=== PATIENT | female | born 1940 | race Caucasian/White ===

== ENCOUNTER 2016-09-27 14:51 | Emergency (ER) | payer MEDICARE, OTHER ==
[2016-09-27] MEDS ORDERED: Aspirin Low Dose CHEW TAB* 81 MG PO ONE (15:46)
[2016-09-27 16:24] LABS: Hematocrit 37 % (35-47); Hemoglobin 11.3 g/dl (12.0-16.0); Mean Corpuscular HGB Conc 31 g/dl (31-36); Mean Corpuscular Hemoglobin 25 pg (27-31); Mean Corpuscular Volume 80 fL (80-97); Mean Platelet Volume 10 um3 (7.4-10.4); Red Blood Count 4.59 10^6/ul (4.0-5.4); Red Cell Distribution Width 16 % (10.5-15); White Blood Count 12.5 10^3/ul (3.5-10.8)
[2016-09-27 16:33] LABS: Troponin I 0.01 ng/mL (<0.04)
[2016-09-27 16:38] LABS: BUN/Creatinine Ratio 23.8 (8-20); Calcium 9.6 mg/dL (8.6-10.3); EGFR African American 68.4 (>60); EGFR Non-African American 53.1 (>60); Globulin 3.2 g/dL (2-4); Potassium 4.8 mmol/L (3.5-5.0); Total Bilirubin 0.5 mg/dL (0.2-1.0); Total Protein 7.2 g/dL (6.4-8.9)
[2016-09-27 17:33] VITALS: BP 183/69
--- NOTE | 2016-09-27 21:32 | ED ---
Toni Archer Aidan, scribed for Robert Wiseman MD on 09/27/16 at 1711 . Complex/Multi-Sys Presentation - HPI Summary HPI Summary: 75 y/o female presents to the ED via recommendation from her PCP for an acute reading of high potassium. While in the ED, her potassium level was normal. There are no other complaints. - History Of Current Complaint Chief Complaint: EDGeneral Time Seen by Provider: 09/27/16 17:06 Hx Obtained From: Patient Onset/Duration: Sudden Onset, Lasting Minutes, Resolved Timing: Intermittent, Lasting:, Minutes Severity Currently: None Severity Initially: Moderate Location: Negative Aggravating Factor(s): unknown Alleviating Factor(s): unknown Associated Signs And Symptoms: Positive: Other - some swelling in the feet - Allergies/Home Medications Allergies/Adverse Reactions: Allergies Allergy/AdvReac Type Severity Reaction Status Date / Time No Known Allergies Allergy Verified 10/26/15 13:51 PMH/Surg Hx/FS Hx/Imm Hx Endocrine/Hematology History: Reports: Hx Diabetes Cardiovascular History: Reports: Hx Hypertension Denies: Hx Pacemaker/ICD History: Denies: Hx Renal Disease Sensory History: Reports: Hx Glaucoma Denies: Hx Hearing Aid Opthamlomology History: Reports: Hx Glaucoma Psychiatric History: Denies: Hx Panic Disorder - Surgical History Surgery Procedure, Year, and Place: bilat breasts removed d/t infections. APPENDECTOMY-TUBAL LIGATION Infectious Disease History: Denies: Traveled Outside the [place] in Last 30 Days - Family History Known Family History: Positive: Hypertension - Social History Occupation: Retired Lives: Alone Alcohol Use: None Hx Substance Use: No Substance Use Type: Reports: None Hx Tobacco Use: No Smoking Status (MU): Never Smoked Tobacco Review of Systems Constitutional: Negative Eyes: Negative ENT: Negative Cardiovascular: Negative Respiratory: Negative Gastrointestinal: Negative Genitourinary: Negative Positive: Edema - in feet bilaterally. Negative: Arthralgia, Myalgia, Decreased ROM Skin: Negative Neurological: Negative Psychological: Normal All Other Systems Reviewed And Are Negative: Yes Physical Exam Triage Information Reviewed: Yes Vital Signs On Initial Exam: Initial Vitals Temp Pulse Resp BP Pulse Ox 98.2 F 78 18 190/80 95 09/27/16 14:53 09/27/16 14:53 09/27/16 14:53 09/27/16 14:53 09/27/16 14:53 Vital Signs Reviewed: Yes Appearance: Positive: Well-Appearing, No Pain Distress Skin: Positive: Warm, Skin Color Reflects Adequate Perfusion, Dry Head/Face: Positive: Normal Head/Face Inspection Eyes: Positive: Normal ENT: Positive: Normal ENT inspection Neck: Positive: Supple, Nontender Respiratory/Lung Sounds: Positive: Clear to Auscultation, Breath Sounds Present Cardiovascular: Positive: RRR Abdomen Description: Positive: Nontender, Soft Bowel Sounds: Positive: Present Musculoskeletal: Positive: Normal Neurological: Positive: Normal Psychiatric: Positive: Affect/Mood Appropriate Diagnostics - Vital Signs Vital Signs Temp Pulse Resp BP Pulse Ox 09/27/16 16:06 97.0 F 69 16 149/90 96 09/27/16 14:53 98.2 F 78 18 190/80 95 - Laboratory Lab Results: Lab Results 09/27/16 09/27/16 09/27/16 Range/Units 16:07 16:07 16:07 WBC 12.5 H (3.5-10.8) 10^3/ul RBC 4.59 (4.0-5.4) 10^6/ul Hgb 11.3 L (12.0-16.0) g/dl Hct 37 (35-47) % MCV 80 (80-97) fL MCH 25 L (27-31) pg MCHC 31 (31-36) g/dl RDW 16 H (10.5-15) % Plt Count 255 (150-450) 10^3/ul MPV 10 (7.4-10.4) um3 Neut % (Auto) 54.5 (38-83) % Lymph % (Auto) 29.9 (25-47) % Mccreary % (Auto) 7.4 (1-9) % Eos % (Auto) 6.7 H (0-6) % Baso % (Auto) 1.5 (0-2) % Absolute Neuts (auto) 6.8 (1.5-7.7) 10^3/ul Absolute Lymphs (auto) 3.7 (1.0-4.8) 10^3/ul Absolute Monos (auto) 0.9 H (0-0.8) 10^3/ul Absolute Eos (auto) 0.8 H (0-0.6) 10^3/ul Absolute Basos (auto) 0.2 (0-0.2) 10^3/ul Absolute Nucleated RBC 0.01 10^3/ul Nucleated RBC % 0.1 Sodium 135 (133-145) mmol/L Potassium 4.8 (3.5-5.0) mmol/L Chloride 101 (101-111) mmol/L Carbon Dioxide 29 (22-32) mmol/L Anion Gap 5 (2-11) mmol/L BUN 24 (6-24) mg/dL Creatinine 1.01 H (0.51-0.95) mg/dL Est GFR ( Amer) 68.4 (>60) Est GFR (Non-Af Amer) 53.1 (>60) BUN/Creatinine Ratio 23.8 H (8-20) Glucose 218 H (70-100) mg/dL Lactic Acid 1.2 (0.5-2.0) mmol/L Calcium 9.6 (8.6-10.3) mg/dL Total Bilirubin 0.50 (0.2-1.0) mg/dL AST 11 L (13-39) U/L ALT 11 (7-52) U/L Alkaline Phosphatase 54 (34-104) U/L Troponin I 0.01 (<0.04) ng/mL Total Protein 7.2 (6.4-8.9) g/dL Albumin 4.0 (3.2-5.2) g/dL Globulin 3.2 (2-4) g/dL Albumin/Globulin Ratio 1.3 (1-3) Result Diagrams: 09/27/16 16:07 09/27/16 16:07 Lab Statement: Any lab studies that have been ordered have been reviewed, and results considered in the medical decision making process. Complex Multi-Symp Course/Dx Course Of Treatment: Dr. Greenwood recorded high potassium and recommended that the patient be seen in the ED. While in the ED, her potassium was normal. - Diagnoses Provider Diagnoses: H/O hyperkalemia Discharge - Discharge Plan Condition: Stable Disposition: HOME Discharge Disposition Comment: Please follow up with Dr. Greenwood within 2 days, Referrals: Vishal Greenwood MD [Primary Care Provider] - The documentation as recorded by the Toni moura Aidan accurately reflects the service I personally performed and the decisions made by , Robert Wiseman MD.
== END 2016-09-27 17:30 | disposition home or self-care (01) ==
LOC: ED 14:51
DX: E87.5 Hyperkalemia (principal); R60.0 Localized edema
CPT/HCPCS: 36415; 80053; 83605; 84484; 85025; 99282

== ENCOUNTER 2016-10-14 10:03 | Inpatient (IN) | payer MEDICARE, OTHER ==
[2016-10-14] MEDS ORDERED: metroNIDAZOLE IV 500 MG/100ML* 500 MG/100 ML BAG IVPB ONE (10:57)
[2016-10-14] MEDS ORDERED: Vancomycin(*) 1,000 MG in NS 0.9% 250 ML* 250 ML IVPB ONE (10:57)
[2016-10-14] MEDS ORDERED: Cefepime(*) 2 GM in NS 0.9% 50 ML* 50 ML IVPB ONE (10:59)
--- NOTE | 2016-10-14 11:29 | RAD ---
INDICATION: Left foot pain, gangrene. TECHNIQUE: 3 views of the left foot were obtained. FINDINGS: There is soft tissue swelling present around the great toe. The bones are normal alignment. No fracture is seen. No erosive changes or periosteal reaction is seen. IMPRESSION: SOFT TISSUE SWELLING, NO RADIOGRAPHIC EVIDENCE FOR OSTEOMYELITIS. CONSIDER MR IMAGING WITHOUT CONTRAST IF THERE IS A HIGH CLINICAL INDEX OF SUSPICION FOR OSTEOMYELITIS.
[2016-10-14] MEDS: NS 0.9% 1000 ML* 3,000 ML IV ONE ×3 (11:30→13:58)
[2016-10-14 11:47] LABS: Hematocrit 34 % (35-47); Hemoglobin 10.9 g/dl (12.0-16.0); Mean Corpuscular HGB Conc 32 g/dl (31-36); Mean Corpuscular Hemoglobin 25 pg (27-31); Mean Corpuscular Volume 79 fL (80-97); Mean Platelet Volume 9 um3 (7.4-10.4); Red Blood Count 4.36 10^6/ul (4.0-5.4); Red Cell Distribution Width 16 % (10.5-15); White Blood Count 16.1 10^3/ul (3.5-10.8)
[2016-10-14 12:49] LABS: Albumin 3.7 g/dL (3.2-5.2); BUN/Creatinine Ratio 16.1 (8-20); C Reactive Protein 89.81 mg/L (< 5.00); Calcium 9.3 mg/dL (8.6-10.3); EGFR African American 81.2 (>60); EGFR Non-African American 63.1 (>60); Globulin 3.3 g/dL (2-4); Potassium 4.4 mmol/L (3.5-5.0); Total Bilirubin 0.5 mg/dL (0.2-1.0)
[2016-10-14 12:51] LABS: Troponin I 0.01 ng/mL (<0.04)
[2016-10-14] MEDS ORDERED: Acetaminophen TAB* 325 MG PO PRN (13:30)
[2016-10-14] MEDS ORDERED: Morphine INJ* 2 MG/ML 1 ML SYRINGE IV PRN (13:30)
[2016-10-14] MEDS ORDERED: Morphine INJ* 2 MG/ML 1 ML SYRINGE IV ONE (13:33)
[2016-10-14] MEDS ORDERED: Dextrose 50% Syringe 50 ML* 25 GM/50 ML SYRINGE IV PUSH PRN (13:45)
[2016-10-14] MEDS ORDERED: metroNIDAZOLE IV 500 MG/100ML* 500 MG/100 ML BAG IVPB SCH (14:00)
[2016-10-14] MEDS ORDERED: Vancomycin(*) 1,000 MG in NS 0.9% 250 ML* 250 ML IVPB SCH ×4 (14:00)
[2016-10-14 14:44] LABS: Erythrocyte Sed Rate 43 mm/Hr (0-40)
[2016-10-14] MEDS: Enoxaparin(*) 40 MG/0.4 ML SYR SUBCUT SCH (15:02)
[2016-10-14] MEDS ORDERED: Vancomycin per Pharmacy* NOTE FOLLOW UP PRN (15:02)
[2016-10-14] MEDS: Gabapentin CAP(*) 100 MG PO SCH ×2 (15:03→22:11)
[2016-10-14] MEDS ORDERED: Gadoteridol* (CONTRAST) 279.3 MG/ML 10 ML IV ONE (16:09)
[2016-10-14] MEDS ORDERED: Morphine INJ* 4 MG/ML 1 ML SYRINGE IV PRN (17:13)
[2016-10-14] MEDS: oxyCODONE/Acetamin 5/325 MG* TAB PO PRN (17:31)
[2016-10-14] MEDS: Insulin LISPRO* 1 UNITS UNIT SUBCUT SCH (18:06)
--- NOTE | 2016-10-14 18:27 | ED ---
Adeel Archer Benjamin, scribed for Joshua Funez MD on 10/14/16 at 1107 . Lower Extremity - HPI Summary HPI Summary: 75yo female c/o numbness, and pain in her left foot for 3 weeks. Pt also reports aggravating pain when bearing weight and swelling in left foot and toes. Pt is type 2 diabetic. Former smoker. No Fever or chills. - History of Current Complaint Chief Complaint: EDExtremityLower Stated Complaint: LT FOOT SWELLING Time Seen by Provider: 10/14/16 10:20 Hx Obtained From: Patient, Family/Toolmaker - sister Onset/Duration: Still Present - 3 weeks Severity Initially: Moderate Severity Currently: Moderate Pain Intensity: 9 Pain Scale Used: 0-10 Numeric Timing: Constant Location: Is Discrete @ - left foot and toes Associated Signs And Symptoms: Positive: Negative Aggravating Factor(s): Weight Bearing Alleviating Factor(s): Elevation - Allergies/Home Medications Allergies/Adverse Reactions: Allergies Allergy/AdvReac Type Severity Reaction Status Date / Time No Known Allergies Allergy Verified 10/26/15 13:51 PMH/Surg Hx/FS Hx/Imm Hx Endocrine/Hematology History: Reports: Hx Diabetes Cardiovascular History: Reports: Hx Hypertension Denies: Hx Pacemaker/ICD History: Denies: Hx Renal Disease Sensory History: Reports: Hx Glaucoma Denies: Hx Hearing Aid Opthamlomology History: Reports: Hx Glaucoma Psychiatric History: Denies: Hx Panic Disorder - Surgical History Surgery Procedure, Year, and Place: bilat breasts removed d/t infections. APPENDECTOMY-TUBAL LIGATION Infectious Disease History: No Infectious Disease History: Denies: Traveled Outside the [place] in Last 30 Days - Family History Known Family History: Positive: None, Hypertension - Social History Occupation: Retired Lives: With Family Alcohol Use: None Hx Substance Use: No Substance Use Type: Reports: None Hx Tobacco Use: No Smoking Status (MU): Former Smoker Review of Systems Constitutional: Negative Eyes: Negative ENT: Negative Cardiovascular: Negative Respiratory: Negative Gastrointestinal: Negative Genitourinary: Negative Positive: Myalgia - left foot , Edema - left foot Positive: Other - ulcerative wounds on left foot Neurological: Negative Psychological: Normal All Other Systems Reviewed And Are Negative: Yes Physical Exam - Summary Physical Exam Summary: The patient is well-nourished in no acute distress and in no acute pain. The skin is warm and dry and skin color reflects adequate perfusion. Black ulcers on left big toe, the heel, and the base of 5th left toe. Discoloration in toes. Foul smelling wound in toes btw 4-5th toe. Redness up to the ankle. HEENT: The head is normocephalic and atraumatic. The pupils are equal and reactive. The conjunctivae are clear and without drainage. Nares are patent and without drainage. Mouth reveals dry mucous membranes and the throat is without erythema and exudate. The external ears are intact. The ear canals are patent and without drainage. The tympanic membranes are intact. Neck is supple with full range of motion and non-tender. There are no carotid bruits. There is no neck vein distension. Respiratory: Chest is non-tender. Lungs are clear to auscultation and breath sounds are symmetrical and equal. Cardiovascular: Hear is regular rate and rhythm. There is no murmur or rub auscultated. There is no peripheral edema and pulses are symmetrical and equal. Abdomen: The abdomen is soft and non-tender. There are normal bowel sounds heard in all four quadrants and there is no organomegaly palpated. Musculoskeletal: There is no back pain noted. Extremities are non-tender with full range of motion. There is good capillary refill. Pulses in knees and feet. Neurological: Patient is alert and oriented to person, place and time. The patient has symmetrical motor strength in all four extremities. Cranial nerves are grossly intact. Deep tendon reflexes are symmetrical and equal in all four extremities. Psychiatric: The patient has an appropriate affect and does not exhibit any anxiety or depression. Triage Information Reviewed: Yes Vital Signs On Initial Exam: Initial Vitals Temp Pulse Resp BP Pulse Ox 97.2 F 75 20 136/112 95 10/14/16 10:05 10/14/16 10:05 10/14/16 10:05 10/14/16 10:05 10/14/16 10:05 Vital Signs Reviewed: Yes Diagnostics - Vital Signs Vital Signs Temp Pulse Resp BP Pulse Ox 10/14/16 10:08 97.6 F 74 20 136/112 97 10/14/16 10:05 97.2 F 75 20 136/112 95 - Laboratory Lab Results: Lab Results 10/14/16 10/14/16 10/14/16 Range/Units 11:30 11:30 11:30 WBC 16.1 H (3.5-10.8) 10^3/ul RBC 4.36 (4.0-5.4) 10^6/ul Hgb 10.9 L (12.0-16.0) g/dl Hct 34 L (35-47) % MCV 79 L (80-97) fL MCH 25 L (27-31) pg MCHC 32 (31-36) g/dl RDW 16 H (10.5-15) % Plt Count 296 (150-450) 10^3/ul MPV 9 (7.4-10.4) um3 Neut % (Auto) 75.2 (38-83) % Lymph % (Auto) 16.7 L (25-47) % Taliaferro % (Auto) 5.7 (1-9) % Eos % (Auto) 1.4 (0-6) % Baso % (Auto) 1.0 (0-2) % Absolute Neuts (auto) 12.1 H (1.5-7.7) 10^3/ul Absolute Lymphs (auto) 2.7 (1.0-4.8) 10^3/ul Absolute Monos (auto) 0.9 H (0-0.8) 10^3/ul Absolute Eos (auto) 0.2 (0-0.6) 10^3/ul Absolute Basos (auto) 0.2 (0-0.2) 10^3/ul Absolute Nucleated RBC 0 10^3/ul Nucleated RBC % 0 ESR 43 H (0-40) mm/Hr INR (Anticoag Therapy) 0.98 (0.89-1.11) APTT 28.9 (26.0-36.3) seconds Sodium 134 (133-145) mmol/L Potassium 4.4 (3.5-5.0) mmol/L Chloride 101 (101-111) mmol/L Carbon Dioxide 24 (22-32) mmol/L Anion Gap 9 (2-11) mmol/L BUN 14 (6-24) mg/dL Creatinine 0.87 (0.51-0.95) mg/dL Est GFR ( Amer) 81.2 (>60) Est GFR (Non-Af Amer) 63.1 (>60) BUN/Creatinine Ratio 16.1 (8-20) Glucose 207 H (70-100) mg/dL Lactic Acid (0.5-2.0) mmol/L Calcium 9.3 (8.6-10.3) mg/dL Total Bilirubin 0.50 (0.2-1.0) mg/dL AST 10 L (13-39) U/L ALT 7 (7-52) U/L Alkaline Phosphatase 53 (34-104) U/L Troponin I 0.01 (<0.04) ng/mL C-Reactive Protein 89.81 H (< 5.00) mg/L Total Protein 7.0 (6.4-8.9) g/dL Albumin 3.7 (3.2-5.2) g/dL Globulin 3.3 (2-4) g/dL Albumin/Globulin Ratio 1.1 (1-3) 05/15/17 Range/Units 11:30 WBC (3.5-10.8) 10^3/ul RBC (4.0-5.4) 10^6/ul Hgb (12.0-16.0) g/dl Hct (35-47) % MCV (80-97) fL MCH (27-31) pg MCHC (31-36) g/dl RDW (10.5-15) % Plt Count (150-450) 10^3/ul MPV (7.4-10.4) um3 Neut % (Auto) (38-83) % Lymph % (Auto) (25-47) % Taliaferro % (Auto) (1-9) % Eos % (Auto) (0-6) % Baso % (Auto) (0-2) % Absolute Neuts (auto) (1.5-7.7) 10^3/ul Absolute Lymphs (auto) (1.0-4.8) 10^3/ul Absolute Monos (auto) (0-0.8) 10^3/ul Absolute Eos (auto) (0-0.6) 10^3/ul Absolute Basos (auto) (0-0.2) 10^3/ul Absolute Nucleated RBC 10^3/ul Nucleated RBC % ESR (0-40) mm/Hr INR (Anticoag Therapy) (0.89-1.11) APTT (26.0-36.3) seconds Sodium (133-145) mmol/L Potassium (3.5-5.0) mmol/L Chloride (101-111) mmol/L Carbon Dioxide (22-32) mmol/L Anion Gap (2-11) mmol/L BUN (6-24) mg/dL Creatinine (0.51-0.95) mg/dL Est GFR ( Amer) (>60) Est GFR (Non-Af Amer) (>60) BUN/Creatinine Ratio (8-20) Glucose (70-100) mg/dL Lactic Acid 1.2 (0.5-2.0) mmol/L Calcium (8.6-10.3) mg/dL Total Bilirubin (0.2-1.0) mg/dL AST (13-39) U/L ALT (7-52) U/L Alkaline Phosphatase (34-104) U/L Troponin I (<0.04) ng/mL C-Reactive Protein (< 5.00) mg/L Total Protein (6.4-8.9) g/dL Albumin (3.2-5.2) g/dL Globulin (2-4) g/dL Albumin/Globulin Ratio (1-3) Result Diagrams: 10/14/16 11:30 10/14/16 11:30 Lab Statement: Any lab studies that have been ordered have been reviewed, and results considered in the medical decision making process. - Radiology foot XR Xray Interpretation: No Acute Changes - IMPRESSION: SOFT TISSUE SWELLING, NO RADIOGRAPHIC EVIDENCE FOR OSTEOMYELITIS. CONSIDER MR IMAGING WITHOUT CONTRAST IF THERE IS A HIGH CLINICAL INDEX OF SUSPICION FOR OSTEOMYELITIS. Radiology Interpretation Completed By: Radiologist Lower Extremity Course/Dx - Diagnoses Differential Diagnosis/HQI/PQRI: Positive: Cellulitis, Infection, Osteomyelitis , Other - gangrene left foot Provider Diagnoses: Infection of left foot, Cellulitis of leg, left - Physician Notifications Discussed Care of Patient With: Dr. Samuels (hospitalist) @2611. - Critical Care Time Critical Care Time: 30-74 min - 30 minutes Discharge - Discharge Plan Condition: Stable Disposition: ADMITTED TO [facility] documentation as recorded by the Adeel moura Benjamin accurately reflects the service I personally performed and the decisions made by , Joshua Funez MD.
--- NOTE | 2016-10-14 18:31 | HP ---
ADMISSION HISTORY AND PHYSICAL: DATE OF ADMISSION: 10/14/16 PRIMARY CARE PROVIDER: Dr. Greenwood. ADMITTING PROVIDER: MACY Lange SUPERVISING PHYSICIAN: Dr. Aniket Cramer * (DICTATED BY MACY LANGE) CHIEF COMPLAINT: Left foot pain. HISTORY OF PRESENT ILLNESS: This is a 75-year-old female with poorly controlled gmc-huuxtxg-ctauocedq diabetes, who presented to the emergency department with complaints of left foot pain. She states that she had sores that developed on her foot starting about 2 weeks ago, the first of which was a crack in her left heel and then she developed sores at the base of her fifth toe as well as the midportion of her first toe. She states that the pain became progressively worse and she noted associated swelling. She states that she was seen by both her primary care provider and scada technician with these complaints, and no intervention was recommended per patient report. She states that she has been afebrile. She denies any chills or night sweats or undue fatigue. She denies any recent illness, specifically denies chest pain, shortness of breath, abdominal pain, nausea and vomiting. She states her glucose control has been fairly poor recently. She believes her last hemoglobin A1c was in the mid 9 range. Her fasting blood glucose tends to average in the mid 200s, and she was recently ordered to start Lantus by her primary care provider, but has not been able to start using it yet as she is still waiting for the pen needles to be ready for her at the pharmacy. The patient denies any prior severe infections in the recent past or any prior sores on her feet that have been problematic. PAST MEDICAL HISTORY: 1. Bsx-xgvuhdk-tfltdsbnl diabetes - poor control. 2. Depression. 3. Peripheral neuropathy. 4. Question mild COPD. PAST SURGICAL HISTORY: 1. 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 2. Appendectomy. 3. Tubal ligation. HOME MEDICATIONS: 1. Aspirin 81 mg daily. 2. Carbamazepine 100 mg p.o. twice daily. 3. Vitamin D3 2000 units p.o. daily. 4. Vitamin B12 1000 mcg p.o. daily. 5. Gabapentin 200 mg p.o. t.i.d. 6. Cozaar 50 mg p.o. daily. 7. Mobic 15 mg p.o. daily. 8. Mariposa-3 fatty acids 1000 mg p.o. daily. 9. Onglyza 5 mg p.o. daily. 10. Wellbutrin sustained release 150 mg p.o. twice daily. 11. Glipizide 10 mg p.o. daily. 12. Metformin 1000 mg p.o. twice daily. 13. Percocet 5/325 one tablet p.o. q.4 hours as needed for pain. SOCIAL HISTORY: The patient lives at home with her sister. She has a 60-pack- year smoking history and denies any regular alcohol consumption. REVIEW OF SYSTEMS: As listed above in HPI. All other systems have been reviewed and otherwise negative. PHYSICAL EXAMINATION GENERAL: This is a well-appearing elderly female accompanied by her sister, in no acute distress, but she does seem slightly uncomfortable with the focus of her pain being her left foot. VITAL SIGNS: Temperature 97.6 degrees Fahrenheit, pulse 74 beats per minute, respirator rate 20 per minute, oxygen saturation 97% on room air, and blood pressure 136/112 mmHg. HEENT: Head is normocephalic, atraumatic. Mucous membranes are pink and moist. RESPIRATORY: Lungs are clear to auscultation without wheezes, crackles, or rhonchi. CARDIOVASCULAR: Heart has a regular rate and rhythm without murmurs, rubs, or gallops. ABDOMEN: Abdomen is soft and nontender to palpation. EXTREMITIES: The patient has some edema in her left foot, which is not present in her right foot. This appears to be rather diffuse. SKIN EXAM: The patient has 4 discrete open areas on her left foot, one being the medial calcaneus that is linear and approximately 1.5 cm in length. No significant depth and some minimal surrounding erythema and edema. The other is the medial aspect of the first digit, maybe 5 to 7 mm in diameter, and again no significant depth with minimal surrounding erythema. The next being distal aspect along the medial nail line of her second toe that is not quite open yet, but looks like in the residual phase of a blister and the next is at the base of her fifth toe and appears that she has crack to the skin on the plantar aspect of her toe around the entire base with some significant discomfort, focal edema, and mild erythema. There is no drainage from any of these sites. LABORATORY EVALUATION: CBC shows a white blood cell count of 16,100, hemoglobin of 10.9 g/dL with a low MCV at 79. INR normal at 0.98. Comprehensive metabolic panel largely unremarkable with a sodium of 134 mmol/L, potassium 4.4 mmol/L, BUN of 14, creatinine 0.87, random glucose of 207 mg/dL. Transaminases and total bilirubin within normal limits. Troponin negative at 0.01. CRP elevated at 89. IMAGING: X-ray of the foot shows soft tissue swelling. No osteomyelitis changes that are obvious. ASSESSMENT AND PLAN: This is a 75-year-old female with poorly controlled diabetes, depression, peripheral neuropathy, who presents with left foot pain and associated sores. She has evidence of associated infection. No obvious destructive changes appreciated on plain x-ray. 1. Suspected osteomyelitis - the patient's presentation is suspicious for an osteomyelitis. No destructive changes appreciated on initial x-ray, but a contrasted MRI study is certainly indicated. The patient has no contraindications to MRI. We will empirically treat for an osteomyelitis and since diabetic infection is generally polymicrobial, we will cover with cefepime , vancomycin, and Flagyl. Depending on the results of MRI, we will involve Orthopedics and/or Infectious Disease. 2. Poorly controlled diabetes - we will plan to check hemoglobin A1c, hold oral hypoglycemic agents at this time, cover with sliding scale insulin at mealtime, and the patient will likely require some dose of Lantus to help with her glucose control as well. 3. Depression - the patient states that the carbamazepine that she is prescribed is not for a seizure diagnosis, but rather for mood. This otherwise appears to be stable and not a significant contributing factor. 4. Diabetic neuropathy - this is fairly mild. The patient has intact sensation in her lower extremity. We will plan to continue gabapentin at this time. 5. Code status - the patient is full code. 6. DVT prophylaxis - We will initiate Lovenox 40 mg subcu daily as the patient is at [id number] risk for a DVT. 7. Healthcare proxy is the patient's sister, Mariaelena, with whom she lives. DISPOSITION: The patient is being admitted to inpatient status with anticipated length of stay to be greater than 2 midnights. MACY LANGE CC: Dr. Greenwood* [id number]/[facility] #: [id number] MARCIA
[2016-10-14] MEDS ORDERED: HYDROmorphone* 1 MG/ML 1 ML SYR IV SLOW PU ONE (19:45)
--- NOTE | 2016-10-14 22:03 | RAD ---
Indication: Left foot pain, osteomyelitis. Image sequences: Coronal T1, STIR, axial T1, STIR, sagittal T1 and STIR images of the foot were obtained. There is no evidence of abnormal signal within the tibia, talus and calcaneus. The tarsal and metatarsal bones demonstrate no evidence of bone marrow replacement. No drainable fluid collections are identified. Mild diffuse subcutaneous edema is noted. IMPRESSION: No evidence of abnormal bone marrow replacement is noted to suggest osteomyelitis.
[2016-10-14] MEDS: metroNIDAZOLE IV 500 MG/100ML* 500 MG/100 ML BAG IVPB SCH (22:09)
[2016-10-14] MEDS: carBAMazepine ER TAB(*) 100 MG PO SCH (22:11)
[2016-10-14] MEDS: buPROPion SR TAB.SR* 150 MG PO SCH (22:18)
[2016-10-15] MEDS: Cefepime(*) 2 GM in NS 0.9% 50 ML* 50 ML IVPB SCH ×2 (02:00→12:46)
[2016-10-15] MEDS: metroNIDAZOLE IV 500 MG/100ML* 500 MG/100 ML BAG IVPB SCH ×5 (02:10→22:39)
[2016-10-15 05:51] LABS: Hematocrit 31 % (35-47); Hemoglobin 9.7 g/dl (12.0-16.0); Mean Corpuscular HGB Conc 31 g/dl (31-36); Mean Corpuscular Hemoglobin 25 pg (27-31); Mean Corpuscular Volume 80 fL (80-97); Mean Platelet Volume 9 um3 (7.4-10.4); Red Blood Count 3.85 10^6/ul (4.0-5.4); Red Cell Distribution Width 16 % (10.5-15); White Blood Count 12.3 10^3/ul (3.5-10.8)
[2016-10-15] MEDS: oxyCODONE/Acetamin 5/325 MG* TAB PO PRN ×2 (05:53→14:43)
[2016-10-15 06:06] LABS: BUN/Creatinine Ratio 11.9 (8-20); Calcium 8.3 mg/dL (8.6-10.3); EGFR African American 84.6 (>60); EGFR Non-African American 65.7 (>60); Potassium 4.2 mmol/L (3.5-5.0)
[2016-10-15] MEDS: Insulin LISPRO* 1 UNITS UNIT SUBCUT SCH ×3 (09:03→17:35)
[2016-10-15] MEDS: buPROPion SR TAB.SR* 150 MG PO SCH ×2 (10:51→21:28)
[2016-10-15] MEDS: Cyanocobalamin TAB* 500 MCG PO SCH (10:52)
[2016-10-15] MEDS: Gabapentin CAP(*) 100 MG PO SCH ×3 (10:52→21:28)
[2016-10-15] MEDS: Losartan TAB* 25 MG PO SCH (10:52)
[2016-10-15] MEDS: Aspirin EC Low Dose* 81 MG TAB.EC PO SCH (10:52)
[2016-10-15] MEDS: carBAMazepine ER TAB(*) 100 MG PO SCH ×2 (10:52→21:28)
--- NOTE | 2016-10-15 11:38 | PN ---
Subjective Date of Service: 10/15/16 Interval History: This is a 75 yo female with poorly controlled DM who presented with L foot pain and erythema with a few open areas. She was admitted for a presumed osteo but MRI does not show bony involvement. Patient is still having a significant amount of pain and can not bear weight. Objective Active Medications: Acetaminophen (Tylenol Tab*) 650 mg PO Q4H PRN PRN Reason: FEVER/PAIN Aspirin (Aspirin Ec Low Dose*) 81 mg PO DAILY [facility] Last Admin: 10/15/16 10:52 Dose: 81 mg Bupropion HCl (Wellbutrin Sr Tab*) 150 mg PO BID [facility] Last Admin: 10/15/16 10:51 Dose: 150 mg Carbamazepine (Tegretol Xr Tab(*)) 100 mg PO BID [facility] Last Admin: 10/15/16 10:52 Dose: 100 mg Cyanocobalamin (Vitamin B12 Tab*) 1,000 mcg PO DAILY [facility] Last Admin: 10/15/16 10:52 Dose: 1,000 mcg Dextrose (D50w Syringe 50 Ml*) 12.5 gm IV PUSH .FOR FS < 60 - SS PRN PRN Reason: FS < 60 Enoxaparin Sodium (Lovenox(*)) 40 mg SUBCUT Q24H [facility] Last Admin: 10/14/16 15:02 Dose: 40 mg Gabapentin (Neurontin Cap(*)) 200 mg PO TID [facility] Last Admin: 10/15/16 10:52 Dose: 200 mg Cefepime HCl 2 gm/ Sodium (Chloride) 50 mls @ 100 mls/hr IVPB Q12H [facility] Last Admin: 10/15/16 02:00 Dose: 100 mls/hr Vancomycin HCl 1,250 mg/ (Sodium Chloride) 250 mls @ 166.667 mls/hr IVPB 1400 [facility] Metronidazole/Sodium Chloride (Flagyl 500 Mg Ivpb*) 500 mg in 100 mls @ 100 mls /hr IVPB Q8H [facility] Last Admin: 10/15/16 05:43 Dose: 100 mls/hr Insulin Human Lispro (Humalog*) 0 units SUBCUT AC [facility] PRN Reason: Protocol Last Admin: 10/15/16 09:03 Dose: Not Given Losartan Potassium (Cozaar Tab*) 50 mg PO DAILY [facility] Last Admin: 10/15/16 10:52 Dose: 50 mg Morphine Sulfate (Morphine Inj (Syringe)*) 4 mg IV Q4H PRN PRN Reason: PAIN Last Admin: 10/15/16 07:31 Dose: 4 mg Oxycodone/Acetaminophen (Percocet 5/325 Tab*) 1 tab PO Q4H PRN PRN Reason: Pain Last Admin: 10/15/16 05:53 Dose: 1 tab Pharmacy Consult (Vancomycin Per Pharmacy*) 1 note FOLLOW UP . PRN PRN Reason: PER PROTOCOL Pharmacy Profile Note (Vancomycin Trough Check) 1 note FOLLOW UP 1330 ONE Stop: 10/17/16 13:31 Vital Signs: Temp Pulse Resp BP Pulse Ox 98.5 F 82 18 146/47 94 10/15/16 03:32 10/15/16 03:32 10/15/16 10:52 10/15/16 03:32 10/15/16 03:32 Appearance: Well appearing, but guarded when examining her foot. Accompanied by her sister Respiratory: Symmetrical Chest Expansion and Respiratory Effort, Clear to Auscultation Cardiovascular: RRR, - - 3-4 murmur Extremities: No Edema, - - edema and erythema over L foot has improved Neurological: Alert and Oriented x 3 Result Diagrams: 10/15/16 05:27 10/15/16 05:27 Additional Lab and Data: . Assess/Plan/Problems-Billing Assessment: This is a 75 yo female with poorly controlled DM, HTN, peripheral neuropathy, depression and mild COPD who presented with c/o L foot pain, swelling and erythema. She was admitted with concern for possible osteomyelitis - Patient Problems (1) Cellulitis Comment: With diabetic foot wounds Open areas over medial calcaneus, 1st, 2nd and 5th toes MRI neg for bony involvement Culture growing proteus, this was superficial and without any draining material so this is unlikely to be the true pathogen Patient reports that she is still having significant pain and is unable to ambulate because of that Will cont multiorganism coverage with IV abx Request PT consult to evaluate strategies that may help to allow her to navigate with a walker or other assistive device at home Wound care consult pending (2) Hypertension Comment: Patient has been quite hypertensive overnight and this am Unsure if this is all pain mediated Will add amlodipine for now, may be able to just increase losartan at home (3) Diabetes Comment: HgbA1c 9.5% Cont SS Humalog coverage Start low dose Lantus (4) Peripheral neuropathy Comment: Cont gabapentin to help with pain management (5) Mild chronic obstructive pulmonary disease Comment: No acute exacerbation (6) Depression Comment: Cont home meds Stable (7) Full code status (8) DVT prophylaxis Comment: SQ Lovenox Status and Disposition: Inpatient. Anticipate dc tomorrow. Pending PT and wound care consults.
[2016-10-15] MEDS: amLODIPine TAB* 5 MG PO SCH (12:46)
[2016-10-15] MEDS ORDERED: Vancomycin(*) 1,250 MG in NS 0.9% 250 ML* 250 ML IVPB SCH ×2 (14:00→15:30)
[2016-10-15] MEDS: Enoxaparin(*) 40 MG/0.4 ML SYR SUBCUT SCH (14:42)
[2016-10-15] MEDS ORDERED: Vancomycin Trough Check NOTE FOLLOW UP ONE (15:00)
[2016-10-15 15:56] LABS: Vancomycin Trough 4.3 mcg/mL
[2016-10-15] MEDS ORDERED: Insulin GLARGINE(*) 1 UNITS UNIT SUBCUT SCH (21:00)
[2016-10-16] MEDS: Cefepime(*) 2 GM in NS 0.9% 50 ML* 50 ML IVPB SCH ×2 (01:55→16:08)
[2016-10-16] MEDS ORDERED: Vancomycin(*) 1,250 MG in NS 0.9% 250 ML* 250 ML IVPB SCH (04:00)
[2016-10-16] MEDS: metroNIDAZOLE IV 500 MG/100ML* 500 MG/100 ML BAG IVPB SCH (07:21)
[2016-10-16] MEDS: oxyCODONE/Acetamin 5/325 MG* TAB PO PRN ×2 (07:21→14:39)
[2016-10-16] MEDS: Insulin LISPRO* 1 UNITS UNIT SUBCUT SCH ×2 (08:35→12:57)
[2016-10-16] MEDS: buPROPion SR TAB.SR* 150 MG PO SCH (09:53)
[2016-10-16] MEDS: Losartan TAB* 25 MG PO SCH (09:53)
[2016-10-16] MEDS: amLODIPine TAB* 5 MG PO SCH (09:53)
[2016-10-16] MEDS: Aspirin EC Low Dose* 81 MG TAB.EC PO SCH (09:53)
[2016-10-16] MEDS: Gabapentin CAP(*) 100 MG PO SCH ×2 (09:54→14:39)
[2016-10-16] MEDS: Cyanocobalamin TAB* 500 MCG PO SCH (09:54)
[2016-10-16] MEDS: carBAMazepine ER TAB(*) 100 MG PO SCH (09:55)
--- NOTE | 2016-10-16 10:45 | PN ---
Subjective Date of Service: 10/16/16 Interval History: Ms. Hughes states that she continues to have some pain to her left foot but it is better this morning. She denies other complaint including chest pain, SOB, nausea, or abdominal pain. She has had one bowel movement since admission but states that she has not been eating much. Objective Active Medications: Acetaminophen (Tylenol Tab*) 650 mg PO Q4H PRN Amlodipine Besylate (Norvasc Tab*) 5 mg PO DAILY [facility] Aspirin (Aspirin Ec Low Dose*) 81 mg PO DAILY [facility] Bupropion HCl (Wellbutrin Sr Tab*) 150 mg PO BID [facility] Carbamazepine (Tegretol Xr Tab(*)) 100 mg PO BID [facility] Cyanocobalamin (Vitamin B12 Tab*) 1,000 mcg PO DAILY [facility] Dextrose (D50w Syringe 50 Ml*) 12.5 gm IV PUSH .FOR FS < 60 - SS PRN Enoxaparin Sodium (Lovenox(*)) 40 mg SUBCUT Q24H [facility] Gabapentin (Neurontin Cap(*)) 200 mg PO TID [facility] Cefepime HCl 2 gm/ Sodium (Chloride) 50 mls @ 100 mls/hr IVPB Q12H [facility] Metronidazole/Sodium Chloride (Flagyl 500 Mg Ivpb*) 500 mg in 100 mls @ 100 mls /hr IVPB Q8H [facility] Vancomycin HCl 1,250 mg/ (Sodium Chloride) 250 mls @ 166.667 mls/hr IVPB 0400, 1600 O[facility]AS Insulin Glargine (Lantus(*)) 10 units SUBCUT Q24H [facility] Insulin Human Lispro (Humalog*) 0 units SUBCUT AC [facility] Losartan Potassium (Cozaar Tab*) 50 mg PO DAILY [facility] Morphine Sulfate (Morphine Inj (Syringe)*) 4 mg IV Q4H PRN Oxycodone/Acetaminophen (Percocet 5/325 Tab*) 2 tab PO Q4H PRN Pharmacy Consult (Vancomycin Per Pharmacy*) 1 note FOLLOW UP . PRN Pharmacy Profile Note (Vancomycin Trough Check) 1 note FOLLOW UP 0400 ONE Vital Signs 10/15/16 10/15/16 10/15/16 10:52 11:39 12:52 Temperature 98.1 F Pulse Rate 91 Respiratory 18 18 16 Rate Blood Pressure 183/59 (mmHg) O2 Sat by Pulse 93 Oximetry 10/15/16 10/15/16 10/15/16 14:42 14:43 15:20 Temperature 98.2 F Pulse Rate 81 Respiratory 18 18 16 Rate Blood Pressure 175/49 (mmHg) O2 Sat by Pulse 95 Oximetry 10/15/16 10/15/16 10/15/16 16:42 21:28 21:30 Temperature Pulse Rate Respiratory 17 20 20 Rate Blood Pressure (mmHg) O2 Sat by Pulse 86 Oximetry 10/15/16 10/15/16 10/15/16 23:25 23:28 23:32 Temperature 99.0 F Pulse Rate 92 Respiratory 16 18 Rate Blood Pressure 164/42 (mmHg) O2 Sat by Pulse 92 86 Oximetry 10/16/16 10/16/16 10/16/16 07:21 08:00 09:54 Temperature 98.5 F Pulse Rate 88 Respiratory 20 20 18 Rate Blood Pressure 171/47 (mmHg) O2 Sat by Pulse 91 Oximetry Oxygen Devices in Use Now: None Appearance: Female lying in bed in NAD Respiratory: Symmetrical Chest Expansion and Respiratory Effort, Clear to Auscultation Cardiovascular: NL Sounds; No Murmurs; No JVD, No Edema Abdominal: NL Sounds; No Tenderness; No Distention Extremities: No Edema Skin: - Neurological: Alert and Oriented x 3, NL Muscle Strength and Tone Nutrition: Taking PO's Result Diagrams: 10/15/16 05:27 10/15/16 05:27 Additional Lab and Data: . Assess/Plan/Problems-Billing Assessment: This is a 75 yo female with poorly controlled DM, HTN, peripheral neuropathy, depression and mild COPD who presented with c/o L foot pain, swelling and erythema. She was admitted with concern for possible osteomyelitis. - Patient Problems (1) Diabetic foot ulcer Comment: With component of suspected peripheral vascular disease. Open areas over medial calcaneus, 1st, 2nd and 5th toes. MRI neg for bony involvement. Culture growing proteus, this was superficial and without any draining material so this is unlikely to be the true pathogen. Appreciate wound care consult, no need for dressing given that wounds are dry with eschar. Recommend follow up outpatient with [facility] or CT to assess vascular flow. Continue hydrocodone and tramadol prn for pain. (2) Diabetes Comment: HgbA1c 9.5%. Resume saxagliptin, glipizide, and metformin for discharge. Follow up closely with Dr. Greenwood regarding improved BG control. Need for better glucose control reinforced with patient. (3) Hypertension Comment: Patient has been hypertensive while inpatient. Could in part be related to pain but plan to discharge on losartan with newly added amlodipine with recommendation for close follow up with PCP. (4) Mild chronic obstructive pulmonary disease Comment: No acute exacerbation (5) Peripheral neuropathy Comment: Cont gabapentin (6) Depression Comment: Cont home meds. Stable. (7) Constipation Comment: Add senna, colace and miralax prn to avoid constipation while she has decreased mobility and is using narcotics for pain control. (8) DVT prophylaxis Comment: SQ Lovenox (9) Full code status Status and Disposition: Inpatient. Discharge to home.
[2016-10-16 13:28] VITALS: BP 169/89
[2016-10-16 14:39] LABS: Iron < 15 ug/dL (50-212); Total Iron Binding Capacity 372 mcg/dL (250-450); Transferrin 266 mg/dL (203-362)
[2016-10-16 14:44] LABS: Ferritin 22.1 ng/mL (11-307)
[2016-10-16 14:48] LABS: Folate 10.26 ng/mL (>3.99)
[2016-10-16 14:49] LABS: Vitamin B12 > 1450 pg/mL (180-914)
[2016-10-16] MEDS: Enoxaparin(*) 40 MG/0.4 ML SYR SUBCUT SCH (16:08)
--- NOTE | 2016-10-16 23:34 | DS ---
[facility] MEDICINE DISCHARGE SUMMARY: DATE OF ADMISSION: 10/14/16 DATE OF DISCHARGE: 10/16/16 PRIMARY CARE PHYSICIAN: Dr. Greenwood. ATTENDING PHYSICIAN: Dr. Garth Olivares *(dictation provided by Madhavi Kelly NP) PRIMARY DIAGNOSES: 1. Left foot diabetic foot ulcers. 2. Suspected peripheral vascular disease. SECONDARY DIAGNOSES: 1. Uncontrolled type 2 diabetes, recently started on Lantus. 2. Depression. 3. Peripheral neuropathy. 4. Question of mild chronic obstructive pulmonary disease. 5. Hypertension. PAST SURGICAL HISTORY: 1. Bilateral mastectomy reportedly for recurrent infection. 2. Appendectomy. 3. Tubal ligation. MEDICATIONS: As outpatient are: 1. Oxycodone/acetaminophen 5/325 one to two tabs p.o. q.4 hours p.r.n. pain. 2. Augmentin 875 mg p.o. b.i.d. x14 days. 3. Amlodipine 5 mg p.o. daily. 4. Cholecalciferol 2000 units p.o. daily. 5. Meloxicam 15 mg p.o. daily. 6. Mize-3 fatty acid 1000 mg p.o. daily. 7. Saxagliptin 5 mg p.o. daily. 8. Glipizide 10 mg p.o. daily. 9. Metformin 1000 mg p.o. b.i.d. 10. Aspirin 81 mg p.o. daily. 11. Carbamazepine 100 mg p.o. b.i.d. 12. Cyanocobalamin 1000 mcg p.o. daily. 13. Gabapentin 200 mg p.o. t.i.d. 14. Losartan 50 mg p.o. daily. 15. Bupropion SR 150 mg p.o. b.i.d. 16. Lantus as prescribed per Dr. Greenwood. HOSPITAL COURSE: Ms. Hughes is a 75-year-old female with a past medical history of diabetes and peripheral neuropathy and hypertension, who presented on with concern for left foot pain. Please see the dictated H and P from MACY Gaffney, for complete details. In brief, the patient has reported about 2 weeks of pain with cracks to the skin on the left heel and then sores on her first and fifth toes. She has had progressive pain. She denies fever or any other complaint. In the emergency room, she is confirmed to have ulcerations to the left foot concerning for possible diabetic foot wound with possible osteomyelitis and she was admitted to the hospital. Ms. Hughes went on for a lower extremity MRI, which is read as follows: No evidence for abnormal bone marrow replacement is noted to suggest osteomyelitis. She had a wound culture to her foot, which showed proteus; however, this was a superficial culture without any drainage evident, so is likely not reflective of a true pathogen. She was placed on broad-spectrum antibiotics and was treated with cefepime, vancomycin, and metronidazole. She had improvement in her initial leukocytosis with a white blood cell count started at 16.1 now down to 12.3. She had an ESR on arrival which was 43 and a CRP which was 89.81; those were not rechecked. However, she has shown overall improvement in other parameters. She has no fever. Her vital signs are stable. Ms. Hughes has been noted to have uncontrolled blood pressure while inpatient. She was on losartan and we have added amlodipine 5 mg p.o. daily. Her blood pressure remains uncontrolled with it running systolically about 160 and I defer further adjustment of her medications to Dr. Greenwood when she follows up with him on 10/21/16. In addition, the patient has an elevated hemoglobin A1c to 9.5. The patient has recently started on Lantus in addition to her other oral medications, but she had not started that at home as she had not gotten in her needles for the Lantus injector. I defer further management of her blood sugar back to Dr. Greenwood as he has been managing that actively. Ms. Hughes is doing well overall. Plans are for her to be discharged to home on Augmentin. She will have oxycodone for pain with a bowel regimen. She will be also going home as noted newly on amlodipine for her high blood pressure and she will be continuing on Lantus, which is initiated per Dr. Greenwood for high blood sugar. Ms. Hughes has been instructed and reminded of the importance of good blood sugar control for healing of these ulcerations and prevention of future infection, as well as other sequelae of uncontrolled diabetes. She states understanding of such and plans to follow up with Dr. Greenwood as noted. The patient is also instructed to return to the emergency room should she have any drainage or erythema or fever and she and her sister state understanding of such. DISPOSITION: Home. DIET: Consistent carbohydrate, low salt. ACTIVITY: The patient will have limited weight bearing on the left lower extremity secondary to pain and to promote healing. FOLLOWUP: With Dr. Greenwood on 10/21/16. TIME SPENT: Approximately 60 minutes was spent in the discharge of this patient , more than half the time spent with her at the bedside reviewing the events leading up to this hospitalization, performing the physical examination, and reviewing the plan of care. MADHAVI KELLY NP CC: Dr. Greenwood* [id number]/[facility] #: [id number] MARCIA
[2016-10-17] MEDS ORDERED: Vancomycin Trough Check NOTE FOLLOW UP ONE (04:00)
== END 2016-10-16 15:00 | disposition home or self-care (01) | DRG 638 ==
LOC: ED 10:03 → MED 12:20
PROVIDERS: ADMIT Internal Medicine; ATTEND Internal Medicine
DX: E11.621 Type 2 diabetes mellitus with foot ulcer (principal); L03.116 Cellulitis of left lower limb; L97.529 Non-pressure chronic ulcer of other part of left foot with unspecified severity; E11.42 Type 2 diabetes mellitus with diabetic polyneuropathy; E11.51 Type 2 diabetes mellitus with diabetic peripheral angiopathy without gangrene; I10 Essential (primary) hypertension; H40.9 Unspecified glaucoma; E11.65 Type 2 diabetes mellitus with hyperglycemia; F32.9 Major depressive disorder, single episode, unspecified; J44.9 Chronic obstructive pulmonary disease, unspecified; K59.00 Constipation, unspecified; Z87.891 Personal history of nicotine dependence; Z90.13 Acquired absence of bilateral breasts and nipples; Z98.51 Tubal ligation status; Z82.49 Family history of ischemic heart disease and other diseases of the circulatory system; Z79.4 Long term (current) use of insulin; Z79.82 Long term (current) use of aspirin
CPT/HCPCS: 36415; 80048; 80053; 80202; 82607; 82728; 82746; 83036; 83540; 83550; 83605; 84484; 85025; 85610; 85652; 85730; 86140; 87040; 87070; 87077; 87184; 87186; 87205; 87640; 87641; A9270-GY; J0692; J1170; J1650; J2270; J3370

== ENCOUNTER 2016-10-23 12:07 | Observation (INO) | payer MEDICARE, OTHER ==
[2016-10-23] MEDS ORDERED: Clopidogrel TAB* 300 MG ONE (13:20)
[2016-10-23] MEDS ORDERED: fentaNYL* 50 MCG/ML 2 ML VIAL (100 MCG VIAL) ONE ×3 (13:39→15:26)
[2016-10-23] MEDS ORDERED: Midazolam* 1 MG/ML 5 ML VIAL (5 MG) ONE ×2 (13:39→14:42)
[2016-10-23] MEDS ORDERED: Losartan TAB* 25 MG PO ONE (14:00)
[2016-10-23] MEDS ORDERED: Heparin 2 UNITS/ML IVPREMIX* 2,000 ML IV ONE (14:29)
[2016-10-23] MEDS ORDERED: Lidocaine 1% INJ* 10 MG/ML 30 ML SDV ONE (14:29)
[2016-10-23] MEDS ORDERED: Iodixanol* (CONTRAST) 320 MG/ML 100 ML SDV ONE (14:29)
[2016-10-23] MEDS ORDERED: VERAPAMIL 2.5 MG/ML 4 ML VIAL ONE (14:43)
[2016-10-23] MEDS ORDERED: Heparin(*) 1000 UNIT/ML 10 ML VIAL CATH LAB IV ONE (14:43)
[2016-10-23] MEDS ORDERED: nitroGLYCERIN DRIP* 0 ML ONE (14:43)
[2016-10-23] MEDS ORDERED: NS 0.9% 1000 ML* 1,000 ML IV SCH ×2 (16:30→18:45)
[2016-10-23] MEDS ORDERED: Acetaminophen TAB* 325 MG PO PRN (16:36)
[2016-10-23] MEDS ORDERED: Dextrose 50% Syringe 50 ML* 25 GM/50 ML SYRINGE IV PUSH PRN (16:51)
[2016-10-23] MEDS: HYDROmorphone* 1 MG/ML 1 ML SYR IV SLOW PU PRN (17:36)
[2016-10-23] MEDS: Atorvastatin* 80 MG TAB PO SCH ×2 (17:38→17:40)
[2016-10-23] MEDS ORDERED: Bimatoprost 0.01% OPHTH (NF) 2.5 ML BTL BOTH EYES SCH (18:00)
[2016-10-23] MEDS: oxyCODONE/Acetamin 5/325 MG* TAB PO PRN (18:38)
[2016-10-23] MEDS: metroNIDAZOLE TAB* 250 MG PO SCH (19:57)
[2016-10-23] MEDS: buPROPion SR TAB.SR* 150 MG PO SCH (19:57)
[2016-10-23] MEDS: Amoxicillin/Clavulanate TAB* 875 MG PO SCH (19:57)
[2016-10-23] MEDS ORDERED: amLODIPine TAB* 5 MG PO ONE (20:00)
[2016-10-23] MEDS: Insulin LISPRO* 1 UNITS UNIT SUBCUT SCH (20:22)
[2016-10-23] MEDS: Dorzolamide/Timolol OPTH (NF) 10 ML BOT BOTH EYES SCH (20:24)
[2016-10-24] MEDS: HYDROmorphone* 1 MG/ML 1 ML SYR IV SLOW PU PRN (03:15)
[2016-10-24] MEDS: oxyCODONE/Acetamin 5/325 MG* TAB PO PRN ×2 (07:33→15:41)
[2016-10-24] MEDS: metroNIDAZOLE TAB* 250 MG PO SCH (07:36)
[2016-10-24] MEDS: Amoxicillin/Clavulanate TAB* 875 MG PO SCH (07:36)
[2016-10-24] MEDS: buPROPion SR TAB.SR* 150 MG PO SCH (07:41)
[2016-10-24] MEDS: Dorzolamide/Timolol OPTH (NF) 10 ML BOT BOTH EYES SCH (07:51)
[2016-10-24] MEDS: Insulin LISPRO* 1 UNITS UNIT SUBCUT SCH (08:46)
[2016-10-24] MEDS ORDERED: Gabapentin CAP(*) 300 MG PO SCH (09:00)
[2016-10-24] MEDS ORDERED: Aspirin EC Low Dose* 81 MG TAB.EC PO SCH (09:00)
[2016-10-24] MEDS ORDERED: glipiZIDE TAB.XL* 5 MG PO SCH (09:00)
[2016-10-24] MEDS ORDERED: amLODIPine TAB* 5 MG PO SCH (09:00)
[2016-10-24] MEDS ORDERED: SAXAGLIPTIN HCL 2.5 MG PO SCH (09:00)
[2016-10-24] MEDS ORDERED: CMCS: Pantoprazole TAB (NF) 40 MG TAB PO SCH (09:00)
[2016-10-24] MEDS ORDERED: Losartan TAB* 25 MG PO SCH (09:00)
[2016-10-24] MEDS ORDERED: Famotidine IV* 10 MG/ML 2 ML (20 mg) IV ONE (09:08)
[2016-10-24] MEDS ORDERED: Metoclopramide IV* 5 MG/ML 2 ML VIAL IV SLOW PU ONE (09:09)
[2016-10-24] MEDS ORDERED: Insulin LISPRO* 1 UNITS UNIT SUBCUT ONE (09:09)
[2016-10-24] MEDS ORDERED: Lidocaine 2% PF * 5 ML VIAL ONE (09:17)
[2016-10-24] MEDS ORDERED: Metoclopramide IV* 5 MG/ML 2 ML VIAL ONE (09:17)
[2016-10-24] MEDS ORDERED: Propofol* 10 MG/ML 20 ML BTL IV PUSH ONE (09:17)
[2016-10-24] MEDS ORDERED: Iodixanol* (CONTRAST) 320 MG/ML 100 ML SDV ONE (09:38)
[2016-10-24] MEDS ORDERED: Lidocaine 1% INJ* 10 MG/ML 30 ML SDV ONE (09:38)
[2016-10-24] MEDS ORDERED: Heparin 2 UNITS/ML IVPREMIX* 2,000 ML IV ONE (09:38)
[2016-10-24] MEDS ORDERED: VERAPAMIL 2.5 MG/ML 4 ML VIAL ONE (10:08)
[2016-10-24] MEDS ORDERED: nitroGLYCERIN DRIP* 250 ML ONE (10:08)
[2016-10-24] MEDS ORDERED: Heparin(*) 1000 UNIT/ML 10 ML VIAL CATH LAB IV ONE (10:10)
[2016-10-24] MEDS ORDERED: Phenylephrine INJ* 10 MG/ML 1 ML VIAL (10 MG) ONE (10:15)
[2016-10-24] MEDS ORDERED: NS 0.9% 1000 ML* 1,000 ML IV SCH (12:45)
[2016-10-24] MEDS ORDERED: Clopidogrel TAB* 75 MG PO SCH (13:00)
[2016-10-24] MEDS ORDERED: Lactobacillus Acidophilu (GG)* 1 CAP CAP PO SCH (13:00)
[2016-10-24] MEDS ORDERED: oxyCODONE/Acetamin 5/325 MG* TAB ONE (15:41)
[2016-10-24 17:14] VITALS: BP 155/53
--- NOTE | 2016-10-24 22:41 | CATH ---
CC: Dr. Greenwood; Deep King MD PERIPHERAL ANGIOGRAPHY INTERVENTION REPORT: DATE OF PROCEDURE: 10/23/16 PRIMARY CARE PHYSICIAN: Dr. Greenwood. PROCEDURES: Left common femoral artery access with ultrasound assistance. HISTORY: A 75-year-old woman with severe rest pain, Maye 3 critical limb ischemia left foot w ith 70 mm left SFA occlusion on CTA, 2-vessel runoff to the ankle with the peroneal providing the di stal anterior tibial circulation. PROCEDURE ACCESS: Left common femoral artery with ultrasound assistance. A 7F 45 braided sheath wa s introduced, was in the left profunda. The J-wire was left in the profunda, the sheath was then sl owly pulled back with a Wholey wire in the sheath with the intent of wiring the SFA. With IV sedati on, the patient became somewhat disinhibited, was not able to lie still, kept flexing her left leg a nd rolling it, the sheath was therefore inadvertently pulled back too far during movement, she devel oped a [id number] hematoma. I was able to re-advance the sheath with the dilator over the J- wire and the profunda back into the profunda, but again on pulling backwards, she was unable to lie still and it was clear it would be impossible to achieve antegrade access and complete the procedure without general anesthesia. The procedure was terminated, rescheduled for the following morning. MEDICATIONS: 1. Subcu lidocaine. 2. IV Versed. 3. IV fentanyl. HEMODYNAMICS: Initial BP 193/76, final BP 163/83. ANGIOGRAPHY: No imaging was saved aside from the ultrasound image. CONCLUSION: Severe rest pain wi th Gem 3 CLI left foot, unsuccessful procedure due to the patient' s inability to cooperate a nd lie still for successful antegrade access. She will be brought back with assistance from anesthe onel. She will have either IV propofol or general anesthesia. [id number]/[facility] #: [id number]
--- NOTE | 2016-10-25 04:03 | DS ---
CC: Vishal Greenwood MD; Deep King MD DISCHARGE SUMMARY: DATE OF ADMISSION: 10/23/16 DATE OF DISCHARGE: 10/24/16 PRIMARY CARE PHYSICIAN: Vishal Greenwood MD DISCHARGE DIAGNOSES: 1. Critical limb ischemia with minor tissue loss, and rest pain. 2. Diabetes, type 2. 3. Hypertension. 4. Obesity. 5. Iron deficiency anemia. 6. Chronic kidney disease, stage 2. CONDITION ON DISCHARGE: Improved. PROCEDURES: 1. Left common femoral angiogram, 10/23/16, procedure was terminated because of the patient's inability to cooperate because of pain in her foot. 2. Left common femoral artery angiogram and orbital atherectomy, DCB left SFA under general anesthesia. DISCHARGE INSTRUCTIONS: Wound care: Shower only for 3 days, do not lift more than 20 pounds for 3 days. DIET: Diabetic, low fat, low cholesterol. DISCHARGE MEDICATIONS: Unchanged: 1. Norvasc 5 mg daily. 2. Augmentin 875 b.i.d. 3. Aspirin 81 mg daily. 4. Lumigan eye drops. 5. Wellbutrin SR 150 mg b.i.d. 6. Timolol eye drops. 7. Neurontin 300 mg daily. 8. Glucotrol XL 10 mg daily. 9. To start her insulin as prescribed once acquired. 10. Lactobacillus as before. 11. Cozaar 50 mg daily. 12. Metronidazole 500 mg b.i.d. 13. Percocet 325 p.r.n. as previously. 14. Protonix 40 mg daily. New medications: 1. Plavix 75 mg daily. 2. Lipitor 80 mg daily. FOLLOWUP: Follow up with Dr. Greenwood as before, Dr. King, MOB 101, 10/30/16 at 1520 hours for wound check, and referal to wound clinic. LABS: Chemistry panel on 10/23/16: Normal sodium, potassium. BUN 24, creatinine 0.93, GFR 58.5. Random blood sugar was 219. Cholesterol 161, triglycerides 102, LDL 93, HDL 47.2 on no statin. White count 18.2,000, hemoglobin 11.5 with hematocrit 37 up from 9.7 and 31 on the 16th. MCV 79. Corrected retic count 1.7. HOSPITAL COURSE: She presented for outpatient angiography for critical limb ischemia with superficial tissue loss and severe left foot rest pain. CTA had demonstrated SFA occlusion. The prior day She was brought to the interventional suite, a sheath was placed antegrade in the left common femoral artery with ultrasound guidance. Because of her rest pain, she required sedation and analgesics resulting in her having difficulty lying still without moving her leg repeatedly. It was impossible to complete the procedure because of movement of her leg. She was, therefore, admitted overnight for severe pain control, and brought back the following day, had general anesthesia and had again antegrade left common femoral access followed by orbital atherectomy of the left SFA occlusion with a 1.5 mm Solid [place] followed by a DCB 5 x 120 and a more proximal 5 x 40. Angiographic result was excellent with non-flow limiting dissection. She has 1- vessel runoff to the foot from the anterior tibial, which is severely diseased. Postprocedure, she had biphasic dorsalis pedis Doppler signal whereas before the procedure, she had none. She also has a peroneal signal, but no posterior tibial signal. The plan is to enroll her in wound clinic, and follow closely. If she fails to heal, she will then be brought back for [id number] intervention as well. Her left femoral puncture was closed with [employer] director of strategic sourcing. High dose Lipitor was added in part for its pleiotropic benefit, she was started on Plavix and should continue it indefinitely as she has CLI. [id number]/[facility] #: [id number] [facility]
== END 2016-10-24 17:15 | disposition home or self-care (01) ==
LOC: CHICATH 12:07 → SSU 17:11
PROVIDERS: ADMIT Internal Medicine Cardiovascular Disease; ATTEND Internal Medicine Cardiovascular Disease
DX: I99.8 Other disorder of circulatory system (principal); I73.9 Peripheral vascular disease, unspecified; I77.89 Other specified disorders of arteries and arterioles; M79.605 Pain in left leg; E11.42 Type 2 diabetes mellitus with diabetic polyneuropathy; E66.9 Obesity, unspecified; D50.9 Iron deficiency anemia, unspecified; I12.9 Hypertensive chronic kidney disease with stage 1 through stage 4 chronic kidney disease, or unspecified chronic kidney disease; N18.2 Chronic kidney disease, stage 2 (mild); Z79.899 Other long term (current) drug therapy; Z79.82 Long term (current) use of aspirin; Z87.891 Personal history of nicotine dependence
CPT/HCPCS: 76937; 96361; 96374; 96375; A9270-GY; C1724; C1725; C1760; C1769; C1887; C1894; C2623; G0278; G0378; J1170; J1644; J2001; J2250; J2704; J3010

== ENCOUNTER 2016-11-22 14:54 | Inpatient (IN) | payer MEDICARE, OTHER ==
[2016-11-22] MEDS ORDERED: oxyCODONE/Acetamin 5/325 MG* TAB PO PRN (16:06)
[2016-11-22] MEDS ORDERED: Zosyn per Pharmacy* NOTE FOLLOW UP SCH (17:00)
[2016-11-22] MEDS: oxyCODONE/Acetamin 5/325 MG* TAB PO PRN ×2 (17:07→22:57)
[2016-11-22] MEDS: Insulin LISPRO* 1 UNITS UNIT SUBCUT SCH ×3 (17:49→23:01)
[2016-11-22] MEDS ORDERED: Bimatoprost 0.01% OPHTH (NF) 2.5 ML BTL BOTH EYES SCH (18:00)
[2016-11-22] MEDS: Atorvastatin* 80 MG TAB PO SCH (18:06)
[2016-11-22 18:45] LABS: Hematocrit 33 % (35-47); Hemoglobin 10.2 g/dl (12.0-16.0); Mean Corpuscular HGB Conc 31 g/dl (31-36); Mean Corpuscular Hemoglobin 24 pg (27-31); Mean Corpuscular Volume 78 fL (80-97); Mean Platelet Volume 9 um3 (7.4-10.4); Red Blood Count 4.23 10^6/ul (4.0-5.4); Red Cell Distribution Width 16 % (10.5-15); White Blood Count 24.7 10^3/ul (3.5-10.8)
[2016-11-22 18:46] LABS: Add Diff/Slide Review? Slide Review Added; Comments Flag Yes
[2016-11-22 19:15] LABS: Albumin 3.2 g/dL (3.2-5.2); Total Bilirubin 0.3 mg/dL (0.2-1.0)
[2016-11-22 19:16] LABS: C Reactive Protein 168.56 mg/L (< 5.00); Calcium 9.4 mg/dL (8.6-10.3); EGFR African American 53.3 (>60); EGFR Non-African American 41.4 (>60); Globulin 3.7 g/dL (2-4); Potassium 4.6 mmol/L (3.5-5.0); Total Protein 6.9 g/dL (6.4-8.9)
[2016-11-22 19:31] LABS: Erythrocyte Sed Rate 86 mm/Hr (0-40)
[2016-11-22] MEDS ORDERED: Insulin GLARGINE(*) 1 UNITS UNIT SUBCUT SCH (21:00)
[2016-11-22] MEDS: ZOSYN 3.375 GM Q8H per EXTENDED INFUSION IVPB SCH ×2 (22:45)
[2016-11-22] MEDS: PTO:Dorzolamide/Timolol OPTH (NF) 10 ML BOT BOTH EYES SCH (22:49)
[2016-11-22] MEDS: buPROPion SR TAB.SR* 150 MG PO SCH (22:49)
[2016-11-22] MEDS: Heparin VIAL(*) 5000 UNITS/ML VIAL (FIVE THOUSAND) SUBCUT SCH (22:50)
[2016-11-22] MEDS: NS 0.9% 1000 ML* 1,000 ML IV SCH (22:57)
[2016-11-22] MEDS ORDERED: Latanoprost 0.005%* 2.5 ml BTL BOTH EYES SCH (23:00)
--- NOTE | 2016-11-23 01:07 | HP ---
CC: Dr. Greenwood; Dr. King HISTORY AND PHYSICAL: DATE OF ADMISSION: 11/22/16 TIME OF EVALUATION: 2:45 p.m. PRIMARY CARE PROVIDER: Dr. Greenwood. SHUTDOWN PLANNER: Dr. King. CHIEF COMPLAINT: "My left foot looks bad." HISTORY OF PRESENT ILLNESS: Ms. Hughes is a 76-year-old lady with past medical history of type 2 diabetes, hypertension, CKD, depression, diabetic neuropathy, hypertension, peripheral vascular disease who presented to the wound clinic for a routine appointment, but was referred for direct admission due to worsening cellulitis. The patient was admitted to [facility] on October 14 with left foot diabetic ulcers and at that time, she was treated with antibiotics. She returned on October 23 to have a left common femoral angiogram with Dr. King. He performed orbital atherectomy of the left SFA with good result and his plan was for her to be followed closely at the wound clinic and if she failed to heal her wounds, his plan was to perform revascularization below the knee. The patient has been on cephalexin for 2 weeks, but as per Ms. Tavo NP, at the wound clinic, the patient's infection seems to be worsening. She had an MRI of her lower extremity performed yesterday and it showed extensive inflammatory change in the subcutaneous tissue plane in muscular compartment increased when compared to the one from October 14 and this finding may reflect cellulitis and myositis. No loculated soft tissue plane abscess collection evident and no evidence for osteomyelitis at this time. The patient denies fever, chills, or other systemic complaints, but she agrees that her left foot feels more swollen and she thinks the redness is also worsening. The patient's diabetes continues to be poor controlled as she has had numbers above 300 at home this past week. She denies chest pain, palpitations, shortness of breath, urinary or bowel complaints. PAST MEDICAL HISTORY: 1. Type 2 diabetes. 2. Diabetic neuropathy. 3. Peripheral vascular disease with critical limb ischemia, status post atherectomy of the left SFA in September 2016. 4. Hypertension. 5. Status post appendectomy. 6. Status post tubal ligation. 7. 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 MEDICATIONS: List was obtained from prior records at the hospital, but we are going to obtain the list from her primary care provider. 1. Amlodipine 5 mg p.o. daily. 2. Aspirin 81 mg p.o. daily. 3. Atorvastatin 80 mg p.o. daily. 4. Lumigan 1 drop to both eyes at bedtime. 5. Bupropion SR 150 mg p.o. b.i.d. 6. Cephalexin 500 mg p.o. t.i.d. 7. Cholecalciferol 2000 units p.o. daily. 8. Clopidogrel 75 mg p.o. daily. 9. Cosopt 1 drop to both eyes b.i.d. 10. Gabapentin 300 mg p.o. daily. 11. Glipizide XL 10 mg p.o. daily. 12. Losartan 50 mg p.o. daily. 13. Oxycodone/acetaminophen 5/325 mg 2 tabs p.o. q.4 hours p.r.n. pain (this was prescribed after her procedure with Dr. King). 14. Probiotic 1 tablet p.o. daily. ALLERGIES: No known drug allergies. FAMILY HISTORY: Sister had a history of migraines. SOCIAL HISTORY: She is a former smoker. Denies alcohol use. Surrogate decision maker is her sister, Mariaelena Cohn. Phone number is [phone]. REVIEW OF SYSTEMS: A 14-point review of systems was performed and all the pertinent negatives and positive findings are in the HPI. PHYSICAL EXAMINATION GENERAL: The patient is an elderly lady, lying in bed, in no acute distress. VITAL SIGNS: Temperature 98.3, heart rate is 71, respiratory rate is 16, oxygen saturation 97% on room air, blood pressure is 143/47. HEENT: Pupils are equal, pinpoint. CHEST: Breath sounds present bilaterally with no added sounds. CVS: Normal S1, S2. Regular rate and rhythm. ABDOMEN: Soft, nontender, nondistended. Bowel sounds present. EXTREMITIES: There is no edema. On the left, the patient has a very faint DP pulse. She has erythema to the forefoot extending to her toes and also on the foot. She has a small wound on the medial aspect of her first MTP. This wound is dry with some dark material in it, but no drainage. She has 2 other wounds on her 4th and 5th toes and those are moist, but she just had her dressing changed at the wound clinic. So, this could actually be medication that was applied. NEUROLOGIC: She is alert, awake, oriented x3. She is able to move all 4 extremities. Sensation is just minimally reduced on her feet. LABORATORY DATA: Laboratory tests are not yet available at this time. MRI of her left foot was described in the HPI. ASSESSMENT AND PLAN: Ms. Hughes is a 76-year-old lady with a past medical history of type 2 diabetes, diabetic neuropathy, depression, hypertension, chronic kidney disease, peripheral vascular disease who presented to the wound clinic for a followup appointment and was referred to direct admission due to worsening of her left foot cellulitis despite outpatient antibiotic treatment. 1. Left foot diabetic infection/ulcer: The patient has been treated with Augmentin and cephalexin as an outpatient. Cultures done on October 14 were negative for MRSA and grew Proteus that was sensitive to piperacillin and tazobactam and also grew Enterococcus that was sensitive to ampicillin. I am going to repeat her cultures and the patient is going to be started on Zosyn empirically for now. I am going to request Infectious Disease evaluation and the patient already had an appointment to see Dr. King on November 25 to discuss the indication for a below the knee procedure and I believe we will probably have to pursue it. 2. Diabetes: It has been chronically uncontrolled. Her hemoglobin A1c on October 14 was 9.5. She was started on Lantus as an outpatient, but does not recall her dose at this time. She is going to be continued on glipizide. I am going to add Lantus 10 units for now. She will have lispro sliding scale coverage and we will obtain records from Dr. Greenwood. So, we can have the accurate medication list. 3. Hypertension: We will continue amlodipine and losartan. 4. Peripheral vascular disease: We will continue aspirin, Plavix, atorvastatin. 5. DVT prophylaxis: The patient had a score of 3 on the DVT Prophylaxis Risk Assessment Guide. She will be started on subcutaneous heparin. 6. Code status is full. TIME SPENT: Approximately 65 minutes were spent with the patient interview, medical records review, physical examination to complete this admission, more than half of this time was spent [id number] with the patient in coordination of care. [id number]/[facility] #: [id number] MARCIA
[2016-11-23] MEDS: oxyCODONE TAB* 5 MG TAB PO PRN ×4 (01:21→23:49)
[2016-11-23] MEDS: Heparin VIAL(*) 5000 UNITS/ML VIAL (FIVE THOUSAND) SUBCUT SCH ×3 (05:55→21:29)
[2016-11-23] MEDS: ZOSYN 3.375 GM Q8H per EXTENDED INFUSION IVPB SCH ×8 (06:22→22:38)
[2016-11-23 07:22] LABS: BUN/Creatinine Ratio 21.6 (8-20); C Reactive Protein 150.38 mg/L (< 5.00); EGFR African American 67.4 (>60); EGFR Non-African American 52.4 (>60); Potassium 4.1 mmol/L (3.5-5.0)
[2016-11-23] MEDS: Insulin LISPRO* 1 UNITS UNIT SUBCUT SCH ×7 (07:39→21:29)
[2016-11-23 07:40] LABS: Hematocrit 32 % (35-47); Hemoglobin 10.1 g/dl (12.0-16.0); Mean Corpuscular HGB Conc 31 g/dl (31-36); Mean Corpuscular Hemoglobin 24 pg (27-31); Mean Corpuscular Volume 78 fL (80-97); Mean Platelet Volume 9 um3 (7.4-10.4); Red Blood Count 4.16 10^6/ul (4.0-5.4); Red Cell Distribution Width 16 % (10.5-15); White Blood Count 19.9 10^3/ul (3.5-10.8)
[2016-11-23] MEDS: buPROPion SR TAB.SR* 150 MG PO SCH ×2 (08:31→21:27)
[2016-11-23] MEDS: glipiZIDE TAB.XL* 5 MG PO SCH (08:31)
[2016-11-23] MEDS: Gabapentin CAP(*) 300 MG PO SCH (08:32)
[2016-11-23] MEDS: Losartan TAB* 25 MG PO SCH (08:32)
[2016-11-23] MEDS: Cholecalciferol TAB* 1000 UNITS PO SCH (08:32)
[2016-11-23] MEDS: Aspirin EC Low Dose* 81 MG TAB.EC PO SCH (08:33)
[2016-11-23] MEDS: Acetaminophen TAB* 325 MG PO PRN (08:33)
[2016-11-23] MEDS: amLODIPine TAB* 5 MG PO SCH (08:33)
[2016-11-23] MEDS: Clopidogrel TAB* 75 MG PO SCH (08:34)
[2016-11-23] MEDS: Lactobacillus Acidophilu (GG)* 1 CAP CAP PO SCH (08:34)
[2016-11-23] MEDS: PTO:Dorzolamide/Timolol OPTH (NF) 10 ML BOT BOTH EYES SCH ×2 (08:35→21:28)
[2016-11-23] MEDS: NS 0.9% 1000 ML* 1,000 ML IV SCH (12:12)
--- NOTE | 2016-11-23 12:49 | PN ---
Subjective Date of Service: 11/23/16 Interval History: HOSPITALIST PROGRESS NOTE Patient seen and examined at bedside. She offers no new complaints today. Left foot is still painful, but responding to oxycodone. Family History: Unchanged from Admission Social History: Unchanged from Admission Past Medical History: Unchanged from Admission Objective Active Medications: Acetaminophen (Tylenol Tab*) 650 mg PO Q6H PRN PRN Reason: pain/fever Last Admin: 11/23/16 08:33 Dose: 650 mg Amlodipine Besylate (Norvasc Tab*) 5 mg PO DAILY [facility] Last Admin: 11/23/16 08:33 Dose: 5 mg Aspirin (Aspirin Ec Low Dose*) 81 mg PO DAILY [facility] Last Admin: 11/23/16 08:33 Dose: 81 mg Atorvastatin Calcium (Lipitor*) 80 mg PO 1700 [facility] Last Admin: 11/22/16 18:06 Dose: 80 mg Bupropion HCl (Wellbutrin Sr Tab*) 150 mg PO BID [facility] Last Admin: 11/23/16 08:31 Dose: 150 mg Cholecalciferol (Vitamin D Tab*) 2,000 units PO DAILY [facility] Last Admin: 11/23/16 08:32 Dose: 2,000 units Clopidogrel Bisulfate (Plavix Tab*) 75 mg PO DAILY [facility] Last Admin: 11/23/16 08:34 Dose: 75 mg Dorzolamide/Timolol (Cosopt (Nf)) 1 drop BOTH EYES BID [facility] PRN Reason: Protocol Last Admin: 11/23/16 08:35 Dose: Not Given Gabapentin (Neurontin Cap(*)) 300 mg PO DAILY [facility] Last Admin: 11/23/16 08:32 Dose: 300 mg Glipizide (Glucotrol Xl*) 10 mg PO DAILY [facility] Last Admin: 11/23/16 08:31 Dose: 10 mg Heparin Sodium (Porcine) (Heparin Vial(*)) 5,000 units SUBCUT Q8HR [facility] Last Admin: 11/23/16 05:55 Dose: 5,000 units Sodium Chloride (Ns 0.9% 1000 Ml*) 1,000 mls @ 125 mls/hr IV PER RATE [facility] Last Admin: 11/23/16 12:12 Dose: 125 mls/hr Piperacillin Sod/Tazobactam (Sod 3.375 gm/ Sodium Chloride) 100 mls @ 25 mls/ hr IVPB 0600,1400,2200 [facility] Last Admin: 11/23/16 06:22 Dose: 25 mls/hr Insulin Human Lispro (Humalog*) 0 units SUBCUT AC [facility] PRN Reason: Protocol Last Admin: 11/23/16 09:22 Dose: 2 unit Insulin Human Lispro (Humalog*) 0 units SUBCUT ACHS [facility] PRN Reason: Protocol Last Admin: 11/23/16 07:39 Dose: Not Given Lactobacillus Rhamnosus (Culturelle*) 1 cap PO DAILY [facility] Last Admin: 11/23/16 08:34 Dose: 1 cap Latanoprost (Xalatan 0.005%*) 1 drop BOTH EYES 1800 [facility] PRN Reason: Protocol Last Admin: 11/23/16 01:23 Dose: Not Given Losartan Potassium (Cozaar Tab*) 50 mg PO DAILY [facility] Last Admin: 11/23/16 08:32 Dose: 50 mg Morphine Sulfate (Morphine Inj (Syringe)*) 2 mg IV Q4H PRN PRN Reason: PAIN Oxycodone HCl (Roxycodone Tab*) 10 mg PO Q4H PRN PRN Reason: PAIN Last Admin: 11/23/16 05:55 Dose: 10 mg Pharmacy Consult (Zosyn Per Pharmacy*) 1 note FOLLOW UP .ZOSYN PER PHARMACY [facility] Vital Signs 11/23/16 11:42 Temperature 98.2 F Pulse Rate 80 Respiratory 17 Rate Blood Pressure 146/48 (mmHg) O2 Sat by Pulse 96 Oximetry Oxygen Devices in Use Now: None Appearance: Elderly lady lying in bed in NAD. Eyes: No Scleral Icterus Ears/Nose/Mouth/Throat: Mucous Membranes Moist Neck: Trachea Midline Respiratory: Symmetrical Chest Expansion and Respiratory Effort, Clear to Auscultation Cardiovascular: RRR - Normal S1 and S2 Abdominal: NL Sounds; No Tenderness; No Distention Extremities: - - Unchanged from yesterday with metatarsal / plantar erythema Neurological: Alert and Oriented x 3, NL Muscle Strength and Tone Lines/Tubes/Other Access: Clean, Dry and Intact Peripheral IV Nutrition: Taking PO's Result Diagrams: 11/23/16 06:40 11/23/16 06:40 Assess/Plan/Problems-Billing Assessment: Mrs. Hughes is a 76yo F with PMH of type 2 DM, DM neuropathy, PVD, HTN, referred from wound clinic with worsening diabetic foot infection despite outpatient therapy. - Patient Problems (1) Diabetic infection of left foot Comment: - Failed outpatient therapy with cephalexin. - Follow up wound cultures. - Continue Zosyn and pain management. (2) Diabetic foot ulcer Comment: - With component of peripheral vascular disease. - MRI negative for osteomyelitis. - Continue dressing changes with Aquacel. (3) Diabetes Comment: - Although patient describes BS> 300 at home, here she's trending towards the lower side. - Will d/c Lantus for now, continue glipizide, Lispro SS, and monitor. - HgbA1c 9.5% in September. - Diabetes consult. (4) PVD (peripheral vascular disease) Comment: - Continue Aspirin, Plavix, and Atorvastatin. - Will consult Dr. King. (5) DVT prophylaxis Comment: - SQ heparin. (6) Full code status Status and Disposition: Inpatient.
[2016-11-23] MEDS: Morphine INJ* 2 MG/ML 1 ML SYRINGE IV PRN (16:45)
[2016-11-23] MEDS: Atorvastatin* 80 MG TAB PO SCH (18:23)
[2016-11-23] MEDS: PTO:Bimatoprost 0.01% OPHTH (NF) 2.5 ML BTL BOTH EYES SCH (18:40)
[2016-11-24] MEDS: ZOSYN 3.375 GM Q8H per EXTENDED INFUSION IVPB SCH ×6 (05:14→21:46)
[2016-11-24] MEDS: NS 0.9% 1000 ML* 1,000 ML IV SCH (05:22)
[2016-11-24] MEDS: Heparin VIAL(*) 5000 UNITS/ML VIAL (FIVE THOUSAND) SUBCUT SCH ×3 (05:27→21:46)
[2016-11-24 06:17] LABS: Hematocrit 31 % (35-47); Hemoglobin 9.6 g/dl (12.0-16.0); Mean Corpuscular HGB Conc 31 g/dl (31-36); Mean Corpuscular Hemoglobin 25 pg (27-31); Mean Corpuscular Volume 80 fL (80-97); Mean Platelet Volume 9 um3 (7.4-10.4); Red Blood Count 3.85 10^6/ul (4.0-5.4); Red Cell Distribution Width 16 % (10.5-15); White Blood Count 16.8 10^3/ul (3.5-10.8)
[2016-11-24 06:27] LABS: C Reactive Protein 154.13 mg/L (< 5.00); Calcium 8.7 mg/dL (8.6-10.3); EGFR Non-African American 58.3 (>60)
[2016-11-24] MEDS: oxyCODONE TAB* 5 MG TAB PO PRN ×3 (07:23→22:33)
[2016-11-24] MEDS: Morphine INJ* 2 MG/ML 1 ML SYRINGE IV PRN ×2 (07:27→14:21)
[2016-11-24] MEDS: Insulin LISPRO* 1 UNITS UNIT SUBCUT SCH ×7 (09:18→21:48)
[2016-11-24] MEDS: buPROPion SR TAB.SR* 150 MG PO SCH ×2 (09:20→21:46)
[2016-11-24] MEDS: Clopidogrel TAB* 75 MG PO SCH (09:20)
[2016-11-24] MEDS: Gabapentin CAP(*) 300 MG PO SCH (09:21)
[2016-11-24] MEDS: amLODIPine TAB* 5 MG PO SCH (09:21)
[2016-11-24] MEDS: Aspirin EC Low Dose* 81 MG TAB.EC PO SCH (09:22)
[2016-11-24] MEDS: Losartan TAB* 25 MG PO SCH (09:22)
[2016-11-24] MEDS: glipiZIDE TAB.XL* 5 MG PO SCH (09:22)
[2016-11-24] MEDS: Cholecalciferol TAB* 1000 UNITS PO SCH (09:23)
[2016-11-24] MEDS: Lactobacillus Acidophilu (GG)* 1 CAP CAP PO SCH (09:34)
[2016-11-24] MEDS: PTO:Dorzolamide/Timolol OPTH (NF) 10 ML BOT BOTH EYES SCH ×2 (09:35→21:46)
[2016-11-24] MEDS: Acetaminophen TAB* 325 MG PO PRN (11:26)
--- NOTE | 2016-11-24 12:17 | PN ---
Subjective Date of Service: 11/24/16 Interval History: HOSPITALIST PROGRESS NOTE Patient seen and examined at bedside. She feels better today, in good spirits. Pain is better controlled. Family History: Unchanged from Admission Social History: Unchanged from Admission Past Medical History: Unchanged from Admission Objective Active Medications: Acetaminophen (Tylenol Tab*) 650 mg PO Q6H PRN PRN Reason: pain/fever Last Admin: 11/24/16 11:26 Dose: 650 mg Amlodipine Besylate (Norvasc Tab*) 5 mg PO DAILY [facility] Last Admin: 11/24/16 09:21 Dose: 5 mg Aspirin (Aspirin Ec Low Dose*) 81 mg PO DAILY [facility] Last Admin: 11/24/16 09:22 Dose: 81 mg Atorvastatin Calcium (Lipitor*) 80 mg PO 1700 [facility] Last Admin: 11/23/16 18:23 Dose: 80 mg Bimatoprost (Lumigan 0.01% Ophth (Nf)) 1 drop BOTH EYES 1800 [facility] PRN Reason: Protocol Last Admin: 11/23/16 18:40 Dose: 1 drop Bupropion HCl (Wellbutrin Sr Tab*) 150 mg PO BID [facility] Last Admin: 11/24/16 09:20 Dose: 150 mg Cholecalciferol (Vitamin D Tab*) 2,000 units PO DAILY [facility] Last Admin: 11/24/16 09:23 Dose: 2,000 units Clopidogrel Bisulfate (Plavix Tab*) 75 mg PO DAILY [facility] Last Admin: 11/24/16 09:20 Dose: 75 mg Dorzolamide/Timolol (Cosopt (Nf)) 1 drop BOTH EYES BID [facility] PRN Reason: Protocol Last Admin: 11/24/16 09:35 Dose: 1 drop Gabapentin (Neurontin Cap(*)) 300 mg PO DAILY [facility] Last Admin: 11/24/16 09:21 Dose: 300 mg Glipizide (Glucotrol Xl*) 10 mg PO DAILY [facility] Last Admin: 11/24/16 09:22 Dose: 10 mg Heparin Sodium (Porcine) (Heparin Vial(*)) 5,000 units SUBCUT Q8HR [facility] Last Admin: 11/24/16 05:27 Dose: 5,000 units Piperacillin Sod/Tazobactam (Sod 3.375 gm/ Sodium Chloride) 100 mls @ 25 mls/ hr IVPB 0600,1400,2200 [facility] Last Admin: 11/24/16 05:14 Dose: 25 mls/hr Insulin Human Lispro (Humalog*) 0 units SUBCUT AC [facility] PRN Reason: Protocol Last Admin: 11/24/16 09:18 Dose: 5 unit Insulin Human Lispro (Humalog*) 0 units SUBCUT ACHS [facility] PRN Reason: Protocol Last Admin: 11/24/16 09:19 Dose: 2 units Lactobacillus Rhamnosus (Culturelle*) 1 cap PO DAILY [facility] Last Admin: 11/24/16 09:34 Dose: 1 cap Losartan Potassium (Cozaar Tab*) 50 mg PO DAILY [facility] Last Admin: 11/24/16 09:22 Dose: 50 mg Morphine Sulfate (Morphine Inj (Syringe)*) 2 mg IV Q4H PRN PRN Reason: PAIN Last Admin: 11/24/16 07:27 Dose: 2 mg Oxycodone HCl (Roxycodone Tab*) 10 mg PO Q4H PRN PRN Reason: PAIN Last Admin: 11/24/16 11:26 Dose: 10 mg Pharmacy Consult (Zosyn Per Pharmacy*) 1 note FOLLOW UP .ZOSYN PER PHARMACY [facility] Vital Signs 11/24/16 11/24/16 11:21 11:26 Temperature 98.4 F Pulse Rate 77 Respiratory 18 16 Rate Blood Pressure 143/54 (mmHg) O2 Sat by Pulse 93 Oximetry Oxygen Devices in Use Now: None Appearance: Elderly lady sitting up in bed in [facility]. Eyes: No Scleral Icterus Ears/Nose/Mouth/Throat: Mucous Membranes Moist Neck: Trachea Midline Respiratory: Symmetrical Chest Expansion and Respiratory Effort, Clear to Auscultation Cardiovascular: RRR - Normal S1 and S2 Abdominal: NL Sounds; No Tenderness; No Distention Extremities: No Edema, - - Left foot: forefoot erythema is much improved, bottom of the foot erythema is still present, but less intense. 1st MTP ulcer is dry with eschar, but ulcer between 4th and 5th toes is still moist and draining. Neurological: Alert and Oriented x 3, NL Muscle Strength and Tone Lines/Tubes/Other Access: Clean, Dry and Intact Peripheral IV Nutrition: Taking PO's Result Diagrams: 11/24/16 05:21 11/24/16 05:21 Assess/Plan/Problems-Billing Assessment: Mrs. Hughes is a 76yo F with PMH of type 2 DM, DM neuropathy, PVD, HTN, referred from wound clinic with worsening diabetic foot infection despite outpatient therapy. - Patient Problems (1) Diabetic infection of left foot Comment: - Failed outpatient therapy with cephalexin. - Follow up wound cultures. - Continue Zosyn and pain management. - Will request ID consult. (2) Diabetic foot ulcer Comment: - With component of peripheral vascular disease. - MRI negative for osteomyelitis. - Continue dressing changes with Aquacel. (3) Diabetes Comment: - Although patient describes BS> 300 at home, here she's trending towards the lower side. - Continue glipizide, Lispro SS, and monitor. - HgbA1c 9.5% in September. - Diabetes consult. (4) PVD (peripheral vascular disease) Comment: - Continue Aspirin, Plavix, and Atorvastatin. - Will consult Dr. King. (5) DVT prophylaxis Comment: - SQ heparin. (6) Full code status Status and Disposition: Inpatient.
[2016-11-24] MEDS: Atorvastatin* 80 MG TAB PO SCH (18:06)
[2016-11-24] MEDS: PTO:Bimatoprost 0.01% OPHTH (NF) 2.5 ML BTL BOTH EYES SCH (18:40)
[2016-11-25] MEDS: oxyCODONE TAB* 5 MG TAB PO PRN ×3 (04:20→19:33)
[2016-11-25] MEDS: Heparin VIAL(*) 5000 UNITS/ML VIAL (FIVE THOUSAND) SUBCUT SCH ×3 (06:05→22:21)
[2016-11-25] MEDS: ZOSYN 3.375 GM Q8H per EXTENDED INFUSION IVPB SCH ×6 (06:05→22:20)
[2016-11-25] MEDS: Morphine INJ* 2 MG/ML 1 ML SYRINGE IV PRN ×3 (06:05→18:35)
[2016-11-25] MEDS: Lactobacillus Acidophilu (GG)* 1 CAP CAP PO SCH (08:12)
[2016-11-25] MEDS: Losartan TAB* 25 MG PO SCH (08:12)
[2016-11-25] MEDS: Cholecalciferol TAB* 1000 UNITS PO SCH (08:12)
[2016-11-25] MEDS: glipiZIDE TAB.XL* 5 MG PO SCH (08:13)
[2016-11-25] MEDS: buPROPion SR TAB.SR* 150 MG PO SCH ×2 (08:13→22:16)
[2016-11-25] MEDS: Clopidogrel TAB* 75 MG PO SCH (08:13)
[2016-11-25] MEDS: Gabapentin CAP(*) 300 MG PO SCH (08:13)
[2016-11-25] MEDS: Aspirin EC Low Dose* 81 MG TAB.EC PO SCH (08:14)
[2016-11-25] MEDS: amLODIPine TAB* 5 MG PO SCH (08:14)
[2016-11-25] MEDS: PTO:Dorzolamide/Timolol OPTH (NF) 10 ML BOT BOTH EYES SCH ×2 (08:19→22:16)
[2016-11-25] MEDS: Insulin LISPRO* 1 UNITS UNIT SUBCUT SCH ×7 (09:09→22:07)
--- NOTE | 2016-11-25 09:36 | PN ---
Subjective Date of Service: 11/25/16 Interval History: HOSPITALIST PROGRESS NOTE Patient seen and examined at bedside. She offers no new complaints today, left foot pain is still present, especially with movement. Asymptomatic during hypoglycemia episode last night. Family History: Unchanged from Admission Social History: Unchanged from Admission Past Medical History: Unchanged from Admission Objective Active Medications: Acetaminophen (Tylenol Tab*) 650 mg PO Q6H PRN PRN Reason: pain/fever Last Admin: 11/24/16 11:26 Dose: 650 mg Amlodipine Besylate (Norvasc Tab*) 5 mg PO DAILY [facility] Last Admin: 11/25/16 08:14 Dose: 5 mg Aspirin (Aspirin Ec Low Dose*) 81 mg PO DAILY [facility] Last Admin: 11/25/16 08:14 Dose: 81 mg Atorvastatin Calcium (Lipitor*) 80 mg PO 1700 [facility] Last Admin: 11/24/16 18:06 Dose: 80 mg Bimatoprost (Lumigan 0.01% Ophth (Nf)) 1 drop BOTH EYES 1800 [facility] PRN Reason: Protocol Last Admin: 11/24/16 18:40 Dose: 1 drop Bupropion HCl (Wellbutrin Sr Tab*) 150 mg PO BID [facility] Last Admin: 11/25/16 08:13 Dose: 150 mg Cholecalciferol (Vitamin D Tab*) 2,000 units PO DAILY [facility] Last Admin: 11/25/16 08:12 Dose: 2,000 units Clopidogrel Bisulfate (Plavix Tab*) 75 mg PO DAILY [facility] Last Admin: 11/25/16 08:13 Dose: 75 mg Dorzolamide/Timolol (Cosopt (Nf)) 1 drop BOTH EYES BID [facility] PRN Reason: Protocol Last Admin: 11/25/16 08:19 Dose: 1 drop Gabapentin (Neurontin Cap(*)) 300 mg PO DAILY [facility] Last Admin: 11/25/16 08:13 Dose: 300 mg Glipizide (Glucotrol Xl*) 5 mg PO DAILY [facility] Last Admin: 11/25/16 08:13 Dose: 5 mg Heparin Sodium (Porcine) (Heparin Vial(*)) 5,000 units SUBCUT Q8HR [facility] Last Admin: 11/25/16 06:05 Dose: 5,000 units Piperacillin Sod/Tazobactam (Sod 3.375 gm/ Sodium Chloride) 100 mls @ 25 mls/ hr IVPB 0600,1400,2200 [facility] Last Admin: 11/25/16 06:05 Dose: 25 mls/hr Insulin Human Lispro (Humalog*) 0 units SUBCUT AC [facility] PRN Reason: Protocol Last Admin: 11/25/16 09:14 Dose: 3 unit Insulin Human Lispro (Humalog*) 0 units SUBCUT ACHS [facility] PRN Reason: Protocol Lactobacillus Rhamnosus (Culturelle*) 1 cap PO DAILY [facility] Last Admin: 11/25/16 08:12 Dose: 1 cap Losartan Potassium (Cozaar Tab*) 50 mg PO DAILY [facility] Last Admin: 11/25/16 08:12 Dose: 50 mg Morphine Sulfate (Morphine Inj (Syringe)*) 2 mg IV Q4H PRN PRN Reason: PAIN Last Admin: 11/25/16 06:05 Dose: 2 mg Oxycodone HCl (Roxycodone Tab*) 10 mg PO Q4H PRN PRN Reason: PAIN Last Admin: 11/25/16 04:20 Dose: 10 mg Pharmacy Consult (Zosyn Per Pharmacy*) 1 note FOLLOW UP .ZOSYN PER PHARMACY [facility] Vital Signs 11/25/16 11/25/16 11/25/16 07:30 08:00 08:13 Temperature 98.0 F Pulse Rate 81 Respiratory 16 16 18 Rate Blood Pressure 159/53 (mmHg) O2 Sat by Pulse 90 Oximetry Oxygen Devices in Use Now: None Appearance: Elderly lady lying in bed in NAD. Eyes: No Scleral Icterus Ears/Nose/Mouth/Throat: Mucous Membranes Moist Neck: Trachea Midline Respiratory: Symmetrical Chest Expansion and Respiratory Effort, Clear to Auscultation Cardiovascular: RRR - Normal S1 and S2 Abdominal: NL Sounds; No Tenderness; No Distention Extremities: No Edema, - - CDI to left foot Neurological: Alert and Oriented x 3, NL Muscle Strength and Tone Lines/Tubes/Other Access: Clean, Dry and Intact Peripheral IV Nutrition: Taking PO's Result Diagrams: 11/24/16 05:21 11/24/16 05:21 Assess/Plan/Problems-Billing Assessment: Mrs. Hughes is a 76yo F with PMH of type 2 DM, DM neuropathy, PVD, HTN, referred from wound clinic with worsening diabetic foot infection despite outpatient therapy. - Patient Problems (1) Diabetic infection of left foot Comment: - Failed outpatient therapy with cephalexin. - Wound culture growing Proteus mirabilis sensitivity pending. - Continue Zosyn and pain management. - ID consult requested. (2) Diabetic foot ulcer Comment: - With component of peripheral vascular disease. - MRI negative for osteomyelitis. - Continue dressing changes with Aquacel. (3) Diabetes Comment: - Although patient describes BS> 300 at home, here she's trending towards the lower side. - Decrease glipizide and Lispro SS dosage, continue to monitor. - HgbA1c 9.5% in September. - Diabetes consult. (4) PVD (peripheral vascular disease) Comment: - Continue Aspirin, Plavix, and Atorvastatin. - Consult requested with Dr. King. (5) DVT prophylaxis Comment: - SQ heparin. (6) Full code status Status and Disposition: Inpatient.
[2016-11-25 09:41] LABS: Hematocrit 30 % (35-47); Hemoglobin 9.4 g/dl (12.0-16.0); Mean Corpuscular HGB Conc 32 g/dl (31-36); Mean Corpuscular Hemoglobin 25 pg (27-31); Mean Corpuscular Volume 80 fL (80-97); Mean Platelet Volume 9 um3 (7.4-10.4); Red Blood Count 3.74 10^6/ul (4.0-5.4); Red Cell Distribution Width 16 % (10.5-15)
[2016-11-25 09:52] LABS: BUN/Creatinine Ratio 14.4 (8-20); C Reactive Protein 140.17 mg/L (< 5.00); Calcium 8.6 mg/dL (8.6-10.3); EGFR African American 77.9 (>60); EGFR Non-African American 60.6 (>60); Potassium 4.2 mmol/L (3.5-5.0)
--- NOTE | 2016-11-25 16:56 | CONS ---
CONSULTATION REPORT: DATE OF CONSULT: 11/25/16 REQUESTING PHYSICIAN: Dr. Navarro CONSULTING SERVICE: Infectious Disease. REASON FOR CONSULT: Left foot infection. IMPRESSION: 1. Left foot myositis and cellulitis and chronic non-pressure related ulcer of the left first, second, and fourth toes, predominantly arterial ulcers. The usual organisms for myositis include staph, strep, gram negatives, there is a proteus growing from a wound culture from the 4th toe which was present in September as well. 2. Peripheral vascular disease including treatment with orbital atherectomy of the left superficial femoral artery. 3. Diabetes with neuropathy. RECOMMENDATIONS: Agree with Zosyn. I discussed with the patient and her sister that I do not think this is curable with antibiotics and that this is a limb threatening infection and that the lack of blood flow to that foot does make antibiotic treatment difficult. I recommended further evaluation with Dr. King to see if there is any other lower extremity intervention. However, I explained to them I felt that this was likely going to end up a surgical issue where blood flow could not improved as it will be nearly impossible to cure this infection as it has been attempted for the last 6 weeks. They are in agreement with further evaluation with Dr. King and Dr. Diaz. HISTORY OF PRESENT ILLNESS: This is a 76-year-old woman with vascular disease admitted with left foot infection and pain. She had been here in September for a left foot infection and pain, had IV antibiotics, discharged on Augmentin. She is noticed to have ulceration of the first, second, and fourth toes, and she had a calcaneal ulceration. She was followed because of her vascular disease by Dr. King who had initial intervention as noted above. They have not noticed improved healing and then had had continued pain in the left forefoot with persistence of ulceration and worsening redness of the plantar forefoot, so she was [facility]. She has been on Zosyn here. Wound culture was taken, and Gram stain showed gram-negative bacilli, gram-positive cocci in chains, gram-positive coccobacilli, and the culture growing proteus. She was on Keflex at the time the culture was taken. Her white blood cell count was 24,000 on admission, 19,000 today. The C- reactive protein was 170 to 140 today. She has had no fevers, chills, or sweats. Her appetite is good. She has ongoing left forefoot pain. PAST MEDICAL HISTORY: 1. History of peripheral vascular disease, status post atherectomy of the left SFA. 2. Diabetes with peripheral neuropathy. 3. Hypertension. 4. Status post appendectomy. 5. Status post tubal ligation. 6. Status post bilateral mastectomy for a recurrent infection. MEDICATIONS: 1. Tylenol. 2. Aspirin. 3. Lipitor. 4. Cholecalciferol. 5. Plavix. 6. Gabapentin. 7. Heparin subcutaneous injection. 8. Lactobacillus. 9. Morphine. 10. Zosyn 3.375 g every 8 hours by extended infusion. 11. Amlodipine. 12. Bupropion. 13. Glipizide. 14. Oxycodone. ALLERGIES: No known drug allergies. FAMILY HISTORY: No recurrent infections. SOCIAL HISTORY: She lives in [place] with her sister, pet cat at home. No travel. REVIEW OF SYSTEMS: All negative except as noted above in full review of systems. PHYSICAL EXAM: Vital Signs: Temperature 37, heart rate 80, respiratory rate 16 , blood pressure 116/53, O2 sat 90% on room air. General: She is awake, not in distress. Neurologic: She is oriented x3, follows all commands, answers all questions. There was some help form her sister. HEENT: There is no conjunctival hemorrhage. Oropharynx without lesions. Neck: Supple without nuchal rigidity. Lymph nodes: There is no cervical or inguinal lymphadenopathy. Heart: Regular rate and rhythm without murmurs, rubs, or gallops. Lungs: Clear to auscultation bilaterally. Abdomen: Soft, nontender , nondistended without hepatosplenomegaly. Skin: There is no rash or splinter hemorrhages. Musculoskeletal: There is no spinous tenderness to palpation. On the left plantar forefoot, there is nonblanching erythema with a mildly purplish hue. There is a calcaneal 2 cm pressure ulcer without surrounding erythema. There is an eschar. On the left first and second toes, there are lateral ulcers about 5 cm in size without surrounding erythema and then the fourth toe has a lateral ulcer about 5 mm as well. There is no crepitus or fluctuance. There is tenderness to palpation of that forefoot. DIAGNOSTIC STUDIES/LAB DATA: Creatinine 0.9, CRP 140, white blood cell count 19 , hemoglobin 9, platelets 308. Please see impressions and recommendations outlined above. Thanks for asking me to see Ms. Hughes in consultation. [id number]/[facility] #: [id number] MTD[place]ula
[2016-11-25] MEDS: Atorvastatin* 80 MG TAB PO SCH (17:57)
[2016-11-25] MEDS: PTO:Bimatoprost 0.01% OPHTH (NF) 2.5 ML BTL BOTH EYES SCH (17:57)
[2016-11-25] MEDS: Acetaminophen TAB* 325 MG PO PRN (18:34)
--- NOTE | 2016-11-26 03:20 | CONS ---
CC: Dr. Greenwood; Dr. Manzanares; Wound Clinic * INTERVENTIONAL CARDIOLOGY CONSULT NOTE: DATE OF CONSULT: 11/25/16 PRIMARY CARE PHYSICIAN: Dr. Greenwood. HISTORY OF PRESENT ILLNESS: A 76-year-old woman known to me with critical limb ischemia. In September, she had revascularization of the left SFA, at that time had below-knee disease with well developed collaterals. Her rest pain subsequently resolved, the foot looked much better. However, she has continued to have pain with walking especially in the area of the fourth and fifth metatarsals, and even more recently has developed erythema on the plantar surface, in spite of prolonged antibiotic therapy. She now has myositis in that foot, her foot is threatened, we have been following closely with the expectation for the possible need of further below-knee revascularization. PAST MEDICAL HISTORY: Diabetes with peripheral neuropathy; hypertension; PAD, status post orbital atherectomy and drug-coated balloon dilatation left SFA; and CKD stage 2. FAMILY HISTORY: See the record, detailed extensively. SOCIAL HISTORY: See the record, detailed extensively. REVIEW OF SYSTEMS: See the record, detailed extensively. CURRENT MEDICATIONS: 1. Norvasc 5 mg daily. 2. Aspirin 81 daily. 3. Lipitor 80 daily. 4. Plavix 75 daily. 5. Neurontin. 6. Glucotrol. 7. Subcu heparin. 8. Insulin. 9. Cozaar 50 mg daily. 10. IV antibiotics. PHYSICAL EXAMINATION: She is currently pain free in her foot, but it is painful to stand on. Her BP today 142/52, she is afebrile, pulse in the 70s. Her lungs are clear. Cardiac exam is unremarkable. Her left femoral pulse is unremarkable without a bruit. She has no palpable left pedal pulse. I unwrapped the dressing, the wound between her fourth and fifth digits is exquisitely tender and draining. The lateral plantar surface of her foot is deeply erythematous and cyanotic, more than previously. The remainder of the sole is scaling and peeling. She has small dry based ischemic ulcers on 2 of the toes. DIAGNOSTIC STUDIES/LAB DATA: White count is 19,000, hemoglobin 9.4. Her creatinine is 0.9 with a GFR of 60.6. Normal electrolytes. Blood cultures dissemination today negative. IMPRESSION: Left foot critical limb ischemia with myositis. Even though rest pain resolved with superficial femoral arterial revascularization, she has failed to heal, she needs further revascularization. PLAN: The plan is to establish straight line flow to the fourth and fifth metatarsal region, which ideally would require revascularization of the anterior tibial and posterior tibial including plantars. We discussed the possible need for pedal access. She is aware the procedure and risks, understands the high potential for limb loss without revascularization. [id number]/[facility] #: [id number] MARCIA
[2016-11-26] MEDS: ZOSYN 3.375 GM Q8H per EXTENDED INFUSION IVPB SCH ×6 (05:52→21:24)
[2016-11-26] MEDS: Morphine INJ* 2 MG/ML 1 ML SYRINGE IV PRN (05:54)
[2016-11-26] MEDS ORDERED: NS 0.9% 1000 ML* 1,000 ML IV SCH ×2 (06:00→18:15)
--- NOTE | 2016-11-26 07:30 | PN ---
Subjective Date of Service: 11/26/16 Interval History: Patient seen this morning. Pain present but controlled with medications. Understands plans for procedure today. Also explained that there's a chance she may need surgery. Family History: Unchanged from Admission Social History: Unchanged from Admission Past Medical History: Unchanged from Admission Objective Active Medications: Acetaminophen (Tylenol Tab*) 650 mg PO Q6H PRN Amlodipine Besylate (Norvasc Tab*) 5 mg PO DAILY [facility] Aspirin (Aspirin Ec Low Dose*) 81 mg PO DAILY [facility] Atorvastatin Calcium (Lipitor*) 80 mg PO 1700 [facility] Bimatoprost (Lumigan 0.01% Ophth (Nf)) 1 drop BOTH EYES 1800 [facility] Bupropion HCl (Wellbutrin Sr Tab*) 150 mg PO BID [facility] Cholecalciferol (Vitamin D Tab*) 2,000 units PO DAILY [facility] Clopidogrel Bisulfate (Plavix Tab*) 75 mg PO DAILY [facility] Diphenhydramine HCl (Benadryl Po*) 25 mg PO ONCE ON Dorzolamide/Timolol (Cosopt (Nf)) 1 drop BOTH EYES BID [facility] Gabapentin (Neurontin Cap(*)) 300 mg PO DAILY [facility] Glipizide (Glucotrol Xl*) 5 mg PO DAILY [facility] Piperacillin Sod/Tazobactam (Sod 3.375 gm/ Sodium Chloride) 100 mls @ 25 mls/ hr IVPB 0600,1400,2200 [facility] Sodium Chloride (Ns 0.9% 1000 Ml*) 1,000 mls @ 100 mls/hr IV .per rate [facility] Insulin Human Lispro (Humalog*) 0 units SUBCUT AC [facility] Insulin Human Lispro (Humalog*) 0 units SUBCUT ACHS [facility] Lactobacillus Rhamnosus (Culturelle*) 1 cap PO DAILY [facility] Losartan Potassium (Cozaar Tab*) 50 mg PO DAILY [facility] Morphine Sulfate (Morphine Inj (Syringe)*) 2 mg IV Q4H PRN Oxycodone HCl (Roxycodone Tab*) 10 mg PO Q4H PRN Pharmacy Consult (Zosyn Per Pharmacy*) 1 note FOLLOW UP .ZOSYN PER PHARMACY [facility] Vital Signs 11/25/16 11/25/16 11/25/16 07:30 08:00 08:13 Temperature 98.0 F Pulse Rate 81 Respiratory 16 16 18 Rate Blood Pressure 159/53 (mmHg) O2 Sat by Pulse 90 Oximetry 11/25/16 11/25/16 11/26/16 21:33 23:40 03:39 Temperature 98.4 F 98.4 F Pulse Rate 81 78 Respiratory 16 16 Rate Blood Pressure 144/44 150/87 (mmHg) O2 Sat by Pulse 93 93 Oximetry Oxygen Devices in Use Now: None Appearance: Elderly, F, laying in bed in NAD Eyes: No Scleral Icterus Ears/Nose/Mouth/Throat: Mucous Membranes Moist Neck: NL Appearance and Movements; NL JVP Respiratory: Symmetrical Chest Expansion and Respiratory Effort, Clear to Auscultation Cardiovascular: NL Sounds; No Murmurs; No JVD, RRR Abdominal: NL Sounds; No Tenderness; No Distention Lymphatic: No Cervical Adenopathy Extremities: No Edema Skin: - - Did not take down L foot dressing, L heel necrotic ulcer noted Neurological: Alert and Oriented x 3 Result Diagrams: 11/25/16 09:14 11/25/16 09:14 Microbiology and Other Data: Microbiology 11/22/16 17:15 Gram Stain - Final Toe - Left Little Assess/Plan/Problems-Billing Assessment: Mrs. Hughes is a 76yo F with PMH of type 2 DM, DM neuropathy, PVD, HTN, referred from wound clinic with worsening diabetic foot infection despite outpatient therapy. - Patient Problems (1) Diabetic infection of left foot Current Visit: Yes SNOMED Code(s): 32962117 Comment: - Failed outpatient therapy with cephalexin. - Wound culture growing Proteus mirabilis - Continue Zosyn and pain management. - Appreciate ID assistance (2) Diabetic foot ulcer Current Visit: Yes Comment: - With component of peripheral vascular disease. - MRI negative for osteomyelitis. - Appreciate Cardiology consult, vascular intervention planned - Continue dressing changes with Aquacel. (3) Diabetes Current Visit: Yes Comment: - Although patient describes BS> 300 at home, here she's trending towards the lower side. - Continue decreased glipizide and Lispro SS dosage, continue to monitor. - HgbA1c 9.5% in September. - Diabetes consult. (4) PVD (peripheral vascular disease) Current Visit: Yes Comment: - Continue Aspirin, Plavix, and Atorvastatin. - Dr. King following (5) DVT prophylaxis Current Visit: Yes Comment: - SQ heparin, held for procedure (6) Full code status Current Visit: Yes Status and Disposition: Inpatient.
[2016-11-26] MEDS: Insulin LISPRO* 1 UNITS UNIT SUBCUT SCH ×7 (07:57→21:23)
[2016-11-26] MEDS: Clopidogrel TAB* 75 MG PO SCH (08:01)
[2016-11-26] MEDS: Losartan TAB* 25 MG PO SCH (08:01)
[2016-11-26] MEDS: Gabapentin CAP(*) 300 MG PO SCH (08:02)
[2016-11-26] MEDS: amLODIPine TAB* 5 MG PO SCH (08:02)
[2016-11-26] MEDS: Aspirin EC Low Dose* 81 MG TAB.EC PO SCH (08:02)
[2016-11-26] MEDS: Cholecalciferol TAB* 1000 UNITS PO SCH (08:02)
[2016-11-26] MEDS: buPROPion SR TAB.SR* 150 MG PO SCH ×2 (08:02→21:22)
[2016-11-26] MEDS: Lactobacillus Acidophilu (GG)* 1 CAP CAP PO SCH (08:02)
[2016-11-26] MEDS: glipiZIDE TAB.XL* 5 MG PO SCH (08:04)
[2016-11-26] MEDS: PTO:Dorzolamide/Timolol OPTH (NF) 10 ML BOT BOTH EYES SCH ×2 (08:04→21:27)
[2016-11-26] MEDS ORDERED: diPHENhydraMINE PO* 25 MG PO ONE (11:00)
[2016-11-26] MEDS ORDERED: Heparin 2 UNITS/ML IVPREMIX* 2,000 ML IV ONE (12:25)
[2016-11-26] MEDS ORDERED: Lidocaine 1% INJ* 10 MG/ML 30 ML SDV ONE (12:25)
[2016-11-26] MEDS ORDERED: Iodixanol* (CONTRAST) 320 MG/ML 100 ML SDV ONE (12:25)
[2016-11-26] MEDS ORDERED: fentaNYL* 50 MCG/ML 5 ML VIAL (250 MCG VIAL) ONE (13:21)
[2016-11-26] MEDS ORDERED: nitroGLYCERIN DRIP* 250 ML ONE ×2 (13:21→15:22)
[2016-11-26] MEDS ORDERED: Heparin(*) 1000 UNIT/ML 10 ML VIAL CATH LAB IV ONE ×2 (13:21→16:50)
[2016-11-26] MEDS ORDERED: Midazolam* 1 MG/ML 5 ML VIAL (5 MG) ONE (14:09)
[2016-11-26] MEDS ORDERED: VERAPAMIL 2.5 MG/ML 4 ML VIAL ONE (15:22)
[2016-11-26] MEDS ORDERED: Heparin VIAL(*) 5000 UNITS/ML VIAL (FIVE THOUSAND) ONE (16:49)
[2016-11-26] MEDS ORDERED: Heparin 2 UNITS/ML IVPREMIX* 1,000 ML IV ONE (17:01)
[2016-11-26] MEDS: PTO:Bimatoprost 0.01% OPHTH (NF) 2.5 ML BTL BOTH EYES SCH (21:21)
[2016-11-26] MEDS: Atorvastatin* 80 MG TAB PO SCH (21:22)
[2016-11-27 05:46] LABS: BUN/Creatinine Ratio 14.6 (8-20); Calcium 8.7 mg/dL (8.6-10.3); EGFR African American 78.9 (>60); EGFR Non-African American 61.3 (>60); Potassium 4.1 mmol/L (3.5-5.0)
[2016-11-27] MEDS: ZOSYN 3.375 GM Q8H per EXTENDED INFUSION IVPB SCH ×6 (05:55→20:42)
[2016-11-27 06:40] LABS: Hematocrit 31 % (35-47); Hemoglobin 9.9 g/dl (12.0-16.0); Mean Corpuscular HGB Conc 32 g/dl (31-36); Mean Corpuscular Hemoglobin 25 pg (27-31); Mean Corpuscular Volume 80 fL (80-97); Mean Platelet Volume 9 um3 (7.4-10.4); Red Blood Count 3.88 10^6/ul (4.0-5.4); Red Cell Distribution Width 17 % (10.5-15); White Blood Count 17.2 10^3/ul (3.5-10.8)
--- NOTE | 2016-11-27 07:52 | PN ---
Subjective Date of Service: 11/27/16 Interval History: Patient seen this morning. Says she feels well. Thinks pain in the foot may be better. No groin pain. Hopeful to avoid surgery if possible. Family History: Unchanged from Admission Social History: Unchanged from Admission Past Medical History: Unchanged from Admission Objective Active Medications: Acetaminophen (Tylenol Tab*) 650 mg PO Q6H PRN Amlodipine Besylate (Norvasc Tab*) 5 mg PO DAILY [facility] Aspirin (Aspirin Ec Low Dose*) 81 mg PO DAILY [facility] Atorvastatin Calcium (Lipitor*) 80 mg PO 1700 [facility] Bimatoprost (Lumigan 0.01% Ophth (Nf)) 1 drop BOTH EYES 1800 [facility] Bupropion HCl (Wellbutrin Sr Tab*) 150 mg PO BID [facility] Cholecalciferol (Vitamin D Tab*) 2,000 units PO DAILY [facility] Clopidogrel Bisulfate (Plavix Tab*) 75 mg PO DAILY [facility] Dorzolamide/Timolol (Cosopt (Nf)) 1 drop BOTH EYES BID [facility] Gabapentin (Neurontin Cap(*)) 300 mg PO DAILY [facility] Glipizide (Glucotrol Xl*) 5 mg PO DAILY [facility] Piperacillin Sod/Tazobactam (Sod 3.375 gm/ Sodium Chloride) 100 mls @ 25 mls/ hr IVPB 0600,1400,2200 [facility] Insulin Human Lispro (Humalog*) 0 units SUBCUT AC [facility] Insulin Human Lispro (Humalog*) 0 units SUBCUT ACHS [facility] Lactobacillus Rhamnosus (Culturelle*) 1 cap PO DAILY [facility] Losartan Potassium (Cozaar Tab*) 50 mg PO DAILY [facility] Morphine Sulfate (Morphine Inj (Syringe)*) 2 mg IV Q4H PRN Oxycodone HCl (Roxycodone Tab*) 10 mg PO Q4H PRN Pharmacy Consult (Zosyn Per Pharmacy*) 1 note FOLLOW UP .ZOSYN PER PHARMACY [facility] Vital Signs 11/26/16 11/26/16 11/26/16 08:00 08:02 10:02 Temperature Pulse Rate Respiratory 16 16 16 Rate Blood Pressure (mmHg) O2 Sat by Pulse Oximetry 11/26/16 11/26/16 11/26/16 13:10 20:07 21:16 Temperature 98.8 F 97.8 F Pulse Rate 82 82 Respiratory 18 18 16 Rate Blood Pressure 136/46 139/42 (mmHg) O2 Sat by Pulse 97 95 Oximetry 11/26/16 11/26/16 11/27/16 22:11 23:30 01:04 Temperature 98.1 F 99.1 F Pulse Rate 79 74 Respiratory 20 16 16 Rate Blood Pressure 153/52 124/55 (mmHg) O2 Sat by Pulse 90 94 Oximetry 11/27/16 04:42 Temperature 98.6 F Pulse Rate 76 Respiratory 16 Rate Blood Pressure 144/57 (mmHg) O2 Sat by Pulse 92 Oximetry Oxygen Devices in Use Now: None Appearance: Elderly, F, laying in bed in NAD Eyes: No Scleral Icterus Ears/Nose/Mouth/Throat: - - Dry MM Neck: NL Appearance and Movements; NL JVP Respiratory: Symmetrical Chest Expansion and Respiratory Effort, Clear to Auscultation Cardiovascular: NL Sounds; No Murmurs; No JVD, RRR Abdominal: NL Sounds; No Tenderness; No Distention Lymphatic: No Cervical Adenopathy Extremities: No Edema, - - Able to appreciate L DP pulse Skin: - - Purplish erythem over dorsal and plantar aspects of L foot, ulcers of 1st and 2nd toes over medial aspect with eschar, also similar appearing ulcer between 4th and 5th toes Neurological: Alert and Oriented x 3 Result Diagrams: 11/27/16 05:52 11/27/16 05:00 Assess/Plan/Problems-Billing Assessment: Mrs. Hughes is a 76yo F with PMH of type 2 DM, DM neuropathy, PVD, HTN, referred from wound clinic with worsening diabetic foot infection despite outpatient therapy. - Patient Problems (1) Diabetic infection of left foot Current Visit: Yes SNOMED Code(s): 64150287 Comment: - Failed outpatient therapy with cephalexin. - Wound culture growing Proteus mirabilis - Continue Zosyn and pain management. - Appreciate ID assistance, will inquire as to duration of IV ABx and ?switch to PO (2) Diabetic foot ulcer Current Visit: Yes Comment: - With component of peripheral vascular disease. - MRI negative for osteomyelitis. - Appreciate Cardiology consult, Dr. King performed LE revascularization on (will need to specify details, seems that only area that was incomplete was part of the pedal loop) - Continue dressing changes with Aquacel. (3) Diabetes Current Visit: Yes Comment: - Continue glipizide, will increase to 7.5 mg daily and cotninue Lispro SS dosage, continue to monitor. - HgbA1c 9.5% in September. - Diabetes consult. (4) PVD (peripheral vascular disease) Current Visit: Yes Comment: - Continue Aspirin, Plavix, and Atorvastatin. - Dr. King following (5) DVT prophylaxis Current Visit: Yes Comment: - SQ heparin (6) Full code status Current Visit: Yes Status and Disposition: Inpatient.
[2016-11-27] MEDS: Insulin LISPRO* 1 UNITS UNIT SUBCUT SCH ×7 (09:55→21:46)
[2016-11-27] MEDS: Heparin VIAL(*) 5000 UNITS/ML VIAL (FIVE THOUSAND) SUBCUT SCH ×3 (09:56→21:47)
[2016-11-27] MEDS: Lactobacillus Acidophilu (GG)* 1 CAP CAP PO SCH (09:58)
[2016-11-27] MEDS: amLODIPine TAB* 5 MG PO SCH (09:58)
[2016-11-27] MEDS: Clopidogrel TAB* 75 MG PO SCH (09:58)
[2016-11-27] MEDS: buPROPion SR TAB.SR* 150 MG PO SCH ×2 (09:58→21:45)
[2016-11-27] MEDS: Aspirin EC Low Dose* 81 MG TAB.EC PO SCH (09:58)
[2016-11-27] MEDS: glipiZIDE TAB.XL* 5 MG PO SCH (09:59)
[2016-11-27] MEDS: Gabapentin CAP(*) 300 MG PO SCH (09:59)
[2016-11-27] MEDS: Losartan TAB* 25 MG PO SCH (09:59)
[2016-11-27] MEDS: glipiZIDE TAB.XL* 2.5 MG PO SCH (09:59)
[2016-11-27] MEDS: Cholecalciferol TAB* 1000 UNITS PO SCH (09:59)
[2016-11-27] MEDS: PTO:Dorzolamide/Timolol OPTH (NF) 10 ML BOT BOTH EYES SCH ×2 (10:02→21:46)
[2016-11-27] MEDS: Atorvastatin* 80 MG TAB PO SCH (16:23)
[2016-11-27] MEDS: Cilostazol TAB* 100 MG PO SCH ×2 (16:23→21:44)
--- NOTE | 2016-11-27 16:35 | CONSULT ---
Subjective Reason for Visit: Left foot diabetic ulcer/infection Admission Date: 11/22/16 Glucose Level On Admission: 82 History Of Present Illness: Ms. Hughes is a 76 year old female with poorly controlled type II diabetes. She was admitted on 11/22/16 for a left foot diabetic ulcer/infection which failed outpatient treatment. She was diagnosed with type II diabetes 4 years ago and up until recently was managed on oral antidiabetic agents. Several weeks ago, she was started on Lantus in addition to Glipizide. She does not recall exactly when she was started on Lantus. Her most recent Hgb A1C was 9.5%. She has never had any diabetes education. She lives with her sister, who is also a type II diabetic. She does monitor her BG at home, checks a fasting BG daily, and this runs anywhere from 119-300 but is usually high. She states that has never had any episodes of hypoglycemia, although she has been hypoglycemic periodically since being admitted. Patient History Surgical History: Yes Surgery Procedure, Year, and Place: bilat breasts removed d/t infections. APPENDECTOMY-TUBAL LIGATION Lives With: Family Preferred/Primary Language: Ethiopian Hx Tobacco Use: No Review Of Systems - Review of Systems Constant: No Weight Loss, - - reports decreased appetite Eyes: - - reports cataracts Cardiovascular: No Chest Pain Respiratory: No Shortness Of Breath Abdominal: No Nausea, No Diarrhea, No Vomitting Skin: - - diabetic ulcer left foot Endocrine: No Polyuria, No Polyphagia, No Polydipsia Objective Allergies Allergy/AdvReac Type Severity Reaction Status Date / Time No Known Allergies Allergy Verified 11/19/16 10:57 Home Medications Medication Instructions Recorded Confirmed Type Gabapentin CAP(*) [Neurontin 100 300 mg PO DAILY 10/19/15 11/22/16 History mg CAP(*)] Losartan TAB* [Cozaar TAB*] 50 mg PO DAILY 10/19/15 11/22/16 History buPROPion SR TAB* [Wellbutrin SR 150 mg PO BID 10/19/15 11/22/16 History TAB*] glipiZIDE TAB.XL* [Glucotrol Xl*] 10 mg PO DAILY 10/19/15 11/22/16 History Aspirin EC Low Dose* [Ecotrin EC 81 mg PO DAILY 10/14/16 11/22/16 History Low Dose 81 MG*] Cholecalciferol [Vitamin D3 Super 2,000 unit PO DAILY 10/14/16 11/22/16 History Strength] amLODIPine TAB* [Norvasc 5 mg TAB*] 5 mg PO DAILY #30 tab 10/16/16 11/22/16 Rx oxyCODONE/Acetamin 5/325 MG* 2 tab PO Q4H PRN #0 tab MDD 10 10/16/16 11/22/16 Rx [Percocet 5/325 TAB*] Bimatoprost 0.01% OPHTH (NF) 1 drop BOTH EYES QPM 10/23/16 11/22/16 History [Lumigan 0.01% OPHTH (NF)] Dorzolamide HCl-Timolol Maleat 1 drop BOTH EYES BID 10/23/16 11/22/16 History [Cosopt 22.3-6.8 mg/ml] Probiotic Product [Probiotic] 1 tab PO DAILY 10/23/16 11/22/16 History Atorvastatin* [Lipitor 80 MG*] 80 mg PO 1700 #90 tab 10/24/16 11/22/16 Rx Clopidogrel TAB* [Plavix TAB*] 75 mg PO DAILY #90 tab 10/24/16 11/22/16 Rx Cephalexin CAP* [Keflex CAP*] 500 mg PO TID #30 cap 11/08/16 11/22/16 Rx Hospital Medications: Current Medications Acetaminophen (Tylenol Tab*) 650 mg PO Q6H PRN PRN Reason: pain/fever Last Admin: 11/25/16 18:34 Dose: 650 mg Amlodipine Besylate (Norvasc Tab*) 5 mg PO DAILY [facility] Last Admin: 11/27/16 09:58 Dose: 5 mg Aspirin (Aspirin Ec Low Dose*) 81 mg PO DAILY [facility] Last Admin: 11/27/16 09:58 Dose: 81 mg Atorvastatin Calcium (Lipitor*) 80 mg PO 1700 [facility] Last Admin: 11/27/16 16:23 Dose: 80 mg Bimatoprost (Lumigan 0.01% Ophth (Nf)) 1 drop BOTH EYES 1800 [facility] PRN Reason: Protocol Last Admin: 11/26/16 21:21 Dose: 1 drop Bupropion HCl (Wellbutrin Sr Tab*) 150 mg PO BID [facility] Last Admin: 11/27/16 09:58 Dose: 150 mg Cholecalciferol (Vitamin D Tab*) 2,000 units PO DAILY [facility] Last Admin: 11/27/16 09:59 Dose: 2,000 units Cilostazol (Pletal Tab*) 50 mg PO BID [facility] Last Admin: 11/27/16 16:23 Dose: 50 mg Dorzolamide/Timolol (Cosopt (Nf)) 1 drop BOTH EYES BID [facility] PRN Reason: Protocol Last Admin: 11/27/16 10:02 Dose: 1 drop Gabapentin (Neurontin Cap(*)) 300 mg PO DAILY [facility] Last Admin: 11/27/16 09:59 Dose: 300 mg Glipizide (Glucotrol Xl*) 5 mg PO DAILY [facility] Last Admin: 11/27/16 09:59 Dose: 5 mg Glipizide (Glucotrol Xl*) 2.5 mg PO DAILY [facility] Last Admin: 11/27/16 09:59 Dose: 2.5 mg Heparin Sodium (Porcine) (Heparin Vial(*)) 5,000 units SUBCUT Q8HR [facility] Last Admin: 11/27/16 13:54 Dose: 5,000 units Piperacillin Sod/Tazobactam (Sod 3.375 gm/ Sodium Chloride) 100 mls @ 25 mls/ hr IVPB 0600,1400,2200 [facility] Last Admin: 11/27/16 13:51 Dose: 25 mls/hr Insulin Human Lispro (Humalog*) 0 units SUBCUT AC [facility] PRN Reason: Protocol Last Admin: 11/27/16 13:51 Dose: 5 unit Insulin Human Lispro (Humalog*) 0 units SUBCUT ACHS [facility] PRN Reason: Protocol Last Admin: 11/27/16 13:53 Dose: 3 unit Lactobacillus Rhamnosus (Culturelle*) 1 cap PO DAILY [facility] Last Admin: 11/27/16 09:58 Dose: 1 cap Losartan Potassium (Cozaar Tab*) 50 mg PO DAILY [facility] Last Admin: 11/27/16 09:59 Dose: 50 mg Morphine Sulfate (Morphine Inj (Syringe)*) 2 mg IV Q4H PRN PRN Reason: PAIN Last Admin: 11/26/16 05:54 Dose: 2 mg Oxycodone HCl (Roxycodone Tab*) 10 mg PO Q4H PRN PRN Reason: PAIN Last Admin: 11/25/16 19:33 Dose: 10 mg Pharmacy Consult (Zosyn Per Pharmacy*) 1 note FOLLOW UP .ZOSYN PER PHARMACY [facility] Lab Data: Sodium 135 mmol/L (133-145) 11/27/16 05:00 Potassium 4.1 mmol/L (3.5-5.0) 11/27/16 05:00 BUN 13 mg/dL (6-24) 11/27/16 05:00 Creatinine 0.89 mg/dL (0.51-0.95) 11/27/16 05:00 Calcium 8.7 mg/dL (8.6-10.3) 11/27/16 05:00 AST 15 U/L (13-39) 11/22/16 17:20 ALT 12 U/L (7-52) 11/22/16 17:20 Vital Signs: Vital Signs 11/27/16 11/27/16 11/27/16 09:59 11:59 12:23 Temperature 36.8 C Pulse Rate 65 Respiratory 16 16 16 Rate Blood Pressure 136/47 (mmHg) O2 Sat by Pulse 97 Oximetry 11/27/16 15:56 Temperature 36.6 C Pulse Rate 65 Respiratory 20 Rate Blood Pressure 115/35 (mmHg) O2 Sat by Pulse 94 Oximetry Height: 5 ft Weight: 68.538 kg Body Mass Index (BMI): 29.5 Physical Exam General Appearance: Positive: Alert, Oriented x3, Well Developed, Obese, No Distress, Lying In Bed Cardiovascular: Positive: RRR Plan Of Care Diagnosis: Ms. Hughes is a 76 year old female with poorly controlled type II diabetes. She has had no diabetic education and would benefit from following up at [facility] for more in depth diabetes education, a nutrition consult, and DSME classes. She has poor hypoglycemic awareness, and denies feeling symptomatic when she had the hypoglycemic episodes since she has been admitted. We discussed the signs and symptoms of hypoglycemia today as well as how to treat hypoglycemia. Taking both Glipizide and Lantus with poor hypoglycemic awareness is a safety concern. I would recommend an alternative oral antidiabetic agent (such as Metformin) to reduce her risk of hypoglycemia. Education Education Provided: When To Seek Medical Attention Handouts Provided: Consistent carbohydrate diet, My Plate, Living Well with Diabetes Goals Goals: According to the [employer], the following are your goals for Hemaglobin A1C, Blood Glucose. Hemaglobin A1C * <7.0% for most * <6.5% for "healthy" * <8.0% for "Less Healthy" Blood Glucose * Fasting Blood Glucose: 80-130 mg/dl * 2 Hour Post Prandial Glucose <180 mg/dl
[2016-11-27] MEDS: PTO:Bimatoprost 0.01% OPHTH (NF) 2.5 ML BTL BOTH EYES SCH (17:46)
[2016-11-27] MEDS: oxyCODONE TAB* 5 MG TAB PO PRN (21:45)
[2016-11-28] MEDS: Heparin VIAL(*) 5000 UNITS/ML VIAL (FIVE THOUSAND) SUBCUT SCH ×3 (05:21→22:14)
[2016-11-28] MEDS: ZOSYN 3.375 GM Q8H per EXTENDED INFUSION IVPB SCH ×6 (05:21→22:14)
[2016-11-28] MEDS: oxyCODONE TAB* 5 MG TAB PO PRN (05:23)
[2016-11-28] MEDS: Insulin LISPRO* 1 UNITS UNIT SUBCUT SCH ×7 (08:49→20:22)
[2016-11-28] MEDS: buPROPion SR TAB.SR* 150 MG PO SCH ×2 (08:52→20:23)
[2016-11-28] MEDS: Losartan TAB* 25 MG PO SCH (08:52)
[2016-11-28] MEDS: amLODIPine TAB* 5 MG PO SCH (08:52)
[2016-11-28] MEDS: Lactobacillus Acidophilu (GG)* 1 CAP CAP PO SCH (08:52)
[2016-11-28] MEDS: glipiZIDE TAB.XL* 5 MG PO SCH (08:53)
[2016-11-28] MEDS: Aspirin EC Low Dose* 81 MG TAB.EC PO SCH (08:53)
[2016-11-28] MEDS: glipiZIDE TAB.XL* 2.5 MG PO SCH (08:54)
[2016-11-28] MEDS: Gabapentin CAP(*) 300 MG PO SCH (08:55)
[2016-11-28] MEDS: Cilostazol TAB* 100 MG PO SCH ×2 (08:55→20:23)
[2016-11-28] MEDS: Cholecalciferol TAB* 1000 UNITS PO SCH (08:56)
[2016-11-28] MEDS: PTO:Dorzolamide/Timolol OPTH (NF) 10 ML BOT BOTH EYES SCH ×2 (09:00→20:23)
[2016-11-28] MEDS ORDERED: Polyethylene Glycol 3350* 17 GM PACKET PO PRN (11:24)
[2016-11-28] MEDS: Docusate CAP* 100 MG PO SCH ×2 (13:07→20:23)
[2016-11-28] MEDS: Senna TAB PO SCH (13:07)
--- NOTE | 2016-11-28 13:50 | PN ---
Subjective Date of Service: 11/28/16 Interval History: Patient seen this morning with sister present. Sister and daughter were concerned that patient has been forgetful and maybe slightly confused at times. Patient says she does feel a little drowsy but thinks it is from the medications. Pain is not significant unless she puts weight on the foot. Concerned about going home before the pain is controlled. No fever or chills. No dysuria. No BM since admission. Family History: Unchanged from Admission Social History: Unchanged from Admission Past Medical History: Unchanged from Admission Objective Active Medications: Acetaminophen (Tylenol Tab*) 650 mg PO Q6H PRN Amlodipine Besylate (Norvasc Tab*) 5 mg PO DAILY [facility] Aspirin (Aspirin Ec Low Dose*) 81 mg PO DAILY [facility] Atorvastatin Calcium (Lipitor*) 80 mg PO 1700 [facility] Bimatoprost (Lumigan 0.01% Ophth (Nf)) 1 drop BOTH EYES 1800 [facility] Bupropion HCl (Wellbutrin Sr Tab*) 150 mg PO BID [facility] Cholecalciferol (Vitamin D Tab*) 2,000 units PO DAILY [facility] Cilostazol (Pletal Tab*) 50 mg PO BID [facility] Docusate Sodium (Colace Cap*) 100 mg PO BID [facility] Dorzolamide/Timolol (Cosopt (Nf)) 1 drop BOTH EYES BID [facility] Gabapentin (Neurontin Cap(*)) 300 mg PO DAILY [facility] Glipizide (Glucotrol Xl*) 5 mg PO DAILY [facility] Glipizide (Glucotrol Xl*) 2.5 mg PO DAILY [facility] Heparin Sodium (Porcine) (Heparin Vial(*)) 5,000 units SUBCUT Q8HR [facility] Piperacillin Sod/Tazobactam (Sod 3.375 gm/ Sodium Chloride) 100 mls @ 25 mls/ hr IVPB 0600,1400,2200 [facility] Insulin Human Lispro (Humalog*) 0 units SUBCUT AC [facility] Insulin Human Lispro (Humalog*) 0 units SUBCUT ACHS [facility] Lactobacillus Rhamnosus (Culturelle*) 1 cap PO DAILY [facility] Losartan Potassium (Cozaar Tab*) 50 mg PO DAILY [facility] Oxycodone HCl (Roxycodone Tab*) 10 mg PO Q4H PRN Pharmacy Consult (Zosyn Per Pharmacy*) 1 note FOLLOW UP .ZOSYN PER PHARMACY [facility] Polyethylene Glycol/Electrolytes (Miralax*) 17 gm PO DAILY PRN Senna (Senokot Tab*) 1 tab PO DAILY [facility] Vital Signs 11/27/16 11/27/16 11/27/16 15:56 20:00 21:45 Temperature 97.9 F 97.9 F Pulse Rate 65 73 Respiratory 20 18 18 Rate Blood Pressure 115/35 121/32 (mmHg) O2 Sat by Pulse 94 97 Oximetry 11/27/16 11/27/16 11/28/16 23:20 23:45 03:34 Temperature 98.3 F 98.4 F Pulse Rate 77 77 Respiratory 16 16 16 Rate Blood Pressure 102/80 118/48 (mmHg) O2 Sat by Pulse 92 94 Oximetry 11/28/16 11/28/16 11/28/16 05:23 07:23 07:44 Temperature 98.0 F Pulse Rate 87 Respiratory 16 16 18 Rate Blood Pressure 150/54 (mmHg) O2 Sat by Pulse 100 Oximetry Oxygen Devices in Use Now: None Appearance: Elderly, F, laying in bed in NAD Eyes: No Scleral Icterus Ears/Nose/Mouth/Throat: Mucous Membranes Moist Neck: NL Appearance and Movements; NL JVP Respiratory: Symmetrical Chest Expansion and Respiratory Effort, Clear to Auscultation Cardiovascular: NL Sounds; No Murmurs; No JVD, RRR Abdominal: NL Sounds; No Tenderness; No Distention Lymphatic: No Cervical Adenopathy Extremities: No Edema, - - Did not take down dressing today Neurological: - - Alert, oriented to self, place, year, thought it was Fri ( actually ) and November (11/28) Result Diagrams: 11/27/16 05:52 11/27/16 05:00 Microbiology and Other Data: Microbiology 11/22/16 17:15 Gram Stain - Final Toe - Left Little Assess/Plan/Problems-Billing Assessment: Mrs. Hughes is a 76yo F with PMH of type 2 DM, DM neuropathy, PVD, HTN, referred from wound clinic with worsening diabetic foot infection despite outpatient therapy. - Patient Problems (1) Confusion Current Visit: Yes Comment: Doubt it is from UTI but will check UA. Suspect it may be from narcotics as this is a higher dose than she is used to. Continue to monitor closely. (2) Diabetic infection of left foot Current Visit: Yes SNOMED Code(s): 37606772 Comment: - Failed outpatient therapy with cephalexin. - Wound culture growing Proteus mirabilis - Continue Zosyn and pain management, bowel regimen - Appreciate ID assistance, continue IV ABx for now (3) Diabetic foot ulcer Current Visit: Yes Comment: - With component of peripheral vascular disease. - MRI negative for osteomyelitis. - Appreciate Cardiology consult, Dr. King performed LE revascularization on , seems that only area that was incomplete was part of the pedal loop - Continue dressing changes with Aquacel. (4) Diabetes Current Visit: Yes Comment: - Continue glipizide 7.5 mg daily and increase Lispro SS dosage, continue to monitor. - HgbA1c 9.5% in September. - Appreciate DM consult, clarified medications with patient, she is on Metformin at home. (5) PVD (peripheral vascular disease) Current Visit: Yes Comment: - Continue Aspirin and Atorvastatin. - Dr. King following, changed to Pletal from Plavix (6) DVT prophylaxis Current Visit: Yes Comment: - SQ heparin (7) Full code status Current Visit: Yes Status and Disposition: Inpatient.
[2016-11-28] MEDS: Atorvastatin* 80 MG TAB PO SCH (17:49)
[2016-11-28] MEDS: PTO:Bimatoprost 0.01% OPHTH (NF) 2.5 ML BTL BOTH EYES SCH (17:51)
[2016-11-28] MEDS: CMCS: Melatonin (NF) 3 MG TAB PO SCH (20:23)
[2016-11-29 05:12] LABS: Hematocrit 28 % (35-47); Hemoglobin 8.6 g/dl (12.0-16.0); Mean Corpuscular HGB Conc 31 g/dl (31-36); Mean Corpuscular Hemoglobin 25 pg (27-31); Mean Corpuscular Volume 80 fL (80-97); Mean Platelet Volume 8 um3 (7.4-10.4); Red Blood Count 3.44 10^6/ul (4.0-5.4); Red Cell Distribution Width 17 % (10.5-15); White Blood Count 16.2 10^3/ul (3.5-10.8)
[2016-11-29 05:26] LABS: Urine Bilirubin Negative (Negative); Urine Glucose Negative (Negative); Urine Nitrite Negative (Negative)
[2016-11-29] MEDS: Heparin VIAL(*) 5000 UNITS/ML VIAL (FIVE THOUSAND) SUBCUT SCH ×3 (05:30→21:48)
[2016-11-29] MEDS: ZOSYN 3.375 GM Q8H per EXTENDED INFUSION IVPB SCH ×8 (05:30→22:55)
[2016-11-29] MEDS: oxyCODONE TAB* 5 MG TAB PO PRN (05:31)
[2016-11-29] MEDS: glipiZIDE TAB.XL* 2.5 MG PO SCH (09:33)
[2016-11-29] MEDS: Losartan TAB* 25 MG PO SCH (09:33)
[2016-11-29] MEDS: amLODIPine TAB* 5 MG PO SCH (09:34)
[2016-11-29] MEDS: Docusate CAP* 100 MG PO SCH ×2 (09:34→21:48)
[2016-11-29] MEDS: Senna TAB PO SCH (09:34)
[2016-11-29] MEDS: Gabapentin CAP(*) 300 MG PO SCH (09:34)
[2016-11-29] MEDS: Lactobacillus Acidophilu (GG)* 1 CAP CAP PO SCH (09:34)
[2016-11-29] MEDS: Cholecalciferol TAB* 1000 UNITS PO SCH (09:34)
[2016-11-29] MEDS: Cilostazol TAB* 100 MG PO SCH ×2 (09:34→21:47)
[2016-11-29] MEDS: buPROPion SR TAB.SR* 150 MG PO SCH ×2 (09:34→21:48)
[2016-11-29] MEDS: Insulin LISPRO* 1 UNITS UNIT SUBCUT SCH ×8 (09:35→21:48)
[2016-11-29] MEDS: glipiZIDE TAB.XL* 5 MG PO SCH (09:35)
[2016-11-29] MEDS: Aspirin EC Low Dose* 81 MG TAB.EC PO SCH (09:35)
[2016-11-29] MEDS: PTO:Dorzolamide/Timolol OPTH (NF) 10 ML BOT BOTH EYES SCH ×2 (09:38→21:48)
--- NOTE | 2016-11-29 12:03 | PN ---
Subjective Date of Service: 11/29/16 Interval History: Patient seen this morning. No new complaints. Has been trying to avoid pain meds if able. Plans on getting up and ambulating this afternoon. Denies confusion (although did not feel confused yesterday). Nursing has not noted any confusion today. Family History: Unchanged from Admission Social History: Unchanged from Admission Past Medical History: Unchanged from Admission Objective Active Medications: Acetaminophen (Tylenol Tab*) 650 mg PO Q6H PRN Amlodipine Besylate (Norvasc Tab*) 5 mg PO DAILY [facility] Aspirin (Aspirin Ec Low Dose*) 81 mg PO DAILY [facility] Atorvastatin Calcium (Lipitor*) 80 mg PO 1700 [facility] Bimatoprost (Lumigan 0.01% Ophth (Nf)) 1 drop BOTH EYES 1800 [facility] Bupropion HCl (Wellbutrin Sr Tab*) 150 mg PO BID [facility] Cholecalciferol (Vitamin D Tab*) 2,000 units PO DAILY [facility] Cilostazol (Pletal Tab*) 50 mg PO BID [facility] Docusate Sodium (Colace Cap*) 100 mg PO BID [facility] Dorzolamide/Timolol (Cosopt (Nf)) 1 drop BOTH EYES BID [facility] Gabapentin (Neurontin Cap(*)) 300 mg PO DAILY [facility] Glipizide (Glucotrol Xl*) 5 mg PO DAILY [facility] Glipizide (Glucotrol Xl*) 2.5 mg PO DAILY [facility] Heparin Sodium (Porcine) (Heparin Vial(*)) 5,000 units SUBCUT Q8HR [facility] Piperacillin Sod/Tazobactam (Sod 3.375 gm/ Sodium Chloride) 100 mls @ 25 mls/ hr IVPB 0600,1400,2200 [facility] Insulin Human Lispro (Humalog*) 0 units SUBCUT AC [facility] Insulin Human Lispro (Humalog*) 0 units SUBCUT ACHS [facility] Lactobacillus Rhamnosus (Culturelle*) 1 cap PO DAILY [facility] Losartan Potassium (Cozaar Tab*) 50 mg PO DAILY [facility] Melatonin (Melatonin (Nf)) 3 mg PO BEDTIME [facility] Metformin HCl (Glucophage*) 1,000 mg PO 0800,1700 [facility] Oxycodone HCl (Roxycodone Tab*) 10 mg PO Q4H PRN Pharmacy Consult (Zosyn Per Pharmacy*) 1 note FOLLOW UP .ZOSYN PER PHARMACY [facility] Polyethylene Glycol/Electrolytes (Miralax*) 17 gm PO DAILY PRN Senna (Senokot Tab*) 1 tab PO DAILY [facility] Vital Signs 11/28/16 11/28/16 11/28/16 15:45 19:57 20:00 Temperature 98.3 F 98.6 F Pulse Rate 76 72 Respiratory 16 24 20 Rate Blood Pressure 134/41 127/41 (mmHg) O2 Sat by Pulse 97 96 Oximetry 11/28/16 11/29/16 11/29/16 23:22 03:19 05:31 Temperature 98.1 F 97.7 F Pulse Rate 73 76 Respiratory 16 16 18 Rate Blood Pressure 124/40 124/60 (mmHg) O2 Sat by Pulse 95 94 Oximetry 11/29/16 11/29/16 11/29/16 07:31 07:34 09:34 Temperature 97.5 F Pulse Rate 78 Respiratory 18 16 18 Rate Blood Pressure 144/52 (mmHg) O2 Sat by Pulse 97 Oximetry Oxygen Devices in Use Now: None Appearance: Elderly, F, laying in bed in NAD Eyes: No Scleral Icterus Ears/Nose/Mouth/Throat: Mucous Membranes Moist Neck: NL Appearance and Movements; NL JVP Respiratory: Symmetrical Chest Expansion and Respiratory Effort, Clear to Auscultation Cardiovascular: NL Sounds; No Murmurs; No JVD, RRR Abdominal: NL Sounds; No Tenderness; No Distention Lymphatic: No Cervical Adenopathy Extremities: No Edema Skin: - - LLE with some improvement in color on dorsal aspect, still dusky on planter surface, ulcers with eschars unchaged Neurological: Alert and Oriented x 3 Result Diagrams: 11/29/16 04:57 11/27/16 05:00 Microbiology and Other Data: Microbiology 11/22/16 17:15 Gram Stain - Final Toe - Left Little Assess/Plan/Problems-Billing Assessment: Mrs. Hughes is a 76yo F with PMH of type 2 DM, DM neuropathy, PVD, HTN, referred from wound clinic with worsening diabetic foot infection despite outpatient therapy. - Patient Problems (1) Diabetic infection of left foot Current Visit: Yes SNOMED Code(s): 02691336 Comment: - Failed outpatient therapy with cephalexin. - Wound culture growing Proteus mirabilis - Continue Zosyn and pain management, bowel regimen - Appreciate ID assistance, continue IV ABx for now (2) Confusion Current Visit: Yes Comment: Seems to be OK today. Suspect it may be from narcotics as this is a higher dose than she is used to. Continue to monitor closely. (3) Diabetic foot ulcer Current Visit: Yes Comment: - With component of peripheral vascular disease. - MRI negative for osteomyelitis. - Appreciate Cardiology consult, Dr. King performed LE revascularization on , seems that only area that was incomplete was part of the pedal loop - Continue dressing changes with Aquacel. (4) Diabetes Current Visit: Yes Comment: - Resume home metformin - Continue glipizide 7.5 mg daily and increase Lispro SS dosage, continue to monitor. - HgbA1c 9.5% in September. (5) PVD (peripheral vascular disease) Current Visit: Yes Comment: - Continue Aspirin and Atorvastatin. - Dr. King following, changed to Pletal from Plavix (6) DVT prophylaxis Current Visit: Yes Comment: - SQ heparin (7) Full code status Current Visit: Yes Status and Disposition: Inpatient for IV ABx
[2016-11-29] MEDS: metFORMIN* 500 MG TAB PO SCH (17:42)
[2016-11-29] MEDS: PTO:Bimatoprost 0.01% OPHTH (NF) 2.5 ML BTL BOTH EYES SCH (17:42)
[2016-11-29] MEDS: Atorvastatin* 80 MG TAB PO SCH (17:43)
[2016-11-29] MEDS: CMCS: Melatonin (NF) 3 MG TAB PO SCH (21:47)
--- NOTE | 2016-11-29 21:48 | PN ---
Progress Note - Progress Note Date of Service: 11/29/16 SOAP: Subjective: CC: foot infection HPI: 76 yo diabetic with left foot infection and chronic toe ulcers. Had revascularization procedure here. Foot pain minimal. Not out of bed much. No fever, rash, or diarrhea. Objective: [] Vital Signs Temp 36.7 C 11/29/16 19:30 Pulse 67 11/29/16 19:30 Resp 24 11/29/16 19:30 BP 122/39 11/29/16 19:30 Pulse Ox 99 11/29/16 19:30 Intake & Output 11/29/16 11/29/16 11/30/16 06:59 18:59 06:59 Intake Total 130 940 Balance 130 940 Intake: IV Fluids 130 ABX - PIPERACILLIN 110 NS (0.9%) 20 IVPB 100 ABX - PIPERACILLIN 100 Oral 0 840 Other: Estimated Void Large # Bowel Movements 0 # Voids 1 Gen:Awake, no distress HEENT: PERRL, MMM Neck:Supple Heart:RRR no murmur Lungs:CTA BL ABD:+BS NTND soft Skin: no rash MSK: Left plantar forefoot purple non blanching, 4th toe ulcer, great toe medial ulcer Laboratory Results - last 24 hr 11/29/16 11/29/16 11/29/16 04:50 04:57 07:29 WBC 16.2 H RBC 3.44 L Hgb 8.6 L Hct 28 L MCV 80 MCH 25 L MCHC 31 RDW 17 H Plt Count 307 MPV 8 Neut % (Auto) 76.2 Lymph % (Auto) 14.7 L [place] % (Auto) 7.1 Eos % (Auto) 1.1 Baso % (Auto) 0.9 Absolute Neuts (auto) 12.3 H Absolute Lymphs (auto) 2.4 Absolute Monos (auto) 1.2 H Absolute Eos (auto) 0.2 Absolute Basos (auto) 0.1 Absolute Nucleated RBC 0 Nucleated RBC % 0 POC Glucose (mg/dL) 158 H Urine Color Yellow Urine Appearance Clear Urine pH 5.0 Ur Specific Cardinal 1.016 Urine Protein Negative Urine Ketones Negative Urine Blood Negative Urine Nitrate Negative Urine Bilirubin Negative Urine Urobilinogen Negative Ur Leukocyte Esterase Negative Urine Glucose Negative 11/29/16 11/29/16 11/29/16 11:28 17:08 19:37 WBC RBC Hgb Hct MCV MCH MCHC RDW Plt Count MPV Neut % (Auto) Lymph % (Auto) [place] % (Auto) Eos % (Auto) Baso % (Auto) Absolute Neuts (auto) Absolute Lymphs (auto) Absolute Monos (auto) Absolute Eos (auto) Absolute Basos (auto) Absolute Nucleated RBC Nucleated RBC % POC Glucose (mg/dL) 206 H 134 H 155 H Urine Color Urine Appearance Urine pH Ur Specific Cardinal Urine Protein Urine Ketones Urine Blood Urine Nitrate Urine Bilirubin Urine Urobilinogen Ur Leukocyte Esterase Urine Glucose Assessment: 1. left foot myositis 2. left foot non pressure ulcers 3. diabetes related ulcers 4. PAD s/p revascularization 5. leukocytosis Plan: 1. continue zosyn, if no improvement over the weekend, will had Dr Diaz see her. Discussed with Dr Brown 35 minutes floor time >50% face to face with patient discussing continued antibiotics and surgical options if not improving.
[2016-11-30] MEDS: ZOSYN 3.375 GM Q8H per EXTENDED INFUSION IVPB SCH ×6 (05:45→21:46)
[2016-11-30] MEDS: Heparin VIAL(*) 5000 UNITS/ML VIAL (FIVE THOUSAND) SUBCUT SCH ×3 (05:46→21:46)
[2016-11-30] MEDS: Insulin LISPRO* 1 UNITS UNIT SUBCUT SCH ×7 (07:22→21:26)
[2016-11-30] MEDS: Senna TAB PO SCH (07:23)
[2016-11-30] MEDS: Docusate CAP* 100 MG PO SCH ×2 (07:23→21:43)
[2016-11-30] MEDS: PTO:Dorzolamide/Timolol OPTH (NF) 10 ML BOT BOTH EYES SCH ×2 (07:27→21:45)
[2016-11-30] MEDS: glipiZIDE TAB.XL* 5 MG PO SCH (07:28)
[2016-11-30] MEDS: glipiZIDE TAB.XL* 2.5 MG PO SCH (07:28)
[2016-11-30] MEDS: amLODIPine TAB* 5 MG PO SCH (07:28)
[2016-11-30] MEDS: metFORMIN* 500 MG TAB PO SCH ×2 (07:28→16:39)
[2016-11-30] MEDS: Aspirin EC Low Dose* 81 MG TAB.EC PO SCH (07:29)
[2016-11-30] MEDS: buPROPion SR TAB.SR* 150 MG PO SCH ×2 (07:29→21:46)
[2016-11-30] MEDS: Gabapentin CAP(*) 300 MG PO SCH (07:29)
[2016-11-30] MEDS: oxyCODONE TAB* 5 MG TAB PO PRN (07:29)
[2016-11-30] MEDS: Cholecalciferol TAB* 1000 UNITS PO SCH (07:30)
[2016-11-30] MEDS: Lactobacillus Acidophilu (GG)* 1 CAP CAP PO SCH (07:30)
[2016-11-30] MEDS: Losartan TAB* 25 MG PO SCH (07:30)
[2016-11-30] MEDS: Cilostazol TAB* 100 MG PO SCH ×2 (07:30→21:45)
--- NOTE | 2016-11-30 13:46 | PN ---
Subjective Date of Service: 11/30/16 Interval History: Patient seen this morning. Toe pain controlled with medications. She has been up and ambulating more today. Concerned about possible need for surgery. No other complaints. Family History: Unchanged from Admission Social History: Unchanged from Admission Past Medical History: Unchanged from Admission Objective Active Medications: Acetaminophen (Tylenol Tab*) 650 mg PO Q6H PRN Amlodipine Besylate (Norvasc Tab*) 5 mg PO DAILY [facility] Aspirin (Aspirin Ec Low Dose*) 81 mg PO DAILY [facility] Atorvastatin Calcium (Lipitor*) 80 mg PO 1700 [facility] Bimatoprost (Lumigan 0.01% Ophth (Nf)) 1 drop BOTH EYES 1800 [facility] Bupropion HCl (Wellbutrin Sr Tab*) 150 mg PO BID [facility] Cholecalciferol (Vitamin D Tab*) 2,000 units PO DAILY [facility] Cilostazol (Pletal Tab*) 50 mg PO BID [facility] Docusate Sodium (Colace Cap*) 100 mg PO BID [facility] Dorzolamide/Timolol (Cosopt (Nf)) 1 drop BOTH EYES BID [facility] Gabapentin (Neurontin Cap(*)) 300 mg PO DAILY [facility] Glipizide (Glucotrol Xl*) 5 mg PO DAILY [facility] Glipizide (Glucotrol Xl*) 2.5 mg PO DAILY [facility] Heparin Sodium (Porcine) (Heparin Vial(*)) 5,000 units SUBCUT Q8HR [facility] Piperacillin Sod/Tazobactam (Sod 3.375 gm/ Sodium Chloride) 100 mls @ 25 mls/ hr IVPB 0600,1400,2200 [facility] Insulin Human Lispro (Humalog*) 0 units SUBCUT AC [facility] Insulin Human Lispro (Humalog*) 0 units SUBCUT ACHS [facility] Lactobacillus Rhamnosus (Culturelle*) 1 cap PO DAILY [facility] Losartan Potassium (Cozaar Tab*) 50 mg PO DAILY [facility] Melatonin (Melatonin (Nf)) 3 mg PO BEDTIME [facility] Metformin HCl (Glucophage*) 1,000 mg PO 0800,1700 [facility] Oxycodone HCl (Roxycodone Tab*) 10 mg PO Q4H PRN Pharmacy Consult (Zosyn Per Pharmacy*) 1 note FOLLOW UP .ZOSYN PER PHARMACY [facility] Polyethylene Glycol/Electrolytes (Miralax*) 17 gm PO DAILY PRN Senna (Senokot Tab*) 1 tab PO DAILY [facility] Vital Signs 11/29/16 11/29/16 11/29/16 15:49 19:30 20:00 Temperature 97.8 F 98.0 F Pulse Rate 68 67 Respiratory 24 24 24 Rate Blood Pressure 121/33 122/39 (mmHg) O2 Sat by Pulse 97 99 Oximetry 11/29/16 11/30/16 11/30/16 23:54 03:46 03:48 Temperature 98.1 F 98.5 F Pulse Rate 69 78 Respiratory 16 18 Rate Blood Pressure 138/48 130/29 125/20 (mmHg) O2 Sat by Pulse 88 92 Oximetry 11/30/16 11/30/16 11/30/16 07:21 07:29 07:35 Temperature 97.0 F Pulse Rate 78 Respiratory 20 20 20 Rate Blood Pressure 145/49 (mmHg) O2 Sat by Pulse 100 Oximetry Oxygen Devices in Use Now: None Appearance: Elderly, F, laying in bed in NAD Eyes: No Scleral Icterus Ears/Nose/Mouth/Throat: Mucous Membranes Moist Neck: NL Appearance and Movements; NL JVP Respiratory: Symmetrical Chest Expansion and Respiratory Effort, Clear to Auscultation Cardiovascular: NL Sounds; No Murmurs; No JVD, RRR Abdominal: NL Sounds; No Tenderness; No Distention Lymphatic: No Cervical Adenopathy Extremities: No Edema, - - Did not undress LLE dressing today Neurological: Alert and Oriented x 3 Result Diagrams: 11/29/16 04:57 11/27/16 05:00 Microbiology and Other Data: Microbiology 11/22/16 17:15 Gram Stain - Final Toe - Left Little Assess/Plan/Problems-Billing Assessment: Mrs. Hughes is a 76yo F with PMH of type 2 DM, DM neuropathy, PVD, HTN, referred from wound clinic with worsening diabetic foot infection despite outpatient therapy. - Patient Problems (1) Diabetic infection of left foot Current Visit: Yes SNOMED Code(s): 39709076 Comment: - Failed outpatient therapy with cephalexin. - Wound culture growing Proteus mirabilis - Continue Zosyn and pain management, bowel regimen - Appreciate ID assistance, continue IV ABx, re-assess possible need for surgery on Friday (2) Diabetic foot ulcer Current Visit: Yes Comment: - With component of peripheral vascular disease. - MRI negative for osteomyelitis. - Appreciate Cardiology consult, Dr. King performed LE revascularization on 6/ 27, seems that only area that was incomplete was part of the pedal loop - Continue dressing changes with Aquacel. (3) Diabetes Current Visit: Yes Comment: - Continue home metformin - Continue glipizide 7.5 mg daily and increase Lispro SS dosage, continue to monitor. - HgbA1c 9.5% in September. (4) PVD (peripheral vascular disease) Current Visit: Yes Comment: - Continue Aspirin and Atorvastatin. - Dr. King following, changed to Pletal from Plavix (5) DVT prophylaxis Current Visit: Yes Comment: - SQ heparin (6) Full code status Current Visit: Yes Status and Disposition: Inpatient for IV ABx
[2016-11-30] MEDS: PTO:Bimatoprost 0.01% OPHTH (NF) 2.5 ML BTL BOTH EYES SCH (16:39)
[2016-11-30] MEDS: Atorvastatin* 80 MG TAB PO SCH (16:40)
[2016-11-30] MEDS: Ondansetron INJ* 2 MG/ML VIAL IV PRN (17:41)
[2016-11-30] MEDS: CMCS: Melatonin (NF) 3 MG TAB PO SCH (21:45)
[2016-12-01] MEDS: ZOSYN 3.375 GM Q8H per EXTENDED INFUSION IVPB SCH ×6 (05:50→21:50)
[2016-12-01] MEDS: Heparin VIAL(*) 5000 UNITS/ML VIAL (FIVE THOUSAND) SUBCUT SCH ×3 (05:50→21:54)
[2016-12-01 06:28] LABS: Hematocrit 29 % (35-47); Hemoglobin 8.8 g/dl (12.0-16.0); Mean Corpuscular HGB Conc 31 g/dl (31-36); Mean Corpuscular Hemoglobin 25 pg (27-31); Mean Corpuscular Volume 80 fL (80-97); Mean Platelet Volume 8 um3 (7.4-10.4); Red Blood Count 3.54 10^6/ul (4.0-5.4); Red Cell Distribution Width 17 % (10.5-15); White Blood Count 14.1 10^3/ul (3.5-10.8)
[2016-12-01] MEDS: Lactobacillus Acidophilu (GG)* 1 CAP CAP PO SCH (07:47)
[2016-12-01] MEDS: Losartan TAB* 25 MG PO SCH (07:47)
[2016-12-01] MEDS: PTO:Dorzolamide/Timolol OPTH (NF) 10 ML BOT BOTH EYES SCH ×2 (07:47→21:49)
[2016-12-01] MEDS: Aspirin EC Low Dose* 81 MG TAB.EC PO SCH (07:48)
[2016-12-01] MEDS: Cholecalciferol TAB* 1000 UNITS PO SCH (07:48)
[2016-12-01] MEDS: Gabapentin CAP(*) 300 MG PO SCH (07:48)
[2016-12-01] MEDS: metFORMIN* 500 MG TAB PO SCH ×2 (07:48→18:28)
[2016-12-01] MEDS: glipiZIDE TAB.XL* 5 MG PO SCH (07:48)
[2016-12-01] MEDS: oxyCODONE TAB* 5 MG TAB PO PRN (07:48)
[2016-12-01] MEDS: Cilostazol TAB* 100 MG PO SCH ×2 (07:48→21:48)
[2016-12-01] MEDS: Docusate CAP* 100 MG PO SCH (07:49)
[2016-12-01] MEDS: buPROPion SR TAB.SR* 150 MG PO SCH ×2 (07:49→21:48)
[2016-12-01] MEDS: Senna TAB PO SCH (07:49)
[2016-12-01] MEDS: amLODIPine TAB* 5 MG PO SCH (07:49)
[2016-12-01] MEDS: glipiZIDE TAB.XL* 2.5 MG PO SCH (07:49)
[2016-12-01] MEDS: Insulin LISPRO* 1 UNITS UNIT SUBCUT SCH ×7 (09:31→21:54)
[2016-12-01] MEDS ORDERED: Docusate CAP* 100 MG PO PRN (12:19)
--- NOTE | 2016-12-01 13:52 | PN ---
Subjective Date of Service: 12/01/16 Interval History: Says she has been walking more/farther, pain is manageable. Had a lot of diarrhea yesterday, slowed today. No fever or chills. Family History: Unchanged from Admission Social History: Unchanged from Admission Past Medical History: Unchanged from Admission Objective Active Medications: Acetaminophen (Tylenol Tab*) 650 mg PO Q6H PRN PRN Reason: pain/fever Last Admin: 11/25/16 18:34 Dose: 650 mg Amlodipine Besylate (Norvasc Tab*) 5 mg PO DAILY [facility] Last Admin: 12/01/16 07:49 Dose: 5 mg Aspirin (Aspirin Ec Low Dose*) 81 mg PO DAILY [facility] Last Admin: 12/01/16 07:48 Dose: 81 mg Atorvastatin Calcium (Lipitor*) 80 mg PO 1700 [facility] Last Admin: 11/30/16 16:40 Dose: 80 mg Bimatoprost (Lumigan 0.01% Ophth (Nf)) 1 drop BOTH EYES 1800 [facility] PRN Reason: Protocol Last Admin: 11/30/16 16:39 Dose: 1 drop Bupropion HCl (Wellbutrin Sr Tab*) 150 mg PO BID [facility] Last Admin: 12/01/16 07:49 Dose: 150 mg Cholecalciferol (Vitamin D Tab*) 2,000 units PO DAILY [facility] Last Admin: 12/01/16 07:48 Dose: 2,000 units Cilostazol (Pletal Tab*) 50 mg PO BID [facility] Last Admin: 12/01/16 07:48 Dose: 50 mg Docusate Sodium (Colace Cap*) 100 mg PO DAILY PRN PRN Reason: CONSTIPATION Dorzolamide/Timolol (Cosopt (Nf)) 1 drop BOTH EYES BID [facility] PRN Reason: Protocol Last Admin: 12/01/16 07:47 Dose: 1 drop Gabapentin (Neurontin Cap(*)) 300 mg PO DAILY [facility] Last Admin: 12/01/16 07:48 Dose: 300 mg Glipizide (Glucotrol Xl*) 5 mg PO DAILY [facility] Last Admin: 12/01/16 07:48 Dose: 5 mg Glipizide (Glucotrol Xl*) 2.5 mg PO DAILY [facility] Last Admin: 12/01/16 07:49 Dose: 2.5 mg Heparin Sodium (Porcine) (Heparin Vial(*)) 5,000 units SUBCUT Q8HR [facility] Last Admin: 12/01/16 13:39 Dose: 5,000 units Piperacillin Sod/Tazobactam (Sod 3.375 gm/ Sodium Chloride) 100 mls @ 25 mls/ hr IVPB 0600,1400,2200 [facility] Last Admin: 12/01/16 13:38 Dose: 25 mls/hr Insulin Human Lispro (Humalog*) 0 units SUBCUT AC [facility] PRN Reason: Protocol Last Admin: 12/01/16 13:38 Dose: 2 unit Insulin Human Lispro (Humalog*) 0 units SUBCUT ACHS [facility] PRN Reason: Protocol Last Admin: 12/01/16 13:38 Dose: 4 unit Lactobacillus Rhamnosus (Culturelle*) 1 cap PO DAILY [facility] Last Admin: 12/01/16 07:47 Dose: 1 cap Losartan Potassium (Cozaar Tab*) 50 mg PO DAILY [facility] Last Admin: 12/01/16 07:47 Dose: 50 mg Melatonin (Melatonin (Nf)) 3 mg PO BEDTIME [facility] Last Admin: 11/30/16 21:45 Dose: 3 mg Metformin HCl (Glucophage*) 1,000 mg PO 0800,1700 [facility] Last Admin: 12/01/16 07:48 Dose: 1,000 mg Ondansetron HCl (Zofran Inj*) 4 mg IV Q6H PRN PRN Reason: NAUSEA Last Admin: 11/30/16 17:41 Dose: 4 mg Oxycodone HCl (Roxycodone Tab*) 10 mg PO Q4H PRN PRN Reason: PAIN Last Admin: 12/01/16 07:48 Dose: 10 mg Pharmacy Consult (Zosyn Per Pharmacy*) 1 note FOLLOW UP .ZOSYN PER PHARMACY [facility] Polyethylene Glycol/Electrolytes (Miralax*) 17 gm PO DAILY PRN PRN Reason: CONSTIPATION Vital Signs 11/30/16 11/30/16 11/30/16 15:41 16:00 20:00 Temperature 98.3 F Pulse Rate 69 Respiratory 20 16 Rate Blood Pressure 130/53 (mmHg) O2 Sat by Pulse 97 97 Oximetry 12/01/16 12/01/16 12/01/16 08:00 08:56 09:48 Temperature Pulse Rate Respiratory 18 20 Rate Blood Pressure (mmHg) O2 Sat by Pulse 94 94 Oximetry Oxygen Devices in Use Now: None Appearance: Elderly, F, laying in bed in NAD Eyes: No Scleral Icterus Ears/Nose/Mouth/Throat: Mucous Membranes Moist Neck: NL Appearance and Movements; NL JVP Respiratory: Symmetrical Chest Expansion and Respiratory Effort, Clear to Auscultation Cardiovascular: NL Sounds; No Murmurs; No JVD, RRR Abdominal: NL Sounds; No Tenderness; No Distention Lymphatic: No Cervical Adenopathy Extremities: No Edema Skin: - - Did not undress wound today Neurological: Alert and Oriented x 3 Result Diagrams: 12/01/16 05:58 11/27/16 05:00 Microbiology and Other Data: Assess/Plan/Problems-Billing Assessment: Mrs. Hughes is a 76yo F with PMH of type 2 DM, DM neuropathy, PVD, HTN, referred from wound clinic with worsening diabetic foot infection despite outpatient therapy. - Patient Problems (1) Diabetic infection of left foot Current Visit: Yes SNOMED Code(s): 57005548 Comment: - Failed outpatient therapy with cephalexin. - Wound culture growing Proteus mirabilis - Continue Zosyn and pain management, scale back bowel regimen - Appreciate ID assistance, continue IV ABx, re-assess possible need for surgery on Friday (2) Diabetic foot ulcer Current Visit: Yes Comment: - With component of peripheral vascular disease. - MRI negative for osteomyelitis. - Appreciate Cardiology consult, Dr. King performed LE revascularization on , seems that only area that was incomplete was part of the pedal loop - Continue dressing changes with Aquacel. (3) Diabetes Current Visit: Yes Comment: - Continue home metformin - Continue glipizide 7.5 mg daily and increased Lispro SS dosage, continue to monitor. - HgbA1c 9.5% in September. (4) PVD (peripheral vascular disease) Current Visit: Yes Comment: - Continue Aspirin and Atorvastatin. - Dr. King following, changed to Pletal from Plavix (5) DVT prophylaxis Current Visit: Yes Comment: - SQ heparin (6) Full code status Current Visit: Yes Status and Disposition: Inpatient for IV ABx
[2016-12-01] MEDS: Atorvastatin* 80 MG TAB PO SCH (18:28)
[2016-12-01] MEDS: PTO:Bimatoprost 0.01% OPHTH (NF) 2.5 ML BTL BOTH EYES SCH (18:28)
[2016-12-01] MEDS: CMCS: Melatonin (NF) 3 MG TAB PO SCH (21:47)
[2016-12-02] MEDS: Heparin VIAL(*) 5000 UNITS/ML VIAL (FIVE THOUSAND) SUBCUT SCH ×3 (05:44→22:53)
[2016-12-02] MEDS: ZOSYN 3.375 GM Q8H per EXTENDED INFUSION IVPB SCH ×2 (05:44)
[2016-12-02] MEDS ORDERED: Docusate CAP* 100 MG PO SCH (09:00)
[2016-12-02] MEDS: Cilostazol TAB* 100 MG PO SCH ×2 (11:03→20:22)
[2016-12-02] MEDS: Lactobacillus Acidophilu (GG)* 1 CAP CAP PO SCH (11:04)
[2016-12-02] MEDS: Losartan TAB* 25 MG PO SCH (11:04)
[2016-12-02] MEDS: Cholecalciferol TAB* 1000 UNITS PO SCH (11:05)
[2016-12-02] MEDS: Aspirin EC Low Dose* 81 MG TAB.EC PO SCH (11:06)
[2016-12-02] MEDS: Gabapentin CAP(*) 300 MG PO SCH (11:06)
[2016-12-02] MEDS: buPROPion SR TAB.SR* 150 MG PO SCH ×2 (11:07→20:24)
[2016-12-02] MEDS: Acetaminophen TAB* 325 MG PO PRN (11:07)
[2016-12-02] MEDS: amLODIPine TAB* 5 MG PO SCH (11:08)
[2016-12-02] MEDS: glipiZIDE TAB.XL* 5 MG PO SCH (11:08)
[2016-12-02] MEDS: oxyCODONE TAB* 5 MG TAB PO PRN (11:09)
[2016-12-02] MEDS: PTO:Dorzolamide/Timolol OPTH (NF) 10 ML BOT BOTH EYES SCH ×2 (11:10→20:21)
[2016-12-02] MEDS: metFORMIN* 500 MG TAB PO SCH ×2 (11:11→18:40)
[2016-12-02] MEDS: Insulin LISPRO* 1 UNITS UNIT SUBCUT SCH ×7 (11:13→21:01)
[2016-12-02] MEDS: glipiZIDE TAB.XL* 2.5 MG PO SCH (11:15)
[2016-12-02] MEDS ORDERED: Loperamide CAP* 2 MG PO PRN (11:29)
[2016-12-02] MEDS: metroNIDAZOLE TAB* 250 MG PO SCH ×2 (13:54→20:24)
[2016-12-02] MEDS: cefTRIAXone VIAL(*) 1,000 MG in NS 0.9% 50 ML* 50 ML IVPB SCH (13:58)
--- NOTE | 2016-12-02 14:08 | PN ---
Subjective Date of Service: 12/02/16 Interval History: Patient seen this afternoon. No new complaints, still with diarrhea, although seems to be slowing. Dr. Manzanares in earlier. She states Dr. Diaz was in as well. Family History: Unchanged from Admission Social History: Unchanged from Admission Past Medical History: Unchanged from Admission Objective Active Medications: Acetaminophen (Tylenol Tab*) 650 mg PO Q6H PRN Amlodipine Besylate (Norvasc Tab*) 5 mg PO DAILY [facility] Aspirin (Aspirin Ec Low Dose*) 81 mg PO DAILY [facility] Atorvastatin Calcium (Lipitor*) 80 mg PO 1700 [facility] Bimatoprost (Lumigan 0.01% Ophth (Nf)) 1 drop BOTH EYES 1800 [facility] Bupropion HCl (Wellbutrin Sr Tab*) 150 mg PO BID [facility] Cholecalciferol (Vitamin D Tab*) 2,000 units PO DAILY [facility] Cilostazol (Pletal Tab*) 50 mg PO BID [facility] Docusate Sodium (Colace Cap*) 100 mg PO DAILY PRN Dorzolamide/Timolol (Cosopt (Nf)) 1 drop BOTH EYES BID [facility] Gabapentin (Neurontin Cap(*)) 300 mg PO DAILY [facility] Glipizide (Glucotrol Xl*) 5 mg PO DAILY [facility] Glipizide (Glucotrol Xl*) 2.5 mg PO DAILY [facility] Heparin Sodium (Porcine) (Heparin Vial(*)) 5,000 units SUBCUT Q8HR [facility] Ceftriaxone Sodium 1,000 mg/ (Sodium Chloride) 50 mls @ 200 mls/hr IVPB Q24H [facility] Insulin Human Lispro (Humalog*) 0 units SUBCUT AC [facility] Insulin Human Lispro (Humalog*) 0 units SUBCUT ACHS [facility] Lactobacillus Rhamnosus (Culturelle*) 1 cap PO DAILY [facility] Loperamide HCl (Imodium Cap*) 2 mg PO .SEE DIRECTIONS PRN Losartan Potassium (Cozaar Tab*) 50 mg PO DAILY [facility] Melatonin (Melatonin (Nf)) 3 mg PO BEDTIME [facility] Metformin HCl (Glucophage*) 1,000 mg PO 0800,1700 [facility] Metronidazole (Flagyl Tab*) 500 mg PO TID [facility] Ondansetron HCl (Zofran Inj*) 4 mg IV Q6H PRN Oxycodone HCl (Roxycodone Tab*) 10 mg PO Q4H PRN Polyethylene Glycol/Electrolytes (Miralax*) 17 gm PO DAILY PRN Vital Signs 12/01/16 12/01/16 12/01/16 15:47 19:30 19:56 Temperature 98.1 F 97.6 F Pulse Rate 68 78 Respiratory 17 16 Rate Blood Pressure 124/43 125/53 (mmHg) O2 Sat by Pulse 97 96 96 Oximetry 12/02/16 12/02/16 12/02/16 07:35 11:06 11:09 Temperature 97.5 F Pulse Rate 77 Respiratory 16 18 18 Rate Blood Pressure 152/51 (mmHg) O2 Sat by Pulse 98 Oximetry Oxygen Devices in Use Now: None Appearance: Elderly, F, laying in bed in NAD Eyes: No Scleral Icterus Ears/Nose/Mouth/Throat: Mucous Membranes Moist Neck: NL Appearance and Movements; NL JVP Respiratory: Symmetrical Chest Expansion and Respiratory Effort, Clear to Auscultation Cardiovascular: NL Sounds; No Murmurs; No JVD, RRR Abdominal: NL Sounds; No Tenderness; No Distention Lymphatic: No Cervical Adenopathy Extremities: No Edema Skin: No Rash or Ulcers Neurological: Alert and Oriented x 3 Result Diagrams: 12/01/16 05:58 11/27/16 05:00 Assess/Plan/Problems-Billing Assessment: Mrs. Hughes is a 76yo F with PMH of type 2 DM, DM neuropathy, PVD, HTN, referred from wound clinic with worsening diabetic foot infection despite outpatient therapy. - Patient Problems (1) Diabetic infection of left foot Current Visit: Yes SNOMED Code(s): 10573759 Comment: - Failed outpatient therapy with cephalexin. - Wound culture growing Proteus mirabilis - Appreciate ID assistance, continue IV ABx, changed to CTX/Flagyl as per ID to reduce BMs (2) Diabetic foot ulcer Current Visit: Yes Comment: - With component of peripheral vascular disease. - MRI negative for osteomyelitis. - Appreciate Cardiology consult, Dr. King performed LE revascularization on , seems that only area that was incomplete was part of the pedal loop - Continue dressing changes with Aquacel. - Dr. Diaz consulted, seems like patient may need amputation, ?TMA, will await recs (3) Diabetes Current Visit: Yes Comment: - Continue home metformin - Continue glipizide 7.5 mg daily and increased Lispro SS dosage, continue to monitor. - HgbA1c 9.5% in September. (4) PVD (peripheral vascular disease) Current Visit: Yes Comment: - Continue Aspirin and Atorvastatin. - Dr. King following, changed to Pletal from Plavix (5) DVT prophylaxis Current Visit: Yes Comment: - SQ heparin (6) Full code status Current Visit: Yes Status and Disposition: Inpatient for IV ABx, may need amputation
--- NOTE | 2016-12-02 17:21 | PN ---
Progress Note - Progress Note Date of Service: 12/02/16 SOAP: Subjective: CC: foot infection HPI: 76 yo diabetic with left foot infection and chronic toe ulcers. Had revascularization procedure here. Foot pain comes and goes. No drainage from ulcers. Not out of bed. No fever, or rash. Multiple loose stools today, no fever or abd pain. Had stool regimen over last couple of days. Objective: [] Vital Signs Temp 36.4 C 12/02/16 07:35 Pulse 77 12/02/16 07:35 Resp 16 12/02/16 13:09 BP 152/51 12/02/16 07:35 Pulse Ox 98 12/02/16 07:35 Intake & Output 12/01/16 12/02/16 12/02/16 18:59 06:59 18:59 Intake Total 430 280 375 Output Total 0 Balance 430 280 375 Intake: IV Fluids 60 NS (0.9%) 60 IVPB 110 220 135 ABX - PIPERACILLIN 110 220 110 NS (0.9%) 25 Oral 320 0 240 Output: Urine 0 Other: Estimated Void Medium Medium # Bowel Movements 0 2 Estimated Stool Amount Medium # Voids 2 1 Gen:Awake, no distress HEENT: PERRL, MMM Neck:Supple Heart:RRR no murmur Lungs:CTA BL ABD:+BS NTND soft Skin: no rash MSK: Left plantar forefoot and midfoot purple non blanching, 4th toe ulcer, great toe medial ulcer Assessment: 1. left foot myositis with progression of ischemic changes on exam 2. left foot non pressure ulcers 3. diabetes related ulcers 4. PAD s/p revascularization 5. leukocytosis and increased CRP 6. diarrhea likely zosyn side effect Plan: 1. change zosyn to ceftriaxone/flagyl (ordered). Will ask Dr Diaz to see due to progression of purpleish discoloration of foot and worsening pain on exam. If surgery and no new culture data can use same regimen for discharge. If no surgery planned, can use keflex 500 mg po tid and flagyl 500 mg po tid for 14 days. I am away until 12/09 and can see her then at [facility] or if she leaves before then pls schedule a fu appt with me at discharge. Discussed with Dr Brown
[2016-12-02] MEDS: PTO:Bimatoprost 0.01% OPHTH (NF) 2.5 ML BTL BOTH EYES SCH (18:39)
[2016-12-02] MEDS: Atorvastatin* 80 MG TAB PO SCH (18:40)
[2016-12-02] MEDS: CMCS: Melatonin (NF) 3 MG TAB PO SCH (20:24)
--- NOTE | 2016-12-02 21:19 | CONS ---
CONSULTATION REPORT: DATE OF CONSULT: 12/02/16 HISTORY OF PRESENT ILLNESS: I was asked to see Ms. Hughes by the medical team. She is a very pleasant 76-year-old lady, who has type 2 diabetes. She is here with her sister and is living with her sister. She moved to the area 15 years ago. Ms. Hughes has had multiple ulcerations in her left 1 through 5 toes and has been treated temporarily for gout in the past and now more aggressively for diabetic foot infection. She had an MRI 10 days ago, which showed some myositis , but no definitive signs of osteomyelitis. I agree with that reading except that it is very difficult to know whether she might have osteomyelitis of the toes themselves given some motion artifact of the MRI. I do not see any osteomyelitis of the metatarsals themselves. Ms. Hughes has been on antibiotics. She has been followed by Infectious Disease. PAST MEDICAL HISTORY: In addition to the diabetes, she does have a history of hypertension, peripheral vascular disease. She has been also followed by Dr. King, from Vascular, who recently performed revascularization of the left lower extremity. MEDICATIONS: Her medications in addition to the antibiotics are: 1. Amlodipine. 2. Atorvastatin. 3. Wellbutrin. 4. Clopidogrel. 5. Gabapentin. 6. Glipizide. 7. Losartan. PHYSICAL EXAM: The patient on examination is alert and in no acute distress. She is afebrile, comfortable, complaining only of some slight discomfort in the left leg. She has been followed by the medical team as well as the infectious disease team. Last consultation by Infectious Disease was 5 days ago. She has been maintained on Zosyn. Examination shows Ms. Hughes to have a warm foot. She has decreased sensation from the mid metatarsal area distally. She has a strong dorsal pulse. She has erythema across the metatarsal head in the plantar aspect with some cellulitis or erythema in the subcu stretching 3 to 4 cm proximal. Dorsally, she is nonerythematous down to the toes themselves. She has an ulcer, which is full thickness at the medial IP joint of the great toe, the nail bed of the second toe in between the 4th and 5th toes. PLAN: The patient with unresolving cellulitis and edema of the left foot with some myositis on MRI. She most likely has some degree of osteomyelitis of the toes. She may be a candidate for debridement of the left foot possibly with transmetatarsal amputation. This was discussed with the patient and the sister , and I will discuss further with the medical team. [id number]/[facility] #: [id number] MARCIA
[2016-12-02] MEDS ORDERED: Calcium Carbonate CHEW TAB* 500 MG (TUMS) PO ONE (21:43)
[2016-12-02] MEDS: Pantoprazole IV* 40 MG IV SCH (22:53)
[2016-12-03] MEDS: Heparin VIAL(*) 5000 UNITS/ML VIAL (FIVE THOUSAND) SUBCUT SCH (06:35)
[2016-12-03] MEDS: Insulin LISPRO* 1 UNITS UNIT SUBCUT SCH ×7 (07:28→20:52)
[2016-12-03] MEDS: PTO:Dorzolamide/Timolol OPTH (NF) 10 ML BOT BOTH EYES SCH ×2 (07:32→20:48)
[2016-12-03] MEDS: Pantoprazole IV* 40 MG IV SCH (07:32)
[2016-12-03] MEDS: Gabapentin CAP(*) 300 MG PO SCH (07:33)
[2016-12-03] MEDS: Cholecalciferol TAB* 1000 UNITS PO SCH (07:33)
[2016-12-03] MEDS: Cilostazol TAB* 100 MG PO SCH ×2 (07:33→20:49)
[2016-12-03] MEDS: metroNIDAZOLE TAB* 250 MG PO SCH ×3 (07:33→20:50)
[2016-12-03] MEDS: buPROPion SR TAB.SR* 150 MG PO SCH ×2 (07:34→20:50)
[2016-12-03] MEDS: Lactobacillus Acidophilu (GG)* 1 CAP CAP PO SCH (07:34)
[2016-12-03] MEDS: metFORMIN* 500 MG TAB PO SCH ×2 (07:34→19:26)
[2016-12-03] MEDS: Losartan TAB* 25 MG PO SCH (07:34)
[2016-12-03] MEDS: glipiZIDE TAB.XL* 5 MG PO SCH (07:35)
[2016-12-03] MEDS: glipiZIDE TAB.XL* 2.5 MG PO SCH (07:35)
[2016-12-03] MEDS: Aspirin EC Low Dose* 81 MG TAB.EC PO SCH (07:35)
[2016-12-03] MEDS: amLODIPine TAB* 5 MG PO SCH (07:35)
[2016-12-03] MEDS ORDERED: Bupivacaine 0.5% SDV PF* 30 ML VIAL ONE (07:50)
[2016-12-03] MEDS ORDERED: Midazolam* 1 MG/ML 2 ML VIAL (2 MG) ONE (07:58)
[2016-12-03] MEDS ORDERED: fentaNYL* 50 MCG/ML 2 ML VIAL (100 MCG VIAL) ONE ×2 (07:58→08:55)
[2016-12-03] MEDS ORDERED: Propofol* 10 MG/ML 20 ML BTL IV PUSH ONE (07:58)
[2016-12-03] MEDS ORDERED: Lidocaine 2% PF * 5 ML VIAL ONE (07:58)
[2016-12-03] MEDS ORDERED: KETAMINE HCL* 50 MG/ML 10 ML VIAL ONE (07:58)
[2016-12-03] MEDS ORDERED: Buffered Lidocaine 0.9% SYRIN* 5 ML/SYR SYRINGE INTRADERM ONE (08:00)
[2016-12-03] MEDS ORDERED: Famotidine IV* 10 MG/ML 2 ML (20 mg) IV ONE (08:00)
[2016-12-03] MEDS ORDERED: Lidocaine 2% PF* 10 ML AMP ONE (08:48)
[2016-12-03] MEDS ORDERED: HYDROcodone/ACETAMIN 5-325 MG* 1 TAB PO PRN (09:44)
[2016-12-03] MEDS ORDERED: fentaNYL* 50 MCG/ML 2 ML VIAL (100 MCG VIAL) IV PRN (09:44)
[2016-12-03] MEDS ORDERED: oxyCODONE/Acetamin 5/325 MG* TAB PO PRN (09:44)
[2016-12-03] MEDS ORDERED: PROCHLORPERAZINE INJ 5 MG/ML 2 ML VIAL IV PRN (09:44)
[2016-12-03] MEDS ORDERED: Ondansetron INJ* 2 MG/ML VIAL IV PRN (09:44)
[2016-12-03] MEDS ORDERED: oxyCODONE/Acetamin 5/325 MG* TAB ONE (10:13)
[2016-12-03] MEDS: oxyCODONE TAB* 5 MG TAB PO PRN ×3 (11:21→20:51)
[2016-12-03] MEDS: Acetaminophen TAB* 325 MG PO PRN (11:21)
[2016-12-03] MEDS: Morphine INJ* 4 MG/ML 1 ML SYRINGE IV PRN (12:13)
--- NOTE | 2016-12-03 13:08 | PN ---
Subjective Date of Service: 12/03/16 Interval History: Patient went to OR this AM for L [facility]. Saw patient on return to the floor. Has some pain in the foot but overall seems to be in good spirits. Diarrhea seems to have resolved. Family History: Unchanged from Admission Social History: Unchanged from Admission Past Medical History: Unchanged from Admission Objective Active Medications: Acetaminophen (Tylenol Tab*) 650 mg PO Q6H PRN Amlodipine Besylate (Norvasc Tab*) 5 mg PO DAILY [facility] Aspirin (Aspirin Ec Low Dose*) 81 mg PO DAILY [facility] Atorvastatin Calcium (Lipitor*) 80 mg PO 1700 [facility] Bimatoprost (Lumigan 0.01% Ophth (Nf)) 1 drop BOTH EYES 1800 [facility] Bupropion HCl (Wellbutrin Sr Tab*) 150 mg PO BID [facility] Cholecalciferol (Vitamin D Tab*) 2,000 units PO DAILY [facility] Cilostazol (Pletal Tab*) 50 mg PO BID [facility] Docusate Sodium (Colace Cap*) 100 mg PO DAILY PRN Dorzolamide/Timolol (Cosopt (Nf)) 1 drop BOTH EYES BID [facility] Gabapentin (Neurontin Cap(*)) 300 mg PO DAILY [facility] Glipizide (Glucotrol Xl*) 5 mg PO DAILY [facility] Glipizide (Glucotrol Xl*) 2.5 mg PO DAILY [facility] Ceftriaxone Sodium 1,000 mg/ (Sodium Chloride) 50 mls @ 200 mls/hr IVPB Q24H [facility] Lactated Ringer's (Lactated Ringers 1000 Ml Bag*) 1,000 mls @ 125 mls/hr IV PER RATE [facility] Insulin Human Lispro (Humalog*) 0 units SUBCUT AC [facility] Insulin Human Lispro (Humalog*) 0 units SUBCUT ACHS [facility] Lactobacillus Rhamnosus (Culturelle*) 1 cap PO DAILY [facility] Loperamide HCl (Imodium Cap*) 2 mg PO .SEE DIRECTIONS PRN Losartan Potassium (Cozaar Tab*) 50 mg PO DAILY [facility] Melatonin (Melatonin (Nf)) 3 mg PO BEDTIME [facility] Metformin HCl (Glucophage*) 1,000 mg PO 0800,1700 [facility] Metronidazole (Flagyl Tab*) 500 mg PO TID [facility] Morphine Sulfate (Morphine Inj (Syringe)*) 4 mg IV Q4H PRN Ondansetron HCl (Zofran Inj*) 4 mg IV Q6H PRN Oxycodone HCl (Roxycodone Tab*) 10 mg PO Q4H PRN Oxycodone/Acetaminophen (Percocet 5/325 Tab*) 1 tab PO ONCE PRN Pantoprazole Sodium (Protonix Iv*) 40 mg IV DAILY [facility] Polyethylene Glycol/Electrolytes (Miralax*) 17 gm PO DAILY PRN Vital Signs 12/02/16 12/02/16 12/02/16 13:09 15:31 16:00 Temperature 98.1 F Pulse Rate 74 Respiratory 16 18 Rate Blood Pressure 122/42 (mmHg) O2 Sat by Pulse 100 98 Oximetry 12/03/16 12/03/16 12/03/16 11:21 11:41 12:13 Temperature 97.3 F Pulse Rate 84 Respiratory 18 16 18 Rate Blood Pressure 161/59 (mmHg) O2 Sat by Pulse 96 Oximetry Oxygen Devices in Use Now: None Appearance: Elderly, F, laying in bed, mildly restless Eyes: No Scleral Icterus Ears/Nose/Mouth/Throat: Mucous Membranes Moist Neck: NL Appearance and Movements; NL JVP Respiratory: Symmetrical Chest Expansion and Respiratory Effort, Clear to Auscultation Cardiovascular: NL Sounds; No Murmurs; No JVD, RRR Abdominal: NL Sounds; No Tenderness; No Distention Lymphatic: No Cervical Adenopathy Extremities: No Edema, - - L foot s/p TMA, dressing in place is c/d/i Neurological: Alert and Oriented x 3 Result Diagrams: 12/01/16 05:58 11/27/16 05:00 Microbiology and Other Data: Assess/Plan/Problems-Billing Assessment: Mrs. Hughes is a 76yo F with PMH of type 2 DM, DM neuropathy, PVD, HTN, referred from wound clinic with worsening diabetic foot infection despite outpatient therapy. - Patient Problems (1) Diabetic infection of left foot Current Visit: Yes SNOMED Code(s): 20183108 Comment: - Failed outpatient therapy with cephalexin. - Wound culture growing Proteus mirabilis - Appreciate ID assistance, continue IV ABx, changed to CTX/Flagyl as per ID to reduce BMs (2) Diabetic foot ulcer Current Visit: Yes Comment: - With component of peripheral vascular disease. - MRI negative for osteomyelitis. - Appreciate Cardiology consult, Dr. King performed LE revascularization on , seems that only area that was incomplete was part of the pedal loop - Due to limited improvement, Dr. Diaz took pt to the OR on 12/03 for L TMA (3) Diabetes Current Visit: Yes Comment: - Continue home metformin - Continue glipizide 7.5 mg daily and increased Lispro SS dosage, continue to monitor. - HgbA1c 9.5% in September. (4) PVD (peripheral vascular disease) Current Visit: Yes Comment: - Continue Aspirin and Atorvastatin. - Dr. King following, changed to Pletal from Plavix (5) DVT prophylaxis Current Visit: Yes Comment: - SQ heparin (6) Full code status Current Visit: Yes Status and Disposition: S/P L TMA on 12/03, may need RAVINDER, PT eval pending
[2016-12-03] MEDS: cefTRIAXone VIAL(*) 1,000 MG in NS 0.9% 50 ML* 50 ML IVPB SCH (15:19)
[2016-12-03] MEDS: Ondansetron INJ* 2 MG/ML VIAL IV PRN (16:16)
--- NOTE | 2016-12-03 16:28 | OP ---
DATE OF OPERATION: 12/02/16 - ROOM #408 DATE OF : 36. SURGEON: Aniket Diaz MD. PRODUCTION LEAD: None. ANESTHESIOLOGIST: Virgil Buckner MD ANESTHESIA: MAC PRE-OP DIAGNOSIS: Left forefoot infection. POST-OP DIAGNOSIS: Left forefoot infection. OPERATIVE PROCEDURE: Left transmetatarsal amputation. DESCRIPTION OF PROCEDURE: The patient was taken to the operating room where MAC anesthesia was provided. I infused 20 cc of 2% lidocaine around the midfoot with the ankle Esmarch raised, I made a transverse fishmouth incision as distal I could just proximal to the toes. The toes were dissected away from the MTP joints and sent to pathology. The soft tissues flaps were not quite adequate cover so transection occurred at the metatarsal neck region with rongeur used to round the undersurface within neck cuts. We then irrigated thoroughly, debrided some of the plantar tissue which appeared to be slightly edematous with myositis and then closure of the dorsal to plantar with 2-0 Vicryl and 2-0 Surgipro was performed. There was good bleeding from all the edges prior to the closure. Plaster splint was applied. [id number]/[facility] #: [id number] MTDD
[2016-12-03] MEDS: Atorvastatin* 80 MG TAB PO SCH (19:26)
[2016-12-03] MEDS: PTO:Bimatoprost 0.01% OPHTH (NF) 2.5 ML BTL BOTH EYES SCH (19:26)
[2016-12-03] MEDS: CMCS: Melatonin (NF) 3 MG TAB PO SCH (20:50)
[2016-12-04] MEDS: oxyCODONE TAB* 5 MG TAB PO PRN ×4 (04:02→23:59)
[2016-12-04] MEDS: Morphine INJ* 4 MG/ML 1 ML SYRINGE IV PRN ×3 (04:32→21:15)
[2016-12-04 05:59] LABS: Hematocrit 29 % (35-47); Hemoglobin 9.3 g/dl (12.0-16.0); Mean Corpuscular HGB Conc 33 g/dl (31-36); Mean Corpuscular Hemoglobin 26 pg (27-31); Mean Corpuscular Volume 79 fL (80-97); Mean Platelet Volume 8 um3 (7.4-10.4); Red Blood Count 3.62 10^6/ul (4.0-5.4); Red Cell Distribution Width 17 % (10.5-15); White Blood Count 17.1 10^3/ul (3.5-10.8)
[2016-12-04 06:08] LABS: BUN/Creatinine Ratio 12.8 (8-20); Calcium 8.8 mg/dL (8.6-10.3); EGFR African American 91.9 (>60); EGFR Non-African American 71.4 (>60); Potassium 3.8 mmol/L (3.5-5.0)
[2016-12-04] MEDS: Insulin LISPRO* 1 UNITS UNIT SUBCUT SCH ×7 (08:50→21:20)
[2016-12-04] MEDS: Pantoprazole IV* 40 MG IV SCH (09:01)
[2016-12-04] MEDS: Ondansetron INJ* 2 MG/ML VIAL IV PRN (09:01)
[2016-12-04] MEDS: metFORMIN* 500 MG TAB PO SCH ×2 (10:02→17:51)
[2016-12-04] MEDS: Cholecalciferol TAB* 1000 UNITS PO SCH (10:03)
[2016-12-04] MEDS: metroNIDAZOLE TAB* 250 MG PO SCH ×3 (10:03→21:19)
[2016-12-04] MEDS: glipiZIDE TAB.XL* 2.5 MG PO SCH (10:03)
[2016-12-04] MEDS: Losartan TAB* 25 MG PO SCH (10:03)
[2016-12-04] MEDS: glipiZIDE TAB.XL* 5 MG PO SCH (10:03)
[2016-12-04] MEDS: amLODIPine TAB* 5 MG PO SCH (10:03)
[2016-12-04] MEDS: Gabapentin CAP(*) 300 MG PO SCH (10:04)
[2016-12-04] MEDS: buPROPion SR TAB.SR* 150 MG PO SCH ×2 (10:04→21:19)
[2016-12-04] MEDS: Lactobacillus Acidophilu (GG)* 1 CAP CAP PO SCH (10:04)
[2016-12-04] MEDS: Cilostazol TAB* 100 MG PO SCH ×2 (10:04→21:18)
[2016-12-04] MEDS: Aspirin EC Low Dose* 81 MG TAB.EC PO SCH (10:04)
[2016-12-04] MEDS: PTO:Dorzolamide/Timolol OPTH (NF) 10 ML BOT BOTH EYES SCH ×2 (10:08→21:18)
--- NOTE | 2016-12-04 10:22 | PN ---
Subjective Date of Service: 12/04/16 Interval History: Seen with sister at bedside Pain in left foot 6/10 but greatly relieved by pain medications. Asking for increased frequency of meds. Diarrhea resolved Nausea this AM relieved with anti emetic Family History: Unchanged from Admission Social History: Unchanged from Admission Past Medical History: Unchanged from Admission Objective Active Medications: Acetaminophen (Tylenol Tab*) 650 mg PO Q6H PRN PRN Reason: pain/fever Last Admin: 12/03/16 11:21 Dose: 650 mg Amlodipine Besylate (Norvasc Tab*) 5 mg PO DAILY [facility] Last Admin: 12/04/16 10:03 Dose: 5 mg Aspirin (Aspirin Ec Low Dose*) 81 mg PO DAILY [facility] Last Admin: 12/04/16 10:04 Dose: 81 mg Atorvastatin Calcium (Lipitor*) 80 mg PO 1700 [facility] Last Admin: 12/03/16 19:26 Dose: 80 mg Bimatoprost (Lumigan 0.01% Ophth (Nf)) 1 drop BOTH EYES 1800 [facility] PRN Reason: Protocol Last Admin: 12/03/16 19:26 Dose: 1 drop Bupropion HCl (Wellbutrin Sr Tab*) 150 mg PO BID [facility] Last Admin: 12/04/16 10:04 Dose: 150 mg Cholecalciferol (Vitamin D Tab*) 2,000 units PO DAILY [facility] Last Admin: 12/04/16 10:03 Dose: 2,000 units Cilostazol (Pletal Tab*) 50 mg PO BID [facility] Last Admin: 12/04/16 10:04 Dose: 50 mg Docusate Sodium (Colace Cap*) 100 mg PO DAILY PRN PRN Reason: CONSTIPATION Dorzolamide/Timolol (Cosopt (Nf)) 1 drop BOTH EYES BID [facility] PRN Reason: Protocol Last Admin: 12/04/16 10:08 Dose: 1 drop Gabapentin (Neurontin Cap(*)) 300 mg PO DAILY [facility] Last Admin: 12/04/16 10:04 Dose: 300 mg Glipizide (Glucotrol Xl*) 5 mg PO DAILY [facility] Last Admin: 12/04/16 10:03 Dose: 5 mg Ceftriaxone Sodium 1,000 mg/ (Sodium Chloride) 50 mls @ 200 mls/hr IVPB Q24H [facility] Last Admin: 12/03/16 15:19 Dose: 200 mls/hr Insulin Human Lispro (Humalog*) 0 units SUBCUT AC [facility] PRN Reason: Protocol Last Admin: 12/04/16 09:17 Dose: Not Given Insulin Human Lispro (Humalog*) 0 units SUBCUT ACHS [facility] PRN Reason: Protocol Last Admin: 12/04/16 08:50 Dose: Not Given Lactobacillus Rhamnosus (Culturelle*) 1 cap PO DAILY [facility] Last Admin: 12/04/16 10:04 Dose: 1 cap Loperamide HCl (Imodium Cap*) 2 mg PO .SEE DIRECTIONS PRN PRN Reason: DIARRHEA Losartan Potassium (Cozaar Tab*) 50 mg PO DAILY [facility] Last Admin: 12/04/16 10:03 Dose: 50 mg Melatonin (Melatonin (Nf)) 3 mg PO BEDTIME [facility] Last Admin: 12/03/16 20:50 Dose: 3 mg Metformin HCl (Glucophage*) 1,000 mg PO 0800,1700 [facility] Last Admin: 12/04/16 10:02 Dose: 1,000 mg Metronidazole (Flagyl Tab*) 500 mg PO TID [facility] Last Admin: 12/04/16 10:03 Dose: 500 mg Morphine Sulfate (Morphine Inj (Syringe)*) 4 mg IV Q4H PRN PRN Reason: SEVERE PAIN Last Admin: 12/04/16 04:32 Dose: 4 mg Ondansetron HCl (Zofran Inj*) 4 mg IV Q6H PRN PRN Reason: NAUSEA Last Admin: 12/04/16 09:01 Dose: 4 mg Oxycodone HCl (Roxycodone Tab*) 10 mg PO Q3H PRN PRN Reason: PAIN Pantoprazole Sodium (Protonix Iv*) 40 mg IV DAILY [facility] Last Admin: 12/04/16 09:01 Dose: 40 mg Polyethylene Glycol/Electrolytes (Miralax*) 17 gm PO DAILY PRN PRN Reason: CONSTIPATION Vital Signs 12/03/16 12/03/16 12/03/16 10:49 11:21 11:41 Temperature 97.5 F 97.3 F Pulse Rate 78 84 Respiratory 18 18 16 Rate Blood Pressure 153/57 161/59 (mmHg) O2 Sat by Pulse 100 96 Oximetry 12/03/16 12/03/16 12/03/16 12:13 12:15 13:13 Temperature Pulse Rate Respiratory 18 18 18 Rate Blood Pressure (mmHg) O2 Sat by Pulse Oximetry 12/03/16 12/03/16 12/03/16 13:21 14:42 15:18 Temperature 97.7 F Pulse Rate 87 Respiratory 20 16 18 Rate Blood Pressure 157/46 (mmHg) O2 Sat by Pulse 98 Oximetry 12/03/16 12/03/16 12/03/16 15:24 19:18 20:00 Temperature 97.9 F Pulse Rate 87 Respiratory 16 18 18 Rate Blood Pressure 175/56 (mmHg) O2 Sat by Pulse 96 Oximetry 12/03/16 12/03/16 12/03/16 20:03 20:50 20:51 Temperature 97.8 F Pulse Rate 85 Respiratory 16 20 Rate Blood Pressure 174/61 (mmHg) O2 Sat by Pulse 94 93 Oximetry 12/03/16 12/03/16 12/04/16 22:51 23:29 04:02 Temperature 98.5 F Pulse Rate 78 Respiratory 18 17 18 Rate Blood Pressure 148/41 (mmHg) O2 Sat by Pulse 92 Oximetry 12/04/16 12/04/16 12/04/16 04:08 04:32 07:28 Temperature 97.6 F 98.7 F Pulse Rate 78 80 Respiratory 16 18 16 Rate Blood Pressure 165/52 149/41 (mmHg) O2 Sat by Pulse 97 94 Oximetry 12/04/16 12/04/16 10:04 10:06 Temperature Pulse Rate Respiratory 18 18 Rate Blood Pressure (mmHg) O2 Sat by Pulse Oximetry Oxygen Devices in Use Now: Nasal Cannula - 1L Appearance: NAD Eyes: No Scleral Icterus Ears/Nose/Mouth/Throat: Clear Oropharnyx, Mucous Membranes Moist Neck: NL Appearance and Movements; NL JVP, Trachea Midline Respiratory: Symmetrical Chest Expansion and Respiratory Effort, - - rales left base Cardiovascular: RRR Abdominal: NL Sounds; No Tenderness; No Distention, No Hepatosplenomegaly Lymphatic: No Cervical Adenopathy Extremities: No Edema, - - left foot wrapped Neurological: Alert and Oriented x 3 Result Diagrams: 12/04/16 05:46 12/04/16 05:46 Microbiology and Other Data: Assess/Plan/Problems-Billing Assessment: Mrs. Hughes is a 76yo F with PMH of DM2, neuropathy, PVD, HTN, referred from wound clinic with worsening diabetic foot infection despite outpatient therapy s /p left TMA 12/03/16 w/Dr. Diaz - Patient Problems (1) Diabetic infection of left foot Comment: s/p TMA 12/03 c/w CTX and flagyl pending cultures from surgery which will determine outpatient abx regimen Needs f/u with ID on d/c Failed outpatient therapy with cephalexin. Wound culture growing Proteus mirabilis (2) Diabetic foot ulcer Comment: component of peripheral vascular disease. MRI negative for osteomyelitis. appreciate Cardiology consult, Dr. King performed LE revascularization on 11/26 , seems that only area that was incomplete was part of the pedal loop Due to limited improvement, Dr. Diaz took pt to the OR on 12/03 for L TMA (3) Diabetes Comment: serum glucose 63. Reduce glipizde from 7.5 to 5mg daily Continue metformin Lispro SS dosage (25-30) and carb counting 1:10 HgbA1c 9.5% in September. (4) PVD (peripheral vascular disease) Comment: Continue Aspirin and Atorvastatin. Dr. King following, changed to Pletal from Plavix (5) DVT prophylaxis Comment: - SQ heparin Status and Disposition: PT eval pending- may need RAVINDER
[2016-12-04] MEDS ORDERED: Losartan TAB* 25 MG PO ONE (10:26)
--- NOTE | 2016-12-04 10:28 | PN ---
Progress Note - Progress Note Date of Service: 12/04/16 Note: Blood pressure remains high. Losartan 50mg today (total dose 100mg) and increase daily dose to 100mg tomorrow. Continue with amlodipine
--- NOTE | 2016-12-04 11:11 | PN ---
Progress Note - Progress Note Date of Service: 12/04/16 SOAP: Subjective: []Patient seen at bedside. Her sister is present. Patient c/o some pain at amputation site but is tolerable with current pain medications. Nausea resolved. She feels she will need rehab prior to returning home. Objective: [] Vital Signs Temp 98.7 F 12/04/16 07:28 Pulse 80 12/04/16 07:28 Resp 18 12/04/16 10:06 BP 149/41 12/04/16 07:28 Pulse Ox 94 12/04/16 07:28 Intake & Output 12/03/16 12/04/16 12/04/16 18:59 06:59 18:59 Intake Total 1070 1450 2121 Balance 1070 1450 2121 Intake: IV Fluids 750 1100 2121 LR 750 NS (0.9%) 1100 2121 Oral 320 350 Other: Estimated Void Medium Medium # Bowel Movements 0 0 # Voids 1 1 Laboratory Results - last 24 hr 12/03/16 12/03/16 12/03/16 06:23 08:14 11:27 WBC RBC Hgb Hct MCV MCH MCHC RDW Plt Count MPV Neut % (Auto) Lymph % (Auto) Ward % (Auto) Eos % (Auto) Baso % (Auto) Absolute Neuts (auto) Absolute Lymphs (auto) Absolute Monos (auto) Absolute Eos (auto) Absolute Basos (auto) Absolute Nucleated RBC Nucleated RBC % Sodium Potassium Chloride Carbon Dioxide Anion Gap BUN Creatinine Est GFR ( Amer) Est GFR (Non-Af Amer) BUN/Creatinine Ratio Glucose POC Glucose (mg/dL) 133 H 157 H 150 H Calcium 12/03/16 12/03/16 12/04/16 16:25 20:40 05:46 WBC 17.1 H RBC 3.62 L Hgb 9.3 L Hct 29 L MCV 79 L MCH 26 L MCHC 33 RDW 17 H Plt Count 322 MPV 8 Neut % (Auto) 81.0 Lymph % (Auto) 9.1 L Ward % (Auto) 9.0 Eos % (Auto) 0.3 Baso % (Auto) 0.6 Absolute Neuts (auto) 13.8 H Absolute Lymphs (auto) 1.6 Absolute Monos (auto) 1.5 H Absolute Eos (auto) 0.1 Absolute Basos (auto) 0.1 Absolute Nucleated RBC 0.01 Nucleated RBC % 0.1 Sodium Potassium Chloride Carbon Dioxide Anion Gap BUN Creatinine Est GFR ( Amer) Est GFR (Non-Af Amer) BUN/Creatinine Ratio Glucose POC Glucose (mg/dL) 98 100 Calcium 12/04/16 12/04/16 05:46 07:24 WBC RBC Hgb Hct MCV MCH MCHC RDW Plt Count MPV Neut % (Auto) Lymph % (Auto) Ward % (Auto) Eos % (Auto) Baso % (Auto) Absolute Neuts (auto) Absolute Lymphs (auto) Absolute Monos (auto) Absolute Eos (auto) Absolute Basos (auto) Absolute Nucleated RBC Nucleated RBC % Sodium 136 Potassium 3.8 Chloride 103 Carbon Dioxide 27 Anion Gap 6 BUN 10 Creatinine 0.78 Est GFR ( Amer) 91.9 Est GFR (Non-Af Amer) 71.4 BUN/Creatinine Ratio 12.8 Glucose 63 L POC Glucose (mg/dL) 87 Calcium 8.8 Microbiology 11/23/16 00:03 Aerobic Blood Culture - Final Blood Venous No Growth Day 5 Anaerobic Blood Culture - Final No Growth Day 5 Blood Culture - Final 11/23/16 00:00 Aerobic Blood Culture - Final Blood Venous No Growth Day 5 Anaerobic Blood Culture - Final No Growth Day 5 Blood Culture - Final 11/22/16 17:15 Gram Stain - Final Toe - Left Little Wound Culture - Final Proteus Mirabilis Normal Shanita LLE splint dry and intact Assessment: []s/p Left transmetatarsal amputation for infection, gram stain + Proteus mirabilis Plan: []Heel wt bearing only, left LE Ceftriaxone and Flagyl Await rehab options follow up 10-[address] Diaz after discharge.
[2016-12-04] MEDS: cefTRIAXone VIAL(*) 1,000 MG in NS 0.9% 50 ML* 50 ML IVPB SCH (15:47)
[2016-12-04] MEDS: Atorvastatin* 80 MG TAB PO SCH (17:51)
[2016-12-04] MEDS: PTO:Bimatoprost 0.01% OPHTH (NF) 2.5 ML BTL BOTH EYES SCH (17:52)
[2016-12-04] MEDS: CMCS: Melatonin (NF) 3 MG TAB PO SCH (21:19)
[2016-12-05] MEDS: PTO:Dorzolamide/Timolol OPTH (NF) 10 ML BOT BOTH EYES SCH (07:56)
[2016-12-05] MEDS: Lactobacillus Acidophilu (GG)* 1 CAP CAP PO SCH (07:57)
[2016-12-05] MEDS: Cilostazol TAB* 100 MG PO SCH (07:57)
[2016-12-05] MEDS: Cholecalciferol TAB* 1000 UNITS PO SCH (07:58)
[2016-12-05] MEDS: metFORMIN* 500 MG TAB PO SCH (07:58)
[2016-12-05] MEDS: oxyCODONE TAB* 5 MG TAB PO PRN ×2 (07:58→12:08)
[2016-12-05] MEDS: Gabapentin CAP(*) 300 MG PO SCH (07:59)
[2016-12-05] MEDS: Aspirin EC Low Dose* 81 MG TAB.EC PO SCH (08:00)
[2016-12-05] MEDS: glipiZIDE TAB.XL* 5 MG PO SCH (08:00)
[2016-12-05] MEDS: metroNIDAZOLE TAB* 250 MG PO SCH (08:00)
[2016-12-05] MEDS: amLODIPine TAB* 5 MG PO SCH (08:01)
[2016-12-05] MEDS: buPROPion SR TAB.SR* 150 MG PO SCH (08:01)
[2016-12-05] MEDS: Insulin LISPRO* 1 UNITS UNIT SUBCUT SCH ×4 (08:06→12:11)
[2016-12-05] MEDS: Pantoprazole IV* 40 MG IV SCH (08:26)
[2016-12-05] MEDS ORDERED: Losartan TAB* 25 MG PO SCH (09:00)
--- NOTE | 2016-12-05 10:12 | PN ---
Progress Note - Progress Note Date of Service: 12/05/16 SOAP: Subjective: []Patient seen OOB in chair. She is having balance issues and states that she almost fell yesterday while trying to get to the bathroom. Her pain is managed overall. Objective: [] Vital Signs Temp 98.2 F 12/05/16 07:24 Pulse 80 12/05/16 07:24 Resp 16 12/05/16 07:59 BP 140/47 12/05/16 07:24 Pulse Ox 93 12/05/16 07:24 Intake & Output 12/04/16 12/05/16 12/05/16 18:59 06:59 18:59 Intake Total 2971 100 Balance 2971 100 Intake: IV Fluids 2121 NS (0.9%) 2121 Oral 850 100 Other: Estimated Void Medium Medium # Bowel Movements 0 # Voids 4 1 Laboratory Results - last 24 hr 12/04/16 12/04/16 12/04/16 12:00 16:01 21:03 POC Glucose (mg/dL) 118 H 102 134 H 12/05/16 08:03 POC Glucose (mg/dL) 78 Left foot dressing/splint remains clean and dry calf proximally is non tender Assessment: []s/p TMA left foot secondary to infection Plan: []Discharge to rehab when medically stable Ceftriaxone/ Flagyl Follow up in 10 -12 days in office with Dr. Diaz
[2016-12-05 13:51] VITALS: BP 149/51
--- NOTE | 2016-12-05 14:35 | DS ---
CC: Dr. Greenwood; Dr. King; Dr. Diaz; Dr. Charles Manzanares * DISCHARGE SUMMARY: DATE OF ADMISSION: 11/22/16 DATE OF DISCHARGE: 12/05/16 PRIMARY CARE PROVIDER: Dr. Greenwood. PRIMARY DIAGNOSIS: Left foot diabetic foot ulcer, status post transmetatarsal amputation. SECONDARY DIAGNOSES: Include: 1. Insulin-dependent type 2 diabetes mellitus. 2. Diabetic neuropathy. 3. Peripheral vascular disease. 4. Hypertension. DISPOSITION AT DISCHARGE: [facility]. MEDICATIONS ON DISCHARGE: 1. Oxycodone/acetaminophen 5/325 one tab every 4 hours as needed for pain. 2. Prevacid 15 mg daily. 3. Mobic 15 mg daily. 4. Trulicity 0.75 mg weekly. 5. Metformin 1000 mg twice daily. 6. Gabapentin 300 mg twice daily. 7. Probiotic 1 tab daily. 8. Cosopt 22.3/6.8 mg/mL 1 drop both eyes twice daily. 9. Cholecalciferol 2000 units daily. 10. Ciprofloxacin 500 mg twice daily for 14 additional days. 11. Atorvastatin 80 mg in the evening. 12. Wellbutrin SR 150 mg twice daily. 13. Lumigan 0.1% ophthalmic drops 1 drop both eyes in the evening. 14. Aspirin 81 mg daily. 15. Amlodipine 5 mg daily. 16. Metronidazole 500 mg 3 times a day. 17. Glipizide XL 5 mg daily. 18. MiraLAX 17 g daily as needed for constipation. 19. Losartan 100 mg daily. 20. Docusate 100 mg daily as needed for constipation. 21. Pletal 50 mg twice daily. Please note multiple changes to medications, including discontinuing of several diabetic medications in the setting of a.m. hypoglycemia with decreased appetite. 1. Increase in losartan from 50 to 100 mg. 2. Decrease in glipizide from 10 to 5 mg. 3. Transition from Plavix to Pletal at Dr. King' discretion. PROCEDURES PERFORMED DURING HOSPITAL STAY: 1. Arteriography, lower extremity, left, performed by Dr. King, 11/19/16. 2. Transmetatarsal amputation on 12/03/[address] Diaz. CONSULTATION DURING HOSPITAL STAY: Dr. King, Dr. Diaz and Dr. Manzanares. PERTINENT MICROBIOLOGY: Left little toe culture positive for Proteus mirabilis , resistant to ampicillin, gentamicin, nitrofurantoin, tetracycline, intermediately sensitive to cefazolin. HISTORY OF PRESENT ILLNESS AND HOSPITAL COURSE: This is a 76-year-old female with past medical history as outlined in the history of present illness on day of admission including uncontrolled type 2 diabetes, diabetic neuropathy, presented to the hospital with lower extremity ulcers, found not to have underlying osteomyelitis. Had undergone peripheral revascularization with Dr. King, however, did not improve foot. She was placed on ceftriaxone during the course of hospital stay and underwent a transmetatarsal amputation. She was continued on ceftriaxone after the procedure; however, transitioned her ciprofloxacin to continue with Flagyl on discharge given intermediate sensitivity to cephalexin found in the microbiology of the culture from her toe. She was seen by Physical Therapy, thought to be a good candidate for continued subacute rehab. Of note, during her hospital stay, her blood pressure was somewhat elevated at 150s, therefore her losartan was doubled from 50 to 100 mg, better control of systolic blood pressures under 140s, lower diastolics 40s to 60s; therefore, no further changes were made. Additionally, on glipizide 5 mg with metformin at 1000 mg twice daily. Her a.m. preprandial serum glucoses were in the 70s to low 100s. Therefore, multiple medication changes were made on discharge to avoid outpatient hypoglycemia until her appetite hopefully improves. The patient is to see Dr. Diaz in 10 to 12 days as indicated by MACY Rod and follow up Dr. Manzanares in 2 weeks. A message was left to Dr. Manzanares's office to contact the patient to schedule an appointment as they were not capable of scheduling appointment at this time. There were no other complications during this patient's hospital stay. At followup, please: 1. Evaluate for continued blood pressure control on increased dose of losartan. 2. Evaluate for continued absence of infection on current regimen of antibiotics. 3. Evaluate for continued blood sugar control on reduced glipizide and discontinuation of Invokana. 4. No other specific labs or vitals that need followup. Reason to return to the hospital included, but not limited to recurrent or worsening symptoms including fever, chills or night sweats, evidence of erythema , redness, tenderness in her lower extremity, chest pain, shortness of breath, nausea or vomiting, light headedness, loss of consciousness, near loss of consciousness, bleeding from any source, inability to obtain or tolerate medications discussed with the patient, she acknowledged understanding. Greater than 1 hour was spent in the discharge of this patient, greater than half was spent [id number] with the patient. [id number]/[facility] #: [id number] MARCIA
== END 2016-12-05 15:25 | DRG 617 ==
LOC: MED 15:23
PROVIDERS: ADMIT Internal Medicine; ATTEND Internal Medicine
PROC: 047U3ZZ Dilation of Left Peroneal Artery, Percutaneous Approach (ICD-10-PCS; 2016-11-26)
PROC: B41G1ZZ Fluoroscopy of Left Lower Extremity Arteries using Low Osmolar Contrast (ICD-10-PCS; 2016-11-26)
PROC: 0Y6N0Z9 Detachment at Left Foot, Partial 1st Ray, Open Approach (ICD-10-PCS; principal; 2016-12-02)
PROC: 0JBR0ZZ Excision of Left Foot Subcutaneous Tissue and Fascia, Open Approach (ICD-10-PCS; 2016-12-02)
PROC: 0Y6N0ZB Detachment at Left Foot, Partial 2nd Ray, Open Approach (ICD-10-PCS; 2016-12-02)
PROC: 0Y6N0ZC Detachment at Left Foot, Partial 3rd Ray, Open Approach (ICD-10-PCS; 2016-12-02)
PROC: 0Y6N0ZD Detachment at Left Foot, Partial 4th Ray, Open Approach (ICD-10-PCS; 2016-12-02)
PROC: 0Y6N0ZF Detachment at Left Foot, Partial 5th Ray, Open Approach (ICD-10-PCS; 2016-12-02)
DX: E11.621 Type 2 diabetes mellitus with foot ulcer (principal); L03.116 Cellulitis of left lower limb; E11.22 Type 2 diabetes mellitus with diabetic chronic kidney disease; E11.51 Type 2 diabetes mellitus with diabetic peripheral angiopathy without gangrene; I12.9 Hypertensive chronic kidney disease with stage 1 through stage 4 chronic kidney disease, or unspecified chronic kidney disease; E11.42 Type 2 diabetes mellitus with diabetic polyneuropathy; N18.2 Chronic kidney disease, stage 2 (mild); Z98.51 Tubal ligation status; F32.9 Major depressive disorder, single episode, unspecified; E11.65 Type 2 diabetes mellitus with hyperglycemia; Z90.13 Acquired absence of bilateral breasts and nipples; Z84.89 Family history of other specified conditions; Z87.891 Personal history of nicotine dependence; R11.0 Nausea; R19.7 Diarrhea, unspecified; B96.4 Proteus (mirabilis) (morganii) as the cause of diseases classified elsewhere; M60.872 Other myositis, left ankle and foot; L97.529 Non-pressure chronic ulcer of other part of left foot with unspecified severity; D72.829 Elevated white blood cell count, unspecified; R41.0 Disorientation, unspecified; M10.9 Gout, unspecified; E66.9 Obesity, unspecified; Z68.29 Body mass index [BMI] 29.0-29.9, adult; Z79.82 Long term (current) use of aspirin; Z79.02 Long term (current) use of antithrombotics/antiplatelets; Z79.84 Long term (current) use of oral hypoglycemic drugs; Z16.11 Resistance to penicillins; Z16.29 Resistance to other single specified antibiotic
CPT/HCPCS: 36415; 76937; 80048; 80053; 81003; 83605; 85025; 85610; 85652; 86140; 87040; 87070; 87077; 87186; 87205; 94760; 99214; 99221; A9270-GY; A9579; C1724; C1725; C1769; C1887; C1894; G0278; G0463; J0696; J1644; J2001; J2250; J2270; J2405; J2543; J2704; J3010

== ENCOUNTER 2017-03-06 11:05 | Day surgery (SDC) | payer MEDICARE, OTHER ==
[~2017-03-06 11:05] MED LIST: Buffered Lidocaine 0.9% SYRIN* 5 ML/SYR SYRINGE INTRADERM ONE
[2017-03-06] MEDS ORDERED: ceFAZolin 2 GM PREMIX (*) 50 ML IVPB ONE (11:35)
[2017-03-06] MEDS ORDERED: Buffered Lidocaine 0.9% SYRIN* 5 ML/SYR SYRINGE ONE (11:36)
[2017-03-06] MEDS ORDERED: Bupivacaine 0.5% SDV PF* 30 ML VIAL ONE (12:15)
[2017-03-06] MEDS ORDERED: Propofol* 10 MG/ML 20 ML BTL IV PUSH ONE (12:30)
[2017-03-06] MEDS ORDERED: Lidocaine 2% PF * 5 ML VIAL ONE (12:30)
[2017-03-06] MEDS ORDERED: fentaNYL* 50 MCG/ML 2 ML VIAL (100 MCG VIAL) ONE (12:30)
[2017-03-06] MEDS ORDERED: Lidocaine 1% INJ* 10 MG/ML 30 ML SDV ONE (12:48)
[2017-03-06] MEDS ORDERED: fentaNYL* 50 MCG/ML 2 ML VIAL (100 MCG VIAL) IV PRN (13:13)
[2017-03-06 14:44] VITALS: BP 156/65
--- NOTE | 2017-03-10 08:32 | OP ---
DATE OF OPERATION: 03/06/17 - [facility] DATE OF : 36 SURGEON: Aniket Diaz MD ANESTHESIOLOGIST: Corey Briggs MD ANESTHESIA: MAC PRE-OP DIAGNOSES: Wound breakdown, left transmetatarsal amputation, and chronic heel ulcer. POST-OP DIAGNOSES: Wound breakdown, left transmetatarsal amputation, and chronic heel ulcer. OPERATIVE PROCEDURE: Revision transmetatarsal amputation and debridement closure left heel wound. DESCRIPTION OF PROCEDURE: The patient was taken to the operating room where we made a transverse incision through the previous TMA incision. We undermined dorsal and plantar to the first and second metatarsals, which were then shaved back with the microsagittal saw. The bone sent to pathology and a local culture sent. We irrigated this thoroughly and closing the freshened flaps with Vicryl and Surgipro sutures. The heel wound, about a centimeter in size, was excised with sharp dissection down through the subcutaneous tissue. We irrigated this thoroughly and closed it with interrupted Surgipro sutures. A plaster dressing was applied. [id number]/[facility] #: [id number] [facility] HOSPITALChula
== END 2017-03-06 14:45 | disposition home or self-care (01) ==
LOC: OR 11:05
PROVIDERS: ATTEND Orthopaedic Surgery
DX: M86.172 Other acute osteomyelitis, left ankle and foot (principal); L97.429 Non-pressure chronic ulcer of left heel and midfoot with unspecified severity; I10 Essential (primary) hypertension; I73.9 Peripheral vascular disease, unspecified; I25.10 Atherosclerotic heart disease of native coronary artery without angina pectoris; E11.9 Type 2 diabetes mellitus without complications; Z79.4 Long term (current) use of insulin; M19.90 Unspecified osteoarthritis, unspecified site
CPT/HCPCS: 87070; 87073; 87077; 87205; 88304; 88311; J0690; J2001; J2704; J3010

== ENCOUNTER 2017-03-29 05:47 | Emergency (ER) | payer MEDICARE, OTHER ==
[2017-03-29] MEDS ORDERED: D5W 500 ML BAG* 500 ML IV SCH (06:00)
[2017-03-29 06:55] LABS: Hematocrit 33 % (35-47); Hemoglobin 10.5 g/dl (12.0-16.0); Mean Corpuscular HGB Conc 32 g/dl (31-36); Mean Corpuscular Hemoglobin 24 pg (27-31); Mean Corpuscular Volume 77 fL (80-97); Mean Platelet Volume 9 um3 (7.4-10.4); Red Blood Count 4.32 10^6/ul (4.0-5.4); Red Cell Distribution Width 19 % (10.5-15); White Blood Count 14.9 10^3/ul (3.5-10.8)
[2017-03-29 07:10] LABS: Albumin 3.7 g/dL (3.2-5.2); Calcium 9.4 mg/dL (8.6-10.3); EGFR Non-African American 53.6 (>60); Globulin 2.8 g/dL (2-4); Potassium 4.4 mmol/L (3.5-5.0); Total Bilirubin 0.3 mg/dL (0.2-1.0); Total Protein 6.5 g/dL (6.4-8.9)
[2017-03-29 07:12] LABS: Troponin I 0.01 ng/mL (<0.04)
[2017-03-29] MEDS ORDERED: Dextrose 50% Syringe 50 ML* 25 GM/50 ML SYRINGE IV PUSH ONE (07:23)
[2017-03-29] MEDS ORDERED: Dextrose 50% Syringe 50 ML* 25 GM/50 ML SYRINGE ONE (07:24)
[2017-03-29 09:21] LABS: Urine Bacteria Absent (Absent); Urine Bilirubin Negative (Negative); Urine Glucose 1+(50 mg/dL) (Negative); Urine Nitrite Negative (Negative)
[2017-03-29 11:06] VITALS: BP 154/43
--- NOTE | 2017-03-29 11:18 | RAD ---
HISTORY: Hypoglycemia COMPARISONS: November 23, 2013 VIEWS: 1: frontal portable view of the chest at 11:05 AM FINDINGS: LINES AND TUBES: None. CARDIOMEDIASTINAL SILHOUETTE: The cardiomediastinal silhouette is normal for portable technique. PLEURA: The costophrenic angles are sharp. No pleural abnormalities are noted. LUNG PARENCHYMA: The lungs are clear. ABDOMEN: The upper abdomen is clear. There is no subphrenic gas. BONES AND SOFT TISSUES: No bone or soft tissue abnormalities are noted. IMPRESSION: NO ACTIVE CARDIOPULMONARY DISEASE.
--- NOTE | 2017-03-29 18:44 | ED ---
Jovita Archer Edward, scribed for Zaire Pardo MD on 03/29/17 at 0725 . HPI Diabetic - HPI Summary HPI Summary: 76 y/o female presents to the ED c/o episodes of low blood sugar for the past 2 days. At 05:00 this morning the pt reported having an episode of low blood sugar. Pt's blood sugar was reported to be 35 at home, then given D10. Pt's blood sugar was 162 at 23:00 last night, per pt's sister. Pt did not take her insulin last night, as recommended by her doctor. Recently the pt switched her medication. Pt has not been eating enough, per the pt's sister. Pt has been c/o of nausea and vomiting when she eats. Denies cough, fever, diarrhea. Pt recently lost 25 lbs. Sx L toe removal 12/03/16. - History Of Current Complaint Chief Complaint: EDGeneral Time Seen by Provider: 03/29/17 07:17 Hx Obtained From: Patient Onset/Duration: Lasting Days - 2 Timing: Intermittent Episode Lasting Aggravating: Diet Change - Eating less Associated Signs & Symptoms: Nausea, Vomiting - Allergies/Home Medications Allergies/Adverse Reactions: Allergies Allergy/AdvReac Type Severity Reaction Status Date / Time No Known Allergies Allergy Verified 03/29/17 05:59 PMH/Surg Hx/FS Hx/Imm Hx Previously Healthy: No Endocrine/Hematology History: Reports: Hx Diabetes - type II, Hx Anemia Cardiovascular History: Reports: Hx Coronary Artery Disease, Hx Hypertension, Hx Peripheral Vascular Disease Denies: Hx Pacemaker/ICD Respiratory History: Reports: Hx Chronic Bronchitis GI History: Reports: Hx Gastroesophageal Reflux Disease, Hx Irritable Bowel - ? , Other GI Disorders - POLYP History: Denies: Hx Renal Disease Musculoskeletal History: Reports: Hx Arthritis - right knee Sensory History: Reports: Hx Contacts or Glasses - glasses, Hx Glaucoma Denies: Hx Hearing Aid Opthamlomology History: Reports: Hx Contacts or Glasses - glasses, Hx Glaucoma Neurological History: Reports: Hx Nerve Disease - DM neuropathyy Psychiatric History: Denies: Hx Panic Disorder - Surgical History Surgery Procedure, Year, and Place: bilat breasts removed d/t infections 20 years ago. APPENDECTOMY-TUBAL LIGATION. 12/03/2016 left foot transmetatarsal amputation Hx Anesthesia Reactions: No Infectious Disease History: No Infectious Disease History: Denies: Traveled Outside the [place] in Last 30 Days - Family History Known Family History: Positive: Hypertension, Diabetes - Sister - Social History Alcohol Use: None Hx Substance Use: No Substance Use Type: Reports: None Hx Tobacco Use: No Smoking Status (MU): Former Smoker Amount Used/How Often: smoked for 50 years - carton a week Review of Systems Constitutional: Negative Eyes: Negative ENT: Negative Cardiovascular: Negative Respiratory: Negative Positive: Vomiting, Nausea, Other - Decreased appetite Genitourinary: Negative Musculoskeletal: Negative Skin: Negative Neurological: Negative Psychological: Normal All Other Systems Reviewed And Are Negative: Yes Physical Exam - Summary Physical Exam Summary: VITAL SIGNS: Reviewed. GENERAL: ~Patient is a well-developed and nourished female who is lying comfortable in the stretcher. ~Patient is not in any acute respiratory distress. HEAD AND FACE: No signs of trauma. ~No ecchymosis, hematomas or skull depressions. No sinus tenderness. EYES: PERRLA, EOMI x 2, No injected conjunctiva, no nystagmus. EARS: Hearing grossly intact. Ear canals and tympanic membranes are within normal limits. MOUTH: Oropharynx within normal limits. NECK: Supple, trachea is midline, no adenopathy, no JVD, no carotid bruit, no c- spine tenderness, neck with full ROM. CHEST: Symmetric, no tenderness at palpation LUNGS: Clear to auscultation bilaterally. No wheezing or crackles. CVS: Regular rate and rhythm, S1 and S2 present, no murmurs or gallops appreciated. ABDOMEN: Soft, non-tender. No signs of distention. No rebound no guarding, and no masses palpated. Bowel sounds are normal. EXTREMITIES: FROM in all major joints, no edema, no cyanosis or clubbing. NEURO: Alert and oriented x 3. No acute neurological deficits. Speech is normal and follows commands. SKIN: Dry and warm Triage Information Reviewed: Yes Vital Signs On Initial Exam: Initial Vitals Temp Pulse Resp BP Pulse Ox 97.1 F 59 16 140/57 95 03/29/17 05:50 03/29/17 05:50 03/29/17 05:50 03/29/17 05:50 03/29/17 05:50 Vital Signs Reviewed: Yes - Spenser Coma Scale Coma Scale Total: 15 Diagnostics - Vital Signs Vital Signs Temp Pulse Resp BP Pulse Ox 03/29/17 05:50 97.1 F 59 16 140/57 95 - Laboratory Lab Results: Lab Results 03/29/17 03/29/17 03/29/17 Range/Units 06:45 06:45 06:45 WBC 14.9 H (3.5-10.8) 10^3/ul RBC 4.32 (4.0-5.4) 10^6/ul Hgb 10.5 L (12.0-16.0) g/dl Hct 33 L (35-47) % MCV 77 L (80-97) fL MCH 24 L (27-31) pg MCHC 32 (31-36) g/dl RDW 19 H (10.5-15) % Plt Count 214 (150-450) 10^3/ul MPV 9 (7.4-10.4) um3 Neut % (Auto) 76.8 (38-83) % Lymph % (Auto) 14.1 L (25-47) % [place] % (Auto) 7.8 (1-9) % Eos % (Auto) 0.7 (0-6) % Baso % (Auto) 0.6 (0-2) % Absolute Neuts (auto) 11.4 H (1.5-7.7) 10^3/ul Absolute Lymphs (auto) 2.1 (1.0-4.8) 10^3/ul Absolute Monos (auto) 1.2 H (0-0.8) 10^3/ul Absolute Eos (auto) 0.1 (0-0.6) 10^3/ul Absolute Basos (auto) 0.1 (0-0.2) 10^3/ul Absolute Nucleated RBC 0 10^3/ul Nucleated RBC % 0 INR (Anticoag Therapy) 1.03 (0.89-1.11) APTT 29.6 (26.0-36.3) seconds Sodium 134 (133-145) mmol/L Potassium 4.4 (3.5-5.0) mmol/L Chloride 102 (101-111) mmol/L Carbon Dioxide 26 (22-32) mmol/L Anion Gap 6 (2-11) mmol/L BUN 21 (6-24) mg/dL Creatinine 1.00 H (0.51-0.95) mg/dL Est GFR ( Amer) 69.0 (>60) Est GFR (Non-Af Amer) 53.6 (>60) BUN/Creatinine Ratio 21.0 H (8-20) Glucose 54 L (70-100) mg/dL Calcium 9.4 (8.6-10.3) mg/dL Total Bilirubin 0.30 (0.2-1.0) mg/dL AST 16 (13-39) U/L ALT 9 (7-52) U/L Alkaline Phosphatase 44 (34-104) U/L Troponin I 0.01 (<0.04) ng/mL Total Protein 6.5 (6.4-8.9) g/dL Albumin 3.7 (3.2-5.2) g/dL Globulin 2.8 (2-4) g/dL Albumin/Globulin Ratio 1.3 (1-3) Result Diagrams: 03/29/17 06:45 03/29/17 06:45 Lab Statement: Any lab studies that have been ordered have been reviewed, and results considered in the medical decision making process. - Radiology CXR Xray Interpretation: No Acute Changes - No active cardiopulmonary disease Radiology Interpretation Completed By: Radiologist - EKG 1 EKG Interpretation: 06:28 - SINUS BRADYCARDIA @ [address] ELEVATIONS Re-Evaluation - Re-Evaluation 1 Re-Evaluation Time: 11:20 Comment: Discuss test results and findings Diabetic Course/Dx - Course Assessment/Plan: 76 y/o female presents to the ED c/o episodes of low blood sugar for the past 2 days. At 05:00 this morning the pt reported having an episode of low blood sugar. Pt's blood sugar was reported to be 35 at home, then given D10. Pt's blood sugar was 162 at 23:00 last night, per pt's sister. Pt did not take her insulin last night, as recommended by her doctor. Recently the pt switched her medication. Pt has not been eating enough, per the pt's sister. Pt has been c/o of nausea and vomiting when she eats. Denies cough, fever, diarrhea. Pt recently lost 25 lbs. Sx L toe removal 12/03/16. CXR Negative. EKG @ 06:28 - SINUS BRADYCARDIA @ [address] ELEVATIONS. Test results show WBC 14.9, chronic slight anemia, glucose 54, UA contaminated. Initially the pt was given D10 and the finger stick was still 110 so she was given D50 and her sugar went up to 222. Pt was eating and drinking and sugar and the pts sugar went up to 285. The CXR does not show infection, UA shows no infection. I believe the pts symptoms are secondary to the pt not taking insulin and not eatin. Pt was observed for 6 hr in the ED and sx did not return. Since the pts sugar is better (285) the pt will be d/c home with f/u with PCP. Pt is hemodynamically stable, A&Ox3. The pt was instructed to eat and drink as needed. Pt understand and agrees. - Diagnoses Differential Dx: Diabetic Ketoacidosis, Hypoglycemia Provider Diagnoses: Hypoglycemia Discharge - Discharge Plan Condition: Stable Disposition: HOME Patient Education Materials: Hypoglycemia in a Person with Diabetes (ED) Referrals: Vishal Greenwood MD [Primary Care Provider] - 4 Days (PLEASE F/U IN 3-5 DAYS) The documentation as recorded by the Jovita moura Edward accurately reflects the service I personally performed and the decisions made by , Zaire Pardo MD.
== END 2017-03-29 11:53 | disposition home or self-care (01) ==
LOC: ED 05:47
DX: E11.649 Type 2 diabetes mellitus with hypoglycemia without coma (principal); R11.2 Nausea with vomiting, unspecified; Z87.891 Personal history of nicotine dependence
CPT/HCPCS: 36415; 71010; 80053; 81003; 81015; 84484; 85025; 85610; 85730; 93005; 99283

== ENCOUNTER 2017-12-02 06:31 | Emergency (ER) | payer MEDICARE, OTHER ==
[2017-12-02] MEDS ORDERED: amLODIPine TAB* 5 MG PO ONE (06:53)
--- NOTE | 2017-12-02 06:55 | ED ---
Lower Extremity - HPI Summary HPI Summary: Patient is a 77-year-old female presents with live in sister to the ED from PCP office with concern for left foot infection. 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 Surgery performed by Dr. Diaz. She states she had been on plavix but discontinued approximately 2 months ago because "I didn't like the side effects." However, she had not disclosed this with her doctor. She states she was sent here by Dr. Greenwood for IV abx for wound infection. She endorses a "freezing cold" foot with moderate to severe pain over the past week. She was seen by Dr. Greenwood 1 week ago and placed on ampicillin. This medication has not improved her symptoms. She states the foot remains cold and red, but not "ice cold" as it was last week. While she reports constant ache to the foot, worse with ambulation, she also endorses worsening pain to the foot over the past week. Current medications include: Citalopram, Norvasc 5mg, Oxycodone, Lantus 5mg, Losartan, Metformin, Gabapentin. VS on arrival: - History of Current Complaint Chief Complaint: EDGeneral Stated Complaint: POSS INFECTION IN LEFT FOOT Time Seen by Provider: 12/02/17 06:35 Hx Obtained From: Patient Onset of Pain: Days - 7 days Onset/Duration: Days Severity Initially: Moderate Severity Currently: Moderate Pain Intensity: 10 Pain Scale Used: 0-10 Numeric Timing: Constant Location: Is Discrete @ - left transmetatarsal amputation Associated Signs And Symptoms: Positive: Redness Aggravating Factor(s): Standing, Ambulation Alleviating Factor(s): Nothing Able to Bear Weight: Yes - Risk Factors Gout Risk Factors: Hypertension, Renal Disease, Hyperlipidemia, Obesity, Peripherial Vascular Disease - Allergies/Home Medications Allergies/Adverse Reactions: Allergies Allergy/AdvReac Type Severity Reaction Status Date / Time No Known Allergies Allergy Verified 03/29/17 05:59 Home Medications: Home Medications Albuterol HFA INHALER* [Ventolin HFA Inhaler*] 2 puff INH Q4H PRN 12/02/17 [ History Confirmed 12/02/17] Amoxicillin/Clavulanate TAB* [Augmentin TAB 500 mg*] 1 tab PO BID WITH MEALS 08/17 [History Confirmed 12/02/17] Aspirin EC TAB* [Ecotrin EC Low Dose 81 MG*] 81 mg PO DAILY 12/02/17 [History Confirmed 12/02/17] Atorvastatin* [Lipitor*] 80 mg PO DAILY 12/02/17 [History Confirmed 12/02/17] Bimatoprost 0.01% OPHTH (NF) [Lumigan 0.01% OPHTH (NF)] 1 drop BOTH EYES QPM 08/17 [History Confirmed 12/02/17] Cholecalciferol TAB* [Vitamin D TAB*] 1,000 unit PO DAILY 12/02/17 [History Confirmed 12/02/17] Citalopram TAB* [CeleXA TAB*] 20 mg PO DAILY 12/02/17 [History Confirmed ] Clopidogrel TAB* [Plavix TAB*] 75 mg PO DAILY 12/02/17 [History Confirmed ] Cyanocobalamin TAB* [Vitamin B12 TAB*] 500 mcg PO DAILY 12/02/17 [History Confirmed 12/02/17] Ferrous Sulfate TAB* 325 mg PO DAILY 12/02/17 [History Confirmed 12/02/17] Gabapentin CAP(*) [Neurontin 300 CAP(*)] 300 mg PO BID 12/02/17 [History Confirmed 12/02/17] Insulin GLARGINE(*) [Lantus(*)] 5 units SUBCUT DAILY 12/02/17 [History Confirmed 12/02/17] L.acidoph,Paracasei, B.lactis [Probiotic] 1 each PO DAILY 12/02/17 [History Confirmed 12/02/17] Losartan TAB* [Cozaar TAB*] 100 mg PO DAILY 12/02/17 [History Confirmed 12/02/17 ] Mirabegron (NF) [Myrbetriq (NF)] 50 mg PO DAILY 12/02/17 [History Confirmed 08/17] amLODIPine TAB* [Norvasc 5 mg TAB*] 5 mg PO DAILY 12/02/17 [History Confirmed ] metFORMIN* [Glucophage 500 MG TAB *] 500 mg PO BID 12/02/17 [History Confirmed 12/02/17] oxyCODONE TAB* [Roxycodone TAB 5 mg*] 5 mg PO Q6H PRN 12/02/17 [History Confirmed 12/02/17] PMH/Surg Hx/FS Hx/Imm Hx Previously Healthy: Yes Endocrine/Hematology History: Reports: Hx Diabetes - type II, Hx Anemia Cardiovascular History: Reports: Hx Coronary Artery Disease, Hx Hypertension, Hx Peripheral Vascular Disease Denies: Hx Pacemaker/ICD Respiratory History: Reports: Hx Chronic Bronchitis GI History: Reports: Hx Gastroesophageal Reflux Disease, Hx Irritable Bowel - ? , Other GI Disorders - POLYP History: Denies: Hx Renal Disease Musculoskeletal History: Reports: Hx Arthritis - right knee Sensory History: Reports: Hx Contacts or Glasses - glasses, Hx Glaucoma Denies: Hx Hearing Aid Opthamlomology History: Reports: Hx Contacts or Glasses - glasses, Hx Glaucoma Neurological History: Reports: Hx Nerve Disease - DM neuropathyy Psychiatric History: Denies: Hx Panic Disorder - Surgical History Surgery Procedure, Year, and Place: bilat breasts removed d/t infections 20 years ago. APPENDECTOMY-TUBAL LIGATION. 12/03/2016 left foot transmetatarsal amputation Hx Anesthesia Reactions: No - Immunization History Hx Pertussis Vaccination: No Immunizations Up to Date: Unable to Obtain/Confirm Infectious Disease History: No Infectious Disease History: Denies: Traveled Outside the [place] in Last 30 Days - Family History Known Family History: Positive: None, Hypertension, Diabetes - Sister - Social History Occupation: Unemployed Lives: With Family Alcohol Use: None Hx Substance Use: No Substance Use Type: Reports: None Hx Tobacco Use: No Smoking Status (MU): Former Smoker Amount Used/How Often: smoked for 50 years - carton a week Review of Systems Negative: Fever, Chills, Fatigue, Skin Diaphoresis Negative: Palpitations, Chest Pain Negative: Shortness Of Breath, Cough Negative: Abdominal Pain, Vomiting, Diarrhea, Nausea Genitourinary: Negative Positive: no symptoms reported, see HPI Negative: Arthralgia, Myalgia Positive: Other - erythematous and cool at transmetatarsal amputation site. Negative: Rash, Bruising Psychological: Normal All Other Systems Reviewed And Are Negative: Yes Physical Exam Triage Information Reviewed: Yes Vital Signs On Initial Exam: Initial Vitals Temp Pulse Resp BP Pulse Ox 97.1 F 55 18 218/74 96 12/02/17 06:37 12/02/17 06:37 12/02/17 06:37 12/02/17 06:37 12/02/17 06:37 Vital Signs Reviewed: Yes Appearance: Positive: Well-Appearing, Well-Nourished Skin: Positive: Dry, Cold, Other - non healing wound ulcer to the heal; small 1cm new ulceration to the medial side of the amputated great toe Head/Face: Positive: Normal Head/Face Inspection Neck: Positive: Supple, No Lymphadenopathy Respiratory/Lung Sounds: Positive: Clear to Auscultation, Breath Sounds Present Cardiovascular: Positive: RRR, Pulses are Symmetrical in both Upper and Lower Extremities Musculoskeletal: Positive: Pain @ - diffuse throughout upon walking (left foot only) Neurological: Positive: Speech Normal Psychiatric: Positive: Normal, Affect/Mood Appropriate AVPU Assessment: Alert Diagnostics - Vital Signs Vital Signs Temp Pulse Resp BP Pulse Ox 12/02/17 06:37 97.1 F 55 18 218/74 96 - Laboratory Result Diagrams: 12/02/17 07:18 12/02/17 07:18 Lab Statement: Any lab studies that have been ordered have been reviewed, and results considered in the medical decision making process. Re-Evaluation - Re-Evaluation First Eval Change: Improved - improves after administration of morning meds Second Eval Change: Improved - BP reduced from 218/74 to Lower Extremity Course/Dx - Course Course Of Treatment: On physical examination the foot appears to be erythematous and cool, although not cold. Labs obtained and patient is noted to be at mod-severe hyperkalemia, likely secondary to her beta nathalia, persistent hyperglycemia or recent abx. EKG obtained which does not show peaked T waves or shortened QRS intervals. She is given a cocktail of calcium chloride 1 g in D5W, dextrose 50% syringe, 25 g, insulin regular 10 units IV, Kayexalate 15 g oral. She is rehydrated with 1L ns. SAUD obtained of lower extremity to assess ischemia/vascular occlusion. Severely abnormal bilateral ankle brachial indices. Discussed case with [facility] as we do not have vascular at [facility]. Dr. Guaman accepts to ED. Dr. Seth also to see patient at this time. - Diagnoses Provider Diagnoses: Arterial occlusion Discharge - Sign-Out/Discharge Documenting (check all that apply): Discharge/Admit/Transfer - Discharge Plan Condition: Fair Disposition: TRANS HIGHER LVL OF CARE FAC Referrals: Vishal Greenwood MD [Primary Care Provider] - - Billing Disposition and Condition Condition: FAIR Disposition: Trans Higher Lvl of Care Fac
[2017-12-02] MEDS ORDERED: Losartan TAB* 25 MG PO SCH (07:00)
--- OUTSIDE RECORDS SUMMARY | 2017-12-02 07:19 | XMS REPORT ---
:1940 External Reference #:[id number] Author Organization [facility] Address [address] [place] [address] Phone [phone] Care Team Providers Name Role Phone Vishal Greenwood M.D. Primary Care Physician Unavailable Payers Type Date Identification Numbers Payment Provider Subscriber Medicare Primary Effective: Policy Number: Medicare - NGS Brittany Hughes 2003 [id number] PayID: [id number] [address] [place] [address] Commercial Policy Number: [id number] [employer] Ppo/Pos/Epo/Nap Brittany Hughes Group Number: [id number] [address] PayID: [id number] [place] [address] Problems Date Description Provider Status Onset: Essential hypertension Active Onset: Anxiety Active Onset: Gastroesophageal reflux disease Active Onset: Disorder of bladder Active Onset: 04/10/2015 Type 2 diabetes w prolif diabetic Vishal Orourke M.D. Active rtnop w/o macular edema Onset: 04/10/2015 Primary open-angle glaucoma, moderate Vishal Orourke M.D. Active stage Onset: 04/10/2015 Presence of intraocular lens Vishal Orourke M.D. Active Onset: 10/16/2015 Primary open-angle glaucoma, mild Vishal Orourke M.D. Active stage Onset: 05/20/2016 Type 2 diab with prolif diab rtnop Vishal Orourke M.D. Active without macular edema, bi Onset: 05/20/2016 Bilateral primary open angle glaucoma Vishal Orourke M.D. Active Onset: Type 2 diabetes mellitus Active Note: 03/2003 Onset: 05/05/2017 Bilateral primary open angle glaucoma Vishal Orourke M.D. 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 eyes every night Cosopt Active Solution 22.3-6.8mg 30unit 1 drop Vishal Kaur 017 /ml s both Arnateo, eyes M.D. twice a day Citalopram Active Tablets 20mg Breiman, Hydrobromide 000 Vishal Irizarry Amlodipine Active Tablets 5mg Unknown Besylate 000 Oxycodone HCL Active Tablets 5mg Unknown 000 Clopidogrel Active Tablets 75mg Unknown Bisulfate 000 Atorvastatin Active Tablets 80mg Unknown Calcium 000 Losartan Active Tablets 100mg Michael, Potassium 000 Romipatel Irizarry Metformin HCL Active Tablets 500mg Breiman, 000 Vishal Irizarry Vitamin B12 Active Tablets ER 1000mcg Unknown 000 Probiotic Active Capsules Unknown 000 Iron Active Tablets 325(65Fe) Unknown 000 mg Lantus Solostar Active Solution 100Unit/ML Breiman, 000 Pen-Inject Vishal Irizarry Aspirin Active Tablets DR 81mg Unknown 000 Flagyl Active Capsules 375mg Unknown 000 Results Description No Information Procedures Date CPT Code Description Status 05/05/2017 87793 Scanning Computerized Ophthalmic Diagnostic Imag Completed Posterior Seg On 05/05/2017 20430 Visual Field Exam Extended Completed 05/05/2017 35454 Est Patient Comprehensive Exam Completed 05/20/2016 84504 Scanning Computerized Opthalmic Diagnostic Posterior Completed Seg Retina 05/20/2016 19815 Est Patient Comprehensive Exam Completed 10/16/2015 67653 Scanning Computerized Ophthalmic Diagnostic Imag Completed Posterior Seg On 10/16/2015 95086 Visual Field Exam Extended Completed 10/16/2015 79184 Est Patient Intermediate Exam Completed 04/10/2015 64417 Scanning Computerized Opthalmic Diagnostic Posterior Completed Seg Retina 04/10/2015 89582 Est Patient Comprehensive Exam Completed 09/15/2014 46027 Fundus Photography With Interpretation And Report Completed 09/15/2014 46373 Visual Field Exam Extended Completed 09/15/2014 40083 Est Patient Comprehensive Exam Completed 03/17/2014 95750 Gonioscopy Completed 03/17/2014 96416 Est Patient Intermediate Exam Completed 09/14/2013 95309 Est Patient Comprehensive Exam Completed 09/14/2013 30720 Visual Field Exam Extended Completed 09/14/2013 71160 Scanning Computerized Opthalmic Diagnostic Posterior Completed Seg Retina 05/03/2013 33046 Excision Lesion Eyelid Completed 03/16/2013 11225 Est Patient Intermediate Exam Completed 09/14/2012 74307 Fundus Photography With Interpretation And Report Completed 09/14/2012 80302 Visual Field Exam Extended Completed 09/14/2012 21630 Est Patient Comprehensive Exam Completed 03/17/2012 90204 Est Patient Intermediate Exam Completed 09/16/2011 94601 Est Patient Intermediate Exam Completed 09/16/2011 27906 Visual Field Exam Extended Completed 03/14/2011 48849 Scanning Computerized Ophthalmic Diagnostic Imag Completed Posterior Seg On 03/14/2011 10685 Est Patient Intermediate Exam Completed 09/11/2010 35592 Fundus Photography With Interpretation And Report Completed 09/11/2010 33472 Visual Field Exam Extended Completed 09/11/2010 14533 Est Patient Intermediate Exam Completed 01/24/2010 25841 Extracapsular Cataract Extraction W/Intraocular Lens Completed 01/15/2010 33157 Ophthalmic Biometry Completed 01/02/2010 57473 Est Patient Intermediate Exam Completed 07/04/2009 31941 Est Patient Intermediate Exam Completed 07/04/2009 74976 Scanning Laser W/Interp And Report Completed 03/15/2009 96128 Extracapsular Cataract Extraction W/Intraocular Lens Completed 02/22/2009 68764 Ophthalmic Biometry Completed 02/22/2009 40093 Computerized Corneal Topography Completed 12/29/2008 64161 Scanning Laser W/Interp And Report Completed 12/29/2008 29324 Est Patient Comprehensive Exam Completed 09/05/2008 96806 Visual Field Exam Extended Completed 07/01/2008 06889 Est Patient Intermediate Exam Completed 12/28/2007 78903 Est Patient Intermediate Exam Completed 09/02/2007 40686 Scanning Laser W/Interp And Report Completed 09/02/2007 30778 Visual Field Exam Extended Completed 09/02/2007 40498 Determination Of Refractive State Completed 09/02/2007 60566 Est Patient Comprehensive Exam Completed 03/03/2007 94751 Fundus Photography With Interpretation And Report Completed 03/03/2007 91944 Est Patient Comprehensive Exam Completed 09/02/2006 02451 Est Patient Intermediate Exam Completed 09/02/2006 12488 Determination Of Refractive State Completed 01/27/2006 53925 Determination Of Refractive State Completed 01/27/2006 57742 Est Patient Comprehensive Exam Completed 09/23/2005 33914 Est Patient Intermediate Exam Completed 04/08/2005 37046 Scanning Laser W/Interp And Report Completed 04/08/2005 17182 Scanning Laser W/Interp And Report Completed 04/08/2005 50226 Visual Field Exam Extended Completed 03/15/2005 18017 Est Patient Comprehensive Exam Completed 03/15/2005 29287 Determination Of Refractive State Completed 03/15/2005 34736 Fundus Photography With Interpretation And Report Completed 09/04/2004 14506 Est Patient Intermediate Exam Completed 04/18/2004 85224 Scanning Laser W/Interp And Report Completed 04/18/2004 20878 Visual Field Exam Extended Completed 02/22/2004 88662 Photography Ocular External Completed 02/22/2004 29929 Determination Of Refractive State Completed 02/22/2004 00255 Est Patient Comprehensive Exam Completed 11/22/2003 83342 Est Patient Intermediate Exam Completed Encounters Type Date Location Provider CPT E/M Dx Office Visit 01/15/2010 9:00a Vishal Orourke MD, Vishal Orourke, 15055 [phone] khanh Irizarry Office Visit 02/22/2009 9:15a Vishal Orourke MD, Vishal Orourke, 10781 [phone] khanh [place] Office Visit 11/27/2007 11:00a Vishal Orourke MD, Vishal Orourke, 57836 [phone] khanh [place]. Plan of Care 11/04/2017 - Vishal Orourke M.D.[id number] Type 2 diab with prolif diab rtnop without macular edema, biComments:Smoking can increase the risk of developing or worsening any eye related disease, as well as affect your overall health. If you are a smoker, we strongly recommend that you quit.If you are not a smoker , we strongly recommend that you do not start. I can detect diabetic changes in your eyes. Proper control of your diabetes is important for the health of your eyes. It is important that you keep all of your follow up appointments. Dr. Orourke has sent a report to your primary care doctor, letting themknow the current status of your retina.H40.1131 Primary open-angle glaucoma, bilateral, mild stageComments:Your glaucoma is stable at this time.Your eye pressure is within an acceptable range, and your testing does not show any further deterioration at this time. Please continue your treatment.Follow up:6 Month Follow Up Visual Field, 30-2 You can expect to have your eyes dilated at your next visit. If Dr. Orourke orders any additional testing, it may require extra time. We recommend that you bring sunglasses, as dilation drops often make you light sensitive until they wear off. We always recommendyou bring someone to drive you home if you are uncomfortable driving with your eyes dilated. If you have any questions before your next visit, feel free to call our office at .Z96.1 Presence of intraocular lensComments:The artificial lens implants in both eyes appear to be stable at this time.
[2017-12-02 07:30] LABS: ABS Basophils 0.1 10^3/ul (0-0.2); ABS Eosinophils 0.6 10^3/ul (0-0.6); ABS Lymphocytes 1.5 10^3/ul (1.0-4.8); ABS Monocytes 0.7 10^3/ul (0-0.8); ABS Neutrophils 7.8 10^3/ul (1.5-7.7); ABS Nucleated RBC 0 10^3/ul; Eosinophil % 5.4 % (0-6); Hematocrit 33 % (35-47); Hemoglobin 10.6 g/dl (12.0-16.0); Lymphocyte % 13.8 % (25-47); Mean Corpuscular HGB Conc 33 g/dl (31-36); Mean Corpuscular Hemoglobin 28 pg (27-31); Mean Corpuscular Volume 87 fL (80-97); Mean Platelet Volume 9.6 um3 (7.4-10.4); Nucleated Red Blood Cells % 0; Platelet Count 200 10^3/ul (150-450); Red Blood Count 3.76 10^6/ul (4.00-5.40); Red Cell Distribution Width 15 % (10.5-15); White Blood Count 10.7 10^3/ul (3.5-10.8)
[2017-12-02] MEDS ORDERED: HYDROcodone/ACETAMIN 5-325 MG* 1 TAB PO ONE (07:48)
[2017-12-02] MEDS ORDERED: Insulin REGULAR(*) 1 UNITS UNIT IV PUSH ONE (08:15)
[2017-12-02] MEDS ORDERED: Dextrose 50% Syringe 50 ML* 25 GM/50 ML SYRINGE IV PUSH ONE (08:20)
[2017-12-02] MEDS ORDERED: Sodium Bicarbonate 8.4% IV* 50 ML VIAL IV ONE (08:22)
[2017-12-02] MEDS ORDERED: Calcium CHLORIDE 10% SYRINGE* 1 GM in D5W 100 ML BAG* 100 ML IV ONE (08:23)
[2017-12-02] MEDS ORDERED: Sodium Polystyrene ORAL.SOL* 15 GM/60 ML BTL PO ONE (08:24)
[2017-12-02] MEDS ORDERED: NS 0.9% 1000 ML* 1,000 ML IV ONE (08:28)
[2017-12-02] MEDS ORDERED: Iodixanol* (CONTRAST) 320 MG/ML 100 ML SDV IV ONE (09:22)
--- NOTE | 2017-12-02 09:29 | RAD ---
Indication: Ulceration/gangrene; LEFT toes amputated. Wound near the base of the LEFT fifth digit. Redness. Diabetic. Comparison: October 21, 2016 CT angiogram Technique: Ankle and brachial blood pressure measurement. Calculated ankle-brachial indices. REPORT: The right ankle brachial index is 0.22 in severe claudication range consistent with multisegment high-grade stenosis or long segment occlusion. Corresponding low amplitude monophasic posterior tibial and dorsalis pedis waveforms and dampened ankle pulse volume recording without reflected waves. The left ankle brachial index is 0.20 in severe claudication range consistent with multisegment high-grade stenosis or long segment occlusion. Corresponding low amplitude monophasic posterior tibial and dorsalis pedis waveforms and markedly abnormal pulse volume recording at the ankle. IMPRESSION: #. Severely abnormal bilateral ankle-brachial indices.
[2017-12-02] MEDS ORDERED: Sodium Bicarbonate 8.4%* 50 ML SYRINGE IV ONE (09:54)
[2017-12-02] MEDS ORDERED: Sodium Polystyrene ORAL.SOL* 15 GM/60 ML BTL ONE (09:55)
--- NOTE | 2017-12-02 10:06 | ED ---
Progress - Progress Note Progress Note: 77 yo F hx DM, hx left metatarsal amputation last year by Dr. Diaz at [facility] presents to [facility] ED today with 1 week hx increasing pain and cold left foot, also open area at base of 5th metatarsal that she has started on antibiotics with no improvement. Pt recently DC'd her plavix due to "bruising". Pt has Dr. Greenwood for her PCP. Pt was seen with the PA, Emily High, who has managed pt's care in the ED. SAUD study in the ED shows decreased arterial flow 0.2 in left lower extremity. Labs show new worsening kidney function 50/1.4, and hyperkalemia (not hemolyzed ) 6.1. In the ED pt is given IV fluids, glucose, insulin, bicarb and kayexalate po for the hyperkalemia. Pt is being transferred for higher level of care, for further vascular evaluation, clot vs arteriosclerosis, also concern for infection osteomyelelitis. PE: Pt alert, in mod distress due to pain, ambulatory, afebrile. HEENT: atraumatic, normal appearance Neck: supple Cor S1 S2 Lungs clear Abd soft, nontender Extrem: left foot s/p MTA, open dry area left 5th MT 3mm, no red streaking; left foot is cold to touch, no palpable pedal pulses, superficial varicosities, full ROM, no calf tenderness, no edema; R foot no discoloration, decreased pulses, nontender Neuro: A O x 3, Moves all extremities well, no focal deficit. Re-Evaluation - Re-Evaluation First Eval Change: Improved - improves after administration of morning meds Second Eval Change: Improved - BP reduced from 218/74 to Course/Dx - Course Course Of Treatment: On physical examination the foot appears to be erythematous and cool, although not cold. Labs obtained and patient is noted to be at mod-severe hyperkalemia, likely secondary to her beta nathalia, persistent hyperglycemia or recent abx. EKG obtained which does not show peaked T waves or shortened QRS intervals. She is given a cocktail of calcium chloride 1 g in D5W, dextrose 50% syringe, 25 g, insulin regular 10 units IV, Kayexalate 15 g oral. She is rehydrated with 1L ns. SAUD obtained of lower extremity to assess ischemia/vascular occlusion. - Diagnoses Provider Diagnoses: Critical ischemia of foot, Acute hyperkalemia, Decreased GFR - Provider Notifications Instructed by Provider To: Transfer - discussed with Dr. Souza, vascular surgeon at [facility], who accepts pt to the ED for further evaluation. Service not available at [facility] is vascular surgery Reason For Transfer: Specialty or service not available at [facility]. - Critical Care Time Critical Care Time: 30-74 min - 30 minutes, management of hyperkalemia, evaluation of cool, pulseless, painful extremity and arranging transfer Discharge - Sign-Out/Discharge Documenting (check all that apply): Discharge/Admit/Transfer - transfer - Discharge Plan Condition: Stable Disposition: TRANS HIGHER LVL OF CARE FAC Referrals: Vishal Greenwood MD [Primary Care Provider] - - Billing Disposition and Condition Condition: STABLE Disposition: Trans Higher Lvl of Care Fac
[2017-12-02 10:29] VITALS: BP 185/95
--- NOTE | 2017-12-02 11:24 | RAD ---
INDICATION: LEFT foot infection. Advanced peripheral vascular disease. COMPARISON: Ankle brachial index of the same date and October 21, 2016 CT angiogram. TECHNIQUE: Multidetector CT images were obtained from infrarenal abdominal aorta to the feet without and with 125 mL Visipaque 320 IV contrast. Full [id number] routine arterial phase and delayed arterial phase of the lower legs. Multiplanar reformation without and with maximum intensity projection. 3-D arterial volume rendering. REPORT: ABDOMINAL AORTA: Negative for aneurysm of the visualized infrarenal abdominal aorta. Mild atherosclerotic plaque without significant aortic stenosis. Normal opacification of the visualized mid to distal segment of the superior mesenteric artery as well as the inferior mesenteric artery. RIGHT ILIAC and LOWER EXTREMITY ARTERIES: RIGHT ILIAC and LOWER EXTREMITY ARTERIES: Approximate 50% short segment stenosis at the proximal RIGHT common iliac artery due to calcific and noncalcific plaque. Marked high-grade approximate 99% stenosis at the distal RIGHT external iliac and common femoral arteries due to predominant calcific plaque without significant change. Up to 70% stenosis at the distal RIGHT superficial femoral artery at the adductor canal with interval worsening. Faint three-vessel runoff to the ankle. LEFT ILIAC and LOWER EXTREMITY ARTERIES: Up to 30% stenosis of the LEFT common femoral artery due to calcific plaque. Proximal occlusion of the LEFT superficial femoral artery due to noncalcified plaque new compared with the prior exam. Distal collateral reconstitution of the superficial femoral artery at the adductor canal. Up to 90% stenosis of the LEFT popliteal artery due to calcific and noncalcific plaque. Faint predominant one-vessel runoff to the LEFT ankle at the posterior tibial artery. NON-VASCULAR FINDINGS: Diverticulosis of the sigmoid colon without findings of diverticulitis. Moderate RIGHT popliteal cyst. Bilateral diffuse lower leg subcutaneous edema. Postsurgical change of amputation of the LEFT foot at level of the metatarsal phalangeal joints. IMPRESSION: #. RIGHT ILIAC and LOWER EXTREMITY ARTERIES: Approximate 50% short segment stenosis at the proximal RIGHT common iliac artery due to calcific and noncalcific plaque. Marked high-grade approximate 99% stenosis at the distal RIGHT external iliac and common femoral arteries due to predominant calcific plaque without significant change. Up to 70% stenosis at the distal RIGHT superficial femoral artery at the adductor canal with interval worsening. Faint three-vessel runoff to the ankle. #. LEFT ILIAC and LOWER EXTREMITY ARTERIES: Up to 30% stenosis of the LEFT common femoral artery due to calcific plaque. Proximal occlusion of the LEFT superficial femoral artery due to noncalcified plaque new compared with the prior exam. Distal collateral reconstitution of the superficial femoral artery at the adductor canal. Up to 90% stenosis of the LEFT popliteal artery due to calcific and noncalcific plaque. Faint predominant one-vessel runoff to the LEFT ankle at the posterior tibial artery.
== END 2017-12-02 10:32 | disposition short-term general hospital (02) ==
LOC: ED 06:31
DX: I77.1 Stricture of artery (principal); I99.8 Other disorder of circulatory system; R94.4 Abnormal results of kidney function studies; E87.5 Hyperkalemia; E11.51 Type 2 diabetes mellitus with diabetic peripheral angiopathy without gangrene; E11.42 Type 2 diabetes mellitus with diabetic polyneuropathy; I10 Essential (primary) hypertension; I25.10 Atherosclerotic heart disease of native coronary artery without angina pectoris; D64.9 Anemia, unspecified; M17.11 Unilateral primary osteoarthritis, right knee; Z87.891 Personal history of nicotine dependence; Z89.422 Acquired absence of other left toe(s); Z79.899 Other long term (current) drug therapy; Z79.4 Long term (current) use of insulin; Z79.84 Long term (current) use of oral hypoglycemic drugs; Z79.82 Long term (current) use of aspirin
CPT/HCPCS: 36415; 73706; 80053; 85025; 85610; 85652; 86140; 93005; 93922; 96374; 96375; 96376; 99285; A9270-GY; Q9967

== ENCOUNTER 2018-11-02 10:54 | Emergency (ER) | payer MEDICARE, OTHER ==
--- NOTE | 2018-11-02 12:47 | ED ---
Head Injury - HPI Summary HPI Summary: This pt is an 78 y/o female presenting to [facility] c/o bump to left forehead s/p fall and head strike 3 weeks ago. Pt reports she fell and bumped the left side of her face and head. She notes she sustained bruising and a bump on her left forehead. Pt notes the swelling to her forehead is not improving since her fall. Additionally c/o intermittent headaches. Denies chest pain, SOB, palpitations, neck pain. Pt did not feel she needed to be seen by a doctor and didn't come sooner, but family insisted her to come to be checked out. Pt is on anticoagulants, Xarelto. - History Of Current Complaint Chief Complaint: EDHeadInjury Stated Complaint: FELL 3 WEEKS AGO/BUMP ON HEAD PER PT Time Seen by Provider: 11/02/18 12:21 Hx Obtained From: Patient Mechanism Of Injury: Direct Blow, Fall From A Standing Position Onset/Duration: Started Weeks Ago - 3 weeks ago, Still Present Onset of Pain: Immediate Severity Currently: None Pain Intensity: 0 Pain Scale Used: 0-10 Numeric Location of Head Injury: Frontal - left side Aggravating Factor(s): Other: - nothing Alleviating Factor(s): Other: - nothing Associated Signs And Symptoms: Bruising, Headache - intermittent, Other: - NEGATIVE: chest pain, SOB, palpitations, neck pain Anticoagulant Therapy: Blood Thinners - Xarelto - Allergies/Home Medications Allergies/Adverse Reactions: Allergies Allergy/AdvReac Type Severity Reaction Status Date / Time No Known Allergies Allergy Verified 11/02/18 11:20 PMH/Surg Hx/FS Hx/Imm Hx Endocrine/Hematology History: Reports: Hx Anticoagulant Therapy, Hx Diabetes - type II, Hx Anemia Cardiovascular History: Reports: Hx Coronary Artery Disease, Hx Hypertension, Hx Peripheral Vascular Disease Denies: Hx Pacemaker/ICD Respiratory History: Reports: Hx Chronic Bronchitis GI History: Reports: Hx Gastroesophageal Reflux Disease, Hx Irritable Bowel - ? , Other GI Disorders - POLYP History: Denies: Hx Renal Disease Musculoskeletal History: Reports: Hx Arthritis - right knee Sensory History: Reports: Hx Contacts or Glasses - glasses, Hx Glaucoma Denies: Hx Hearing Aid Opthamlomology History: Reports: Hx Contacts or Glasses - glasses, Hx Glaucoma Neurological History: Reports: Hx Nerve Disease - DM neuropathyy Psychiatric History: Denies: Hx Panic Disorder - Surgical History Surgery Procedure, Year, and Place: bilat breasts removed d/t infections 20 years ago. APPENDECTOMY-TUBAL LIGATION. 12/03/2016 left foot transmetatarsal amputation Hx Anesthesia Reactions: No Infectious Disease History: No Infectious Disease History: Denies: Traveled Outside the [place] in Last 30 Days - Family History Known Family History: Positive: Hypertension, Diabetes - Sister - Social History Alcohol Use: None Hx Substance Use: No Substance Use Type: Reports: None Hx Tobacco Use: No Smoking Status (MU): Former Smoker Amount Used/How Often: smoked for 50 years - carton a week Review of Systems Negative: Fever Negative: Palpitations, Chest Pain Negative: Shortness Of Breath Negative: Other - NEG: neck pain Skin: Other - POS: bump on left forehead Positive: Bruising Positive: Headache - intermittent All Other Systems Reviewed And Are Negative: Yes Physical Exam - Summary Physical Exam Summary: VITAL SIGNS: Reviewed. GENERAL: Patient is a well-developed and nourished female who is lying comfortable in the stretcher. Patient is not in any acute respiratory distress. HEAD AND FACE: Hematoma on the left forehead. EYES: PERRLA, EOMI x 2, No injected conjunctiva, no nystagmus. EARS: Hearing grossly intact. Ear canals and tympanic membranes are within normal limits. MOUTH: Oropharynx within normal limits. NECK: Supple, trachea is midline, no adenopathy, no JVD, no carotid bruit. No c- spine tenderness, neck with full ROM. CHEST: Symmetric, no tenderness at palpation LUNGS: Clear to auscultation bilaterally. No wheezing or crackles. CVS: Regular rate and rhythm, S1 and S2 present, no murmurs or gallops appreciated. ABDOMEN: Soft, non-tender. No signs of distention. No rebound no guarding, and no masses palpated. Bowel sounds are normal. EXTREMITIES: FROM in all major joints, no edema, no cyanosis or clubbing. NEURO: Alert and oriented x 3. No acute neurological deficits. Speech is normal and follows commands. SKIN: Dry and warm GCS: 15 Triage Information Reviewed: Yes Vital Signs On Initial Exam: Initial Vitals Temp Pulse Resp BP Pulse Ox 98.4 F 70 16 171/94 97 11/02/18 11:16 11/02/18 11:16 11/02/18 11:16 11/02/18 11:16 11/02/18 11:16 Vital Signs Reviewed: Yes Diagnostics - Vital Signs Vital Signs Temp Pulse Resp BP Pulse Ox 11/02/18 11:16 98.4 F 70 16 171/94 97 - Laboratory Lab Statement: Any lab studies that have been ordered have been reviewed, and results considered in the medical decision making process. - CT Brain CT CT Interpretation Completed By: Radiologist Summary of CT Findings: IMPRESSION: #. LEFT frontoparietal scalp hematoma measures up to 4.4 cm AP by 1.1 cm transverse. #. No CT evidence for traumatic brain injury or skull fracture. #. Mild involutional change and stigmata of chronic small vessel ischemic disease. Dr. Pardo has reviewed this report. Re-Evaluation - Re-Evaluation First Eval Re-Evaluation Time: 13:40 Comment: Reviewed the CT results with the pt. She will be discharged home. Head Injury Course/Dx Assessment/Plan: This pt is an 78 y/o female presenting to [facility] c/o bump to left forehead s/p fall and head strike 3 weeks ago. Pt reports she fell and bumped the left side of her face and head. She notes she has bruising on her left side. Past medical history significant for peripheral vascular disease, ischemic foot, cellulitis, diabetes, peripheral neuropathy, hypertension, depression, constipation, COPD, and she is a full code. Head CT impression: # . LEFT frontoparietal scalp hematoma measures up to 4.4 cm AP by 1.1 cm transverse. #. No CT evidence for traumatic brain injury or skull fracture. # . Mild involutional change and stigmata of chronic small vessel ischemic disease. I discussed all the findings and test results with the patient. Patient was instructed to return to the emergency room immediately if any of the symptoms return or worsens. Plan of care was discussed with the patient and understands and agrees. All questions were answered at patient satisfaction. There were no further complaints or concerns. Lung exam before discharge: CTA B/ L. Good air exchange. No wheezing or crackles heard. CVS: S1 and S2 present. No murmurs appreciated. Patient is alert and oriented x 3. Patient is hemodynamically stable. Patient will be discharged home with follow up from her PCP in the next 2-3 days. - Diagnoses Provider Diagnoses: Head contusion, Hematoma Discharge - Sign-Out/Discharge Documenting (check all that apply): Patient Departure - Discharge home Patient Received Moderate/Deep Sedation with Procedure: No - Discharge Plan Condition: Stable Disposition: HOME Patient Education Materials: Contusion in Adults (ED), Hematoma (ED) Referrals: Vishal Greenwood MD [Primary Care Provider] - Additional Instructions: FOLLOW UP WITH YOUR PRIMARY CARE PROVIDER IN 2-3 DAYS. RETURN TO THE EMERGENCY DEPARTMENT FOR ANY WORSENING OR NEW SYMPTOMS. - Attestation Statements Document Initiated by Scribe: Yes Documenting Scribe: Imani Bangura Provider For Whom Scribe is Documenting (Include Credential): Zaire Pardo MD Scribe Attestation: Imani Archer, scribed for Zaire Pardo MD on 11/02/18 at 1350. Status of Scribe Document: Ready
[2018-11-02 14:01] VITALS: BP 141/60
== END 2018-11-02 13:59 | disposition home or self-care (01) ==
LOC: ED 10:54
DX: S00.93XA Contusion of unspecified part of head, initial encounter (principal); R51 Headache; Z87.891 Personal history of nicotine dependence; Z79.01 Long term (current) use of anticoagulants; E11.9 Type 2 diabetes mellitus without complications; I25.10 Atherosclerotic heart disease of native coronary artery without angina pectoris; I10 Essential (primary) hypertension; I73.9 Peripheral vascular disease, unspecified; K21.9 Gastro-esophageal reflux disease without esophagitis; W18.00XA Striking against unspecified object with subsequent fall, initial encounter; Y92.9 Unspecified place or not applicable
CPT/HCPCS: 70450; 99281

== ENCOUNTER 2019-06-18 14:30 | Inpatient (IN) | payer MEDICARE ==
--- NOTE | 2019-06-18 14:48 | ED ---
Lower Extremity - HPI Summary HPI Summary: Patient is an 78 y/o F presenting to the ED via EMS for a chief complaint of left LE swelling and pain. Per EMS, the patient's senior care called EMS for concern of her left LE swelling and pain. On 06/04/19, patient had a left below the knee amputation at [facility]. She required amputation due to infection in the left LE. Patient notes intermittent fever, but denies chills, nausea, or vomiting. PMHx is significant for DM, HTN, and pacemaker placement. Patient takes Xarelto. She is a former smoker, but denies alcohol or drug use. She lives at [facility]. Allergies noted. Medications reviewed. - History of Current Complaint Chief Complaint: EDGeneral Stated Complaint: POSS INF SURGICAL SIGHT PER EMS Time Seen by Provider: 06/18/19 14:35 Hx Obtained From: Patient Mechanism Of Injury: Other - None Onset of Pain: Immediate Severity Initially: Severe Severity Currently: Severe Pain Intensity: 8 Pain Scale Used: 0-10 Numeric Timing: Constant Associated Signs And Symptoms: Positive: Swelling - Left LE, Fever Aggravating Factor(s): Nothing Alleviating Factor(s): Nothing Able to Bear Weight: No - Left BKA - Allergies/Home Medications Allergies/Adverse Reactions: Allergies Allergy/AdvReac Type Severity Reaction Status Date / Time No Known Allergies Allergy Verified 06/18/19 14:41 Home Medications: Home Medications Acetaminophen TAB* [Tylenol TAB*] 650 mg PO Q6H PRN 06/18/19 [History Confirmed 06/18/19] Acetaminophen [Acetaminophen Extra Strength] 500 mg PO TID PRN 06/18/19 [ History Confirmed 06/18/19] Dorzolamide/Timolol OPTH (NF) [Cosopt (NF)] 1 drop BOTH EYES QAM 06/18/19 [ History Confirmed 06/18/19] Nadolol (NF) 10 mg PO DAILY 06/18/19 [History Confirmed 06/18/19] Pantoprazole TAB * [Protonix TAB*] 40 mg PO DAILY 06/18/19 [History Confirmed ] Rivaroxaban TAB(*) [Xarelto 15 mg(*)] 15 mg PO DAILY 06/18/19 [History Confirmed 06/18/19] Triamterene/HCTZ 37.5-25 MG* [Dyazide CAP*] 1 cap PO DAILY 06/18/19 [History Confirmed 06/18/19] PMH/Surg Hx/FS Hx/Imm Hx Previously Healthy: Yes Endocrine/Hematology History: Reports: Hx Anticoagulant Therapy, Hx Diabetes - type II, Hx Anemia Cardiovascular History: Reports: Hx Coronary Artery Disease, Hx Hypertension, Hx Peripheral Vascular Disease Denies: Hx Pacemaker/ICD Respiratory History: Reports: Hx Chronic Bronchitis GI History: Reports: Hx Gastroesophageal Reflux Disease, Hx Irritable Bowel - ? , Other GI Disorders - POLYP History: Denies: Hx Renal Disease Musculoskeletal History: Reports: Hx Arthritis - right knee Sensory History: Reports: Hx Contacts or Glasses - glasses, Hx Glaucoma Denies: Hx Legally Blind, Hx Deafness, Hx Hearing Aid Opthamlomology History: Reports: Hx Contacts or Glasses - glasses, Hx Glaucoma Denies: Hx Legally Blind EENT History: Denies: Hx Deafness Neurological History: Reports: Hx Nerve Disease - DM neuropathyy Psychiatric History: Denies: Hx Panic Disorder - Surgical History Surgical History: Yes Surgery Procedure, Year, and Place: bilat breasts removed d/t infections 20 years ago. APPENDECTOMY-TUBAL LIGATION. 12/03/2016 left foot transmetatarsal amputation Hx Anesthesia Reactions: No Infectious Disease History: No Infectious Disease History: Denies: Traveled Outside the [place] in Last 30 Days - Family History Known Family History: Positive: Hypertension, Diabetes - Sister - Social History Occupation: Retired Lives: At [facility] Alcohol Use: None Hx Substance Use: No Substance Use Type: Reports: None Hx Tobacco Use: No Smoking Status (MU): Former Smoker Amount Used/How Often: smoked for 50 years - carton a week Review of Systems Positive: Fever. Negative: Chills Negative: Vomiting, Nausea Positive: Myalgia - Left LE, Edema - Left LE All Other Systems Reviewed And Are Negative: Yes Physical Exam - Summary Physical Exam Summary: Constitutional: Well-developed, Well-nourished, Alert. (-) Distressed Skin: Warm, Dry HENT: Normocephalic; Atraumatic Eyes: Conjunctiva normal Neck: Musculoskeletal ROM normal neck. (-) JVD, (-) Stridor, (-) Tracheal deviation Cardio: Rhythm regular, rate normal, Heart sounds normal; Intact distal pulses; Radial pulses are 2+ and symmetric. (-) Murmur Pulmonary/Chest wall: Effort normal. (-) Respiratory distress, (-) Wheezes, (-) Rales Abd: Soft, (-) tenderness, (-) Distension, (-) Guarding, (-) Rebound Musculoskeletal: (-) Edema. Left leg with BKA, surgical site intact, no warmth or drainage, minimal tenderness. Lymph: (-) Cervical adenopathy Neuro: Alert, Oriented x3 Psych: Mood and affect Normal Triage Information Reviewed: Yes Vital Signs On Initial Exam: Initial Vitals Temp Pulse Resp BP Pulse Ox 97.6 F 70 16 141/60 94 06/18/19 14:35 06/18/19 14:35 06/18/19 14:35 06/18/19 14:35 06/18/19 14:35 Vital Signs Reviewed: Yes Procedures - Sedation Patient Received Moderate/Deep Sedation with Procedure: No Diagnostics - Vital Signs Vital Signs Temp Pulse Resp BP Pulse Ox 06/18/19 14:35 97.6 F 70 16 141/60 94 - Laboratory Result Diagrams: 06/18/19 14:52 06/18/19 14:52 Lab Statement: Any lab studies that have been ordered have been reviewed, and results considered in the medical decision making process. - Radiology Femur X-ray Radiology Interpretation Completed By: Radiologist Summary of Radiographic Findings: Femur X-ray IMPRESSION: 1. OSTEOARTHRITIS. 2. NO APPRECIABLE EROSION OR PERIOSTEAL REACTION. PLAIN RADIOGRAPH FINDINGS OF OSTEOMYELITIS ARE RELATIVELY LATE FINDINGS. IF THERE IS PERSISTENT CLINICAL CONCERN FOR OSTEOMYELITIS, RECOMMEND CORRELATION WITH FOLLOWUP IMAGING, THREE- PHASE BONE SCANNING, WHITE BLOOD CELL SCAN, AND/OR MRI OF THE AFFECTED REGION. Reviewed by Dr. Ricketts. Lower Extremity Course/Dx - Course Course Of Treatment: Patient is here with possible infection following surgery on 06/03/19. Patient had a BKA performed at [facility]. Patient sent in due to concerning lab work with an elevated white blood cell count and ESR. Patient's stump does not appear infected clinically but given her markers are inflammation , orthopedic surgery was called and they recommended MRI. Patient was admitted to the hospitalist for MRI. Orthopedic surgery did not want any. Antibiotics and the decision was left to the internal medicine team. - Diagnoses Provider Diagnoses: Surgical site infection, Leukocytosis, Post-operative complication - Physician Notifications Discussed Care Of Patient With: Aniket Diaz - At 16:00, Dr. Diaz who recommends MRI, antibiotics, and [place] [facility]. At 16:05, Dr. Elena Gonzalez agrees to admit the patient to [facility] Time Discussed With Above Provider: 16:00 Instructed by Provider To: Admit As Inpatient Discharge ED - Sign-Out/Discharge Documenting (check all that apply): Patient Departure - Admit - Discharge Plan Condition: Stable Disposition: ADMITTED TO [facility] Referrals: Vishal Greenwood MD [Primary Care Provider] - - Billing Disposition and Condition Condition: STABLE Disposition: Admitted to [facility] - Attestation Statements Document Initiated by Terrieibe: Yes Documenting Scribe: Alejandrina Sánchez Provider For Whom Scribe is Documenting (Include Credential): Pratik Ricketts MD Scribe Attestation: Alejandrina Archer, terrieibed for Pratik Ricketts MD on 06/18/19 at 1735. Scribe Documentation Reviewed: Yes Provider Attestation: The documentation as recorded by the Alejandrina moura accurately reflects the service I personally performed and the decisions made by , Pratik Ricketts MD Status of Scribe Document: Viewed
--- OUTSIDE RECORDS SUMMARY | 2019-06-18 14:56 | XMS REPORT | Summary of Care ---
:1940 Author Organization [facility] Address [address] [address] Care Team Providers Name Role Phone Vishal Greenwood MD Primary Care Provider Reason for Referral (Routine) Status Reason Specialty Diagnoses / Procedures Referred By Contact Referred To Contact Demian Schneider DO [address] [id number] Scheduling Instructions Reason for Consult: Patient scheduled for vascular surgical intervention but not with TIA. Please evaluate. Thanks, Patient Background: Brittany Hughes is a 78-y.o. female (Routine) Status Reason Specialty Diagnoses / Procedures Referred By Contact Referred To Contact Demian Schneider DO [address] [address] Scheduling Instructions Reason for Consult: Refer to note Goals of care Patient Background: Brittany Hughes is a 78-y.o. female (Emergency) Status Reason Specialty Diagnoses / Procedures Referred By Contact Referred To Contact Frandy Smith DO [address] [address] Scheduling Instructions Patient Background: Brittany Hughes is a 78-y.o. female Reason for Visit Reason Comments Altered Mental Status Neurologic Problem Auth/Cert Status Reason Specialty Diagnoses / Procedures Referred By Referred To Contact Contact Diagnoses Occlusion of femoropopliteal bypass graft, initial encounter (HCC) PVD (peripheral vascular disease) ([facility]) Procedures CO AMPUTATION LOW LEG THRU TIB/FIB AMPUTATION BELOW KNEE LEFT Encounter Details Date Type Department Care Team Description 06/03/2019 - Hospital Encounter RP [id number], Joshua, DO [address] [id number] [phone] Inpatient 06/10/2019 1 Maximilian Mccarthy Sharon Babcock, DO [address] [address] [phone] [address] [address] Demetrius Luevano MD [address] [address] [phone] Jimmy Cunningham MD [address] [address] Rosalie Felder MD [address] [address] [phone] Allergies No Known Allergiesdocumented as of this encounter (statuses as of 06/11/2019) Medications Medication Sig Dispensed Refills Start Date End Date Status atorvastatin (LIPITOR) Take 80 mg by 0 Active 80 MG Oral Tab mouth DAILY. bimatoprost (LUMIGAN) Place 1 Drop in 0 Active 0.01 % Ophthalmic both eyes EVERY Solution EVENING. Cholecalciferol 1000 Take by mouth. 0 Active units Oral Chew Tab citalopram (CELEXA) 20 Take 20 mg by 0 Active MG Oral Tab mouth DAILY. ferrous sulfate 325 Take 325 mg by 0 Active (65 Fe) MG Oral Tab mouth DAILY. gabapentin (NEURONTIN) Take 300 mg by 0 Active 300 MG Oral Cap mouth TWICE DAILY. GLARGINE insulin, Inject 30 Units 0 Active LONG-Acting, (LANTUS) beneath the skin 100 UNIT/ML EVERY BEDTIME. Subcutaneous Solution 28-20 units nightly Losartan Potassium 100 Take 0.5 Tabs by 0 Active MG Oral Tab mouth DAILY. amLodipine (NORVASC) 5 Take 5 mg by 0 Active MG Oral Tab mouth DAILY. metFORMIN (GLUCOPHAGE) Take 1,000 mg by 0 Active 500 MG Oral Tab mouth TWICE DAILY. Probiotic Product Take 1 Tab by 0 Active (PROBIOTIC PO) mouth DAILY. Dorzolamide Place 1 Drop to 0 Active HCl-Timolol Mal the external eye (COSOPT OP) EVERY MORNING. Mirabegron (MYRBETRIQ Take 1 Tab by 0 Active PO) mouth EVERY BEDTIME. acetaminophen Take 2 Tabs by 0 01/08/2018 Active (TYLENOL) 325 MG Oral mouth EVERY SIX Tab HOURS NEEDED for Pain. tramadol (ULTRAM) 50 Take 50 mg by 0 Active MG Oral Tab mouth EVERY SIX HOURS NEEDED for Pain. nadolol (CORGARD) 20 Take 0.5 Tabs by 45 Tab 3 03/14/2018 Active MG Oral Tab mouth DAILY. rivaroxaban (XARELTO) Take 1 Tab by 30 Tab 3 04/20/2018 Active 15 MG Oral Tab mouth DAILY. clopidogrel (PLAVIX) Take 1 Tab by 30 Tab 3 04/20/2018 Active 75 MG Oral Tab mouth DAILY. Albuterol Sulfate 108 Take by 0 Active (90 Base) MCG/ACT inhalation Inhalation AEROSOL NEEDED. POWDER, BREATH ACTIVATED pantoprazole Take 40 mg by 0 Active (PROTONIX) 40 MG Oral mouth DAILY. Tab EC OXYcodone Take 1 Tab by 42 Tab 0 05/24/2019 Active (OXY-IR,OXY-FAST) 5 MG mouth EVERY FOUR Oral Tab HOURS NEEDED (foot pain). Max Daily Amount: 30 mg. triamterene-hydrochlor Take 1 Tab by 30 Tab 0 06/11/2019 Active othiazide mouth DAILY. (DYAZIDE/MAXZIDE) 37.5-25 MG Oral Tab tramadol (ULTRAM) 50 Take 1 Tab by 15 Tab 0 06/10/2019 Active MG Oral Tab mouth EVERY SIX HOURS NEEDED (Breakthrough pain). Max Daily Amount: 200 mg. ciprofloxacin (CIPRO) Take 1 Tab by 14 Tab 0 06/10/2019 06/17/2019 Active 500 MG Oral Tab mouth TWICE DAILY for 7 days. doxycycline Take 1 Cap by 14 Cap 0 06/10/2019 06/17/2019 Active monohydrate (MONODOX) mouth TWICE DAILY 100 MG Oral Cap for 7 days. documented as of this encounter (statuses as of 06/11/2019) Active Problems Problem Noted Date TIA (transient ischemic attack) 06/04/2019 Overview: Patient with neurologic symptoms concerning for TIA/CVA while AC held for planned surgical intervention on 06/04/2019 in AM Heparin gtt at this time, Hold on further neurology evaluation including but not limited to TTE, US Carotids, MRI at this time Palliative and Vascular surgery to be consulted in AM for discussion with patient. 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/2019 Overview: Added automatically from request for surgery [id number] PVD (peripheral vascular disease) 05/13/2019 Overview: Patient following with Vascular surgery Sinus node dysfunction 01/22/2018 Cardiomyopathy 01/22/2018 Peripheral vascular disease 01/05/2018 Paroxysmal atrial fibrillation 12/02/2017 documented as of this encounter (statuses as of 06/11/2019) Social History Tobacco Use Types Packs/Day Years Used Date Former Smoker Cigarettes 0.25 Quit: 2019 Smokeless Tobacco: Never Used Alcohol Use Drinks/Week oz/Week Comments No Sex Assigned at Date Recorded Not on file Job Start Date Occupation Industry Not on file Not on file Not on file Travel History Travel Start Travel End No recent travel history available. documented as of this encounter Last Filed Vital Signs Vital Sign Reading Time Taken Comments Blood Pressure 140/59 06/10/2019 7:30 AM EST Pulse 69 06/10/2019 7:30 AM EST Temperature 36.8 06/10/2019 7:30 AM EST C (98.3 F) Respiratory Rate 20 06/10/2019 7:30 AM EST Oxygen Saturation 95% 06/10/2019 7:30 AM EST Inhaled Oxygen Concentration - - Weight 66.3 kg (146 lb 4 oz) 06/10/2019 5:15 AM EST Height 147.3 cm (4' 10") 06/04/2019 8:20 AM EST Body Mass Index 30.57 06/04/2019 8:20 AM EST documented in this encounter Discharge Summaries Sunny Rowe MD - 06/10/2019 11:09 AM EST [facility] [address] [id number] Discharge Summary Patient ID: Brittany Hughes [id number] 78-y.o. 1940 Admission date: 06/03/2019 Discharge date: 06/10/19 Admitting Physician: Demetrius Luevano MD Principal Diagnosis: PVD (peripheral vascular disease) (HCC) Other medical problems managed in the hospital: PVD (peripheral vascular disease) (HCC) Discharged Condition: Stable, good Hospital Course: Brittany Hughes is a 78-y.o. female admitted on 06/03/2019 with recent history, physical exam and imaging findings consistent with peripheral vascular disease. She presented to the hospital with confusion and some bilateral leg weakness and had a work up for TIA which was negative. She then underwent AMPUTATION BELOW KNEE LEFT (Left ), which she tolerated really well. She was admitted to the floor for further observation and wound care. While at the hospital she had elevated blood pressure which was controlled by increasing the doses of her medication nadolol and also adding dyazide/maxzide to her regimen. Her blood sugar was also running high which was controlled by adding and increasing mealtime insulin. She had developed a trending down leukocytosis (WBC 20, 17, 14 ) without hemodynamic instabilityor fever. The infection work up including chest xray, urinalysis or wound infection or pressure ulcer were all negative. The patient had admitted to have had a lingering cough before admission. She wastreated originally empirically with zosyn and vancomycin which were changed to ciprofloxacin and doxycycline after speaking with Clinical Pharmacist and also suspecting a respiratory bronchitis vs. interstitial pneumonia. She responded well to the change in antibiotic regimen. she remained afebrile and hemodynamically stable. she was ambulating with help from the nursing staff and PT/OT to the chairand bathroom, voiding without difficulty and tolerating a diabetic diet without nausea or vomiting. Pain was well-controlled on oral analgesics including morphine [employer] originally weaned down to oral tramadol. PT//OT has worked with the patient and they have recommended short term rehab. The patient and the family are in agreement with the arragenements. On the day of discharge, the patient is afebrile and hemodynamically stable. She will have a follow up appointment with Dr. Felder in [facility] on 06/29/2019. Detail instruction regarding her wound care and medication changes are listed in the instructions. Vitals: 06/09/19 2102 06/10/19 0000 06/10/19 0515 06/10/19 0730 BP: 139/58 140/59 Pulse: 70 69 Resp: 20 Temp: 98.5 F (36.9 C) 98.3 F (36.8 C) TempSrc: Oral Oral SpO2: 93% 93% 95% Weight: 146 lb 4 oz (66.3 kg) Height: General: No apparent distress, AAOx3 Cardiovascular: Regular heart rate paced rhythm Chest/Respiratory: No use of accessory muscles of respiration on room air Extremities: Warm/well-perfused, no lesions RLE. LLE as in image below: incision is intact without dehiscence of the wound, there is a small blister at the lateral corner, otherwise no sign of necrosis, non-erythematous, mildly tender at the incision site Back: No signs of pressure ulcer or open wounds WBC/HG/HCT/PLT 14.24/11.0/34.4/268 (06/10 351) Na/K/Cl/HCO3/BUN/Crea 138/4.1/98/--/20/0.9 (06/10 351) Mg/Ca/Phos1.7/9.4/-- (06/10 351) Consults: CONSULT TO NEUROLOGY CONSULT PALLIATIVE CARE CONSULT TO VASCULAR SURGERY CONSULT TO WET ROASTER/CASE MANAGEMENT CONSULT TO WET ROASTER/CASE MANAGEMENT PER PROTOCOL Treatments: Analgesia Antibiotics Anticoagulation Cardiac meds VTE prophylaxis Barkley catheter Removed days before discharge. Pt voiding spontaneously Insulin IV hydration Wound care Procedures: CT HEAD WITHOUT IV CONTRAST VL NECK CAROTID BILATERAL XR CHEST 1 VIEW VL LOWER EXTREMITY DUPLEX VEINS BILATERAL XR CHEST 1 VIEW Operations: 06/04/2019 AMPUTATION BELOW KNEE LEFT (Left ) Complications: None Medications: Current Discharge Medication List START taking these medications ciprofloxacin 500 MG Tabs Commonly known as: CIPRO Dose: 500 mg Quantity: 14 Tab Refills: 0 Take 1 Tab by mouth TWICE DAILY for 7 days. doxycycline monohydrate 100 MG Caps Commonly known as: MONODOX Dose: 100 mg Quantity: 14 Cap Refills: 0 Take 1 Cap by mouth TWICE DAILY for 7 days. triamterene-hydrochlorothiazide 37.5-25 MG Tabs Commonly known as: DYAZIDE/MAXZIDE Dose: 1 Tab Start taking on: June 11, 2019 Quantity: 30 Tab Refills: 0 Take 1 Tab by mouth DAILY. CONTINUE these medications which have changed * tramadol 50 MG Tabs Commonly known as: ULTRAM Dose: 50 mg What changed: Another medication with the same name was added. Make sure you understand how and when to take each. Refills: 0 Take 50 mg by mouth EVERY SIX HOURS NEEDED for Pain. * tramadol 50 MG Tabs Commonly known as: ULTRAM Dose: 50 mg What changed: You were already taking a medication with the same name, and this prescription was added. Make sure you understand how and when to take each. Quantity: 15 Tab Refills: 0 Take 1 Tab by mouth EVERY SIX HOURS NEEDED (Breakthrough pain). Max Daily Amount: 200 mg. * This list has 2 medication(s) that are the same as other medications prescribed for you. Read thedirections carefully, and ask your doctor or other care provider to review them with you. CONTINUE these medications which have NOT CHANGED acetaminophen 325 MG Tabs Commonly known as: TYLENOL Dose: 650 mg Refills: 0 Take 2 Tabs by mouth EVERY SIX HOURS NEEDED for Pain. Albuterol Sulfate 108 (90 Base) MCG/ACT Aepb Refills: 0 Take by inhalation NEEDED. amLodipine 5 MG Tabs Commonly known as: NORVASC Dose: 5 mg Refills: 0 Take 5 mg by mouth DAILY. atorvastatin 80 MG Tabs Commonly known as: LIPITOR Dose: 80 mg Refills: 0 Take 80 mg by mouth DAILY. bimatoprost 0.01 % Soln Commonly known as: LUMIGAN Dose: 1 Drop Refills: 0 Place 1 Drop in both eyes EVERY EVENING. Cholecalciferol 25 MCG (1000 UT) Chew Refills: 0 Take by mouth. citalopram 20 MG Tabs Commonly known as: CeleXA Dose: 20 mg Refills: 0 Take 20 mg by mouth DAILY. clopidogrel 75 MG Tabs Commonly known as: PLAVIX Dose: 75 mg Quantity: 30 Tab Refills: 3 Take 1 Tab by mouth DAILY. COSOPT OP Dose: 1 Drop Refills: 0 Place 1 Drop to the external eye EVERY MORNING. ferrous sulfate 325 (65 Fe) MG Tabs Dose: 325 mg Refills: 0 Take 325 mg by mouth DAILY. GLARGINE insulin (LONG-Acting) 100 UNIT/ML Soln Commonly known as: Lantus Dose: 30 Units Refills: 0 Inject 30 Units beneath the skin EVERY BEDTIME. 28-20 units nightly Losartan Potassium 100 MG Tabs Dose: 0.5 Tab Refills: 0 Take 0.5 Tabs by mouth DAILY. metFORMIN 500 MG Tabs Commonly known as: GLUCOPHAGE Dose: 1,000 mg Refills: 0 Take 1,000 mg by mouth TWICE DAILY. MYRBETRIQ PO Dose: 1 Tab Refills: 0 Take 1 Tab by mouth EVERY BEDTIME. nadolol 20 MG Tabs Commonly known as: CORGARD Dose: 10 mg Quantity: 45 Tab Refills: 3 Take 0.5 Tabs by mouth DAILY. NEURONTIN 300 MG Caps Generic drug: gabapentin Dose: 300 mg Refills: 0 Take 300 mg by mouth TWICE DAILY. OXYcodone 5 MG Tabs Commonly known as: OXY-IR,OXY-FAST Dose: 5 mg Quantity: 42 Tab Refills: 0 Take 1 Tab by mouth EVERY FOUR HOURS NEEDED (foot pain). Max Daily Amount: 30 mg. pantoprazole 40 MG Tbec Commonly known as: PROTONIX Dose: 40 mg Refills: 0 Take 40 mg by mouth DAILY. PROBIOTIC PO Dose: 1 Tab Refills: 0 Take 1 Tab by mouth DAILY. rivaroxaban 15 MG Tabs Commonly known as: XARELTO Dose: 15 mg Quantity: 30 Tab Refills: 3 Take 1 Tab by mouth DAILY. Where to Get Your Medications These medications were sent to [id number] - [place], [place] - [address] [facility] [address] ciprofloxacin 500 MG Tabs doxycycline monohydrate 100 MG Caps tramadol 50 MG Tabs triamterene-hydrochlorothiazide 37.5-25 MG Tabs Oxygen or Positive Pressure Devices: O2 delivery device:: Room Air Patient Instructions: Activity/Restrictions: Activity as tolerated and ambulate in house No heavy lifting (>1 lb or a gallon of milk) No driving while you are taking narcotic pain medications Skin/Wound Care: Can shower after surgery with the ampushield and dressing off of the stump Please let warm soapy water run over the incision. Please do not scrub over or soak the incision in bath/swimming pool Please reapply the dressing after shower Apply xeroform around the incision site. Overtop should be dressed with kerlex around the stump to above the knee, followed by MAU wrap to above the knee Reapply dressing if you notice any oozing from the incision. Keep dressing clean and dry Observe for redness, swelling or drainage and call the clinic immediately Pain Management: You can use ice packs and heat packs as needed for additional pain relief Please take alternating Tylenol 650 mg and Motrin 600 mg every four hours for pain and take Narcotic medication only for breakthrough pain You have been written a prescription for a narcotic pain medication called Tramadol. Do not drive while taking pain meds and do not drive while you are in pain. Narcotics can make you nauseous, so do not take this medication on an empty stomach. Narcotics can also make you constipated, so you may want to take a stool softener like Colace (docusate) while you are taking narcotics to prevent constipation. Stop taking Colace if you develop loose or runny stools. You may also try Miralax if youneed additional help having bowel movements. Discharge Diet: ? Please resume your diabetic diet with limited carbohydrates Medication: Blood pressure Your blood pressure was high while at the hospital and we have added some new medications as listed below. Continue taking this regimen for the next month and please visit your PCP for blood pressure monitoring and medication management Nadolol- Continue taking 20 mg daily Dyazide/maxzide: 37.5/25 mg Daily Continue taking amlodipine 10 mg daily, losartan 50 mg daily. Please arrange an appointment with your primary care provider to revisit your blood pressure medications Blood Sugar: Your blood sugar was high during this hospitalization. You need to make sure to resume your home medication metformin. Please arrange an appointment with your primary care provider to revisit yourblood sugar management. Keeping your blood sugar <180 is extremely important for wound healing Antibiotics: You have been placed on ciprofloxacin and doxycycline while at the hospital. Follow up Instructions: Follow up with Dr. Felder in [facility] on 2019 Follow up with your primary care provider for routine vitals check, insulin management, hypertension management and post-hospital visit Monitor for any fever > 100.5, drainage/ redness/ swelling from your wound, new numbness/ tingling, worsening pain, and call clinic immediately. Please call clinic at [phone] if you have any questions or concerns Future Appointments Date Time Provider Department Center 06/10/2019 4:15 PM [facility] [place] [facility] 06/29/2019 10:00 AM Rosalie Felder MD [facility] 10/14/2019 1:20 PM [facility] [place] [facility] 12/08/2019 11:20 AM Zenaida Meza CRNP [facility] 02/01/2020 11:00 AM Rosalie Felder MD [facility] Discharge Procedure Orders Follow-up Appointment in ___ wks with ___ Order Comments: Please make a follow up appointment with [facility] in 2-3 weeks on Friday No orders of the defined types were placed in this encounter. Provider Signature: Sunny Rowe MD Attending: Rosalie Felder* Date and Time: 06/10/2019 11:09 Associated attestation - Rosalie Felder MD - 06/10/2019 2:05 PM [facility] Supervising MD Documentation Date of Service: [id number] B# [id number] I saw and evaluated the patient. Discussed with resident and agree with the resident's findings andplan as documented in the resident's note. Rosalie Felder MD Supervising Physiciandocumented in this encounter Discharge Instructions Chelsey Monzon RN - 06/07/2019Provider's Instructions Reason for Admission or Diagnosis: PVD (peripheral vascular disease) (HCC) Activity/Restrictions: Activity as tolerated and ambulate in house No heavy lifting (>1 lb or a gallon of milk) No driving while you are taking narcotic pain medications Skin/Wound Care: Can shower after surgery with the ampushield and dressing off of the stump Please let warm soapy water run over the incision. Please do not scrub over or soak the incision in bath/swimming pool Please reapply the dressing after shower Apply xeroform around the incision site. Overtop should be dressed with kerlix around the stump to above the knee, followed by MAU wrap to above the knee Reapply dressing if you notice any oozing from the incision. Keep dressing clean and dry Observe for redness, swelling or drainage and call the clinic immediately Pain Management: You can use ice packs and heat packs as needed for additional pain relief Please take alternating Tylenol 650 mg and Motrin 600 mg every four hours for pain and take Narcotic medication only for breakthrough pain You have been written a prescription for a narcotic pain medication called Tramadol. Do not drive while taking pain meds and do not drive while you are in pain. Narcotics can make you nauseous, so do not take this medication on an empty stomach. Narcotics can also make you constipated, so you may want to take a stool softener like Colace (docusate) while you are taking narcotics to prevent constipation. Stop taking Colace if you develop loose or runny stools. You may also try Miralax if youneed additional help having bowel movements. Discharge Diet: ? Please resume your diabetic diet with limited carbohydrates Medication: Blood pressure Your blood pressure was high while at the hospital and we have added some new medications as listed below. Continue taking this regimen for the next month and please visit your PCP for blood pressure monitoring and medication management Nadolol- Continue taking 20 mg daily Dyazide/maxzide: 37.5/25 mg Daily Continue taking amlodipine 10 mg daily, losartan 50 mg daily. Please arrange an appointment with your primary care provider to revisit your blood pressure medications Blood Sugar: Your blood sugar was high during this hospitalization. You need to make sure to resume your home medication metformin. Please arrange an appointment with your primary care provider to revisit yourblood sugar management. Keeping your blood sugar <180 is extremely important for wound healing Antibiotics: You have been placed on ciprofloxacin and doxycycline while at the hospital. Follow up Instructions: Follow up with Dr. Felder in [facility] on 2019 Follow up with your primary care provider for routine vitals check, insulin management, hypertension management and post-hospital visit Monitor for any fever > 100.5, drainage/ redness/ swelling from your wound, new numbness/ tingling, worsening pain, and call clinic immediately. Please call clinic at [phone] if you have any questions or concerns Discharge Provider: Sunny Rowe MD Attending: Rosalie Felder* Time: 06/07/2019 16:58 {Provider's stop here} Nurse's Instructions Problems to report to your Physician: Excessive pain or discomfort Fever > 100.5 degrees Difficulty breathing Increase or smell in wound drainage Skin/Wound Care: Wound care as ordered by physician. Medical Equipment/Supplies to help you at home: Patient has walker, rolling walker and cane at home. Help arranged for you Home Health/Receiving Agency: [place], [place] Patient Education Peripheral Vascular (Arterial) Disease Discharge Instructions About this topic Peripheral vascular disease is also called PVD. It is where the arteries that carry blood, oxygen, and nutrients to your legs, arms, or pelvis become narrow or blocked. PVD is caused by the buildup of fatty material in your arteries. This fatty material is called plaque. Plaque is a sticky substance found in the blood. The arteries begin to narrow and limit blood flow to your body. PVD can cause numbness and pain in the leg. If not treated, it can make walking painful. PVD may lead to more serious health problems. Treatments may lower your signs and slow how fast the disease progresses. It may also prevent other problems. This illness is treated with drugs and lifestyle changes. Surgery may be needed if you have a more serious case. What care is needed at home? Ask your doctor what you need to do when you go home. Make sure you ask questions if you do notunderstand what the doctor says. This way you will know what you need to do. When lying down or relaxing, raise your legs above the level of your heart. Wear loose fitting pants and other clothes. This will help keep good blood flow to your legs. When sitting, do not cross your legs. If you smoke, ask your doctor how to quit. Quitting is very important in treatment. Work with your doctor to treat other illnesses like high cholesterol or diabetes. What follow-up care is needed? Your doctor may ask you to make visits to the office to check on your progress. Be sure to keepthese visits. There may be other tests needed to check your progress. What drugs may be needed? The doctor may order drugs to: Prevent blood clots Help you stop smoking Lower high blood pressure Lower cholesterol levels Improve sugar control if you have diabetes Will physical activity be limited? Walking is good for this illness. Talk to your doctor about an exercise program for you. You may need to see a physical therapist to find the best exercises for you. What changes to diet are needed? Follow a heart healthy diet. Ask the dietitian for a plan. Eat foods high in fiber like fruits, vegetables, cereals, whole grains, and beans. Do not eat foods high in cholesterol and saturated fats like fried foods, fatty meats, sausages, and canned meats. Limit salty foods. Avoid canned, dried, and processed foods. Do not add salt to your food. Season food with herbs when you cook. Limit caffeine intake. Avoid beer, wine, and mixed drinks (alcohol). Ask for help to stop you from drinking. What problems could happen? Problems with your heart Stroke Less able to get around When do I need to call the doctor? Activate the emergency medical system right away if you have signs of stroke or heart attack. Call 911 in the [place] or [place]. The sooner treatment begins, the better your chances for recovery.Call for emergency help right away if you have: Signs of stroke: ? Sudden numbness or weakness of the face, arm, or leg, especially on one side of the body ? Sudden confusion, trouble speaking or understanding ? Sudden trouble seeing in one or both eyes ? Sudden trouble walking, dizziness, loss of balance or coordination ? Sudden severe headache with no known cause Signs of heart attack: ? Chest pain ? Trouble breathing ? Fast heartbeat ? Feeling dizzy Call your doctor if you have: Very bad pain in the leg or foot Color of foot changes to blue or hardy and becomes cold Feelings of being very tired or weak Teach Back: Helping You Understand The Teach Back Method helps you understand the information we are giving you. The idea is simple. After talking with the staff, tell them in your own words what you were just told. This helps to make sure the staff has covered each thing clearly. It also helps to explain things that may have been a bit confusing. Before going home, make sure you are able to do these: I can tell you about my condition. I can tell you what I can do to help keep good blood flow to my legs. I can tell you what I will do if I have signs of a heart attack or stroke. Where can I learn more? [place] [employer] http://www.heart.org/HEARTORG/Conditions/More/PeripheralArteryDisease/About- Lyulrpinst-Uhddvo-Vexpuct-PAD_UCM_301301_Article.jsp [employer] [employer] http://www.heart.org/HEARTORG/Conditions/More/PeripheralArteryDisease/Prevention -avp-Wqzmsmybe-lq-PAD_UCM_301308_Article.jsp Last Reviewed Date 2018-04-06 Consumer Information Use and Disclaimer This information is not specific medical advice and does not replace information you receive from your health care provider. This is only a brief summary of general information. It does NOT include allinformation about conditions, illnesses, injuries, tests, procedures, treatments, therapies, discharge instructions or life-style choices that may apply to you. You must talk with your health care provider for complete information about your health and treatment options. This information should not beused to decide whether or not to accept your health care providers advice, instructions or recommendations. Only your health care provider has the knowledge and training to provide advice that isright for you. Copyright Copyright 2019 [employer] and its affiliates and/or licensors. All rights reserved. *Please Return Patient Satisfaction Survey* AttachmentsThe following attachments cannot be sent through Care Everywhere.Transient Ischemic Attack Discharge Instructions (Citizen Of [place])documented in this encounter Progress Notes Sunny Rowe MD - 06/09/2019 8:57 AM EST [facility] General Surgery Progress Note Admit Date: 06/03/2019 6:15 PM Current Date: 06/09/2019 Patient: Brittany Hughes, , 1940, Room currently [facility] Subjective: No acute events overnight. Pain/nausea sufficiently controlled currently. Blood pressure was better controlled overnight with medication changes yesterday. The patient denies subjective fever/chills, chest pain/shortness of breath this morning. Continues to be afebrile and hemodynamically stable. Objective: BP 177/89 Pulse 70 Temp 98.7 F (37.1 C) (Oral) Resp 20 Ht 4' 10" ( 1.473 m) Wt 148 lb (67.1 kg) SpO2 92% BMI 30.93 kg/m2 Physical Exam: General: No apparent distress, AAOx3 Cardiovascular: Regular heart rate paced rhythm Chest/Respiratory: No use of accessory muscles of respiration on room air Extremities: Warm/well-perfused, no lesions RLE. LLE as in image below: incision is intact without dehiscence of the wound, there is a small blisterat the lateral corner, otherwise no sign of necrosis, non-erythematous, mildly tender at the incision site Back: No signs of pressure ulcer or open wounds Vitals: 06/09/19 0000 06/09/19 0245 06/09/19 0515 06/09/19 0730 BP: (!) 142/56 (!) 177/89 Pulse: 70 67 70 Resp: 18 20 Temp: 98.7 F (37.1 C) TempSrc: Oral SpO2: 98% 93% 92% Weight: 148 lb (67.1 kg) Height: Date 06/08/19 0700 - 06/09/19 0659 06/09/19 0700 - 06/10/19 0659 Shift 0706-2971 4585-9716 6422-0029 24 Hour Total 4195-9151 4256-1867 0401-4875 24 Hour Total INTAKE P.O. 440 440 240 240 Shift Total(mL/kg) 440(6.55) 440(6.55) 240(3.58) 240(3.58) OUTPUT Shift Total(mL/kg) Weight (kg) 67.18 67.18 67.13 67.13 67.13 67.13 67.13 67.13 I/O last 3 completed shifts: In: 440 [P.O.:440] Out: - Recent Labs 06/07/19 0336 06/08/19 0436 06/09/19 0403 WBC 22.91* 16.87* 17.00* HGB 11.5 11.0* 11.1* HCT 34.3 33.5* 34.0* PLAT 259 196 226 Recent Labs 06/07/19 0336 06/08/19 0436 06/09/19 0403 NA 131* 139 132* K 3.8 3.7 4.2 CL 94* 101 94* CO2 29 32* 33* GLUCOSE 50* 95 163* BUN 15 16 19* CREATININE 0.7 0.8 1.0 CALCIUM 8.7 9.2 8.8 EGFR >60 >60 53 No results for input(s): ASTL, ALKPL, ALTL, BILTL, BILDL, ALBL, TPL, TBILI, ALK , ALT, AST, BILC, ALBUMIN, TP in the last 72 hours. No results for input(s): PH, PCO2, PO2, SAT, BE in the last 72 hours. No results for input(s): TROP in the last 72 hours. Assessment/Plan: Brittany Hughes is a 78-y.o. female admitted on 06/03/2019, now POD4 s/p 06/04/2019 left below knee amputation for critical limb ischemia of left lower extremity with ischemic rest pain - Persistent leukocytosis: the amputation stump is clean and intact, there are no pressure ulcers. Pt however presented with cough prior to hospitalization and considering her COPD, after discussion with Clinical Pharmacist, it was decided to stop vanc/zosyn and continue with Cipro 500 BID and doxy 100 BID for suspected interstitial pneumonia/bronchitis. - We will also f/u with CXR, venous duplex bilateral - Continue to monitor BP - continue current BP meds with prns on board - Appreciate palliative rec for pain management - Continue Diet Type: Other (Specify); Other Restriction(s): Diabetic Consistent Carb. - increased post-meal insulin. Continue to monitor glu - Incentive Spirometry, albuterol PRN - Continue home medications as indicated including insulin, Xarelto, plavix and statin - Disposition: PT/OT recommend short term rehabilitation, SW has contacted potential facility, monitoring wound/patient to continue to work with PT/OT Problems: DVT Prophylaxis: SCD to RLE, patient on Xarelto GI Prophylaxis: Protonix Nutrition: Diet Type: Other (Specify); Other Restriction(s): Diabetic Consistent Carb. Barkley remains in place for the following reason(s): No barkley present Sunny Rowe MD Associated attestation - Rosalie Felder MD - [facility]/2019 5[facility] Supervising MD Documentation Date of Service: [id number] B# [id number] I saw and evaluated the patient. Discussed with resident and agree with the resident's findings andplan as documented in the resident's note. Rosalie Felder MD Supervising Sunny Marie MD - 06/08/2019 9:22 AM EST [facility] General Surgery Progress Note Admit Date: 06/03/2019 6:15 PM Current Date: 06/09/2019 Patient: Brittany Hughes, , 1940, Room currently 83/2 Subjective: No acute events overnight. Pain/nausea sufficiently controlled currently. Denies subjective fever/chills, chest pain/shortness of breath this morning. Continues to be afebrile and hemodynamically stable. Objective: Physical Exam: General: No apparent distress, AAOx3 Cardiovascular: Regular heart rate paced rhythm Chest/Respiratory: No use of accessory muscles of respiration on room air Neuro/Psych: No lateralizing symptoms/tremors this morning Extremities: Warm/well-perfused, no lesions RLE. LLE as in image below, appropriate jennifer-incision line tenderness, no drainage, erythema noted previous day near stump decreased (less tight dressing), BJORN more sanguinous than serous output character as seen Back: No signs of pressure ulcer or open wounds Vitals: 06/08/19 2130 06/09/19 0000 06/09/19 0245 06/09/19 0515 BP: 139/55 (!) 142/56 Pulse: 70 70 67 Resp: 20 18 Temp: 99.3 F (37.4 C) 98.7 F (37.1 C) TempSrc: Oral Oral SpO2: 98% 98% 93% Weight: 148 lb (67.1 kg) Height: Date 06/08/19 0700 - 06/09/19 0659 06/09/19 0700 - 06/10/19 0659 Shift 9649-0222 8099-8492 9073-0711 24 Hour Total 9049-5760 1621-6581 4635-6608 24 Hour Total INTAKE P.O. 440 440 Shift Total(mL/kg) 440(6.55) 440(6.55) OUTPUT Shift Total(mL/kg) Weight (kg) 67.18 67.18 67.13 67.13 67.13 67.13 67.13 67.13 I/O last 3 completed shifts: In: 440 [P.O.:440] Out: - Recent Labs 06/07/19 0336 06/08/19 0436 06/09/19 0403 WBC 22.91* 16.87* 17.00* HGB 11.5 11.0* 11.1* HCT 34.3 33.5* 34.0* PLAT 259 196 226 Recent Labs 06/07/19 0336 06/08/19 0436 06/09/19 0403 NA 131* 139 132* K 3.8 3.7 4.2 CL 94* 101 94* CO2 29 32* 33* GLUCOSE 50* 95 163* BUN 15 16 19* CREATININE 0.7 0.8 1.0 CALCIUM 8.7 9.2 8.8 EGFR >60 >60 53 No results for input(s): ASTL, ALKPL, ALTL, BILTL, BILDL, ALBL, TPL, TBILI, ALK , ALT, AST, BILC, ALBUMIN, TP in the last 72 hours. No results for input(s): PH, PCO2, PO2, SAT, BE in the last 72 hours. No results for input(s): TROP in the last 72 hours. Assessment/Plan: Brittany Hughes is a 78-y.o. female admitted on 06/03/2019, now POD4 s/p 06/04/2019 left below knee amputation for critical limb ischemia of left lower extremity with ischemic rest pain - LLE stump less erythema and again only minimally/appropriately tender without drainage; - Leukocytosis- resolving - Clinically stable, CXR is negative, U/A is negative , will start emperic zosyn and vancomycin. - HTN: increased norvasc to 10 mg, added dyazide/maxzide - continue to monitor - Continue Diet Type: Other (Specify); Other Restriction(s): Diabetic Consistent Carb. - increased post-meal insulin. Continue to monitor glu - Incentive Spirometry, albuterol PRN - Continue home medications as indicated including insulin, Xarelto, plavix and statin - Disposition: PT/OT recommend short term rehabilitation, SW has contacted potential facility, monitoring wound/patient to continue to work with PT/OT - OOB to chair Problems: DVT Prophylaxis: SCD to RLE, patient on Xarelto GI Prophylaxis: Protonix Nutrition: Diet Type: Other (Specify); Other Restriction(s): Diabetic Consistent Carb. Barkley remains in place for the following reason(s): No barkley present Sunny oRwe MD Associated attestation - Rosalie Felder MD - 06/10/2019 5:47 PM [facility] Supervising Documentation Date of Service: 06/09/2019 B# [id number] I saw and evaluated the patient. Discussed with resident and agree with the resident's findings andplan as documented in the resident's note. Rosalie Felder MD Supervising Will Petit MD - 06/07/2019 8:08 AM EST [facility] General Surgery Progress Note Admit Date: 06/03/2019 6:15 PM Current Date: 06/07/2019 Patient: Brittany Hughes, , 1940, Room currently 839/2 Subjective: No acute events overnight. Pain/nausea sufficiently controlled currently. Denies subjective fever/chills, chest pain/shortness of breath this morning Principal Problem: TIA (transient ischemic attack) Active Problems: PVD (peripheral vascular disease) ([facility]) Objective: Physical Exam: General: No apparent distress, AAOx3 Cardiovascular: Regular heart rate paced rhythm Chest/Respiratory: No use of accessory muscles of respiration on room air Neuro/Psych: No lateralizing symptoms/tremors this morning Extremities: Warm/well-perfused, no lesions RLE. LLE as in image below, appropriate jennifer-incision line tenderness, no drainage, erythema noted previous day near stump decreased (less tight dressing), BJORN more sanguinous than serous output character as seen Vitals: 06/06/19 0430 06/06/19 1536 06/06/19 2315 06/07/19 0745 BP: 120/57 136/86 (!) 190/61 Pulse: 69 70 70 Resp: 18 18 Temp: 97.6 F (36.4 C) 98.2 F (36.8 C) 98.8 F (37.1 C) TempSrc: Oral Oral SpO2: 95% 93% 91% Weight: 152 lb 6.4 oz (69.1 kg) Height: Date 06/06/19 07 - 06/07/19 0659 06/07/19 07 - 06/08/19 0659 Shift 2111-1770 6890-3168 6408-8120 24 Hour Total 3837-1143 6215-8962 3767-5011 24 Hour Total INTAKE P.O. 720 720 I.V.(mL/kg/hr) 651.9(1.18) 400.3(0.72) 1052.2(0.63) Shift Total(mL/kg) 720(10.42) 651.9(9.43) 400.3(5.79) 1772.2(25.64) OUTPUT Drains 20 20 40 40 Shift Total(mL/kg) 20(0.29) 20(0.29) 40(0.58) 40(0.58) Weight (kg) 69.13 69.13 69.13 69.13 69.13 69.13 69.13 69.13 I/O last 3 completed shifts: In: 1772.2 [P.O.:720; I.V.:1052.2] Out: 20 [Drains:20] Recent Labs 06/05/19 04206/06/19 0717 06/07/19 0336 WBC 10.42* 18.30* 22.91* HGB 10.7* 12.4 11.5 HCT 33.5* 38.3 34.3 PLAT 211 246 259 Recent Labs 06/05/19 0420 06/06/19 0717 06/07/19 0336 NA 140 131* 131* K 4.6 4.4 3.8 CL 105 96* 94* CO2 30 28 29 GLUCOSE 124* 66* 50* BUN 22* 17 15 CREATININE 0.8 0.8 0.7 CALCIUM 9.1 8.6 8.7 EGFR >60 >60 >60 No results for input(s): ASTL, ALKPL, ALTL, BILTL, BILDL, ALBL, TPL, TBILI, ALK , ALT, AST, BILC, ALBUMIN, TP in the last 72 hours. No results for input(s): PH, PCO2, PO2, SAT, BE in the last 72 hours. No results for input(s): TROP in the last 72 hours. Assessment/Plan: Brittany Hughes is a 78-y.o. female admitted on 06/03/2019, now POD3 s/p 06/04/2019 left below knee amputation for critical limb ischemia of left lower extremity with ischemic rest pain - Continue Diet Type: Other (Specify); Other Restriction(s): Diabetic Consistent Carb. diet currently, insulin regimen as currently ordered/monitor blood glucose levels (will confirm insulin regimen patient was taking at home today) - LLE stump less erythema and again only minimally/appropriately tender without drainage (wrapped less tightly pervious day); however, noted uptrending leukocytosis (22.91 1/6 from 18.3 1/5 from 10.42 1/4 from 9.99 1/3) - afebrile without fever/chills or other clinical signs of infection, obtaining chest Xray and initiating IV Vancomycin/Zosyn - Incentive Spirometry, albuterol PRN - Continue home medications as indicated including insulin, Xarelto, plavix and statin - VS/I&O and analgesics/antiemetics as indicated/ordered including BJORN drain output (please record strict in EMR) - discontinuing [employer]CH[employer]IC today monitor pain tolerance - Replete electrolytes PRN as indicated (today hypokalemia and hypomagnesemia) - Disposition: PT/OT recommend short term rehabilitation, SW has contacted potential facility, monitoring wound/patient to continue to work with PT/OT Problems: DVT Prophylaxis: SCD to RLE, patient on Xarelto GI Prophylaxis: Protonix Nutrition: Diet Type: Other (Specify); Other Restriction(s): Diabetic Consistent Carb. Barkley remains in place for the following reason(s): No barkley present Will Torres MD PGY-1 General Surgery Resident Associated attestation - Rosalie Felder MD - 06/07/2019 2:51 PM [facility] Supervising MD Documentation Date of Service: [id number] B# [id number] I saw and evaluated the patient. Discussed with resident and agree with the resident's findings andplan as documented in the resident's note. Rosalie Felder MD Supervising Carmen Kunz MD - 06/06/2019 3:59 PM EST [facility] [place] [id number] Vascular Surgery Progress Note Date of Service: 06/07/2019 Patient: Brittany Hughes B #: [id number] Attending: ROSALIE FELDER MD ,MD Subjective: Dressing change performed this afternoon on left BKA. Dressing change in the morning showed some erythema on the anterior aspect. Incision was clean, dry, intact with no drainage. Improving erythema of anterior aspect. Wound was re-dressed with Xeroform, gauze, Kerlix wrapped loosely with MAU bandage. Assessment/Plan Brittany Hughes is a 78-y.o. female POD2 s/p left below knee amputation, recovering well. Plan: - Continue analgesia prn - Continue tight glycemic control - Non-weightbearing left lower extremity - Ampu-shield for wound Author: Carmen Galvan MD Sunny Muro MD - 06/06/2019 7:26 AM EST [facility] [place]. [id number] General Surgery Progress Note Date of Service: 06/06/2019 Patient: Brittany Hughes B #: [id number] Attending: ROSALIE FELDER MD ,MD Subjective: Brittany Hughes 78-y.o. female doing well overall today. Her pain has been under control with mPCA. She has tolerated her diet well. Denies chest pain , shortness of breath, nausea Overnight Events: ? None. Patient blood sugar has been maintained at below 180 since after midnight Physical: Objective: Blood pressure 124/80, pulse 69, temperature 97.7 F (36.5 C) , temperature source Oral, resp. rate 20, height 4' 10" (1.473 m), weight 152 lb 6.4 oz (69.1 kg), SpO2 92 %, not currently . I/O: Date 06/05/19699 - 06/06/19 0659 06/06/19 07 - 06/07/19 0659 Shift 1385-8009 6930-4255 4589-6315 24 Hour Total 3168-7721 1469-8506 7993-3007 24 Hour Total INTAKE P.O. 240 240 I.V.(mL/kg/hr) 0.3(0) 7.98(0.01) 10.7(0.02) 18.98(0.01) Shift Total(mL/kg) 240.3(3.46) 7.98(0.11) 10.7(0.15) 258.98(3.75) OUTPUT Drains 25 25 Shift Total(mL/kg) 25(0.36) 25(0.36) Weight (kg) 69.49 69.49 69.13 69.13 69.13 69.13 69.13 69.13 General: Alert and oriented x3 Lungs: unlabored breathing O2 delivery device:: Room Air Heart: RRR Ext: Dressing intact and dry, incision clean without signs of infection, small erythematous patch midline above the incision, drain in place with serosanguinous output (image shown below) Data: Recent Labs 06/04/19 0616 06/05/190 06/06/19 0717 WBC 8.88 10.42* 18.30* HGB 11.5 10.7* 12.4 HCT 37.0 33.5* 38.3 PLAT 199 211 246 Recent Labs 06/03/19 1836 06/04/1916 06/05/1941906/06/19 0717 NA 137 138 140 131* K 4.2 4.1 4.6 4.4 CL 101 105 105 96* CO2 24 24 30 28 GLUCOSE 87 49* 124* 66* BUN 34* 22* 22* 17 CREATININE 1.3* 0.9 0.8 0.8 EGFR 39 60 >60 >60 CALCIUM 9.7 9.5 9.1 8.6 TP 7.4 6.3 -- -- ALBUMIN 4.0 3.4* -- -- ALK 61 50 -- -- AST 26 26 -- -- ALT 27 33 -- -- TBILI 0.6 0.6 -- -- Vl Neck Carotid Bilateral IMPRESSIONS: Indication: TIA symptoms. Duplex imaging of the bilateral carotid arteries indicates 0-49% stenosis with mild plaque seen in the bulb and proximal internal carotid arteries bilaterally. RTICA: 111/18 LT ICA: 96/18 The bilateral vertebral arteries demonstrate antegrade flow. There is no previous exam available for comparison. Vl Body Measure Dolores Multiple IMPRESSIONS: Indication: Peripheral vascular disease with intervention. Cold left calf/foot. PVR's of the right thigh and calf were both normal. The right ankle and, metatarsal were both mild to moderate. The 1st toe digit was mild. PVR's of the left thigh was mild. The calf was moderate. The left ankle and metatarsal were both severe. Left 1st thur 5th digits have been amputated. Dopplers of the right dorsalis pedis was triphasic/biphasic and posterior tibial artery was biphasic. Dopplers of the left dorsalis pedis and posterior tibial arteries were not audible. Dopplers were attempted by two sonographers. Right DOLORES: 0.77 Left DOLORES: Not able to obtain. There is no significant change of the rightlower extremity. The left lower extremity shows significant decrease in PVRs and Dopplers could notbe obtained on today's examination. Previously, the left lower extremity demonstrated biphasic DPA and PR[employer] EYE dopplers and an DOLORES: 0.71. This is in comparison to the previous examination of 2018 ABIVALUE: Over 1.3 (Non-Compressible), .90 - 1.3 (Normal), .89 - .60 (Mild ), .59 - .40 (Moderate), andunder .40 (Severe) Ct Head Without Iv Contrast No CT findings of acute hemorrhage, mass effect or acute transcortical infarct. Signed by Joe Olguin MD on 06/03/2019 9:43 PM Assessment: Brittany Hughes 78-y.o. 2 Days Post-Op s/p AMPUTATION BELOW KNEE LEFT (Left ) tolerating the procedurewell Plan: ? Ensure adequate pain management ? Ensure blood sugar 100-180 ? Will continue to monitor the wound ? Will continue to monitor leukocytosis. Pt remains afebrile ? Continue statin, plavix ? Continue monitoring BJORN drain ? PT OT/social work professor/family preservation caseworker on board ? Repleted hypomagnesemia this morning Problems: DVT Prophylaxis: SCDs to RLE and SQH GI Prophylaxis: Protonix Nutrition: Diet Type: Other (Specify); Other Restriction(s): Diabetic Consistent Carb. with insulin glargine and lispro SSI PRN as ordered Barkley remains in place for the following reason(s): Voids spontaneously Author: Sunny Rowe MD Associated attestation - Dale Cardona MD - 06/06/2019 9:08 AM ESTPatient seen and examined with resident staff. I agree with assessment and plan. Afebrile with leukocytosis. There are no signs of skin necrosis, there is little erythema/induration on the anterior flap that does not seem to emanate from the wound but bears watching-- could be from pressure from the dressing, could be from mobilization from the flap, could be from ischemia, couldbe from infection-- continue to observe. Dale Cardona MD, RVT, FACS Section of Vascular Surgery Will Torres MD - 06/05/2019 3:57 AM EST [facility] [place] [id number] General Surgery Progress Note Date of Service: 06/05/2019 Patient: Brittany Hughes B #: [id number] Attending: ROSALIE FELDER MD ,MD Subjective: Brittany Hughes 78-y.o. female doing well overall today. Her pain has been under control with mPCA. She has tolerated her diet well. Denies chest pain , shortness of breath, nausea Overnight Events: ? None. Patient blood sugar has been maintained at below 180 since after midnight Physical: Objective: Blood pressure (!) 143/53, pulse 73, temperature 97 F (36.1 C ), temperature source Oral, resp. rate 18, height 4' 10" (1.473 m), weight 153 lb 3.2 oz (69.5 kg), SpO2 99 %, not currently . I/O: Date 06/04/19 07 - 06/05/19 0659 06/05/19 07 - 06/06/19 0659 Shift 0772-7598 3869-6637 6543-1336 24 Hour Total 6629-5976 2521-9287 3245-7758 24 Hour Total INTAKE I.V.(mL/kg/hr) 1000(1.8) 0(0) 1000 Shift Total(mL/kg) 1000(14.39) 0(0) 1000(14.39) OUTPUT Urine(mL/kg/hr) 200(0.36) 200 Drains 0 0 Blood 50 50 Shift Total(mL/kg) 250(3.6) 250(3.6) Weight (kg) 69.49 69.49 69.49 69.49 69.49 69.49 69.49 69.49 General: Alert and oriented x3 Lungs: unlabored breathing O2 delivery device:: Nasal cannula O2 (LPM):: 3 LPM Oxygen status:: Continuous Heart: RRR Ext: Dressing intact and dry, incision clean without signs of infection, drain in place with serosanguinous output (image shown below) Data: Recent Labs 06/03/19 1836 06/04/19 0616 WBC 11.58* 8.88 HGB 12.7 11.5 HCT 40.8 37.0 PLAT 231 199 Recent Labs 06/03/19 1836 06/04/19 0616 NA 137 138 K 4.2 4.1 CL 101 105 CO2 24 24 GLUCOSE 87 49* BUN 34* 22* CREATININE 1.3* 0.9 EGFR 39 60 CALCIUM 9.7 9.5 TP 7.4 6.3 ALBUMIN 4.0 3.4* ALK 61 50 AST 26 26 ALT 27 33 TBILI 0.6 0.6 Vl Neck Carotid Bilateral IMPRESSIONS: Indication: TIA symptoms. Duplex imaging of the bilateral carotid arteries indicates 0-49% stenosis with mild plaque seen in the bulb and proximal internal carotid arteries bilaterally. RTICA: 111/18 LT ICA: 96/18 The bilateral vertebral arteries demonstrate antegrade flow. There is no previous exam available for comparison. Vl Body Measure Dolores Multiple IMPRESSIONS: Indication: Peripheral vascular disease with intervention. Cold left calf/foot. PVR's of the right thigh and calf were both normal. The right ankle and, metatarsal were both mild to moderate. The 1st toe digit was mild. PVR's of the left thigh was mild. The calf was moderate. The left ankle and metatarsal were both severe. Left 1st thur 5th digits have been amputated. Dopplers of the right dorsalis pedis was triphasic/biphasic and posterior tibial artery was biphasic. Dopplers of the left dorsalis pedis and posterior tibial arteries were not audible. Dopplers were attempted by two sonographers. Right DOLORES: 0.77 Left DOLORES: Not able to obtain. There is no significant change of the rightlower extremity. The left lower extremity shows significant decrease in PVRs and Dopplers could notbe obtained on today's examination. Previously, the left lower extremity demonstrated biphasic DPA and PRIVATE EYE dopplers and an DOLORES: 0.71. This is in comparison to the previous examination of 2018 ABIVALUE: Over 1.3 (Non-Compressible), .90 - 1.3 (Normal), .89 - .60 (Mild ), .59 - .40 (Moderate), andunder .40 (Severe) Ct Head Without Iv Contrast No CT findings of acute hemorrhage, mass effect or acute transcortical infarct. Signed by Joe Olguin MD on 06/03/2019 9:43 PM Assessment: Brittany Hughes 78-y.o. 1 Day Post-Op s/p AMPUTATION BELOW KNEE LEFT (Left ) tolerating the procedure well Plan: ? Ensure adequate pain management ? Continue statin, plavix ? Wean oxygen as able ? Ensure tight glycemic control below 180 ? Continue monitoring BJORN drain ? Discontinue barkley/void trial today ? PT OT/social work professor/family preservation caseworker on board ? Repleted hypomagnesemia this morning Problems: DVT Prophylaxis: SCDs to RLE and SQH GI Prophylaxis: Protonix Nutrition: Diet Type: Other (Specify); Other Restriction(s): Diabetic Consistent Carb. with insulin glargine and lispro SSI PRN as ordered Barkley remains in place for the following reason(s): Discontinuing today, void trial Author: Sunny Rowe MD Associated attestation - Dale Cardona MD - 06/05/2019 9:41 AM ESTPatient seen and examined with resident staff. I agree with assessment and plan. Dale Cardona MD, RVT, FACS Section of Vascular Surgery Jimmy Cunningham MD - 06/04/2019 1:17 PM ESTPatient admitted under Hospitalist Service overnight. TIA events off AC. Was schedule for BKA today, evaluated by Vascular Surgery and underwent BKA. Patient transferred under care of Vascular Surgery Team. documented in this encounter Plan of Treatment Date Type Specialty Care Team Description 06/29/2019 Office Visit Vascular Surgery Rosalie Felder MD [address] [address] 10/14/2019 Office Visit Arrhythmia Center 12/08/2019 Office Visit Cardiology Zenaida Meza CRNP [address] [address] 02/01/2020 Office Visit Vascular Surgery Rosalie Felder MD [address] [address] [phone] Name Type Priority Associated Diagnoses Date/Time INPT/ED 12 LEAD EKG EKG STAT 06/03/2019 7:29 PM EST VL LOWER EXTREMITY Imaging Routine 06/09/2019 9:57 AM EST DUPLEX VEINS BILATERAL Health Maintenance Due Date Last Done Comments MEDICARE ANNUAL WELLNESS VISIT 1938 DTaP/Tdap/Td Vaccines (1 - Tdap) 1949 DEPRESSION SCREENING 1950 HIV SCREENING 1953 ZOSTER IMMUNIZATION SERIES (1 of 2) 1988 FALL RISK ASSESSMENT 10/31/2003 OSTEOPOROSIS SCREENING 10/31/2003 PNEUMOCOCCAL 65+YRS (1 of 2 - 10/31/2003 PCV13) INFLUENZA VACCINE (#1) 2019 HEPATITIS A IMMUNIZATION SERIES Aged Out No longer eligible based on patient's age to complete this topic HPV IMMUNIZATION SERIES Aged Out No longer eligible based on patient's age to complete this topic MENINGOCOCCAL VACCINE IMM Aged Out No longer eligible based on patient's age to complete this topic documented as of this encounter Implants Implanted Type Area Sterile Process Tech Device Shelf Model / Identifier Expiration Date Serial / Lot Everflex Entrust Stent [id number] - [id number] Left: Leg [employer] 09/09/2020 [id number] / Implanted: Qty: 2 on 12/05/2017 by Rosalie Felder MD at [facility] / [id number] Description:Left SFA/Popliteal Everflex [employer]trust Stent [id number] - [id number] Left: Leg [employer] 03/21/2019 [id number] [id number] / Implanted: Qty: 1 on 12/05/2017 by Rosalie Felder MD at [facility] / [id number] Description:Left leg SFA Biologic Patch 1cm X 14cm - [id number] Right: Artery [employer], 01/27/2023 [id number] / Implanted: Qty: 1 on 01/05/2018 by Rosalie Felder MD at [facility] [employer] (LVI) / [id number] Assurity Mri [id number] Generator - [id number] Left: Chest [facility] [employer], 07/31/2019 [id number] / Implanted: Qty: 1 on 03/12/2018 by Live Nguyen MD at [facility]. [id number] / Lead, Tendril Mri [id number] - [id number] Left: Chest [facility] [employer], 07/08/2019 [id number] / Implanted: Qty: 1 on 03/12/2018 by Live Nguyen MD at [facility]. [id number] / Lead, Tendril Mri [id number] - [id number] Left: Chest [facility] [employer], 06/01/2019 [id number] / Implanted: Qty: 1 on 03/12/2018 by Live Nguyen MD at [facility]. [id number] / documented as of this encounter Procedures Procedure Name Priority Date/Time Associated Diagnosis Comments HC GLUCOSE, BY Routine 06/10/2019 Results for MONITOR 11:49 AM EST this procedure are in the results section. XR CHEST 1 VIEW Routine 06/10/2019 Results for 6:29 AM EST this procedure are in the results section. CBC WITH Routine 06/10/2019 Results for DIFFERENTIAL 3:52 AM EST this procedure are in the results section. MAGNESIUM LEVEL Routine 06/10/2019 Results for 3:52 AM EST this procedure are in the results section. BASIC METABOLIC Routine 06/10/2019 Results for PANEL 3:52 AM EST this procedure are in the results section. HC GLUCOSE, BY Routine 06/09/2019 Results for MONITOR 9:09 PM EST this procedure are in the results section. HC GLUCOSE, BY Routine 06/09/2019 Results for MONITOR 4:35 PM EST this procedure are in the results section. HC GLUCOSE, BY Routine 06/09/2019 Results for MONITOR 11:59 AM EST this procedure are in the results section. MAGNESIUM LEVEL Routine 06/09/2019 Results for 4:03 AM EST this procedure are in the results section. BASIC METABOLIC Routine 06/09/2019 Results for PANEL 4:03 AM EST this procedure are in the results section. CBC NO DIFFERENTIAL Routine 06/09/2019 Results for 4:03 AM EST this procedure are in the results section. HC GLUCOSE, BY Routine 06/08/2019 Results for MONITOR 8:30 PM EST this procedure are in the results section. HC GLUCOSE, BY Routine 06/08/2019 Results for MONITOR 4:55 PM EST this procedure are in the results section. HC GLUCOSE, BY Routine 06/08/2019 Results for MONITOR 12:01 PM EST this procedure are in the results section. VANCOMYCIN LEVEL Routine 06/08/2019 Results for TROUGH 9:14 AM EST this procedure are in the results section. HC GLUCOSE, BY Routine 06/08/2019 Results for MONITOR 7:39 AM EST this procedure are in the results section. CBC WITH Routine 06/08/2019 Results for DIFFERENTIAL 4:36 AM EST this procedure are in the results section. CELLAVISION Routine 06/08/2019 Results for DIFFERENTIAL 4:36 AM EST this procedure are in the results section. MAGNESIUM LEVEL Routine 06/08/2019 Results for 4:36 AM EST this procedure are in the results section. BASIC METABOLIC Routine 06/08/2019 Results for PANEL 4:36 AM EST this procedure are in the results section. HC GLUCOSE, BY Routine 06/07/2019 Results for MONITOR 9:38 PM EST this procedure are in the results section. HC GLUCOSE, BY Routine 06/07/2019 Results for MONITOR 4:51 PM EST this procedure are in the results section. URINE MICROSCOPIC Routine 06/07/2019 Results for WITH REFLEX CULTURE 3:19 PM EST this procedure are in the results section. URINALYSIS (LAB) Routine 06/07/2019 Results for WITH REFLEX CULTURE 3:19 PM EST this procedure are in the results section. HC GLUCOSE, BY Routine 06/07/2019 Results for MONITOR 11:34 AM EST this procedure are in the results section. XR CHEST 1 VIEW STAT 06/07/2019 Results for 9:08 AM EST this procedure are in the results section. HC GLUCOSE, BY Routine 06/07/2019 Results for MONITOR 7:34 AM EST this procedure are in the results section. MAGNESIUM LEVEL Routine 06/07/2019 Results for 3:36 AM EST this procedure are in the results section. BASIC METABOLIC Routine 06/07/2019 Results for PANEL 3:36 AM EST this procedure are in the results section. MANUAL DIFFERENTIAL Routine 06/07/2019 Results for 3:36 AM EST this procedure are in the results section. CBC NO DIFFERENTIAL Routine 06/07/2019 Results for 3:36 AM EST this procedure are in the results section. HC GLUCOSE, BY Routine 06/06/2019 Results for MONITOR 8:15 PM EST this procedure are in the results section. HC GLUCOSE, BY Routine 06/06/2019 Results for MONITOR 4:51 PM EST this procedure are in the results section. HC GLUCOSE, BY Routine 06/06/2019 Results for MONITOR 11:17 AM EST this procedure are in the results section. HC GLUCOSE, BY Routine 06/06/2019 Results for MONITOR 7:44 AM EST this procedure are in the results section. MAGNESIUM LEVEL Routine 06/06/2019 Results for 7:17 AM EST this procedure are in the results section. BASIC METABOLIC Routine 06/06/2019 Results for PANEL 7:17 AM EST this procedure are in the results section. CBC NO DIFFERENTIAL Routine 06/06/2019 Results for 7:17 AM EST this procedure are in the results section. HC GLUCOSE, BY Routine 06/05/2019 Results for MONITOR 9:11 PM EST this procedure are in the results section. HC GLUCOSE, BY Routine 06/05/2019 Results for MONITOR 4:50 PM EST this procedure are in the results section. HC GLUCOSE, BY Routine 06/05/2019 Results for MONITOR 11:36 AM EST this procedure are in the results section. MAGNESIUM LEVEL Routine 06/05/2019 Results for 4:20 AM EST this procedure are in the results section. BASIC METABOLIC Routine 06/05/2019 Results for PANEL 4:20 AM EST this procedure are in the results section. CBC NO DIFFERENTIAL Routine 06/05/2019 Results for 4:20 AM EST this procedure are in the results section. HC GLUCOSE, BY Routine 06/05/2019 Results for MONITOR 12:42 AM EST this procedure are in the results section. HC GLUCOSE, BY Routine 06/04/2019 Results for MONITOR 9:01 PM EST this procedure are in the results section. HC GLUCOSE, BY Routine 06/04/2019 Results for MONITOR 4:42 PM EST this procedure are in the results section. VL NECK CAROTID Routine 06/04/2019 Results for BILATERAL 3:20 PM EST this procedure are in the results section. HC GLUCOSE, BY Routine 06/04/2019 Results for MONITOR 11:47 AM EST this procedure are in the results section. TISSUE EXAM Routine 06/04/2019 Occlusion of Results for 10:46 AM EST femoropopliteal this procedure bypass graft, initial are in the encounter ([facility]) results PVD (peripheral section. vascular disease) ([facility]) TYPE AND SCREEN STAT 06/04/2019 Results for 9:10 AM EST this procedure are in the results section. AMPUTATION BELOW Planned Trip 06/04/2019 Occlusion of KNEE to OR 8:53 AM EST femoropopliteal bypass graft, initial encounter ([facility]) PVD (peripheral vascular disease) ([facility]) HC GLUCOSE, BY Routine 06/04/2019 Results for MONITOR 8:37 AM EST this procedure are in the results section. HC GLUCOSE, BY Routine 06/04/2019 Results for MONITOR 7:04 AM EST this procedure are in the results section. CBC WITH STAT 06/04/2019 Results for DIFFERENTIAL 6:16 AM EST this procedure are in the results section. COMPREHENSIVE STAT 06/04/2019 Results for METABOLIC PANEL 6:16 AM EST this procedure are in the results section. PARTIAL STAT 06/04/2019 Results for THROMBOPLASTIN TIME 6:16 AM EST this procedure are in the results section. CONSULT TO NEUROLOGY STAT 06/04/2019 Altered mental Results for 1:55 AM EST status, unspecified this procedure altered mental status are in the type results section. CT HEAD WITHOUT IV STAT 06/03/2019 Results for CONTRAST 8:56 PM EST this procedure are in the results section. IN PT/ED 12 LEAD EKG STAT 06/03/2019 7:29 PM EST CBC WITH STAT 06/03/2019 Results for DIFFERENTIAL 6:36 PM EST this procedure are in the results section. RAINBOW LAB HOLD STAT 06/03/2019 Results for TUBES 6:36 PM EST this procedure are in the results section. RAINBOW DRAW LIGHT STAT 06/03/2019 BLUE TOP 6:36 PM EST TROPONIN STAT 06/03/2019 Results for 6:36 PM EST this procedure are in the results section. COMPREHENSIVE STAT 06/03/2019 Results for METABOLIC PANEL 6:36 PM EST this procedure are in the results section. PROTHROMBIN TIME STAT 06/03/2019 Results for 6:36 PM EST this procedure are in the results section. PARTIAL STAT 06/03/2019 Results for THROMBOPLASTIN TIME 6:36 PM EST this procedure are in the results section. HC GLUCOSE, BY Routine 06/03/2019 Results for MONITOR 6:25 PM EST this procedure are in the results section. SIGN PERMIT 06/03/2019 12:00 PM EST documented in this encounter Results GLUCOSE (POCT) (06/10/2019 11:49 AM EST) Glucose POCT 126 (H) 70 - 99 mg/dl POINT OF CARE Result Comment: TESTING Performed at: [facility] POCT David Miller MD, Laboratory Supervisor [employer] [address] [facility] [place] [address] Specimen Performing Organization Address [facility] Phone Number POINT OF CARE TESTING XR CHEST 1 VIEW (06/10/2019 6:29 AM EST) Specimen Impressions Performed At No acute cardiopulmonary findings. Signed by Mark Pak on 06/10/2019 7:00 AM Narrative Performed At Procedure(s): XR CHEST 1 VIEW Date of service: 06/10/2019 6:17 AM Provided clinical information: 78 years, Female, "unexplained leukocystosis, respiratory cause" Procedure and materials: Standard protocol. Comparison studies: 06/07/2019 Observations: Left chest wall pacemaker is in place. The lungs are clear. There is no pneumothorax or effusion. The cardiomediastinal silhouette is normal. There is no acute osseous abnormality. Procedure Note Interface, Rad Results - 06/10/2019 7:02 AM EST Procedure(s): XR CHEST 1 VIEW Date of service: 06/10/2019 6:17 AM Provided clinical information: 78 years, Female, "unexplained leukocystosis, respiratory cause" Procedure and materials: Standard protocol. Comparison studies: 06/07/2019 Observations: Left chest wall pacemaker is in place. The lungs are clear. There is no pneumothorax or effusion. The cardiomediastinal silhouette is normal. There is no acute osseous abnormality. IMPRESSION No acute cardiopulmonary findings. Signed by Mark Pak on 06/10/2019 7:00 AM MAGNESIUM LEVEL (06/10/2019 3:52 AM EST) Magnesium 1.7 1.6 - 2.3 MG/DL [facility] Specimen Blood - Blood specimen (specimen) Performing Organization Address [facility] Phone Number [facility] [address] [address] BASIC METABOLIC PANEL (06/10/2019 3:52 AM EST) Glucose 101 (H) 70 - 99 mg/dl [facility] BUN 20 (H) 7 - 17 mg/dl [facility] Creatinine 0.9 0.7 - 1.2 mg/dl [facility] Sodium 138 134 - 145 mmol/L [facility] Potassium 4.1 3.5 - 5.1 mmol/L [facility] Chloride 98 98 - 107 mmol/L [facility] CO2 34 (H) 22 - 30 mmol/L [facility] Calcium 9.4 8.3 - 10.1 mg/dl [facility] eGFR 60 See Interpretation [facility] Comment: Below ml/min/1.73ml GROUP Estimated GFR Interpretation: Sq LABORATORY Above 60ml/min/1.73m2 = Normal Renal Function 30-59 ml/min/1.73m2 = Stage 3 Chronic Kidney Disease 15-29 ml/min/1.73m2 = Stage 4 Chronic Kidney Disease Less than 15 ml/min/1.73m2 = Stage 5 Chronic Kidney Disease The GFR value is calculated using the Modification of Diet in Renal Disease ( MDRD) Study Equation which can be found at: https://www.kidney.org/content/glqn-iveeg-qqdejdkr BUN/Creatinine 22 6 - 22 RATIO [facility] Anion Gap 6 3 - 11 mmol/L [facility] Specimen Blood - Blood specimen (specimen) Performing Organization Address City/State/Zipcode Phone Number [facility] [address] [place] [id number] [phone] CBC WITH DIFFERENTIAL (06/10/2019 3:52 AM EST) WBC Count 14.24 (H) 3.98 - 10.04 [facility] K/uL LABORATORY RBC Count 3.90 (L) 3.93 - 5.22 M/UL [facility] Hemoglobin 11.0 (L) 11.2 - 15.7 g/dL [facility] Hematocrit 34.4 34.1 - 44.9 % [facility] MCV 88.2 79.4 - 94.8 FL [facility] MCH 28.2 25.6 - 32.2 PG [facility] MCHC 32.0 (L) 32.2 - 35.5 g/dL [facility] Platelet Count 268 182 - 369 K/uL [facility] MPV 11.0 9.4 - 12.3 FL [facility] RDW 14.6 (H) 11.7 - 14.4 % [facility] Neutrophil % 70.5 34.0 - 71.1 % [facility] Lymphocyte % 16.9 (L) 19.3 - 51.7 % [facility] Monocyte % 10.3 4.7 - 12.5 % [facility] Eosinophil % 1.5 0.7 - 5.8 % [facility] Basophil % 0.4 0.1 - 1.2 % [facility] nRBC % 0.0 0.0 - 0.2 % [facility] Neutrophil # 10.03 (H) 1.56 - 6.13 K/UL [facility] Lymphocyte # 2.41 1.18 - 3.74 K/UL [facility] Monocyte # 1.47 (H) 0.24 - 0.86 K/UL [facility] Eosinophil # 0.22 0.04 - 0.36 K/UL [facility] Basophil # 0.05 0.01 - 0.08 K/UL [facility] Immature Gran % 0.4 0.0 - 0.4 % [facility] Immature Gran # 0.06 (H) 0.00 - 0.03 K/uL [facility] NRBC # 0.00 0.00 - 0.12 K/uL [facility] Specimen Blood - Blood specimen (specimen) Performing Organization Address [facility] Centercoct Phone Number [facility] [address] [facility] [place] [address] GLUCOSE (POCT) (06/09/2019 9:09 PM EST) Glucose POCT 201 (H) 70 - 99 mg/dl POINT OF CARE Result Comment: TESTING Performed at: [facility] POCT David Miller MD, Laboratory Supervisor [employer] [address] [place] [address] [place] [address] Specimen Performing Organization Address [facility] Phone Number POINT OF CARE TESTING GLUCOSE (POCT) (06/09/2019 4:35 PM EST) Glucose POCT 210 (H) 70 - 99 mg/dl POINT OF CARE Result Comment: TESTING Performed at: [facility] POCT David Miller MD, Laboratory Supervisor [employer] [address] [address] Specimen Performing Organization Address [facility] Phone Number POINT OF CARE TESTING GLUCOSE (POCT) (06/09/2019 11:59 AM EST) Glucose POCT 145 (H) 70 - 99 mg/dl POINT OF CARE Result Comment: TESTING Performed at: [facility] POCT David Miller MD, Laboratory Supervisor [employer] [address] [address] Specimen Performing Organization Address [facility] Phone Number POINT OF CARE TESTING MAGNESIUM LEVEL (06/09/2019 4:03 AM EST) Magnesium 1.8 1.6 - 2.3 MG/DL [facility] Specimen Blood - Blood specimen (specimen) Performing Organization Address [facility] Phone Number [facility] [address] [place] [address] CBC NO DIFFERENTIAL (06/09/2019 4:03 AM EST) WBC Count 17.00 (H)Comment: 3.98 - 10.04 [facility] Methodology was K/uL [facility] LAB[facility]ATORY changed 06/04/2018. Please note updated reference range and units. RBC Count 3.87 (L) 3.93 - 5.22 [employer] M/UL [facility] Hemoglobin 11.1 (L) 11.2 - 15.7 [employer] g/dL [facility] Hematocrit 34.0 (L) 34.1 - 44.9 % [facility] MCV 87.9 79.4 - 94.8 [facility] FL GROUP LABORATORY MCH 28.7 25.6 - 32.2 [facility] PG GROUP LABORATORY MCHC 32.6 32.2 - 35.5 [facility] g/dL [facility] Platelet Count 226 182 - 369 [employer] K/uL [facility] MPV 11.4 9.4 - 12.3 FL [facility] RDW 14.9 (H) 11.7 - 14.4 % [facility] Specimen Blood - Blood specimen (specimen) Performing Organization Address [facility] Phone Number [facility] [address] [place] [address] BASIC METABOLIC PANEL (06/09/2019 4:03 AM EST) Glucose 163 (H) 70 - 99 mg/dl [facility] BUN 19 (H) 7 - 17 mg/dl [facility] Creatinine 1.0 0.7 - 1.2 mg/dl [facility] Sodium 132 (L) 134 - 145 mmol/L [facility] Potassium 4.2 3.5 - 5.1 mmol/L [facility] Chloride 94 (L) 98 - 107 mmol/L [facility] CO2 33 (H) 22 - 30 mmol/L [facility] Calcium 8.8 8.3 - 10.1 mg/dl [facility] eGFR 53 See Interpretation [facility] Comment: Below ml/min/1.73ml [facility] Estimated GFR Interpretation: LABORATORY Above 60ml/min/1.73m2 = Normal Renal Function 30-59 ml/min/1.73m2 = Stage 3 Chronic Kidney Disease 15-29 ml/min/1.73m2 = Stage 4 Chronic Kidney Disease Less than 15 ml/min/1.73m2 = Stage 5 Chronic Kidney Disease The GFR value is calculated using the Modification of Diet in Renal Disease ( MDRD) Study Equation which can be found at: https://www.kidney.org/content/kvmi-xycjf-ksxfzmfx BUN/Creatinine 19 6 - 22 RATIO [facility]ORATORY Anion Gap 5 3 - 11 mmol/L [facility] Specimen Blood - Blood specimen (specimen) Performing Organization Address City/[facility] Cent[facility]ode Phone Number [facility] [address] [place] [address] [phone] GLUCOSE (POCT) (06/08/2019 8:30 PM EST) Glucose POCT 84 70 - 99 mg/dl POINT OF CARE Result Comment: TESTING Performed at: [facility] POCT David Miller MD, Laboratory Supervisor [employer] [address] [place] [address] [place] [address] Specimen Performing Organization Address [facility] Phone Number POINT OF CARE TESTING GLUCOSE (POCT) (06/08/2019 4:55 PM EST) Glucose POCT 93 70 - 99 mg/dl POINT OF CARE Result Comment: TESTING Performed at: [facility] POCT David Miller MD, Laboratory Supervisor [employer] [address] [address] Specimen Performing Organization Address [facility] Phone Number POINT OF CARE TESTING GLUCOSE (POCT) (06/08/2019 12:01 PM EST) Glucose POCT 269 (H) 70 - 99 mg/dl POINT OF CARE Result Comment: TESTING Performed at: [facility] POCT David Miller MD, Laboratory Supervisor [employer] [address] [address] Specimen Performing Organization Address [facility] [facility] Phone Number POINT OF CARE TESTING VANCOMYCIN LEVEL TROUGH (06/08/2019 9:14 AM EST) Vancomycin Trough 6.1 (LL) 10.1 - 19.9 [facility] UG/ML LABORATORY Specimen Blood - Blood specimen (specimen) Performing Organization Address [facility] Phone Number [facility] LABORATORY [address] [address] [phone] GLUCOSE (POCT) (06/08/2019 7:39 AM EST) Glucose POCT 101 (H) 70 - 99 mg/dl POINT OF CARE Result Comment: TESTING Performed at: [facility] POCT David Miller MD, Laboratory Supervisor [employer] [address] [address] Specimen Performing Organization Address [facility] Phone Number POINT OF CARE TESTING CELLAVISION DIFFERENTIAL (06/08/2019 4:36 AM EST) Seg Neutrophils 89.0 (H) 38.0 - 70.0 % [facility] LABORATORY Lymphocytes 5.0 (L) 21.0 - 49.0 % [facility] LABOR[facility]ORY Monocytes 6.0 1.0 - 11.0 % [facility] LABORATORY Neutrophils Absolute 15.01 (H) 1.80 - 7.70 [facility] K/uL GROUP LABORATORY Lymphocytes Absolute 0.84 (L) 1.00 - 5.00 [facility] K/uL GROUP LABORATORY Monocytes Absolute 1.01 (H) 0.00 - 0.80 [facility] K/uL GROUP LABORATORY RBC MORPHOLOGY abnormal (A) Normal [facility] LABORATORY Anisocytosis 1+ [facility] Microcytes 1+ [facility] Hypochromia 1+ [facility] WBC MORPHOLOGY Normal Normal [facility] LAB[facility] PLT MORPHOLOGY Normal Normal [facility] LABOR[facility] Platelet Estimate Increased (A) Normal [facility] LABORATORY Specimen Blood - Blood specimen (specimen) Performing Organization Address City/State/Zipcode Phone Number [facility] LABORATORY [address] [facility] [place] [place] [address] [phone] CBC WITH DIFFERENTIAL (06/08/2019 4:36 AM EST) WBC Count 16.87 (H) 3.98 - 10.04 [facility] K/uL LABORATORY RBC Count 3.84 (L) 3.93 - 5.22 M/UL [facility] LABORATORY Hemoglobin 11.0 (L) 11.2 - 15.7 g/dL [facility] LABORATORY Hematocrit 33.5 (L) 34.1 - 44.9 % [facility] LABORATORY MCV 87.2 79.4 - 94.8 FL [facility] LABORATORY MCH 28.6 25.6 - 32.2 PG [facility] LABOR[facility]ORY MCHC 32.8 32.2 - 35.5 g/dL [facility] LABOR[facility]ORY Platelet Count 196 182 - 369 K/uL [facility] LABORATORY MPV 11.2 9.4 - 12.3 FL [facility] LABORATORY RDW 14.6 (H) 11.7 - 14.4 % [facility] LABOR[facility]ORY Neutrophil % 78.4 (H) 34.0 - 71.1 % [facility] LAB[facility] Lymphocyte % 8.2 (L) 19.3 - 51.7 % [facility] LABOR[facility]ORY Monocyte % 12.3 4.7 - 12.5 % [facility] LABOR[facility]ORY Eosinophil % 0.3 (L) 0.7 - 5.8 % [facility] LABORATORY Basophil % 0.3 0.1 - 1.2 % [facility] LABORATORY nRBC % 0.0 0.0 - 0.2 % [facility] LABORATORY Neutrophil # 13.22 (H) 1.56 - 6.13 K/UL [facility] LABORATORY Lymphocyte # 1.39 1.18 - 3.74 K/UL [facility] LABORATORY Monocyte # 2.07 (H) 0.24 - 0.86 K/UL [facility] LABORATORY Eosinophil # 0.05 0.04 - 0.36 K/UL [facility] LABORATORY Basophil # 0.05 0.01 - 0.08 K/UL [facility] LABORATORY Immature Gran % 0.5 (H) 0.0 - 0.4 % [facility] LABORATORY Immature Gran # 0.09 (H) 0.00 - 0.03 K/uL [facility] LABORATORY NRBC # 0.00 0.00 - 0.12 K/uL [facility] LABORATORY Specimen Blood - Blood specimen (specimen) Performing Organization Address [facility] Phone Number [facility] LABORATORY 1 [place] [address] MAGNESIUM LEVEL (06/08/2019 4:36 AM EST) Magnesium 2.0 1.6 - 2.3 MG/DL [facility] LABORATORY Specimen Blood - Blood specimen (specimen) Performing Organization Address [facility] Phone Number [facility] LABORATORY 1 [place] [address] BASIC METABOLIC PANEL (06/08/2019 4:36 AM EST) Glucose 95 70 - 99 mg/dl [facility] LABOR[facility]ORY BUN 16 7 - 17 mg/dl [facility] Creatinine 0.8 0.7 - 1.2 mg/dl [facility] LAB[facility] Sodium 139 134 - 145 mmol/L [facility] Potassium 3.7 3.5 - 5.1 mmol/L [facility] LAB[facility]ORY Chloride 101 98 - 107 mmol/L [facility] LABOR[facility]ORY CO2 32 (H) 22 - 30 mmol/L [facility] LABORATORY Calcium 9.2 8.3 - 10.1 mg/dl [facility] LABORATORY eGFR >60 See Interpretation [facility] Comment: Below ml/min/1.73ml GROUP Estimated GFR Interpretation: LABORATORY Above 60ml/min/1.73m2 = Normal Renal Function 30-59 ml/min/1.73m2 = Stage 3 Chronic Kidney Disease 15-29 ml/min/1.73m2 = Stage 4 Chronic Kidney Disease Less than 15 ml/min/1.73m2 = Stage 5 Chronic Kidney Disease The GFR value is calculated using the Modification of Diet in Renal Disease ( MDRD) Study Equation which can be found at: https://www.kidney.org/content/hhyl-exsgo-nodbjbsm BUN/Creatinine 20 6 - 22 [facility] LABORATORY Anion Gap 6 3 - 11 mmol/L [facility] LABORATORY Specimen Blood - Blood specimen (specimen) Performing Organization Address [facility] Phone Number [facility] LABORATORY [address] [address] GLUCOSE (POCT) (06/07/2019 9:38 PM EST) Glucose POCT 102 (H) 70 - 99 mg/dl POINT OF CARE Result Comment: TESTING Performed at: [facility] POCT David Miller MD, Laboratory Supervisor [employer] [address] [facility] [place] [address] Specimen Performing Organization Address [facility] Number POINT OF CARE TESTING GLUCOSE (POCT) (06/07/2019 4:51 PM EST) Glucose POCT 240 (H) 70 - 99 mg/dl POINT OF CARE Result Comment: TESTING Performed at: [facility] POCT David Miller MD, Laboratory Supervisor [employer] [address] [place] [address] Specimen Performing Organization Address [facility] Number POINT OF CARE TESTING URINE MICROSCOPIC WITH REFLEX CULTURE (06/07/2019 3:19 PM EST) Urine Wbc 0-2 0 - 5 /HPF [facility] LABORATORY Urine Epithelial Few None Seen /HPF [facility] [employer] [facility] GROUP LABORATORY Amorphous Present None Seen [facility] LABORATORY Urine Mucus Present (A) Negative [facility] LABORATORY Specimen Urine - Urine specimen obtained by clean catch procedure (specimen) Performing Organization Address [facility] Phone Number [facility] LABORATORY [address] [address] [phone] URINALYSIS (LAB) WITH REFLEX CULTURE (06/07/2019 3:19 PM EST) Urine Color Yellow Yellow [facility] LABORATORY Urine Appearance Cloudy (A) Clear [facility] LAB[facility] Urine Glucose 500 (A) Negative mg/dl [facility] LABORATORY Urine Bilirubin Negative Negative [facility] LAB[facility] Urine Ketones Negative Negative [facility] LABORATORY Urine Specific 1.020 1.005 - 1.030 [facility] GROUP LABORATORY Urine Blood Moderate (A) Negative [facility] LABORATORY Urine Ph 5.5 5.0 - 8.0 [facility] LABORATORY Urine Protein 30 (A) Negative mg/dl [facility] LABORATORY Urine Urobilinogen 0.2 0.2 - 1.0 [facility] E.U./DL GROUP LABORATORY Urine Nitrite Negative Negative [facility] LABORATORY Urine Leukocytes Negative Negative [facility] LABORATORY Specimen Urine - Urine specimen obtained by clean catch procedure (specimen) Performing Organization Address City/[facility]/Zipcode Phone Number [facility] LABORATORY [address] [place] [address] [phone] GLUCOSE (POCT) (06/07/2019 11:34 AM EST) Glucose POCT 242 (H) 70 - 99 mg/dl POINT OF CARE Result Comment: TESTING Performed at: [facility] POCT David Miller MD, Laboratory Supervisor [employer] 1 [place] [address] Specimen Performing Organization Address City/[facility] Phone Number POINT OF CARE TESTING XR CHEST 1 VIEW (06/07/2019 9:08 AM EST) Specimen Impressions Performed At No acute findings. Urgency: Routine. This is a routine medical imaging report. Recommendation: No specific imaging recommendation. Signed by Robert Downs MD on 06/07/2019 9:20 AM Narrative Performed At Procedure(s): XR CHEST 1 VIEW Date of service: 06/07/2019 8:36 AM Provided clinical information: 78 years, Female, "Leukocytosis, evaluation for signs of PNA/bronchitis infection" Procedure and materials: Standard protocol. Comparison studies: 05/13/2019. Observations: The lungs are adequately aerated. No pneumothorax is evident. No significant effusion. There is no consolidation. The cardiac silhouette is likely normal given portable technique. No definite vascular congestion or edema. No acute osseous abnormality is evident. Procedure Note Interface, Rad Results - 06/07/2019 9:22 AM EST Procedure(s): XR CHEST 1 VIEW Date of service: 06/07/2019 8:36 AM Provided clinical information: 78 years, Female, "Leukocytosis, evaluation for signs of PNA/bronchitis infection" Procedure and materials: Standard protocol. Comparison studies: 05/13/2019. Observations: The lungs are adequately aerated. No pneumothorax is evident. No significant effusion. There is no consolidation. The cardiac silhouette is likely normal given portable technique. No definite vascular congestion or edema. No acute osseous abnormality is evident. IMPRESSION No acute findings. Urgency: Routine. This is a routine medical imaging report. Recommendation: No specific imaging recommendation. Signed by Robert Downs MD on 06/07/2019 9:20 AM GLUCOSE (POCT) (06/07/2019 7:34 AM EST) Pathologist [facility] Glucose POCT 85 70 - 99 mg/dl POINT OF CARE Result Comment: TESTING Performed at: [facility] POCT David Miller MD, Laboratory Supervisor [employer] [address] [place] [address] Specimen Performing Organization Address [facility] Phone Number POINT OF CARE TESTING MANUAL DIFFERENTIAL (06/07/2019 3:36 AM EST) Seg Neutrophils 75.0 (H) 38.0 - 70.0 % [facility] Band Neutrophils 1.0 0.0 - 8.0 % [facility] Lymphocytes 13.0 (L) 21.0 - 49.0 % [facility] Monocytes 11.0 1.0 - 11.0 % [facility] Neutrophils Absolute 17.18 (H) 1.80 - 7.70 [facility] K/uL GROUP LABORATORY Bands Absolute 0.23 0.00 - 0.90 [facility] K/uL GROUP LABORATORY Lymphocytes Absolute 2.98 1.00 - 5.00 [facility] K/uL [facility] LABOR[facility] Monocytes Absolute 2.52 (H) 0.00 - 0.80 [facility] K/uL [facility] LAB[facility] RBC MORPHOLOGY Normal Normal [facility] WBC MORPHOLOGY Normal Normal [facility] PLT MORPHOLOGY Normal Normal [facility] Platelet Estimate Normal Normal [facility] Specimen Blood - Blood specimen (specimen) Performing Organization Address [facility] Phone Number [facility] LABORATORY [address] [address] MAGNESIUM LEVEL (06/07/2019 3:36 AM EST) Magnesium 1.3 (L) 1.6 - 2.3 MG/DL [facility] LABORATORY Specimen Blood - Blood specimen (specimen) Performing Organization Address [facility] Phone Number [facility] LABORATORY [address] [place] [place] [address] BASIC METABOLIC PANEL (06/07/2019 3:36 AM EST) Glucose 50 (LL) 70 - 99 mg/dl [facility] LABORATORY BUN 15 7 - 17 mg/dl [facility] Creatinine 0.7 0.7 - 1.2 mg/dl [facility] LAB[facility] Sodium 131 (L) 134 - 145 mmol/L [facility] Potassium 3.8 3.5 - 5.1 mmol/L [facility] LAB[facility] Chloride 94 (L) 98 - 107 mmol/L [facility] CO2 29 22 - 30 mmol/L [facility] LAB[facility] Calcium 8.7 8.3 - 10.1 mg/dl [facility] LABORATORY eGFR >60 See Interpretation [facility] Comment: Below ml/min/1.73ml GROUP Estimated GFR Interpretation: Sq LABORATORY Above 60ml/min/1.73m2 = Normal Renal Function 30-59 ml/min/1.73m2 = Stage 3 Chronic Kidney Disease 15-29 ml/min/1.73m2 = Stage 4 Chronic Kidney Disease Less than 15 ml/min/1.73m2 = Stage 5 Chronic Kidney Disease The GFR value is calculated using the Modification of Diet in Renal Disease ( MDRD) Study Equation which can be found at: https://www.kidney.org/content/ksth-rbhwn-nmxtmbwk BUN/Creatinine 21 6 - 22 [facility] LABORATORY Anion Gap 8 3 - 11 mmol/L [facility] LABORATORY Specimen Blood - Blood specimen (specimen) Performing Organization Address [facility] Phone Number [facility] LABORATORY [address] [place] [address] CBC NO DIFFERENTIAL (06/07/2019 3:36 AM EST) WBC Count 22.91 (H)Comment: 3.98 - 10.04 [facility] [employer] Methodology was K/uL GROUP LABORATORY changed 06/04/2018. Please note updated reference range and units. RBC Count 3.98 3.93 - 5.22 [facility] M/UL GROUP LABORATORY Hemoglobin 11.5 11.2 - 15.7 [facility] g/dL GROUP LABORATORY Hematocrit 34.3 34.1 - 44.9 % [facility] LABORATORY MCV 86.2 79.4 - 94.8 [facility] FL GROUP LABORATORY MCH 28.9 25.6 - 32.2 [facility] PG GROUP LABORATORY MCHC 33.5 32.2 - 35.5 [facility] g/dL GROUP LABORATORY Platelet Count 259 182 - 369 [facility] K/uL GROUP LABORATORY MPV 11.0 9.4 - 12.3 FL [facility] LABORATORY RDW 14.2 11.7 - 14.4 % [facility] LABORATORY Specimen Blood - Blood specimen (specimen) Performing Organization Address [facility] Phone Number [facility] LABORATORY [address] [address] GLUCOSE (POCT) (06/06/2019 8:15 PM EST) Glucose POCT 223 (H) 70 - 99 mg/dl POINT OF CARE Result Comment: TESTING Performed at: [facility] POCT David Miller MD, Laboratory Supervisor [employer] [address] [address] Specimen Performing Organization Address [facility] Phone Number POINT OF CARE TESTING GLUCOSE (POCT) (06/06/2019 4:51 PM EST) Glucose POCT 194 (H) 70 - 99 mg/dl POINT OF CARE Result Comment: TESTING Performed at: [facility] POCT David Miller MD, Laboratory Supervisor [employer] [address] [address] Specimen Performing Organization Address [facility] Phone Number POINT OF CARE TESTING GLUCOSE (POCT) (06/06/2019 11:17 AM EST) Glucose POCT 118 (H) 70 - 99 mg/dl POINT OF CARE Result Comment: TESTING Performed at: [facility] POCT David Miller MD, Laboratory Supervisor [employer] [address] [address] Specimen Performing Organization Address [facility] Phone Number POINT OF CARE TESTING GLUCOSE (POCT) (06/06/2019 7:44 AM EST) Glucose POCT 64 (L) 70 - 99 mg/dl POINT OF CARE Result Comment: TESTING Performed at: [facility] POCT David Miller MD, Laboratory Supervisor [employer] [address] [address] Specimen Performing Organization Address [facility] Phone Number POINT OF CARE TESTING MAGNESIUM LEVEL (06/06/2019 7:17 AM EST) Magnesium 1.3 (L) 1.6 - 2.3 MG/DL [facility] LABORATORY Specimen Blood - Blood specimen (specimen) Performing Organization Address [facility] Phone Number [facility] LABORATORY [address] [place] [address] [phone] CBC NO DIFFERENTIAL (06/06/2019 7:17 AM EST) WBC Count 18.30 (H)Comment: 3.98 - 10.04 [facility] Methodology was K/uL GROUP LABORATORY changed 06/04/2018. Please note updated reference range and units. RBC Count 4.31 3.93 - 5.22 [facility] M/UL GROUP LABORATORY Hemoglobin 12.4 11.2 - 15.7 [facility] g/dL GROUP LABORATORY Hematocrit 38.3 34.1 - 44.9 % [facility] LABORATORY MCV 88.9 79.4 - 94.8 [facility] FL GROUP LABORATORY MCH 28.8 25.6 - 32.2 [facility] PG GROUP LABORATORY MCHC 32.4 32.2 - 35.5 [facility] g/dL GROUP LABORATORY Platelet Count 246 182 - 369 [facility] K/uL GROUP LABORATORY MPV 11.0 9.4 - 12.3 FL [facility] LABORATORY RDW 14.5 (H) 11.7 - 14.4 % [facility] LABOR[facility] Specimen Blood - Blood specimen (specimen) Performing Organization Address [facility] Phone Number [facility] LAB[facility] [address] [address] [phone] BASIC METABOLIC PANEL (06/06/2019 7:17 AM EST) Glucose 66 (L) 70 - 99 mg/dl [facility] BUN 17 7 - 17 mg/dl [facility] Creatinine 0.8 0.7 - 1.2 mg/dl [facility] Sodium 131 (L) 134 - 145 mmol/L [facility] Potassium 4.4 3.5 - 5.1 mmol/L [facility] Chloride 96 (L) 98 - 107 mmol/L [facility] CO2 28 22 - 30 mmol/L [facility] Calcium 8.6 8.3 - 10.1 mg/dl [facility] LAB[facility] eGFR >60 See Interpretation [facility] Comment: Below ml/min/1.73ml [facility] Estimated GFR Interpretation: Sq LABORATORY Above 60ml/min/1.73m2 = Normal Renal Function 30-59 ml/min/1.73m2 = Stage 3 Chronic Kidney Disease 15-29 ml/min/1.73m2 = Stage 4 Chronic Kidney Disease Less than 15 ml/min/1.73m2 = Stage 5 Chronic Kidney Disease The GFR value is calculated using the Modification of Diet in Renal Disease ( MDRD) Study Equation which can be found at: https://www.kidney.org/content/ijxx-uqpjn-qknugsix BUN/Creatinine 21 6 - 22 [facility] LABORATORY Anion Gap 7 3 - 11 mmol/L [facility] Specimen Blood - Blood specimen (specimen) Performing Organization Address City/[facility] Phone Number [facility] 1 [facility] [place] [address] GLUCOSE (POCT) (06/05/2019 9:11 PM EST) Glucose POCT 125 (H) 70 - 99 mg/dl POINT OF CARE Result Comment: TESTING Performed at: [facility] POCT David Miller MD, Laboratory Supervisor [employer] [address] [place] [address] [address] Specimen Performing Organization Address [facility] Phone Number POINT OF CARE TESTING GLUCOSE (POCT) (06/05/2019 4:50 PM EST) Glucose POCT 257 (H) 70 - 99 mg/dl POINT OF CARE Result Comment: TESTING Performed at: [facility] POCT David Miller MD, Laboratory Supervisor [employer] [address] [place] [address] [place] [address] Specimen Performing Organization Address [facility] Phone Number POINT OF CARE TESTING GLUCOSE (POCT) (06/05/2019 11:36 AM EST) Glucose POCT 170 (H) 70 - 99 mg/dl POINT OF CARE Result Comment: TESTING Performed at: [facility] POCT David Miller MD, Laboratory Supervisor [employer] [address] [place] [address] [place] [address] Specimen Performing Organization Address [facility] Phone Number POINT OF CARE TESTING MAGNESIUM LEVEL (06/05/2019 4:20 AM EST) Magnesium 1.5 (L) 1.6 - 2.3 MG/DL [facility] LABOR[facility] Specimen Blood - Blood specimen (specimen) Performing Organization Address [facility] Phone [facility] LAB[facility] [address] [place] [address] BASIC METABOLIC PANEL (06/05/2019 4:20 AM EST) Glucose 124 (H) 70 - 99 mg/dl [facility] BUN 22 (H) 7 - 17 mg/dl [facility] Creatinine 0.8 0.7 - 1.2 mg/dl [facility] Sodium 140 134 - 145 mmol/L [facility] Potassium 4.6 3.5 - 5.1 mmol/L [facility] Chloride 105 98 - 107 mmol/L [facility] CO2 30 22 - 30 mmol/L [facility] Calcium 9.1 8.3 - 10.1 mg/dl [facility] LAB[facility] eGFR >60 See Interpretation [facility] Comment: Below ml/min/1.73ml GROUP Estimated GFR Interpretation: Sq LABORATORY Above 60ml/min/1.73m2 = Normal Renal Function 30-59 ml/min/1.73m2 = Stage 3 Chronic Kidney Disease 15-29 ml/min/1.73m2 = Stage 4 Chronic Kidney Disease Less than 15 ml/min/1.73m2 = Stage 5 Chronic Kidney Disease The GFR value is calculated using the Modification of Diet in Renal Disease ( MDRD) Study Equation which can be found at: https://www.kidney.org/content/uxkp-shdfl-qclfscol BUN/Creatinine 28 (H) 6 - 22 RATIO [facility] Ratio [facility] Anion Gap 5 3 - 11 mmol/L [facility] Specimen Blood - Blood specimen (specimen) Performing Organization Address [facility] Phone Number [facility] [address] [place] [place] [address] CBC NO DIFFERENTIAL (06/05/2019 4:20 AM EST) WBC Count 10.42 (H)Comment: 3.98 - 10.04 [facility] Methodology was K/uL [facility] changed 06/04/2018. Please note updated reference range and units. RBC Count 3.73 (L) 3.93 - 5.22 [facility] M/UL [facility] Hemoglobin 10.7 (L) 11.2 - 15.7 [facility] g/dL [facility] Hematocrit 33.5 (L) 34.1 - 44.9 % [facility] MCV 89.8 79.4 - 94.8 [facility] FL [facility] MCH 28.7 25.6 - 32.2 [facility] PG [facility] MCHC 31.9 (L) 32.2 - 35.5 [facility] g/dL [facility] Platelet Count 211 182 - 369 [facility] K/uL [facility] MPV 11.4 9.4 - 12.3 FL [facility] RDW 14.5 (H) 11.7 - 14.4 % [facility] Specimen Blood - Blood specimen (specimen) Performing Organization Address [facility] Phone Number [facility] [address] [place] [place] [address] GLUCOSE (POCT) (06/05/2019 12:42 AM EST) Glucose POCT 168 (H) 70 - 99 mg/dl POINT OF CARE Result Comment: TESTING Performed at: [facility] POCT David Miller MD, Laboratory Supervisor [employer] [address] [address] Specimen Performing Organization Address City/[facility] Phone Number POINT OF CARE TESTING GLUCOSE (POCT) (06/04/2019 9:01 PM EST) Glucose POCT 323 (H) 70 - 99 mg/dl POINT OF CARE Result Comment: TESTING Performed at: [facility] POCT David Miller MD, Laboratory Supervisor [employer] [address] [address] Specimen Performing Organization Address City/[facility] Phone Number POINT OF CARE TESTING GLUCOSE (POCT) (06/04/2019 4:42 PM EST) Glucose POCT 317 (H) 70 - 99 mg/dl POINT OF CARE Result Comment: TESTING Performed at: [facility] POCT David Miller MD, Laboratory Supervisor [employer] [address] [place] [address] Specimen Performing Organization Address [facility] Phone Number POINT OF CARE TESTING VL NECK CAROTID BILATERAL (06/04/2019 3:20 PM EST) Specimen Impressions Performed At IMPRESSIONS: Indication: TIA symptoms. Duplex imaging of the bilateral carotid arteries indicates 0-49% stenosis with mild plaque seen in the bulb and proximal internal carotid arteries bilaterally. RT ICA: 111/18 LT ICA: 96/18 The bilateral vertebral arteries demonstrate antegrade flow. There is no previous exam available for comparison. Narrative Performed At NAME: Saul Soto BN: [id number] VASCULAR LAB [facility] STUDY DATE: 06/04/19 1 [facility] [id number] : 38 AP: Dr Dale Cardona MD, RVT, FACS REFERRING PROVIDER: Guru Funk EXAMINATION: Extracranial INDICATION: Tia -Z86.73 TECHNOLOGIST: Yamileth Chaparro Procedure Note Interface, Rad Results - 06/05/2019 1:33 PM EST NAME: Saul Soto BN: [id number] [facility] STUDY DATE: 06/04/19 1 [facility] [id number] : 38 AP: Dr Dale Cardona MD, RVT, FACS REFERRING PROVIDER: Guru Funk EXAMINATION: Extracranial INDICATION: Tia -Z86.73 TECHNOLOGIST: Yamileth Chaparro IMPRESSION IMPRESSIONS: Indication: TIA symptoms. Duplex imaging of the bilateral carotid arteries indicates 0-49% stenosis with mild plaque seen in the bulb and proximal internal carotid arteries bilaterally. RT ICA: 111/18 LT ICA: 96/18 The bilateral vertebral arteries demonstrate antegrade flow. There is no previous exam available for comparison. GLUCOSE (POCT) (06/04/2019 11:47 AM EST) Glucose POCT 83 70 - 99 mg/dl POINT OF CARE Result Comment: TESTING Performed at: [facility] POCT David Miller MD, Laboratory Supervisor [employer] [address] [place] [address] [place] [address] Specimen Performing Organization Address City/State/Zipcode Phone Number POINT OF CARE TESTING TISSUE EXAM (06/04/2019 10:46 AM EST) Case Report Surgical Pathology Case: [id number] [facility] Authorizing Provider: Rosalie Felder, Collected: 06/04/2019 10:46 AM [facility] MD Ordering Location: [facility] Preprocedure Received: 06/04/2019 11:06 AM Pathologist: Kristofer Cordero MD, PhD Specimen: leg left, amputation, non-traumatic, below the knee Pre-Op Diagnosis 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) [ICD-10-CM] [facility] I73.9 - PVD (peripheral vascular disease) ([facility]) [ICD-10-CM] [facility] Post-Op Diagnosis 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) [ICD-10-CM] [facility] I73.9 - PVD (peripheral vascular disease) ([facility]) [ICD-10-CM] [facility] FINAL DIAGNOSIS Left leg, below-knee amputation: [id number] Electronically -Calcific atherosclerosis, extending to the resection margin. [facility] signed by Gil, -Viable soft tissue and bone resection margins. Kristofer Amaya MD, PhD on 06/07/2019 at 12:02 PM Microscopic Microscopic [facility] Description examination is [facility] performed. Gross Description 1. The specimen is received fresh labeled, with the patient' s name, MRN, and leg left, below the knee. It consists of a left lower extremity that was amputated below the knee that measures 30 cm from t [facility] bony resection margin to the heel of which the bony stump measures 5 cm in length, the leg has a greatest diameter of 8.5 cm at the level of the calf. The foot shows a previous transmetatarsal amput [facility] ation (all five toes are absent) that measures 15 x 9.5 x 5.5 cm. The soft tissue and bony resection margins are smooth and unremarkable. Examination of the overlying skin shows focal erythematous are as with scattered petechial hemorrhages. The previous transmetatarsal amputation scar is well-healed and healthy. All the five toes are absent as described earlier. Examination of the blood vessels rev ealed diffuse intimal calcification causing up to 50 to 70% of luminal obstruction. Lead Software Developer sections are submitted as follows: 1A = soft tissue resection margins 1B = random sections of the skin 1C = sections of the blood vessels following brief decalcification 1D = sections of the bony resection margin (bone marrow) following brief decalcification. MPN Gross description is reviewed before signout by Kristofer Cordero MD, PhD Disclaimer Gross description is performed at the [facility], [address] [place] [id number]. [facility] All technical components are performed at the [facility], [address] [place] [address]. Specimen Tissue - leg left, amputation, non-traumatic Performing Organization Address [facility] Phone Number [facility] [address] [place], [place] [phone] TYPE AND SCREEN (06/04/2019 9:10 AM EST) ABO/RH Type A POS [facility] Antibody Screen Interp NEG [facility] Specimen Blood - Blood specimen (specimen) Performing Organization Address [facility] Phone Number [facility] [place] [address] GLUCOSE (POCT) (06/04/2019 8:37 AM EST) Glucose POCT 110 (H) 70 - 99 mg/dl POINT OF CARE Result Comment: TESTING Performed at: [facility] POCT David Miller MD, Laboratory Supervisor [employer] [address] [place] [address] Specimen Performing Organization Address [facility] Phone Number POINT OF CARE TESTING GLUCOSE (POCT) (06/04/2019 7:04 AM EST) Glucose POCT 71 70 - 99 mg/dl POINT OF CARE Result Comment: TESTING Performed at: [facility] POCT David Miller MD, Laboratory Supervisor [employer] [address] [place] [address] Specimen Performing Organization Address [facility]/Zipcode Phone Number POINT OF CARE TESTING PARTIAL THROMBOPLASTIN TIME (06/04/2019 6:16 AM EST) PTT 99.4 (H)Comment: 21.3 - 35.9 SEC [facility] [employer] Reference range [facility] updated 03/23/2019. Specimen Blood - Blood specimen (specimen) Performing Organization Address City/[facility]/Zipcode Phone Number [employer] [employer] [facility] 1 [facility] [address] CBC WITH DIFFERENTIAL (06/04/2019 6:16 AM EST) WBC Count 8.88 3.98 - 10.04 K/uL [facility] [employer] [facility] RBC Count 4.10 3.93 - 5.22 M/UL [facility] Hemoglobin 11.5 11.2 - 15.7 g/dL [facility] Hematocrit 37.0 34.1 - 44.9 % [facility] MCV 90.2 79.4 - 94.8 FL [facility] MCH 28.0 25.6 - 32.2 PG [facility] MCHC 31.1 (L) 32.2 - 35.5 g/dL [facility] Platelet Count 199 182 - 369 K/uL [facility] MPV 11.6 9.4 - 12.3 FL [facility] RDW 14.0 11.7 - 14.4 % [facility] Neutrophil % 61.5 34.0 - 71.1 % [facility] Lymphocyte % 25.0 19.3 - 51.7 % [facility] Monocyte % 7.5 4.7 - 12.5 % [facility] Eosinophil % 4.7 0.7 - 5.8 % [facility] Basophil % 0.8 0.1 - 1.2 % [facility] nRBC % 0.0 0.0 - 0.2 % [facility] Neutrophil # 5.46 1.56 - 6.13 K/UL [facility] Lymphocyte # 2.22 1.18 - 3.74 K/UL [facility] Monocyte # 0.67 0.24 - 0.86 K/UL [facility] Eosinophil # 0.42 (H) 0.04 - 0.36 K/UL [facility] Basophil # 0.07 0.01 - 0.08 K/UL [facility] Immature Gran % 0.5 (H) 0.0 - 0.4 % [facility] Immature Gran # 0.04 (H) 0.00 - 0.03 K/uL [facility] NRBC # 0.00 0.00 - 0.12 K/uL [facility] Specimen Blood - Blood specimen (specimen) Performing Organization Address City/State/Zipcode Phone Number [facility] 1 [facility] [place] [address] [phone] COMPREHENSIVE METABOLIC PANEL (06/04/2019 6:16 AM EST) Sodium 138 134 - 145 mmol/L [facility] Potassium 4.1 3.5 - 5.1 mmol/L [facility] Chloride 105 98 - 107 mmol/L [facility] CO2 24 22 - 30 mmol/L [facility] Calcium 9.5 8.3 - 10.1 mg/dl [facility] Albumin 3.4 (L) 3.5 - 5.0 g/dl [facility] BUN 22 (H) 7 - 17 mg/dl [facility] Creatinine 0.9 0.7 - 1.2 mg/dl [facility] Glucose 49 (LL) 70 - 99 mg/dl [facility] Total Protein 6.3 6.3 - 8.2 g/dl [facility] Total Bilirubin 0.6 0.0 - 1.1 MG/DL [facility] AST 26 15 - 46 U/L [facility] ALT 33 9 - 52 U/L [facility] Alkaline 50 40 - 150 U/L [facility] Phosphatase [facility] eGFR 60 See Interpretation [facility] Comment: Below ml/min/1.73ml GROUP Estimated GFR Interpretation: Sq LABORATORY Above 60ml/min/1.73m2 = Normal Renal Function 30-59 ml/min/1.73m2 = Stage 3 Chronic Kidney Disease 15-29 ml/min/1.73m2 = Stage 4 Chronic Kidney Disease Less than 15 ml/min/1.73m2 = Stage 5 Chronic Kidney Disease The GFR value is calculated using the Modification of Diet in Renal Disease ( MDRD) Study Equation which can be found at: https://www.kidney.org/content/xrcl-iqndm-qzteacxh BUN/Creatinine 24 (H) 6 - 22 RATIO [facility] Anion Gap 9 3 - 11 mmol/L [facility] A/G Ratio 1.2 0.8 - 2.0 ratio [facility] Specimen Blood - Blood specimen (specimen) Performing Organization Address City/State/Zipcode Phone Number [facility] [address] [place] [address] CONSULT TO NEUROLOGY (06/04/2019 1:55 AM EST) CONSULT SUMMARY ASCII^Consult Information INTERCONNECT PDF TEXT Member Facility: [facility] INTERFACE Facility Visit/ Consult ID: [id number] Facility Time Zone: ET Date and Time of Request: 06-04-2019 01:55 AM Requesting Clinician: DR. BABCOCK Patient Name: BRITTANY HUGHES Date of : 1940 Gender: Female General Chief Complaint: transient garbled speech Patient Location and Admission Status: ED- Patient is not admitted Family Members and Medical Staff Present During Exam: rn History of Present Illness: 78-year-old female with history of atrial fibrillation on Xarelto (last dose Friday), peripheral vascular disease, diabetes, hyperlipidemia, hypertension, pacemaker, presenting to the emergency room with transient speech changes. Patient is pending for left lower extremity amputation. Because of this, Xarelto has been on hold since Friday. Friday morning, patient had 30 seconds of garbled speech, glucose was 118. It resolved. Then at 1730, she had minutes of garbled speech with glucose 57. This also resolved. She never had focal weakness. No facial droop. No gaze deviation. No loss of consciousness. No seizure like activity. No h istory of stroke or TIA. She is currently back to baseline. CT head was negative for acute findings. Patient is adamant that she has to have surgery, and does not want to wait for any testing or further neurological recommendations. Number of Documented HPI Elements: 4+ Medical History Other Medical History: above Other Past Procedures: no surgery last two weeks Pertinent Family History: Non contributory Allergies Allergies: NKDA Medications Anti-Coagulants: Xarelto (Rivaroxaban)?? Anti-Platelets: Plavix (Clopidogrel)?? Other Pertinent Medications: oxycodone, tramadol, tylenol, albuterol, last dose of xarelto mon night (P for L foot surgery), lantus, metformin, lipitor, losartan, nadalol, amlodipine, iron Social History Alcohol Use: None Drug Use: None Tobacco Use: Past Vital Signs Temperature: Afebrile Blood Pressure (mmHg): 172/73 Heart Rate (bpm): 69 Respiration Rate (/min): 15 O2 Sat (%): 93 Oxygen Delivery Method: Room Air EKG Rhythm: A. Fib Vital Signs Comments: gluc 87 Date and Time: 06/04/2019 05:48:30 AM Review Of Systems Neurological: Pertinent Positives/Negatives Neurological comments: hpi NIH Stroke Scale NIH Stroke Scale Score: 0 1. Level of Consciousness: 0 : alert; keenly responsive. 1a. LOC Questions: 0 : Answers both questions correctly. 1b. LOC Commands: 0 : Performs both tasks correctly. 2. Best Gaze: 0 : Normal. 3. Visual: 0 : No visual loss. 4. Facial Palsy: 0 : Normal symmetrical movements. 5a. Motor Left Arm: 0 : No drift; limb holds 90 (or 45) degrees for full 10 seconds. 5b. Motor Right Arm : 0 : No drift; limb holds 90 (or 45) degrees for full 10 seconds. 6a. Motor Left Le : No drift; leg holds 30-degree position for full 5 seconds. 6b. Motor Right Le : No drift; leg holds 30-degree position for full 5 seconds. 7. Limb Ataxia: 0 : Absent. 8. Sensory: 0 : Normal; no sensory loss. 9. Best Language: 0 : No aphasia; normal. 10. Dysarthria: 0 : Normal. 11. Extinction and inattention (formerly Neglect) : 0 : No abnormality. NIHSS Entry Time: 06/04/2019 05:47:38 AM Exam Exam: a+ox3. follows all complex commands. language fxn nl. appropriate and well related. cn 2-12 nl. motor 5/5 throughout. normal tone and bulk throughout. no ataxia of the limbs. sensation grossly nl. gait deferred. no meningismus. visual galindo grossly nl, limited by web conferencing technology. no bulbar dysfxn. attentive, cooperative, good concentration. gaze midline, no neglect. Clinician assisting with exam: rn Labs and Imaging CT Brain Findings: No acute changes MRI Brain Findings: Not Available Assessment and Recommendations Assessment: TIA versus clinically silent stroke versus hypoglycemic events. This patient is not an IV TPA candidate, as symptoms have resolved, NIH stroke scale = 0. Recommendations: I recommend full stroke work up before patient proceed to the operative room, however patient does not appear at the current time to want to comply with this. I advised patient of risk of permanent neurological injury up to and including if she proceeds to surgery without any type of work up. Plan: 1. Telemetry. 2. MRI brain no gado if possible given pacemake. If not possible, then recommend repeat noncontrast CT head 24 hours from the 1st one to look for evolving ischemia 3. Echocardiogram with bubble study. 4. CTA head/neck with contrast. 5. Check hemoglobin A-1 C, lipid panel. 6. Aspirin 81 mg daily. 7. Statin for goal LDL less than 70. 8. Permissive hypertension, do not treat blood pressure less than 220/110 for the first 24 hours. 9. Would continue to hold Xarelto at this time until presence/extent of acute [employer] ischemia is known. If no acute stroke, can presume Xarelto immediately. However, Xarelto is on hold preoperatively regardless. This is a telehealth consultation. The patient was seen and examined via two- way videoconferencing. I discussed the case at length with MD/RN/patient. They understand and agree with this plan. Aniket Singh MD Teleneurologist Disclaimer: The attached recommendations are provided in order to facilitate patient care. The telephysician is not available onsite and any questions, additional orders, imaging/lab results/vitals or changes in patient status should be addressed directly with the attending physician not the tele-neurologist. If new question arise after results become available or new symptoms occurs, please call [facility] for immediate and further guidance. Please excuse any typographical or grammatical errors, as this document was produced using voice dictation software. Disposition: Admit patient to telemetry or stroke unit Diagnosis Impression: Transient Ischemic Attack Case discussed with: rn, daughter Inclusion Criteria Onset of symptoms < 4.5 hours before beginning treatment: No tPA Recommendation tPA recommended?: No Reason tPA not recommended: Outside of window Reason tPA not recommended Comments: nihss zero now ICD-10 Code Primary Diagnosis: TIA (transient ischemic attack) ICD-10 Code (Primary): G45.9 : Transient cerebral ischemic attack, unspecified Attestation Interaction Mode: Video & Phone Time of Phone Call : 06-04-2019 06:00 AM Time of Video Call : 06-04-2019 05:44 AM Interaction Attestation: Clinical telemedicine services delivered using HIPAA -compliant interactive video-audio telecommunications while the patient and the rendering provider were not in the same physi dru location. Written report was provided to the requesting provider. Evaluation Duration (mins): 32 [place] Timer Summary ED Arrival Date and Time: 06-03-2019 06:15 PM Date and Time of Request: 06-04-2019 01:55 AM Physician Signature This document was electronically signed by: Aniket Singh MD 06/04/2019 06:14 AM SERVICE LINE Neuro Emergency INTERCONNECT PDF INTERFACE Specimen Performing Organization Address City/State/Zipcode Phone Number INTERCONNECT PDF INTERFACE CT HEAD WITHOUT IV CONTRAST (06/03/2019 8:56 PM EST) Specimen Impressions Performed At No CT findings of acute hemorrhage, mass effect or acute transcortical infarct. Signed by Joe Olguin MD on 06/03/2019 9:43 PM Narrative Performed At Procedure(s): CT HEAD WITHOUT IV CONTRAST Date of service: 06/03/2019 8:47 PM Provided clinical information: 78 years, Female, "Confusion/delirium, altered LOC, unexplained" Technique: Computed tomography sequences were obtained from the skull base through the vertex. Coronal and sagittal reformations were acquired. Comparison: None. Contrast: None Observations: The ventricles and sulci are symmetrically prominent consistent with age-related volume loss. There are scattered hypodensities within the periventricular and subcortical white matter consistent with chronic small vessel ischemic disease. Small lytic lesions are present within the frontal calvarium without extension into the outer table, favoring arachnoid granulations however a bone scan could be acquired to exclude malignancy. The hardy-white differentiation is well-maintained. There is no shift of midline structures. There are no extra-axial or intra-axial fluid collections. The basal cisterns are patent. The globes and intraorbital contents are within normal limits. There is no retrobulbar inflammation. The paranasal sinuses and mastoid air cells are clear. Procedure Note Interface, Rad Results - 06/03/2019 9:45 PM EST Procedure(s): CT HEAD WITHOUT IV CONTRAST Date of service: 06/03/2019 8:47 PM Provided clinical information: 78 years, Female, "Confusion/delirium, altered LOC, unexplained" Technique: Computed tomography sequences were obtained from the skull base through the vertex. Coronal and sagittal reformations were acquired. Comparison: None. Contrast: None Observations: The ventricles and sulci are symmetrically prominent consistent with age-related volume loss. There are scattered hypodensities within the periventricular and subcortical white matter consistent with chronic small vessel ischemic disease. Small lytic lesions are present within the frontal calvarium without extension into the outer table, favoring arachnoid granulations however a bone scan could be acquired to exclude malignancy. The hardy-white differentiation is well-maintained. There is no shift of midline structures. There are no extra-axial or intra-axial fluid collections. The basal cisterns are patent. The globes and intraorbital contents are within normal limits. There is no retrobulbar inflammation. The paranasal sinuses and mastoid air cells are clear. IMPRESSION No CT findings of acute hemorrhage, mass effect or acute transcortical infarct. Signed by Joe Olguin MD on 06/03/2019 9:43 PM PARTIAL THROMBOPLASTIN TIME (06/03/2019 6:36 PM EST) PTT 27.6Comment: 21.3 - 35.9 SEC [facility] Reference range [facility] updated 03/23/2019. Specimen Blood - Blood specimen (specimen) Performing Organization Address City/State/Zipcode Phone Number [facility] GROUP LABORATORY [address] [place] [id number] [phone] PROTHROMBIN TIME (06/03/2019 6:36 PM EST) Pathologist [facility], [place] INR 1.03Comment: INR 0.88 - 1.13 [facility] Therapeutic Range: Ratio GROUP LABORATORY 2.0 - 3.5 Protime 13.3Comment: 12.0 - 14.5 sec [facility] Reference range GROUP [facility] updated 03/23/2019. Specimen Blood - Blood specimen (specimen) Performing Organization Address [facility] Phone Number [facility] [address] [place] [address] TROPONIN (06/03/2019 6:36 PM EST) Pathologist [facility] [place] Troponin 0.091 (H) 0.000 - 0.034 [facility] Comment: ng/ml GROUP LAB[facility]ORY Negative less than or equal to 0.034 ng/ml Indeterminate 0.0351 - 0.119 ng/ml (Suggest Repeat in 4 Hours) Critical (AMI Cutoff) greater than or equal to 0.120 ng/ml Specimen Blood - Blood specimen (specimen) Performing Organization Address [facility] Phone Number [facility] [address] [place] [address] RAINBOW DRAW LIGHT BLUE TOP (06/03/2019 6:36 PM EST) Specimen Blood - Blood specimen (specimen) Performing Organization Address [facility] Phone Number [facility] [address] [place] [address] COMPREHENSIVE METABOLIC PANEL (06/03/2019 6:36 PM EST) Pathologist [facility] [place] Sodium 137 134 - 145 mmol/L [facility] Potassium 4.2 3.5 - 5.1 mmol/L [facility] Chloride 101 98 - 107 mmol/L [facility] CO2 24 22 - 30 mmol/L [facility] Calcium 9.7 8.3 - 10.1 mg/dl [facility] Albumin 4.0 3.5 - 5.0 g/dl [facility] BUN 34 (H) 7 - 17 mg/dl [facility] Creatinine 1.3 (H) 0.7 - 1.2 mg/dl [facility] Glucose 87 70 - 99 mg/dl [facility] Total Protein 7.4 6.3 - 8.2 g/dl [facility] Total Bilirubin 0.6 0.0 - 1.1 MG/DL [facility] AST 26 15 - 46 U/L [facility] ALT 27 9 - 52 U/L [facility] Alkaline 61 40 - 150 U/L [facility] LABORATORY eGFR 39 See Interpretation [facility] Comment: Below ml/min/1.73ml GROUP Estimated GFR Interpretation: Sq LABORATORY Above 60ml/min/1.73m2 = Normal Renal Function 30-59 ml/min/1.73m2 = Stage 3 Chronic Kidney Disease 15-29 ml/min/1.73m2 = Stage 4 Chronic Kidney Disease Less than 15 ml/min/1.73m2 = Stage 5 Chronic Kidney Disease The GFR value is calculated using the Modification of Diet in Renal Disease ( MDRD) Study Equation which can be found at: https://www.kidney.org/content/mxwd-hxtlg-ysnvguxj BUN/Creatinine 26 (H) 6 - 22 RATIO [facility] LABORATORY Anion Gap 12 (H) 3 - 11 mmol/L [facility] A/G Ratio 1.2 0.8 - 2.0 ratio [facility] Specimen Blood - Blood specimen (specimen) Performing Organization Address City/State/Zipcode Phone Number [facility] [address] [place] [address] [phone] CBC WITH DIFFERENTIAL (06/03/2019 6:36 PM EST) WBC Count 11.58 (H) 3.98 - 10.04 [facility] K/uL LABORATORY RBC Count 4.44 3.93 - 5.22 M/UL [facility] Hemoglobin 12.7 11.2 - 15.7 g/dL [facility] Hematocrit 40.8 34.1 - 44.9 % [facility] MCV 91.9 79.4 - 94.8 FL [facility] MCH 28.6 25.6 - 32.2 PG [facility] MCHC 31.1 (L) 32.2 - 35.5 g/dL [facility] Platelet Count 231 182 - 369 K/uL [facility] MPV 11.4 9.4 - 12.3 FL [facility] RDW 14.5 (H) 11.7 - 14.4 % [facility] Neutrophil % 58.0 34.0 - 71.1 % [facility] Lymphocyte % 27.3 19.3 - 51.7 % [facility] Monocyte % 8.0 4.7 - 12.5 % [facility] Eosinophil % 5.6 0.7 - 5.8 % [facility] Basophil % 0.8 0.1 - 1.2 % [facility] nRBC % 0.0 0.0 - 0.2 % [facility] Neutrophil # 6.72 (H) 1.56 - 6.13 K/UL [facility] Lymphocyte # 3.16 1.18 - 3.74 K/UL [facility] Monocyte # 0.93 (H) 0.24 - 0.86 K/UL [facility] Eosinophil # 0.65 (H) 0.04 - 0.36 K/UL [facility] Basophil # 0.09 (H) 0.01 - 0.08 K/UL [facility] Immature Gran % 0.3 0.0 - 0.4 % [facility] Immature Gran # 0.03 0.00 - 0.03 K/uL [facility] NRBC # 0.00 0.00 - 0.12 K/uL [facility] Specimen Blood - Blood specimen (specimen) Performing Organization Address City/[facility] Phone Number [facility] [address] [place] [id number] GLUCOSE (POCT) (06/03/2019 6:25 PM EST) Glucose POCT 85 70 - 99 mg/dl POINT OF CARE Result Comment: TESTING Performed at: [facility] POCT David Miller MD, Laboratory Supervisor [facility] [address] [id number] Specimen Performing Organization Address [facility] Phone Number POINT OF CARE TESTING documented in this encounter Visit Diagnoses Diagnosis Altered mental status, unspecified altered mental status type Occlusion of femoropopliteal bypass graft, initial encounter (HCC) PVD (peripheral vascular disease) (HCC) Peripheral vascular disease, unspecified documented in this encounter Administered Medications Medication Order MAR Action Action Date Dose Rate Site acetaminophen (TYLENOL) tablet Given 06/10/2019 1:28 PM EST 1,000 mg 1,000 mg 1,000 mg, Oral, Q8 HRS, First dose (after last modification) on Fri06/07/19 at 1410, Until Discontinued Given 06/10/2019 5:37 AM EST 1,000 mg Given 06/09/2019 9:35 PM EST 1,000 mg acetaminophen (TYLENOL) tablet 650 mg Given 06/07/2019 6:09 AM EST 650 mg 650 mg, Oral, Q6 HRS, First dose (after last modification) on Fri06/04/19 at 1250, Until Discontinued Given 06/07/2019 12:07 AM EST 650 mg Given 06/06/2019 11:18 AM EST 650 mg albuterol HFA (PROVENTIL,VENTOLIN) inhalation (RT ADMIN) 2 Puff 2 Puff, Inhalation, Q4 HRS PRN, Starting Fri06/07/19 at 0911, Until Fri06/10/19 at 1745, PER RT FREQUENCY amLodipine (NORVASC) tablet 10 mg Given 06/10/2019 8:30 AM EST 10 mg 10 mg, Oral, DAILY, First dose (after last modification) on Fri06/08/19 at 0900, Until Discontinued Given 06/09/2019 8:22 AM EST 10 mg Given 06/08/2019 9:22 AM EST 10 mg amLodipine (NORVASC) tablet 5 mg Given 06/07/2019 8:24 AM EST 5 mg 5 mg, Oral, DAILY, First dose on Fri06/04/19 at 1250, Until Discontinued Given 06/06/2019 8:27 AM EST 5 mg Given 06/05/2019 8:19 AM EST 5 mg atorvastatin (LIPITOR) tablet 80 mg Given 06/10/2019 8:29 AM EST 80 mg 80 mg, Oral, DAILY, First dose on Fri06/04/19 at 0900, Until Discontinued Given 06/09/2019 8:22 AM EST 80 mg Given 06/08/2019 9:22 AM EST 80 mg bimatoprost (LUMIGAN) opthalmic solution Given 06/09/2019 5:32 PM EST 1 Drop 0.01 % 1 Drop, Both Eyes, QPM, First dose on Fri06/04/19 at 1820, Until Discontinued Given 06/08/2019 4:57 PM EST 1 Drop Given 06/07/2019 4:48 PM EST 1 Drop ceFAZolin (ANCEF) IV premix 1,000 mg New Bag 06/05/2019 8:08 AM EST 1,000 mg 1,000 mg, Intravenous, Q8 HRS, 3 doses, First dose on Fri06/04/19 at 1310, Last dose on Fri06/05/19 at 0800 New Bag 06/05/2019 12:43 AM EST 1,000 mg New Bag 06/04/2019 3:43 PM EST 1,000 mg ciprofloxacin (CIPRO) tablet 500 mg Given 06/10/2019 8:30 AM EST 500 mg 500 mg, Oral, BID, 6 doses, First dose on Fri06/09/19 at 0910, Last dose on Fri06/11/19 at 2100, Separate doses at least 2 hours before or 6 hours after oral antacids, iron salts, multivitamins., Given 06/09/2019 9:35 PM EST 500 mg Given 06/09/2019 10:46 AM EST 500 mg citalopram (CeleXA) tablet 20 mg Given 06/10/2019 8:32 AM EST 20 mg 20 mg, Oral, DAILY, First dose on Fri06/04/19 at 0900, Until Discontinued Given 06/09/2019 9:00 AM EST 20 mg Given 06/08/2019 9:22 AM EST 20 mg clopidogrel (PLAVIX) tablet 75 mg Given 06/10/2019 8:31 AM EST 75 mg 75 mg, Oral, DAILY, First dose on Fri06/04/19 at 1210, Until Discontinued Given 06/09/2019 8:22 AM EST 75 mg Given 06/08/2019 9:22 AM EST 75 mg dextrose 5% and 1/2 normal saline IV Rate Verify 06/04/2019 8:00 AM EST 50 mL/hr Intravenous, at 50 mL/hr, CONTINUOUS, Starting Fri06/04/19 at 0805, Until Fri06/04/19 at 1810 New Bag 06/04/2019 7:08 AM EST 50 mL/hr dextrose injection 50 % 25 g, Intravenous, PRN, Starting Fri06/04/19 at 0701, Until Amy 06/10/19 at 1745, blood glucose < ___, <70 and patient NPO or not alert dorzolamide-timolol (COSOPT) ophthalmic Given 06/10/2019 8:12 AM EST 1 Drop solution 22.3-6.8 MG/ML 1 Drop, Both Eyes, QAM, First dose on 06/05/19 at 0900, Until Discontinued Given 06/09/2019 8:25 AM EST 1 Drop Given 06/08/2019 9:25 AM EST 1 Drop doxycycline monohydrate (MONODOX) capsule Given 06/10/2019 8:30 AM EST 100 mg 100 mg 100 mg, Oral, BID, 10 doses, First dose on Fri06/09/19 at 0910, Last dose on Fri06/13/19 at 2100, Separate doses by at least 2 hours before or after oral antacids, iron salts, multivitamins, cholestyramine, sodium bicarbonate., Given 06/09/2019 9:35 PM EST 100 mg Given 06/09/2019 10:46 AM EST 100 mg gabapentin (NEURONTIN) capsule 300 mg Given 06/10/2019 8:32 AM EST 300 mg 300 mg, Oral, BID, First dose on Fri06/04/19 at 0150, Until Discontinued Given 06/09/2019 9:35 PM EST 300 mg Given 06/09/2019 8:22 AM EST 300 mg GLARGINE insulin (LONG-Acting) Given 06/09/2019 9:35 PM EST 25 Units Arm -Right injection 25 Units 25 Units, Subcutaneous, QHS, First dose (after last modification) on 06/07/19 at 2100, Until Discontinued, NOT FOR IV USE, Given 06/08/2019 8:27 PM EST 25 Units Abdominal Tissue Given 06/07/2019 9:40 PM EST 25 Units Arm - Upper Left GLARGINE insulin Given 06/06/2019 8:17 PM EST 30 Units Arm - Upper Left (LONG-Acting) injection 30 Units 30 Units, Subcutaneous, QHS, First dose (after last modification) on Fri06/04/19 at 2100, Until Discontinued, NOT FOR IV USE, Given 06/05/2019 9:12 PM EST 30 Units Abdominal Tissue Given 06/04/2019 9:02 PM EST 30 Units Arm - Upper Right glucose (GLUTOSE) oral gel 40 % 1-2 Tube, Oral, PRN, Starting Fri06/04/19 at 0701, Until Fri06/10/19 at 1745, blood glucose < ___, Administer for Blood Glucose < 50 and patient eating and alert per hypoglycemia protocol, 15 g dextrose per tube, heparin injection 5000 Given 06/06/2019 5:58 AM 5,000 Units Abdominal Tissue UNIT/ML EST 5,000 Units, Subcutaneous, Q8H (Heparin), 42 doses, First dose on 06/05/19 at 1400, Last dose on 06/19/19 at 0600 Given 06/05/2019 9:12 PM EST 5,000 Units Abdominal Tissue Given 06/05/2019 1:24 PM EST 5,000 Units Abdominal Tissue heparin in dextrose 5% IV premix New Bag 06/04/2019 2:25 AM 8 Units/hr 0.1 mL/hr 100 units/mL EST Intravenous, CONTINUOUS, Starting Fri06/04/19 at 0015, Until Fri06/04/19 at 0624, If on heparin, follow protocol: Heparin 4000 units IV push (typical dosing 60-70 units/kg), then begin heparin infusion at 800 units/hour (typical initial infusion rate 12-15 units/kg/hour) PTT < 50 - Give 1000 unit bolus IV and increase infusion by 200 units/hour PTT 50 -64 - Increase infusion by 100 units/hour PTT 65 - 110 - No change (Therapeutic range) PTT 111-120 - Decrease infusion by 100 units/hour > 120 - Hold 60 minutes then when restart, decrease infusion by 200 units/hour, heparin injection [id number] UNIT/ML Given 06/04/2019 2:25 AM EST 4,000 Units 4,000 Units, Intravenous Push, X1, 1 dose, First dose on Amy 06/03/19 at 2355, If on heparin, follow protocol: Heparin 4000 units IV push (typical dosing 60-70 units/kg), then begin heparin infusion at 800 units/hour (typical initial infusion rate 12-15 units/kg/hour) PTT < 50 - Give 1000 unit bolus IV and increase infusion by 200 units/hour PTT 50 -64 - Increase infusion by 100 units/hour PTT 65 - 110 - No change (Therapeutic range) PTT 111-120 - Decrease infusion by 100 units/hour > 120 - Hold 60 minutes then when restart, decrease infusion by 200 units/hour, labetalol (TRANDATE, NORMODYNE) IV New Bag 06/07/2019 10:47 AM EST 10 mg injection 10 mg 10 mg, Intravenous, NOW, 1 dose, Fri06/07/19 at 1020, Notify provider if SBP remains elevated >160 mmHg after medication is given, Notify provider if SBP remains elevated >160 mmHg after medication is given, labetalol (TRANDATE, NORMODYNE) IV injection Given 06/07/2019 12:08 PM EST 20 mg 20 mg 20 mg, Intravenous Push, NOW, 1 dose, Fri06/07/19 at 1200 labetalol (TRANDATE, NORMODYNE) IV injection Given 06/08/2019 10:56 AM EST 20 mg 20 mg 20 mg, Intravenous Push, PRN, Starting Fri06/08/19 at 0800, Until Fri06/10/19 at 1745, SBP > ___, 160, hold for HR<60 labetalol (TRANDATE, NORMODYNE) IV injection Given 06/04/2019 5:29 AM EST 40 mg 40 mg 40 mg, Intravenous Push, NOW, 1 dose, Fri06/04/19 at 0525 lactated ringers IV 1,000 mL New Bag 06/03/2019 7:26 PM EST 1,000 mL 1,000 mL, Intravenous, BOLUS, 1 dose, Amy 06/03/19 at 2015 lactated ringers IV 1,000 mL New Bag 06/03/2019 11:25 PM EST 1,000 mL 1,000 mL, Intravenous, BOLUS, 1 dose, Amy 06/03/19 at 2315 LISPRO insulin (RAPID - Given 06/10/2019 12:26 PM EST 6 Units Abdominal Tissue Acting) injection 6 Units 6 Units, Subcutaneous, TID BEFORE MEALS, First dose on Fri06/08/19 at 0800, Until Discontinued, NOT FOR IV USE, Given 06/10/2019 8:10 AM EST 6 Units Abdominal Tissue Given 06/09/2019 5:32 PM EST 6 Units Arm - Upper Left LISPRO insulin (RAPID-Acting) Given 06/04/2019 9:02 PM 8 Units Arm - Upper Right USUAL Correction Scale Inj EST Subcutaneous, AC/HS, First dose on Fri06/04/19 at 1700, Until Discontinued, Blood Glucose USUAL <=150 0 Units 151-200 2 Units 201-250 4 Units 251-300 6 Units 301-350 8 Units 351-400 10 Units >400 12 Units And Call Paper Coater Not for IV USE, Given 06/04/2019 4:44 PM EST 8 Units Abdominal Tissue LISPRO insulin (RAPID-Acting) Given 06/05/2019 12:43 AM 2 Units Arm - Upper Right USUAL Correction Scale Inj EST Subcutaneous, Q4 HRS, First dose (after last modification) on 06/05/19 at 0110, Until Discontinued, Blood Glucose USUAL <=150 0 Units 151-200 2 Units 201-250 4 Units 251-300 6 Units 301-350 8 Units 351-400 10 Units >400 12 Units And Call Paper Coater Not for IV USE, LISPRO insulin (RAPID-Acting) USUAL Given 06/09/2019 9:36 PM EST 4 Units Arm-Right Correction Scale Inj Subcutaneous, AC/HS, First dose (after last modification) on 06/05/19 at 0700, Until Discontinued, Blood Glucose USUAL <=150 0 Units 151-200 2 Units 201-250 4 Units 251-300 6 Units 301-350 8 Units 351-400 10 Units >400 12 Units And Call Paper Coater Not for IV USE, Given 06/09/2019 5:33 PM EST 4 Units Arm - Upper Left Given 06/09/2019 8:28 AM EST 2 Units Arm - Upper Left losartan (COZAAR) tablet 50 mg Given 06/10/2019 8:31 AM EST 50 mg 50 mg, Oral, DAILY, First dose on 06/07/19 at 1650, Until Discontinued Given 06/09/2019 8:23 AM EST 50 mg Given 06/08/2019 9:22 AM EST 50 mg magnesium chloride (SLOW MAG) enteric coated Given 06/10/2019 8:27 AM EST 64 mg tablet 64 mg 64 mg (1 Tab), Oral, X1, 1 dose, First dose on Amy 06/10/19 at 0900, This medication dosage form should NOT be crushed. Please call the inpatient Pharmacy for more information. [facility] ext. [phone] [place] ext. [phone] COUNTS INCLUDE 234 BEDS AT THE [facility] ext. [phone] , magnesium hydroxide (MILK OF MAGNESIA) 400 MG/5ML oral suspension 30 mL 30 mL, Oral, QHS PRN, Starting 06/07/19 at 2100, Until Amy 06/10/19 at 1745, Constipation 1st line if no stooling in last 24 hours magnesium hydroxide (MILK OF MAGNESIA) 400 Given 06/08/2019 9:22 AM EST 60 mL MG/5ML oral suspension 60 mL 60 mL, Oral, X1, 1 dose, First dose on Fri06/08/19 at 0820 magnesium sulfate IV premix 2 g New Bag 06/05/2019 8:09 AM EST 2 g 2 g, Intravenous, NOW, 1 dose, 06/05/19 at 0640 magnesium sulfate IV premix 2 g New Bag 06/07/2019 9:50 AM EST 2 g 2 g, Intravenous, Q2 HRS, 2 doses, First dose (after last modification) on Fri06/07/19 at 0730, Last dose on Fri06/07/19 at 0930 New Bag 06/07/2019 8:19 AM EST 2 g morphine (PF) syringe 2 mg Given 06/08/2019 11:20 AM EST 2 mg 2 mg, Intravenous Push, Q4 HRS PRN, Starting Fri06/07/19 at 0754, Until Fri06/09/19 at 0753, Severe Pain (pain scale 7-10) - IV - 1st line - if immediate effect required or patient cannot tolerate PO morphine [employer] 1 mg/ml 100mL New Bag 06/04/2019 2:40 PM EST Intravenous, DRIP, Starting Fri06/04/19 at 1310, Until Fri06/07/19 at 0754, USE CAUTION in diseases where patient is at risk for hypercapnea, including sleep apnea, morbid obesity, COPD and neuromuscular diseases. In patients at risk, consider monitoring ABGs. USE CAUTION where patient is at high-risk for nausea/vomiting. Loading dose: 0 Continuous Rate: 0 Demand Bolus: 0.3 mg Bolus Lockout: 10 minutes B. per 4 hours (number of boluses per 4 hours):24 Boluses (See separate PRN order for Nurse bolus; do NOT include that PRN in the 4 hour limit unless specified by physician)., nadolol (CORGARD) tablet (1/2X20mg) 10 mg Given 06/10/2019 8:29 AM EST 10 mg 10 mg, Oral, DAILY, First dose on Fri06/04/19 at 1210, Until Discontinued, Hold if SBP<100 or HR<60, Given 06/09/2019 8:22 AM EST 10 mg Given 06/08/2019 9:22 AM EST 10 mg normal saline IV New Bag 06/07/2019 5:00 AM EST 50 mL/hr Intravenous, at 50 mL/hr, CONTINUOUS, Starting Fri06/04/19 at 1920, Until Fri06/07/19 at 0622 New Bag 06/04/2019 7:20 PM EST 50 mL/hr OXYcodone (OXY-IR,OXY-FAST) immediate release Given 06/04/2019 1:59 AM EST 10 mg tablet 10 mg 10 mg, Oral, X1, 1 dose, First dose on Fri06/04/19 at 0135 OXYcodone (OXY-IR,OXY-FAST) immediate release Given 06/07/2019 8:39 AM EST 10 mg tablet 10 mg 10 mg, Oral, Q4 HRS PRN, Starting Fri06/04/19 at 1147, Until Fri06/07/19 at 0941, Severe Pain (pain scale 7-10) - PO - 1st line - if immediate effect not required and patient can tolerate PO, PRN moderate pain (pain scale 4-6) - Give if patient able to tolerate PO and immediate effect not required, Given 06/07/2019 12:27 AM EST 10 mg Given 06/06/2019 8:17 PM EST 10 mg OXYcodone (OXY-IR,OXY-FAST) immediate release Given 06/03/2019 10:09 PM EST 5 mg tablet 5 mg 5 mg, Oral, NOW, 1 dose, Amy 06/03/19 at 2155 pantoprazole (PROTONIX) enteric coated tablet Given 06/10/2019 8:32 AM EST 40 mg 40 mg 40 mg, Oral, DAILY, First dose on Fri06/04/19 at 0900, Until Discontinued, This medication dosage form should NOT be crushed. Please call the inpatient Pharmacy for more information. [facility] ext. [phone] [place] ext. [phone] COUNTS INCLUDE 234 BEDS AT THE [facility] ext. [phone] , Given 06/09/2019 8:22 AM EST 40 mg Given 06/08/2019 9:22 AM EST 40 mg piperacillin-TAZOBACTAM (ZOSYN) (4 Hour) IV New Bag 06/09/2019 12:09 AM EST 4.5 g mixture 4.5 g 4.5 g, Intravenous, Q8 HRS, 42 doses, First dose on Fri06/07/19 at 1650, Last dose on Fri06/21/19 at 0850 New Bag 06/08/2019 6:34 PM EST 4.5 g New Bag 06/08/2019 10:56 AM EST 4.5 g piperacillin-TAZOBACTAM (ZOSYN) IV premix New Bag 06/07/2019 10:50 AM EST 4.5 g 4.5 g 4.5 g, Intravenous, NOW, 1 dose, Fri06/07/19 at 0850 potassium bicarb-citric acid (EFFER-K) Given 06/07/2019 8:29 AM EST 20 mEq effervescent tablet (for oral solution) 20 mEq 20 mEq, Oral, X1, 1 dose, First dose on Fri06/07/19 at 0720, Dissolve in 3-4 ounces of cold juice before administration. It is suggested that it be taken with food and sipped slowly over a 5-10 minute period., potassium bicarb-citric acid (EFFER-K) Given 06/08/2019 10:56 AM EST 40 mEq effervescent tablet (for oral solution) 40 mEq 40 mEq, Oral, X1, 1 dose, First dose on Fri06/08/19 at 0900, Dissolve in 3-4 ounces of cold juice before administration. It is suggested that it be taken with food and sipped slowly over a 5-10 minute period., rivaroxaban (XARELTO) tablet 15 mg Given 06/08/2019 9:21 AM EST 15 mg 15 mg, Oral, DAILY, 5 doses, First dose (after last reorder) on Fri06/06/19 at 0940, Last dose on Fri06/10/19 at 0900, When used for DVT/PE prophylaxis after total joint replacement, start medication 6-10 hours after surgery. For nasogastric/gastric feeding tube administration, the tablets (all strengths) may be crushed and mixed in 50 mL of water; administer the suspension within 4 hours of preparation and follow administration of the 15 mg and 20 mg tablets immediately with enteral feeding (10 mg tablets may be administered without regards to food). Avoid administration distal to the stomach due to a decrease in efficacy (i.e. may NOT be administered by J-Tube)., Given 06/07/2019 8:24 AM EST 15 mg Given 06/06/2019 11:18 AM EST 15 mg rivaroxaban (XARELTO) tablet 15 mg Given 06/10/2019 8:29 AM EST 15 mg 15 mg, Oral, DAILY, 10 doses, First dose (after last modification) on Fri06/09/19 at 0900, Last dose on Fri06/18/19 at 0900, When used for DVT/PE prophylaxis after total joint replacement, start medication 6-10 hours after surgery. For nasogastric/gastric feeding tube administration, the tablets (all strengths) may be crushed and mixed in 50 mL of water; administer the suspension within 4 hours of preparation and follow administration of the 15 mg and 20 mg tablets immediately with enteral feeding (10 mg tablets may be administered without regards to food). Avoid administration distal to the stomach due to a decrease in efficacy (i.e. may NOT be administered by J-Tube)., Given 06/09/2019 8:22 AM EST 15 mg sennosides-docusate sodium (SENOKOT-S, SENNA Given 06/10/2019 8:31 AM EST 1 Tab S) 8.6-50 mg 1 Tab 1 Tab, Oral, BID, First dose on Fri06/07/19 at 0900, Until Discontinued Given 06/09/2019 9:35 PM EST 1 Tab Given 06/09/2019 8:22 AM EST 1 Tab tramadol (ULTRAM) tablet (1/2X50mg) 50 mg Given 06/10/2019 6:54 AM EST 50 mg 50 mg, Oral, Q6 HRS PRN, Starting 06/07/19 at 0942, Until Amy 06/10/19 at 0941, Severe Pain (pain scale 7-10) - PO - 1st line - if immediate effect not required and patient can tolerate PO, Adjust dose in geriatrics, renal and hepatic dysfunction., Given 06/09/2019 9:36 PM EST 50 mg Given 06/09/2019 4:44 PM EST 50 mg tramadol (ULTRAM) tablet (1/2X50mg) 50 mg Given 06/10/2019 1:29 PM EST 50 mg 50 mg, Oral, Q6 HRS PRN, Starting Amy 06/10/19 at 1003, Until Amy 06/10/19 at 1745, Severe Pain (pain scale 7-10) - PO - 1st line - if immediate effect not required and patient can tolerate PO, Adjust dose in geriatrics, renal and hepatic dysfunction., Given 06/10/2019 10:26 AM EST 50 mg triamterene-hydrochlorothiazide Given 06/10/2019 8:31 AM EST 1 Tab (DYAZIDE/MAXZIDE) 37.5-25 mg 1 Tab, Oral, DAILY, First dose on Fri06/08/19 at 0900, Until Discontinued Given 06/09/2019 8:22 AM EST 1 Tab Given 06/08/2019 9:22 AM EST 1 Tab vancomycin (VANCOCIN) IV mixture 1,500 New Bag 06/07/2019 9:18 AM EST 1, 500 mg mg 1,500 mg, Intravenous, X1, 1 dose, First dose on Fri06/07/19 at 0850, Typical Loading Dose = 25 mg/kg; Typical Maintenance Dose = 15 mg/kg As approved by the Infectious Disease Department, the Antimicrobial Stewardship Subcommittee, the Pharmacy and Therapeutics Committee, the [facility] [facility] Clinical Quality Committee and the [facility] ([facility], , [facility]), Vancomycin and Aminoglycoside doses will not be held while awaiting antibiotic serum levels (peak, random, trough) unless a provider specifically places a hold order for the medication., vancomycin (VANCOCIN) IV premix 750 mg New Bag 06/09/2019 8:38 AM EST 750 mg 750 mg, Intravenous, Q24 HRS, 13 doses, First dose on Fri06/08/19 at 0850, Last dose on Fri06/20/19 at 0850, Typical Loading Dose = 25 mg/kg; Typical Maintenance Dose = 15 mg/kg As approved by the Infectious Disease Department, the Antimicrobial Stewardship Subcommittee, the Pharmacy and Therapeutics Committee, the [facility] Clinical Quality Committee and the [facility] ([facility], , [facility]), Vancomycin and Aminoglycoside doses will not be held while awaiting antibiotic serum levels (peak, random, trough) unless a provider specifically places a hold order for the medication., New Bag 06/08/2019 8:50 AM EST 750 mg documented in this encounter Insurance Payer Benefit Plan / Subscriber ID Effective Dates Phone Address Type Group AETNA MEDICARE AETNA MEDICARE xxxxxxxx 2018-Present [employer] ADVANTAGE ADVANTAGE documented as of this encounter Advance Directives Type Date Recorded 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 Yes Order was discussed with: Patient Surrogate name: Surrogate Name (name in comments): Adult Child Adult brother/sister I discussed all options and patient/surrogate requested and DNR/DNI agreed to: Full Code 12/02/2017 3:57 PM 12/06/2017 6:49 PM Does patient have decision making capacity? yes Order discussed with: Patient I discussed all options and patient/surrogate requested and agreed to: Full Code
--- OUTSIDE RECORDS SUMMARY | 2019-06-18 14:56 | XMS REPORT | Summary of Care ---
:1940 Author Organization [facility] Address [address] [address] Care Team Providers Name Role Phone Vishal Greenwood MD Primary Care Provider Reason for Referral Refer to Department Only (Routine) Status Reason Specialty Diagnoses / Referred By Referred To Procedures Contact Contact Anesthesiology [facility] [address] [address] Phone: [phone] Encounter Details Date Type Department Care Team Description 05/13/[address] [facility] Preadmission Services Outpatient [address] [address] Allergies No Known Allergiesdocumented as of this encounter (statuses as of 05/15/2019) Medications Medication Sig Dispensed Refills Start End Date Status Date atorvastatin Take 80 mg by 0 Active (LIPITOR) 80 MG Oral mouth DAILY. Tab bimatoprost Place 1 Drop 0 Active (LUMIGAN) 0.01 % in both eyes Ophthalmic Solution DAILY. Cholecalciferol 1000 Take by 0 Active units Oral Chew Tab mouth. citalopram (CELEXA) Take 20 mg by 0 Active 20 MG Oral Tab mouth DAILY. ferrous sulfate 325 Take 325 mg by 0 Active (65 Fe) MG Oral Tab mouth DAILY. gabapentin Take 300 mg by 0 Active (NEURONTIN) 300 MG mouth TWICE Oral Cap DAILY. GLARGINE insulin, Inject 10 0 Active LONG-Acting, Units beneath (LANTUS) 100 UNIT/ML the skin EVERY Subcutaneous BEDTIME. Solution Losartan Potassium Take 0.5 Tabs 0 Active 100 MG Oral Tab by mouth DAILY. amLodipine (NORVASC) Take 5 mg by 0 Active 5 MG Oral Tab mouth DAILY. metFORMIN Take 1,000 mg 0 Active (GLUCOPHAGE) 500 MG by mouth TWICE Oral Tab DAILY. Probiotic Product Take 1 Tab by 0 Active (PROBIOTIC PO) mouth DAILY. Dorzolamide Place 1 Drop 0 Active HCl-Timolol Mal to the (COSOPT OP) external eye EVERY MORNING. Mirabegron Take 1 Tab by 0 Active (MYRBETRIQ PO) mouth EVERY BEDTIME. acetaminophen Take 2 Tabs by 0 Active (TYLENOL) 325 MG mouth EVERY 8 Oral Tab SIX HOURS NEEDED for Pain. tramadol (ULTRAM) 50 Take 50 mg by 0 Active MG Oral Tab mouth EVERY SIX HOURS NEEDED for Pain. nadolol (CORGARD) 20 Take 0.5 Tabs 45 Tab 3 Active MG Oral Tab by mouth 8 DAILY. rivaroxaban Take 1 Tab by 30 Tab 3 Active (XARELTO) 15 MG Oral mouth DAILY. 8 Tab clopidogrel (PLAVIX) Take 1 Tab by 30 Tab 3 Active 75 MG Oral Tab mouth DAILY. 8 Albuterol Sulfate Take by 0 Active 108 (90 Base) inhalation MCG/ACT Inhalation NEEDED. AEROSOL POWDER, BREATH ACTIVATED pantoprazole Take 40 mg by 0 Active (PROTONIX) 40 MG mouth DAILY. Oral Tab EC OXYcodone Take 1 Tab by 10 Tab 0 05/13/20 Discontinued (OXY-IR,OXY-FAST) 5 mouth EVERY 8 19 (Other) MG Oral Tab SIX HOURS NEEDED for Pain. Max Daily Amount: 20 mg. 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 Overview: Added automatically from request for surgery [id number] PVD (peripheral vascular disease) 05/13/2019 Overview: Added automatically from request for surgery [id number] Sinus node dysfunction 01/22/2018 Cardiomyopathy 01/22/2018 Peripheral vascular disease 01/05/2018 Paroxysmal atrial fibrillation 12/02/2017 documented as of this encounter (statuses as of 05/15/2019) Social History Tobacco Use Types Packs/Day Years Used Date Former Smoker Cigarettes 0.25 Quit: 2019 Smokeless Tobacco: Never Used Tobacco Cessation: Counseling Given: No Alcohol Use Drinks/Week oz/Week Comments No Sex Assigned at Date Recorded Not on file Job Start Date Occupation Industry Not on file Not on file Not on file Travel History Travel Start Travel End No recent travel history available. documented as of this encounter Last Filed Vital Signs Not on filedocumented in this encounter Plan of Treatment Date Type Specialty Care Team Description 06/09/2019 Hospital Encounter [facility], Inpatient MD N[place] [address] [address] [phone] 06/09/2019 Surgery [facility] Nalini, AMPUTATION BELOW MD Nj KNEE LEFT [address] [address] [phone] 06/10/2019 [facility] 10/14/2019 Office Visit Arrhythmia Center 12/08/2019 Office Visit Cardiology Zenaida Meza CRNP [address] [address] [phone] 02/01/2020 Office Visit Vascular Surgery Nj Oliver MD [address] [address] Name Type Priority Associated Diagnoses Order Schedule REFER TO ANESTHESIOLOGY Referral Routine X1 for 1 Occurrences starting 05/13/2019 until 05/13/2019 Health Maintenance Due Date Last Done Comments [...] of this encounter Implants Implanted Type Area Meat Team Lead Device Shelf Model / Identifier Expiration Date Serial / Lot Everflex Entrust Stent [id number] - [id number] Left: Leg [employer] 09/09/2020 [id number] / Implanted: Qty: 2 on 12/05/2017 by Nj Oliver MD at [facility] / [id number] Description:Left SFA/Popliteal Everflex Entrust Stent [id number] - [id number] Left: Leg [employer] 03/21/2019 [id number] 100-150 / Implanted: Qty: 1 on 12/05/2017 by Nj Oliver MD at [facility] / [id number] Description:Left leg SFA Biologic Patch 1cm X 14cm - [id number] Right: Artery [employer], 01/27/2023 [id number] / Implanted: Qty: 1 on 01/05/2018 by Nj Oliver MD at [facility] [employer] (LVI) / [id number] Assurity Mri [id number] Generator - [id number] Left: Chest [facility] [employer], 07/31/2019 [id number] / Implanted: Qty: 1 on 03/12/2018 by Live Nguyen MD at [facility]. [id number] / Lead, Tendril Mri [id number] - [id number] Left: Chest [facility] [employer], 07/08/2019 [id number] / Implanted: Qty: 1 on 03/12/2018 by Live Nguyen MD at [facility]. [id number] / Lead, Tendril Mri [id number] - [id number] Left: Chest [facility] [employer], 06/01/2019 [id number] / Implanted: Qty: 1 on 03/12/2018 by Live Nguyen MD at [facility] [id number] / documented as of this encounter Procedures Procedure Name Priority Date/Time Associated Diagnosis Comments XR CHEST 2 VIEW PA AND OMKAR 05/13/2019 4:17 Results for this LATERAL (STANDARD) PM EST procedure are in the results section. IN PT/ED 12 LEAD EKG Routine 05/13/2019 3:24 Other specified Results for this PM EST complication of procedure are in vascular prosthetic the results devices, implants section. and grafts, initial encounter (HCC) CBC WITH DIFFERENTIAL Routine 05/13/2019 3:07 Results for this PM EST procedure are in the results section. TYPE AND SCREEN STAT 05/13/2019 3:07 Results for this PM EST procedure are in the results section. GLYCOHEMOGLOBIN A1C Routine 05/13/2019 3:07 Results for this PM EST procedure are in the results section. COMPREHENSIVE METABOLIC Routine 05/13/2019 3:07 Results for this PANEL PM EST procedure are in the results section. PROTHROMBIN TIME Routine 05/13/2019 3:07 Results for this PM EST procedure are in the results section. PARTIAL THROMBOPLASTIN Routine 05/13/2019 3:07 Results for this TIME PM EST procedure are in the results section. documented in this encounter Results XR CHEST 2 VIEW PA AND LATERAL (STANDARD) (05/13/2019 4:17 PM EST) Specimen Impressions Performed At No acute cardiopulmonary disease Urgency: Routine. This is a routine medical imaging report. Recommendation: No specific imaging recommendation. Signed by Marguerite Stanford MD on 05/13/2019 4:24 PM Narrative Performed At Procedure(s): XR CHEST 2 VIEW PA AND LATERAL (STANDARD) Date of service: 05/13/2019 4:05 PM Provided clinical information: 78 years, Female, " pre-op" Procedure and materials: Standard protocol. Comparison studies: March 13, 2018 Observations: Again seen is left-sided cardiac pacemaker. Heart size normal. Lungs clear. No pleural effusions Procedure Note Interface, Rad Results - 05/13/2019 4:26 PM EST Procedure(s): XR CHEST 2 VIEW PA AND LATERAL (STANDARD) Date of service: 05/13/2019 4:05 PM Provided clinical information: 78 years, Female, " pre-op" Procedure and materials: Standard protocol. Comparison studies: March 13, 2018 Observations: Again seen is left-sided cardiac pacemaker. Heart size normal. Lungs clear. No pleural effusions IMPRESSION No acute cardiopulmonary disease Urgency: Routine. This is a routine medical imaging report. Recommendation: No specific imaging recommendation. Signed by Marguerite Stanford MD on 05/13/2019 4:24 PM IN PT/ED 12 LEAD EKG (05/13/2019 3:24 PM EST) Ventricular Rate 70 BPM CARDIOLOGY DEPARTMENT Atrial rate 70 BPM CARDIOLOGY DEPARTMENT P-R Interval 162 ms CARDIOLOGY DEPARTMENT QRS Duration 68 ms CARDIOLOGY DEPARTMENT Q-T Interval 398 ms CARDIOLOGY DEPARTMENT QTC Calculation 429 ms CARDIOLOGY (Bezet) DEPARTMENT P [place] 58 degrees CARDIOLOGY DEPARTMENT R [place] 44 degrees CARDIOLOGY DEPARTMENT T [place] 82 degrees CARDIOLOGY DEPARTMENT Diagnosis Line Electronic atrial pacemaker CARDIOLOGY Anterior infarct (cited on or before 02-DEC-2017) DEPARTMENT Abnormal ECG When compared with ECG of 10-JUN-2018 11:10, No significant change was found Confirmed by YOVANI DIAZ, ESTEBAN Henry [id number]) ([id number]) on 05/14/2019 7:25:40 AM Specimen Performing Organization Address [facility] [place] Number CARDIOLOGY DEPARTMENT GLYCOHEMOGLOBIN A1C (05/13/2019 3:07 PM EST) Glycohemoglobin A1C 9.5 (H) <=5.6 % [facility] Comment: [facility] Normal*: <=5.6% Pre Diabetes* Risk: 5.7-6.4% Diabetes* Risk: >=6.5% Glycemic Goals for Adult Diabetes*: <7.0% *(Adult Ranges)[place] [employer], Standards of Medical Care in Diabetes, 2018 Specimen Blood - Blood specimen (specimen) Performing Organization Address [facility] Phone Number [facility] [address] [place] [address] [phone] TYPE AND SCREEN (05/13/2019 3:07 PM EST) ABO/RH Type A POS [facility]LOOD [facility] Antibody Screen Interp NEG [facility]OD [facility] Specimen Blood - Blood specimen (specimen) Performing Organization Address [facility] Phone Number [facility] [place] [address] PROTHROMBIN TIME (05/13/2019 3:07 PM EST) INR 0.99Comment: INR 0.88 - 1.13 [facility] Therapeutic Range: Ratio [facility] 2.0 - 3.5 Protime 12.9Comment: 12.0 - 14.5 sec [facility] Reference range [facility] updated 03/23/2019. Specimen Blood - Blood specimen (specimen) Performing Organization Address [facility] Phone Number [facility] [address] [place] [address] [address] PARTIAL THROMBOPLASTIN TIME (05/13/2019 3:07 PM EST) PTT 26.9Comment: 21.3 - 35.9 SEC [facility] Reference range [facility] updated 03/23/2019. Specimen Blood - Blood specimen (specimen) Performing Organization Address City/State/Zipcode Phone Number [facility] [address] [place] [address] [address] COMPREHENSIVE METABOLIC PANEL (05/13/2019 3:07 PM EST) Sodium 138 134 - 145 mmol/L [facility] Potassium 4.7 3.5 - 5.1 mmol/L [facility] Chloride 102 98 - 107 mmol/L [facility] CO2 28 22 - 30 mmol/L [facility] Calcium 9.7 8.3 - 10.1 mg/dl [facility] Albumin 4.2 3.5 - 5.0 g/dl [facility] BUN 16 7 - 17 mg/dl [facility] Creatinine 0.9 0.7 - 1.2 mg/dl [facility] Glucose 200 (H) 70 - 99 mg/dl [facility] Total Protein 7.5 6.3 - 8.2 g/dl [facility] Total Bilirubin 0.7 0.0 - 1.1 MG/DL [facility] AST 21 15 - 46 U/L [facility] ALT 19 9 - 52 U/L [facility] Alkaline 67 40 - 150 U/L [facility] Phosphatase [facility] eGFR 60 See Interpretation [facility] Comment: Below ml/min/1.73ml GROUP Estimated GFR Interpretation: Sq LABORATORY Above 60ml/min/1.73m2 = Normal Renal Function 30-59 ml/min/1.73m2 = Stage 3 Chronic Kidney Disease 15-29 ml/min/1.73m2 = Stage 4 Chronic Kidney Disease Less than 15 ml/min/1.73m2 = Stage 5 Chronic Kidney Disease The GFR value is calculated using the Modification of Diet in Renal Disease ( MDRD) Study Equation which can be found at: https://www.kidney.org/content/xfxd-fdlsz-dqjckwpb BUN/Creatinine 18 6 - 22 RATIO [facility] Anion Gap 8 3 - 11 mmol/L [facility] A/G Ratio 1.3 0.8 - 2.0 ratio [facility] Specimen Blood - Blood specimen (specimen) Performing Organization Address City/State/Zipcode Phone Number [facility] [address] [place] [address] CBC WITH DIFFERENTIAL (05/13/2019 3:07 PM EST) WBC Count 13.84 (H) 3.98 - 10.04 [facility] K/uL LABORATORY RBC Count 4.73 3.93 - 5.22 M/UL [facility] Hemoglobin 13.4 11.2 - 15.7 g/dL [facility] Hematocrit 41.7 34.1 - 44.9 % [facility] MCV 88.2 79.4 - 94.8 FL [facility] MCH 28.3 25.6 - 32.2 PG [facility] MCHC 32.1 (L) 32.2 - 35.5 g/dL [facility] Platelet Count 277 182 - 369 K/uL [facility] MPV 11.3 9.4 - 12.3 FL [facility] RDW 14.8 (H) 11.7 - 14.4 % [facility] Neutrophil % 65.1 34.0 - 71.1 % [facility] Lymphocyte % 23.1 19.3 - 51.7 % [facility] Monocyte % 6.6 4.7 - 12.5 % [facility] Eosinophil % 4.3 0.7 - 5.8 % [facility] Basophil % 0.6 0.1 - 1.2 % [facility] nRBC % 0.0 0.0 - 0.2 % [facility] Neutrophil # 9.01 (H) 1.56 - 6.13 K/UL [facility] Lymphocyte # 3.20 1.18 - 3.74 K/UL [facility] Monocyte # 0.92 (H) 0.24 - 0.86 K/UL [facility] Eosinophil # 0.59 (H) 0.04 - 0.36 K/UL [facility] Basophil # 0.08 0.01 - 0.08 K/UL [facility] Immature Gran % 0.3 0.0 - 0.4 % [facility] Immature Gran # 0.04 (H) 0.00 - 0.03 K/uL [facility] NRBC # 0.00 0.00 - 0.12 K/uL [facility] Specimen Blood - Blood specimen (specimen) Performing Organization Address City/State/Zipcode Phone Number [facility] [address] [address] [phone] documented in this encounter Visit Diagnoses Diagnosis Occlusion of femoropopliteal bypass graft, initial encounter (HCC) PVD (peripheral vascular disease) (HCC) Peripheral vascular disease, unspecified Diagnosis Other specified complication of vascular prosthetic devices, implants and grafts, initial encounter (HCC) Diagnosis PVD (peripheral vascular disease) (HCC) Peripheral vascular disease, unspecified Occlusion of femoropopliteal bypass graft (HCC) Other complications due to other vascular device, implant, and graft documented in this encounter Insurance Payer Benefit Plan / Subscriber ID Effective Dates Phone Address Type Group [facility] x[facility]xxx 2018-Present Aet ADVANTAGE ADVANTAGE documented as of this encounter Advance Directives Code Status Date Activated Date Inactivated Comments Full Code 12/02/2017 3:57 PM 12/06/2017 6:49 PM Does patient have decision making capacity? yes Order discussed with: Patient I discussed all options and patient/surrogate requested and agreed to: Full Code
--- OUTSIDE RECORDS SUMMARY | 2019-06-18 14:56 | XMS REPORT | Summary of Care ---
:1940 Author Organization [facility] Address [address] [facility] [place] [address] Care Team Providers Name Role Phone Vishal Greenwood MD Primary Care Provider Reason for Visit Reason Comments Peripheral Vascular Disease pt. here re: left foot coldness & pain. Encounter Details Date Type Department Care Team Description 05/13/2019 Office Visit [facility] JULIA OliverD (peripheral vascular disease) ([facility]) (Primary Dx); Surgery MD Nj Occlusion of femoropopliteal bypass graft, initial encounter ([facility]) [address] [facility] [place] [address] [place] [address] [phone] Allergies No Known Allergiesdocumented as of this encounter (statuses as of 05/14/2019) Medications Medication Sig Dispensed Refills Start End [...] MCG/ACT Inhalation NEEDED. AEROSOL POWDER, BREATH ACTIVATED OXYcodone Take 1 Tab by 40 Tab 0 05/23/20 Active (OXY-IR,OXY-FAST) 5 mouth EVERY 9 19 MG Oral Tab SIX HOURS NEEDED (foot pain) for up to 10 days. Max Daily Amount: 20 mg. ALBUTEROL Take by 0 05/13/20 Discontinued INIndications: 2 inhalation. 19 puffs every 4 hours as needed OXYcodone Take 1 Tab by 10 Tab 0 05/13/20 Discontinued (OXY-IR,OXY-FAST) 5 mouth EVERY 8 19 (Other) MG Oral Tab SIX HOURS NEEDED for Pain. Max Daily Amount: 20 mg. documented as of this encounter (statuses as of 05/14/2019) Active Problems Problem Noted Date Occlusion of femoropopliteal bypass graft 05/13/2019 Overview: Added automatically from request for surgery [id number] PVD (peripheral vascular disease) 05/13/2019 Overview: Added automatically from request for surgery [id number] Sinus node dysfunction 01/22/2018 Cardiomyopathy 01/22/2018 Peripheral vascular disease 01/05/2018 Paroxysmal atrial fibrillation 12/02/2017 documented as of this encounter (statuses as of 05/14/2019) Social History Tobacco Use Types Packs/Day Years [...] Sign Reading Time Taken Comments Blood Pressure 140/58 05/13/2019 1:30 PM EST Pulse 80 05/13/2019 1:30 PM EST Temperature - - Respiratory Rate - - Oxygen Saturation - - Inhaled Oxygen Concentration - - Weight 68.9 kg (152 lb) 05/13/2019 1:30 PM EST Height 152.4 cm (5') 05/13/2019 1:30 PM EST Body Mass Index 29.69 05/13/2019 1:30 PM EST documented in this encounter Patient Instructions Patient InstructionsSly Brown NP - 05/13/2019 1:00 PM EST05/13/2019 Date of Surgery: 06/09/2018 Procedure: Left below the knee amputation Your Surgeon: Dr. Oliver One day before surgery: 06/08/2018 Nothing to eat or drink after midnight Continue taking all medications by mouth Shower with Endur soap in the evening Day of surgery: 06/09/2018 Nothing to eat or drink Shower with Endur soap this morning Take all of your blood pressure and cardiac medications you normally take in the morning with a sip of water If taking insulin take half of your long-acting (NPH) and do not take your regular insulin. Do not take Metformin Come to Ambulatory Surgery Waiting Area on the 4th floor of the [facility] at the indicated time: 07:30 am Anticoagulation: If taking: Plavix (Clopidogrel): Continue taking Xarelto: Stop taking on Friday06/06/2019 YOU MUST HAVE A CABLE WAY OPERATOR TO DRIVE YOU HOME AFTER THE PROCEDURE Preadmission services will call you to review insurance and nursing history. If you are not contacted by the day prior to your surgery, please contact them at [phone]. Please expect a 1-2 hour wait in prep and recovery prior to your surgery or procedure. The doctor will see your family after the procedure. If any questions call our office at [phone] or [phone] documented in this encounter Progress Notes Nj Oliver MD - 05/13/2019 1:00 PM EST PATIENT: Brittany Hughes : 1940 DATE OF SERVICE: 05/13/2019 REFERRING PRACTITIONER: Self-Referred PRIMARY CARE PROVIDER: Vishal Greenwood CHIEF COMPLAINT: Chief Complaint Patient presents with Peripheral Vascular Disease pt. here re: left foot coldness & pain. Subjective HISTORY OF PRESENT ILLNESS: Brittany Hughes is a 78-y.o. female who is seen in 3 month follow up. She reports she can walk around [facility] with or without holding a shopping cart without problems. She reports the scab like area on the end of her left foot stump is unchanged. She denies any redness, swelling, or drainage from this site. She denies any chest pain, shortness of breath, or recent fever or chills. She is status post: 12/05/2017 Severe peripheral vascular disease with limb ischemia and non healing ulcer: s/p 1. Aortogram. Pelvic angiogram, left lower extremity angiogram, and selective fifth-order cannulation of left anterior tibial artery. 2. Recanalization of the occluded left superficial femoral artery using subintimal recanalization technique. 3. Left above-knee popliteal artery and left superficial femoral artery bare-metal stent placement (three overlapping stents, 6 mm x 150 mm, 6 mm x 150 mm, 7 mm x 100 mm EverFlex stents). 4. Percutaneous transluminal balloon angioplasty of the left popliteal artery and superficial femoral artery with 4-mm and 5-mm balloon. 5. Ultrasound-guided access of right common femoral artery. 6. ProGlide Perclose closure of right common femoral artery access. 7. Fluoroscopic guidance, radiologic supervision and interpretation of by Dr. Oliver PROCEDURE PERFORMED: Right common femoral artery, right distal external iliac artery, right proximalsuperficial femoral artery endarterectomy with patch angioplasty (bovine pericardial patch) 14 mm x 10 cm on 01/05/[address] Oliver Patient is s/p 04/18/2018; 1. Aortogram, pelvic angiogram, left lower extremity angiogram with selective fifth-order cannulation of left anterior tibial artery. 2. Recanalization of occluded left superficial femoral artery stent. 3. AngioJet percutaneous catheter-directed pharmacomechanical thrombolysis with tissue plasminogen activator in Power Pulse mode (25 mg tissue plasminogen activator). 4. Percutaneous transluminal balloon angioplasty of left superficial femoral artery stent with 5-mm [place] balloon. 5. Percutaneous transluminal balloon angioplasty of left anterior tibial artery with 2-mm [place] balloon. 6. Ultrasound-guided access of right common femoral artery. 7. ProGlide Perclose closure of right common femoral artery access site. 8. Fluoroscopic guidance, radiologic supervision and interpretation of left lower extremity arteriogram with intervention. [id number]: Patient returns to vascular surgery clinic complaining of worsening left foot pain and coldness thathas started approximately 2 to 3 weeks ago. Patient is now wheelchair-bound due to pain when tryingto walk. She does report intermittent pain at rest. She denies any open wound or ulceration. She denies any chest pain, unusual shortness of breath, or recent fever or chills. PREVIOUS DIAGNOSTICS: 12/08/2018 IMPRESSIONS: 77 year old female with angioplasty and thrombectomy of left leg in 05/2018, follow up exam. ABIs and PVRs of the bilalateral lower extremites indicates mild bilateral lower extremity arterial occlusive disease. PVRs of the bilateral calves are mild PVRs of the bilateral ankles are moderate PVRs of the bilateral metatarsals and right toe digit are moderate Left 1st thur 5th digits have been amputated. Biphasic bilateral DP/PTs. Right SAUD: .75, Left SAUD: .71 There has been no change since previous exam of 08/04/2018 08/04/2018 IMPRESSIONS: 77 year old female with angioplasty and thrombectomy of left leg in 05/2018, follow up exam. ABIs and PVRs of the bilalateral lower extremites indicates mild bilateral lower extremity arterial occlusive disease. PVRs of the bilateral calves are mild PVRs of the bilateral ankles are moderate PVRs of the bilateral metatarsals and right toe digit are moderate Left 1st thur 5th digits have been amputated. Biphasic bilateral DP/PTs. Right SAUD: .63, Left SAUD: .77 There has been inprovement in the left lower extremity since previous exam of , the right remains unchanged. SAUD VALUE: Over 1.3 (Non compressible), .90-1.3 (Normal ) .89-.60 (Mild), .59-.40(Moderate),Under .40 (Severe) 05/05/2018 IMPRESSIONS: Patient is status post left leg angioplasty and thrombectomy, 2 week follow up. ABIS and PVRs of the bilateral lower extremities indicate right mild lower extremity arterial occlusive disease, the left lower extremity indicates moderate arterial occlusive disease. PVRS of the right calf, ankle, metatarsal are mild. PVRs of the left calf are mild with moderate ankle and metatarsal. Biphasic bilateral DP/PTs Right SAUD:.75, Left SAUD: .46 There is been some improvement in the left SAUD since previous exam of 04/17/2018. 02/06/2018 IMPRESSION: Significantly limited by motion artifact. History of amputation at the level of the metatarsal shafts. Soft tissue wound along the lateral aspect of the foot. Although there is some edema within the metatarsals, given the absence of discrete bone marrow replacement, the bone marrow edema is presumed reactive at this time. Osteomyelitis cannot be diagnosed without bone marrow replacement on T1 imaging. If there is persistent concern on follow-up, suggest follow-up imaging. Signed by Jayjay Florez on 02/11/2018 11:31 AM 01/20/2018: PVRs and dopplers of the bilateral lower extremities was performed. The right lower extremity thigh, calf, ankle, transmet, and 1st toe PVRs are mild with biphasic dopplers obtained at the dorsalis pedis and posterior tibial arteries. RT SAUD: 0.81 The left lower extremity thigh, calf, and ankle PVRs are mild. The transmet and 1st toe PVRs are not available due to a recent amputation. Biphasic dopplers were obtained at the dorsalis pedis and posterior tibial arteries. LT SAUD: 0.63 There is improvement seen in the right lower extremity SAUD since the previous study completed on 12/23/17. Little to no change is seen in the left lower extremity. 12/23/2017 IMPRESSIONS: 77 year old female with recent stent placement to left lower extremity , has had left toes amputated 2016. Complains of worsening right lower extremity pain. ABIS and PVRs of the bilateral lower extremities indicates severe right lower extremity occlusive arterial disease starting at the region of the arota iliac, probably chronic, there is mild left lower extremity occlusive arterial disease, there is improvement since previous exam of 12/02/2017 done at an other instituion. PVRs of the right thigh and calf are moderate with severe right ankle, metatatarsal and toe digit. PVRs of the left thigh, calf, ankle and metatarsal are mild, toes have been amputated. Monophasic right DP, non audible right PT. Biphasic left DP/PT. Right SAUD: .14 Left SAUD: 79 No change in right lower extremity , improved left lower extremity based on outside exam done at another institution on 12/02/2017. Past Medical History: Diagnosis Date Cardiomyopathy (HCC) 01/22/2018 Diabetes mellitus (HCC) Hypertension Myocardiopathy (HCC) 01/22/2018 Paroxysmal atrial fibrillation (HCC) 12/02/2017 Sinus node dysfunction (HCC) 01/22/2018 Past Surgical History: Procedure Laterality Date IMPLANT PERMANENT PACEMAKER INSERTION Left 03/12/2018 Procedure: IMPLANT PERMANENT PACEMAKER INSERTION; Surgeon: Live Nguyen MD; Location: [facility]; Laterality: Left; DUAL CHAMBER PPM, LEFT IN THROMBOENDARTECTMY FEMORAL COMMON Right 01/05/2018 Procedure: RIGHT COMMON FEMORAL DISTAL EXTERNAL ILIAC ENDARTERECTOMY WITH BOVINE PERICARDIAL PATCH ANGIOPLASTY; Surgeon: Nj Oliver MD; Location: [facility] OR IN TOTAL ABDOM HYSTERECTOMY Family History Problem Relation Age of Onset Emphysema Mother Current Outpatient Medications Medication Sig acetaminophen (TYLENOL) 325 MG Oral Tab Take 2 Tabs by mouth EVERY SIX HOURS NEEDED for Pain. Albuterol Sulfate 108 (90 Base) MCG/ACT Inhalation AEROSOL POWDER, BREATH ACTIVATED Take by inhalation NEEDED. amLodipine (NORVASC) 5 MG Oral Tab Take 5 mg by mouth DAILY. atorvastatin (LIPITOR) 80 MG Oral Tab Take 80 mg by mouth DAILY. bimatoprost (LUMIGAN) 0.01 % Ophthalmic Solution Place 1 Drop in both eyes DAILY. Cholecalciferol 1000 units Oral Chew Tab Take by mouth. citalopram (CELEXA) 20 MG Oral Tab Take 20 mg by mouth DAILY. clopidogrel (PLAVIX) 75 MG Oral Tab Take 1 Tab by mouth DAILY. Dorzolamide HCl-Timolol Mal (COSOPT OP) Place 1 Drop to the external eye EVERY MORNING. ferrous sulfate 325 (65 Fe) MG Oral Tab Take 325 mg by mouth DAILY. gabapentin (NEURONTIN) 300 MG Oral Cap Take 300 mg by mouth TWICE DAILY. GLARGINE insulin, LONG-Acting, (LANTUS) 100 UNIT/ML Subcutaneous Solution Inject 10 Units beneath the skin EVERY BEDTIME. Losartan Potassium 100 MG Oral Tab Take 0.5 Tabs by mouth DAILY. metFORMIN (GLUCOPHAGE) 500 MG Oral Tab Take 1,000 mg by mouth TWICE DAILY. Mirabegron (MYRBETRIQ PO) Take 1 Tab by mouth EVERY BEDTIME. nadolol (CORGARD) 20 MG Oral Tab Take 0.5 Tabs by mouth DAILY. OXYcodone (OXY-IR,OXY-FAST) 5 MG Oral Tab Take 1 Tab by mouth EVERY SIX HOURS NEEDED for Pain. Max Daily Amount: 20 mg. pantoprazole (PROTONIX) 40 MG Oral Tab EC Take 40 mg by mouth DAILY. Probiotic Product (PROBIOTIC PO) Take 1 Tab by mouth DAILY. rivaroxaban (XARELTO) 15 MG Oral Tab Take 1 Tab by mouth DAILY. tramadol (ULTRAM) 50 MG Oral Tab Take 50 mg by mouth EVERY SIX HOURS NEEDED for Pain. No current facility-administered medications for this visit. No Known Allergies Social History Socioeconomic History Marital status: Spouse name: Not on file Number of children: Not on file Years of education: Not on file Highest education level: Not on file Occupational History Not on file Social Needs Financial resource strain: Not on file Food insecurity Worry: Not on file Inability: Not on file Transportation needs Medical: Not on file Non-medical: Not on file Tobacco Use Smoking status: Former Smoker Packs/day: 0.25 Types: Cigarettes Last attempt to quit: 2019 Years since quittin.9 Smokeless tobacco: Never Used Substance and Sexual Activity Alcohol use: No Drug use: No Sexual activity: Never Lifestyle Physical activity Days per week: Not on file Minutes per session: Not on file Stress: Not on file Relationships Social connections Talks on phone: Not on file Gets together: Not on file Attends amish service: Not on file Active member of club or organization: Not on file Attends meetings of clubs or organizations: Not on file Relationship status: Not on file Intimate partner violence Fear of current or ex partner: Not on file Emotionally abused: Not on file Physically abused: Not on file Forced sexual activity: Not on file Other Topics Concern Back Care Not Asked Bike Helmet Not Asked Blood Transfusions Not Asked Caffeine Concern Not Asked Exercise Not Asked Hobby Hazards Not Asked International Travel Not Asked Service Not Asked Occupational Exposure Not Asked Seat Belt Not Asked Self-Exams Not Asked Sleep Concern Not Asked Special Diet Not Asked Stress Concern Not Asked Weight Concern Not Asked Social History Narrative Not on file REVIEW OF SYSTEMS: as per history of present illness Objective PHYSICAL EXAMINATION: VITALS: BP 140/58 (BP Location: Right arm, Patient Position: Sitting) | Pulse 80 | Ht 5' (1.524 m) | Wt 152 lb (68.9 kg) | BMI 29.69 kg/m GENERAL: awake, alert, oriented. HEENT: pupils equal, round, reactive to light, extraocular movement intact. NECK: no mass, no adenopathy, no thyromegaly. NEUROLOGICAL: Oriented X 3, DELGADO. PULSES: left dorsalis not palpable, right dorsalis +1 diminished, left posterior tibialis not palpable and right posterior tibialis +1 diminished. LEFT FOOT: Warm, previously amputated toes, no edema, erythema, small callous noted lateral side offoot stump, no erythema, no drainage RIGHT FOOT: warm, good capillary filling, no ulceration, no discoloration. [id number]: Patient is wheelchair-bound, left foot is erythematous, cool to touch with reduced capillary refill,without palpable or dopplerable DP or PT pulses. DIAGNOSTICS: 05/13/2019 IMPRESSIONS: Indication: Peripheral vascular disease with intervention. [...] Dopplers were attempted by two sonographers. Right SAUD: 0.77 Left SAUD: Not able to obtain. There is no significant change of the right lower extremity. The left lower extremity shows significant decrease in PVRs and Dopplers could not be obtained on today's examination. Previously, the left lower extremity demonstrated biphasic DPA and CASING WORKER dopplers and an SAUD: 0.71. This is incomparison to the previous examination of 12/08/2018 Plan ASSESSMENT and PLAN: 77-year-old female almost 9 months status post thrombolysis and angioplasty of occluded left SFA stent, angioplasty of left anterior tibial artery. Small callous noted left lateral foot stump. Progressing well. Walking improved. ICD-9-CM ICD-10-CM 1. PVD (peripheral vascular disease) ([facility]) 443.9 I73.9 CASE REQUEST OPERATING ROOM 2. Occlusion of femoropopliteal bypass graft, initial encounter ([facility]) 996.74 T82.898A CASE REQUEST OPERATING ROOM Patient seen with Dr. Oliver Recommend continue with Plavix, Xarelto, and Lipitor daily. From Dr. Oliver's note 05/05/2018 Patient is at a precarious situation for possible stent reocclusion given the limited outflow from the stent, if the patient develops recurrent stent occlusion, she may further progress into ischemic rest pain versus tissue loss in that case given the no feasible or durable bypass target, given the advanced age, patient would require left [id number] amputation. Follow up with Vascular Surgery in 1 year for SAUD's or sooner with problems. [id number]; patient returns to the vascular surgery clinic with worsening left lower extremity pain, with ischemic rest pain with no dopplerable pulses within the left leg. SAUD demonstrated non-dopplerable left DP and PT pulses. Likely patient has occluded left SFA stents. This is the second time that patient's left lower extremity stents have occluded , with resulting critical limb ischemia which is ongoing for last 2 to 3 weeks. I reviewed the images patient has no patent major infra popliteal arteries that are abnormal for bypass target. All the tibial arteries are smaller in caliber with extensive small collaterals. Given the recurrent stent occlusion and lack of bypassable target and advanced age and comorbidities, I discussed with the patient that performing left below the knee amputation would be an option, to treat ischemic rest pain and prevent worsening gangrene. Patient after understanding the risk and benefits of the procedure agreed to proceed with left below the knee amputation after [place] and newyear. All questions and concerns were addressed. I discussed with the patient that risk of the procedure which include infection, hematoma, wound breakdown, need for revision and other complication were discussed. Patient expressed understanding. Patient wishes to proceed with surgery. Patient given a bottle of Endur soap. Instructions reviewed with patient. Patient Instructions 05/13/2019 Date of Surgery: 06/09/2018 Procedure: Left below the knee amputation Your Surgeon: Dr. Oliver One day before surgery: 06/08/2018 Nothing to eat or drink after midnight Continue taking all medications by mouth Shower with Endur soap in the evening Day of surgery: 06/09/2018 Nothing to eat or drink Shower with Endur soap this morning Take all of your blood pressure and cardiac medications you normally take in the morning with a sip of water If taking insulin take half of your long-acting (NPH) and do not take your regular insulin. Do not take Metformin Come to Ambulatory Surgery Waiting Area on the 4th floor of the [facility] at the indicated time: 07:30 am Anticoagulation: If taking: Plavix (Clopidogrel): Continue taking Xarelto: Stop taking on Friday06/06/2019 YOU MUST HAVE A CABLE WAY OPERATOR TO DRIVE YOU HOME AFTER THE PROCEDURE Preadmission services will call you to review insurance and nursing history. If you are not contacted by the day prior to your surgery, please contact them at [phone]. Please expect a 1-2 hour wait in prep and recovery prior to your surgery or procedure. The doctor will see your family after the procedure. If any questions call our office at [phone] or [phone] Author: Nj Oliver MD 05/13/2019 17:32 Sly Groves NP - 05/13/2019 1: 00 PM EST PATIENT: Brittany Hughes : 1940 DATE OF SERVICE: 05/13/2019 REFERRING PRACTITIONER: Self-Referred PRIMARY CARE PROVIDER: Vishal Greenwood CHIEF COMPLAINT: Chief Complaint Patient presents with Peripheral Vascular Disease pt. here re: left foot coldness & pain. Subjective HISTORY OF PRESENT ILLNESS: Brittany Hughes is a 78-y.o. female who is seen for complaints that left foot stump is cold and painful. She reports pain into the lower leg from the foot. She is able to get around the house on her own and uses a wheelchair for any longer distance. She denies any chest pain, shortness of breath, or recent fever or chills. She is status post: 12/05/2017 Severe peripheral vascular disease with limb ischemia and non healing ulcer: s/p 1. Aortogram. Pelvic angiogram, left lower extremity angiogram, and selective fifth-order cannulation of left anterior tibial artery. 2. Recanalization of the occluded left superficial femoral artery using subintimal recanalization technique. 3. Left above-knee popliteal artery and left superficial femoral artery bare-metal stent placement (three overlapping stents, 6 mm x 150 mm, 6 mm x 150 mm, 7 mm x 100 mm EverFlex stents). 4. Percutaneous transluminal balloon angioplasty of the left popliteal artery and superficial femoral artery with 4-mm and 5-mm balloon. 5. Ultrasound-guided access of right common femoral artery. 6. ProGlide Perclose closure of right common femoral artery access. 7. Fluoroscopic guidance, radiologic supervision and interpretation of by Dr. Oliver PROCEDURE PERFORMED: Right common femoral artery, right distal external iliac artery, right proximalsuperficial femoral artery endarterectomy with patch angioplasty (bovine pericardial patch) 14 mm x 10 cm on 01/05/[address] Oliver Patient is s/p 04/18/2018; 1. Aortogram, pelvic angiogram, left lower extremity angiogram with selective fifth-order cannulation of left anterior tibial artery. 2. Recanalization of occluded left superficial femoral artery stent. 3. AngioJet percutaneous catheter-directed pharmacomechanical thrombolysis with tissue plasminogen activator in Power Pulse mode (25 mg tissue plasminogen activator). 4. Percutaneous transluminal balloon angioplasty of left superficial femoral artery stent with 5-mm [place] balloon. 5. Percutaneous transluminal balloon angioplasty of left anterior tibial artery with 2-mm [place] balloon. 6. Ultrasound-guided access of right common femoral artery. 7. ProGlide Perclose closure of right common femoral artery access site. 8. Fluoroscopic guidance, radiologic supervision and interpretation of left lower extremity arteriogram with intervention. PREVIOUS DIAGNOSTICS: 12/08/2018 IMPRESSIONS: 77 year old female with angioplasty and thrombectomy of left leg in 05/2018, follow up exam. ABIs and PVRs of the bilalateral lower extremites indicates mild bilateral lower extremity arterial occlusive disease. PVRs of the bilateral calves are mild PVRs of the bilateral ankles are moderate PVRs of the bilateral metatarsals and right toe digit are moderate Left 1st thur 5th digits have been amputated. Biphasic bilateral DP/PTs. Right SAUD: .75, Left SAUD: .71 There has been no change since previous exam of 08/04/2018 08/04/2018 IMPRESSIONS: 77 year old female with angioplasty and thrombectomy of left leg in 05/2018, follow up exam. ABIs and PVRs of the bilalateral lower extremites indicates mild bilateral lower extremity arterial occlusive disease. PVRs of the bilateral calves are mild PVRs of the bilateral ankles are moderate PVRs of the bilateral metatarsals and right toe digit are moderate Left 1st thur 5th digits have been amputated. Biphasic bilateral DP/PTs. Right SAUD: .63, Left SAUD: .77 There has been inprovement in the left lower extremity since previous exam of , the right remains unchanged. SAUD VALUE: Over 1.3 (Non compressible), .90-1.3 (Normal ) .89-.60 (Mild), .59-.40(Moderate),Under .40 (Severe) 05/05/2018 IMPRESSIONS: Patient is status post left leg angioplasty and thrombectomy, 2 week follow up. ABIS and PVRs of the bilateral lower extremities indicate right mild lower extremity arterial occlusive disease, the left lower extremity indicates moderate arterial occlusive disease. PVRS of the right calf, ankle, metatarsal are mild. PVRs of the left calf are mild with moderate ankle and metatarsal. Biphasic bilateral DP/PTs Right SAUD:.75, Left SAUD: .46 There is been some improvement in the left SAUD since previous exam of 04/17/2018. 02/06/2018 IMPRESSION: Significantly limited by motion artifact. History of amputation at the level of the metatarsal shafts. Soft tissue wound along the lateral aspect of the foot. Although there is some edema within the metatarsals, given the absence of discrete bone marrow replacement, the bone marrow edema is presumed reactive at this time. Osteomyelitis cannot be diagnosed without bone marrow replacement on T1 imaging. If there is persistent concern on follow-up, suggest follow-up imaging. Signed by Jayjay Florez on 02/11/2018 11:31 AM 01/20/2018: PVRs and dopplers of the bilateral lower extremities was performed. The right lower extremity thigh, calf, ankle, transmet, and 1st toe PVRs are mild with biphasic dopplers obtained at the dorsalis pedis and posterior tibial arteries. RT SAUD: 0.81 The left lower extremity thigh, calf, and ankle PVRs are mild. The transmet and 1st toe PVRs are not available due to a recent amputation. Biphasic dopplers were obtained at the dorsalis pedis and posterior tibial arteries. LT SAUD: 0.63 There is improvement seen in the right lower extremity SAUD since the previous study completed on 12/23/17. Little to no change is seen in the left lower extremity. 12/23/2017 IMPRESSIONS: 77 year old female with recent stent placement to left lower extremity , has had left toes amputated 2017. Complains of worsening right lower extremity pain. ABIS and PVRs of the bilateral lower extremities indicates severe right lower extremity occlusive arterial disease starting at the region of the arota iliac, probably chronic, there is mild left lower extremity occlusive arterial disease, there is improvement since previous exam of 12/02/2017 done at an other instituion. PVRs of the right thigh and calf are moderate with severe right ankle, metatatarsal and toe digit. PVRs of the left thigh, calf, ankle and metatarsal are mild, toes have been amputated. Monophasic right DP, non audible right PT. Biphasic left DP/PT. Right SAUD: .14 Left SAUD: 79 No change in right lower extremity , improved left lower extremity based on outside exam done at another institution on 12/02/2017. Past Medical History: Diagnosis Date Cardiomyopathy (HCC) 01/22/2018 Diabetes mellitus (HCC) Hypertension Myocardiopathy (HCC) 01/22/2018 Paroxysmal atrial fibrillation (HCC) 12/02/2017 Sinus node dysfunction (HCC) 01/22/2018 Past Surgical History: Procedure Laterality Date IMPLANT PERMANENT PACEMAKER INSERTION Left 03/12/2018 Procedure: IMPLANT PERMANENT PACEMAKER INSERTION; Surgeon: Live Nguyen MD; Location: [facility]; Laterality: Left; DUAL CHAMBER PPM, LEFT IN THROMBOENDARTECTMY FEMORAL COMMON Right 01/05/2018 Procedure: RIGHT COMMON FEMORAL DISTAL EXTERNAL ILIAC ENDARTERECTOMY WITH BOVINE PERICARDIAL PATCH ANGIOPLASTY; Surgeon: Nj Oliver MD; Location: [facility] Family History Problem Relation Age of Onset Emphysema Mother Current Outpatient Medications Medication Sig acetaminophen (TYLENOL) 325 MG Oral Tab Take 2 Tabs by mouth EVERY SIX HOURS NEEDED for Pain. Albuterol Sulfate 108 (90 Base) MCG/ACT Inhalation AEROSOL POWDER, BREATH ACTIVATED Take by inhalation NEEDED. amLodipine (NORVASC) 5 MG Oral Tab Take 5 mg by mouth DAILY. atorvastatin (LIPITOR) 80 MG Oral Tab Take 80 mg by mouth DAILY. bimatoprost (LUMIGAN) 0.01 % Ophthalmic Solution Place 1 Drop in both eyes DAILY. Cholecalciferol 1000 units Oral Chew Tab Take by mouth. citalopram (CELEXA) 20 MG Oral Tab Take 20 mg by mouth DAILY. clopidogrel (PLAVIX) 75 MG Oral Tab Take 1 Tab by mouth DAILY. Dorzolamide HCl-Timolol Mal (COSOPT OP) Place 1 Drop to the external eye EVERY MORNING. ferrous sulfate 325 (65 Fe) MG Oral Tab Take 325 mg by mouth DAILY. gabapentin (NEURONTIN) 300 MG Oral Cap Take 300 mg by mouth TWICE DAILY. GLARGINE insulin, LONG-Acting, (LANTUS) 100 UNIT/ML Subcutaneous Solution Inject 10 Units beneath the skin EVERY BEDTIME. Losartan Potassium 100 MG Oral Tab Take 0.5 Tabs by mouth DAILY. metFORMIN (GLUCOPHAGE) 500 MG Oral Tab Take 1,000 mg by mouth TWICE DAILY. Mirabegron (MYRBETRIQ PO) Take 1 Tab by mouth EVERY BEDTIME. nadolol (CORGARD) 20 MG Oral Tab Take 0.5 Tabs by mouth DAILY. OXYcodone (OXY-IR,OXY-FAST) 5 MG Oral Tab Take 1 Tab by mouth EVERY SIX HOURS NEEDED for Pain. Max Daily Amount: 20 mg. Probiotic Product (PROBIOTIC PO) Take 1 Tab by mouth DAILY. rivaroxaban (XARELTO) 15 MG Oral Tab Take 1 Tab by mouth DAILY. tramadol (ULTRAM) 50 MG Oral Tab Take 50 mg by mouth EVERY SIX HOURS NEEDED for Pain. No current facility-administered medications for this visit. No Known Allergies Social History Socioeconomic History Marital status: Spouse name: Not on file Number of children: Not on file Years of education: Not on file Highest education level: Not on file Occupational History Not on file Social Needs Financial resource strain: Not on file Food insecurity Worry: Not on file Inability: Not on file Transportation needs Medical: Not on file Non-medical: Not on file Tobacco Use Smoking status: Former Smoker Packs/day: 0.25 Last attempt to quit: 2018 Years since quittin.9 Smokeless tobacco: Never Used Substance and Sexual Activity Alcohol use: No Drug use: No Sexual activity: Never Lifestyle Physical activity Days per week: Not on file Minutes per session: Not on file Stress: Not on file Relationships Social connections Talks on phone: Not on file Gets together: Not on file Attends amish service: Not on file Active member of club or organization: Not on file Attends meetings of clubs or organizations: Not on file Relationship status: Not on file Intimate partner violence Fear of current or ex partner: Not on file Emotionally abused: Not on file Physically abused: Not on file Forced sexual activity: Not on file Other Topics Concern Back Care Not Asked Bike Helmet Not Asked Blood Transfusions Not Asked Caffeine Concern Not Asked Exercise Not Asked Hobby Hazards Not Asked International Travel Not Asked Service Not Asked Occupational Exposure Not Asked Seat Belt Not Asked Self-Exams Not Asked Sleep Concern Not Asked Special Diet Not Asked Stress Concern Not Asked Weight Concern Not Asked Social History Narrative Not on file REVIEW OF SYSTEMS: as per history of present illness Objective PHYSICAL EXAMINATION: VITALS: BP 140/58 (BP Location: Right arm, Patient Position: Sitting) | Pulse 80 | Ht 5' (1.524 m) | Wt 152 lb (68.9 kg) | BMI 29.69 kg/m GENERAL: awake, alert, oriented. HEENT: pupils equal, round, reactive to light, extraocular movement intact. NECK: no mass, no adenopathy, no thyromegaly. CARDIAC: Regular rate and rhythm RESPIRATORY: Clear bilaterally to auscultation NEUROLOGICAL: Oriented X 3, DELGADO. PULSES: left dorsalis not palpable, right dorsalis +1 diminished, left posterior tibialis not palpable and right posterior tibialis +1 diminished. LEFT FOOT: Cool, previously amputated toes, no edema, moderate erythema, small callous noted lateral side of foot stump, no drainage RIGHT FOOT: warm, good capillary filling, no ulceration, no discoloration. DIAGNOSTICS: 05/13/2019 Plan ASSESSMENT and PLAN: 77-year-old female almost 9 months status post thrombolysis and angioplasty of occluded left SFA stent, angioplasty of left anterior tibial artery. Small callous noted left lateral foot stump. Progressing well. Walking improved. No diagnosis found. Patient seen with Dr. Oliver Recommend continue with Plavix, Xarelto, and Lipitor daily. From Dr. Oliver's note 05/05/2018 Patient is at a precarious situation for possible stent reocclusion given the limited outflow from the stent, if the patient develops recurrent stent occlusion, she may further progress into ischemic rest pain versus tissue loss in that case given the no feasible or durable bypass target, given the advanced age, patient would require left [id number] amputation. Author: Sly Brown NP 05/13/2019 13:38 documented in this encounter Plan of Treatment Date Type Specialty Care Team Description 06/09/2019 Hospital Encounter [facility], Inpatient MD N[address] [address] [phone] 06/09/2019 Surgery [facility], AMPUTATION BELOW MD Nj KNEE LEFT [address] [address] [phone] 06/10/2019 [facility] Arrhythmia Center 10/14/2019 Office Visit Arrhythmia Center 12/08/2019 Office Visit Cardiology Zenaida Meza CRNP [address] [address] [phone] 02/01/2020 Office Visit Vascular Surgery Nj Oliver MD [address] [address] [phone] Name Type Priority Associated Diagnoses Order Schedule CASE REQUEST Procedures Routine Occlusion of Ordered: 05/13/2019 OPERATING ROOM femoropopliteal bypass graft, initial encounter (HCC) PVD (peripheral vascular disease) (HCC) Health Maintenance Due Date Last Done Comments [...] of this encounter Implants Implanted Type Area Managing Director Atlas Device Shelf Model / Identifier Expiration Date Serial / Lot Everflex Entrust Stent [id number] - [id number] Left: Leg MEDTR[employer]IC 09/09/2020 [id number] 150-150 / Implanted: Qty: 2 on 12/05/2017 by Nj Oliver MD at [facility] / [id number] Description:Left SFA/Popliteal Everflex Entrust Stent [id number] - [id number] Left: Leg [employer] 03/21/2019 [id number] 100-150 / Implanted: Qty: 1 on 12/05/2017 by Nj Oliver MD at [facility] / [id number] Description:Left leg SFA Biologic Patch 1cm X 14cm - [id number] Right: Artery LEMAITRE VASCULAR, 01/27/2023 [id number] / Implanted: Qty: 1 on 01/05/2018 by Nj Oliver MD at [facility] [employer] (LVI) / [id number] Assurity Mri [id number] Generator - [id number] Left: Chest [facility] [employer], 07/31/2019 [id number] / Implanted: Qty: 1 on 03/12/2018 by Live Nguyen MD at [facility] [employer]. [id number] / Lead, Tendril Mri [id number] - [id number] Left: Chest [facility] [employer], 07/08/2019 [id number] / Implanted: Qty: 1 on 03/12/2018 by Live Nguyen MD at [facility] [id number] / Lead, Tendril Mri [id number] - [id number] Left: Chest [facility] [employer], 06/01/2019 [id number] / Implanted: Qty: 1 on 03/12/2018 by Live Nguyen MD at [facility] [id number] / documented as of this encounter Results Not on filedocumented in this encounter Visit Diagnoses Diagnosis Occlusion of femoropopliteal bypass graft, initial encounter (HCC) PVD (peripheral vascular disease) (HCC) Peripheral vascular disease, unspecified Diagnosis PVD (peripheral vascular disease) (HCC) Peripheral vascular disease, unspecified Occlusion of femoropopliteal bypass graft (HCC) Other complications due to other vascular device, implant, and graft Diagnosis Occlusion of femoropopliteal bypass graft, initial encounter (HCC) PVD (peripheral vascular disease) (HCC) Peripheral vascular disease, unspecified documented in this encounter Insurance Payer Benefit [...] and patient/surrogate requested and agreed to: Full Code"
--- OUTSIDE RECORDS SUMMARY | 2019-06-18 14:56 | XMS REPORT | Summary of Care ---
:1940 Author Organization [facility] Address [address] [address] Care Team Providers Name Role Phone Vishal Greenwood MD Primary Care Provider Encounter Details Date Type Department Care Team Description 05/13/2019 Hospital Encounter Vishal Bing XR Outpatient [address] [address] Allergies No Known Allergiesdocumented as of this encounter (statuses as of 05/15/2019) Medications Medication Sig Dispensed Refills Start Date End Date Status atorvastatin (LIPITOR) Take 80 mg by 0 Active 80 MG Oral Tab mouth DAILY. bimatoprost (LUMIGAN) Place 1 Drop in 0 Active 0.01 % Ophthalmic both eyes DAILY. Solution Cholecalciferol 1000 Take by mouth. 0 Active units Oral Chew Tab citalopram (CELEXA) 20 Take 20 mg by 0 Active MG Oral Tab mouth DAILY. ferrous sulfate 325 Take 325 mg by 0 Active (65 Fe) MG Oral Tab mouth DAILY. gabapentin (NEURONTIN) Take 300 mg by 0 Active 300 MG Oral Cap mouth TWICE DAILY. GLARGINE insulin, Inject 10 Units 0 Active LONG-Acting, (LANTUS) beneath the skin 100 UNIT/ML EVERY BEDTIME. Subcutaneous Solution Losartan Potassium 100 Take 0.5 Tabs by [...] Tab EC OXYcodone Take 1 Tab by 40 Tab 0 05/13/2019 05/23/2019 Active (OXY-IR,OXY-FAST) 5 MG mouth EVERY SIX Oral Tab HOURS NEEDED (foot pain) for up to 10 days. Max Daily Amount: 20 mg. 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 Overview: Added automatically from request for surgery [id number] PVD (peripheral vascular disease) 05/13/2019 Overview: Added automatically from request for surgery [id number] Sinus node dysfunction 01/22/2018 Cardiomyopathy 01/22/2018 Peripheral [...] Specialty Care Team Description 06/09/2019 Hospital Encounter Acute [facility], [facility] MD N[address] [address] [phone] 06/09/2019 Surgery [facility], [facility] BELOW MD Nj KNEE LEFT [address] [address] [phone] 06/10/2019 [facility] 10/14/2019 Office Visit Arrhythmia Center 12/08/2019 Office Visit Cardiology Zenaida Meza CRNP [address] [address] [phone] 02/01/2020 Office Visit Vascular Surgery Nj Oliver MD [address] [address] [phone] Health Maintenance Due Date Last Done Comments [...] of this encounter Implants Implanted Type Area Bowl Sander Device Shelf Model / Identifier Expiration Date Serial / Lot Everflex Entrust Stent [id number] - [id number] Left: Leg [employer] 09/09/2020 [id number] 150-150 / Implanted: Qty: 2 on 12/05/2017 by Nj Oliver MD at [facility] / [id number] Description:Left SFA/Popliteal Everflex Entrust Stent [id number] - [id number] Left: Leg [employer] 03/21/2019 [id number] 100-150 / Implanted: Qty: 1 on 12/05/2017 by Nj Oliver MD at [facility] / [id number] Description:Left leg SFA Biologic Patch 1cm X 14cm - [id number] Right: Artery LEMAITRE VASCULAR, 01/27/2023 E1P14 / Implanted: Qty: 1 on 01/05/2018 by Nj Oliver MD at [facility] [employer] (LVI) / [id number] [id number] Generator - [id number] Left: Chest [facility], 07/31/2019 [id number] / Implanted: Qty: 1 on 03/12/2018 by Live Nguyen MD at [facility] [employer]. [id number] / Lead, Tendril Mri [id number] - [id number] Left: Chest [facility], 07/08/2019 [id number] / Implanted: Qty: 1 on 03/12/2018 by Live Nguyen MD at [facility] [id number] / Lead, Tendril Mri [id number] - [id number] Left: Chest [facility] [employer], 06/01/2019 [id number] / Implanted: Qty: 1 on 03/12/2018 by Live Nguyen MD at [facility] [id number] / documented as of this encounter Procedures Procedure Name Priority Date/Time Associated Diagnosis Comments XR CHEST 2 VIEW PA OMKAR 05/13/2019 4:17 PM Results for this AND LATERAL EST procedure are in (STANDARD) the results section. documented in this encounter [...] Marguerite Stanford MD on 05/13/2019 4:24 PM documented in this encounter Insurance Payer Benefit [...]
[2019-06-18 15:03] LABS: Hematocrit 35 % (35-47); Hemoglobin 11.6 g/dL (12.0-16.0); Mean Corpuscular HGB Conc 33 g/dL (31-36); Mean Corpuscular Hemoglobin 29 pg (27-31); Mean Corpuscular Volume 87 fL (80-97); Mean Platelet Volume 8.2 fL (7.4-10.4); Platelet Count 435 10^3/uL (150-450); Red Blood Count 4.04 10^6 /uL (3.70-4.87); Red Cell Distribution Width 15 % (10-15)
[2019-06-18 15:28] LABS: ABS Lymphocytes 1.3 10^3/ul (1.0-4.8); ABS Neutrophils 25.7 10^3/ul (1.5-7.7); Eosinophil % 0.1 %; Lymphocyte % 4.6 %
[2019-06-18 15:45] LABS: Albumin 3.3 g/dL (3.2-5.2); Albumin/Globulin Ratio 0.9 (1-3); BUN/Creatinine Ratio 33.5 (8-20); C Reactive Protein 198.61 mg/L (<8.01); Calcium 9.3 mg/dL (8.6-10.3); EGFR African American 37.3 (>60); EGFR Non-African American 30.8 (>60); Globulin 3.7 g/dL (2-4); Total Bilirubin 0.4 mg/dL (0.2-1.0)
[2019-06-18 15:46] LABS: Potassium 5.3 mmol/L (3.5-5.0)
[2019-06-18 17:18] LABS: Erythrocyte Sed Rate 85 mm/Hr (0-29)
[2019-06-18] MEDS ORDERED: oxyCODONE TAB* 5 MG TAB PO PRN (17:22)
[2019-06-18] MEDS ORDERED: Albuterol HFA INHALER* 8 gm MDI INH PRN (17:22)
[2019-06-18] MEDS ORDERED: Dextrose 50% Syringe 50 ML* 25 GM/50 ML SYRINGE IV PUSH PRN (17:28)
[2019-06-18] MEDS ORDERED: NS 0.9% 1000 ML** 1,000 ML IV SCH (17:30)
[2019-06-18] MEDS ORDERED: Vancomycin per Pharmacy* NOTE FOLLOW UP SCH (18:00)
[2019-06-18] MEDS ORDERED: Cefepime 1 GM IV - ED ONCE IVPB ONE ×2 (19:00)
[2019-06-18] MEDS ORDERED: Cefepime 1 GM in Dextrose(*) 1 GM/50 ML BAG IV ONE (19:00)
[2019-06-18] MEDS ORDERED: Vancomycin(*) 1,000 MG in NS 0.9% 250 ML* 250 ML IVPB ONE (20:00)
[2019-06-18] MEDS ORDERED: Insulin GLARGINE(*) 1 UNITS UNIT SUBCUT SCH ×2 (21:00)
[2019-06-18] MEDS: Gabapentin CAP(*) 300 MG PO SCH (21:17)
[2019-06-18] MEDS: Insulin LISPRO* 1 UNITS UNIT SUBCUT SCH (21:19)
--- NOTE | 2019-06-18 21:33 | HP ---
CC: Dr. Greenwood * HISTORY AND PHYSICAL: DATE OF ADMISSION: 06/18/19 PRIMARY CARE PROVIDER: Dr. Greenwood. CHIEF COMPLAINT: Amputation stump infection. HISTORY OF PRESENT ILLNESS: Ms. Hughes is an 78-year-old female who underwent below- knee amputation on the left on 06/04/19. The patient's sister provides the bulk of the history. She states that in the past there had been an issue with blood flow to the left leg. She underwent arthrectomy approximately 2 to 3 years ago. The patient's sister noted that the left foot was cold. There was pain in the foot at rest. She ultimately was seen by [facility] Surgery at [facility] and set up for amputation. The patient unfortunately on the day prior to the scheduled amputation developed garbled speech. The patient was in [place], [place] at that time. She went to the emergency room. They thought it was probably a TIA. It does not sound as if the patient got admitted at that time. Surgery was performed the following day. The patient was subsequently discharged to [facility]. The patient's white blood cell count has been noted to be elevated. She has increased redness around the incision. There is pain there. The patient states that the pain is not any worse now than it was, however. The patient has had no fevers and no chills. Her appetite has been poor since her surgery. PAST MEDICAL HISTORY: 1. Hypertension. 2. Type 2 diabetes. 3. Diabetic neuropathy. 4. Peripheral arterial disease, status post atherectomy of the left SFA September 2016 for critical limb ischemia. 5. Dementia. PAST SURGICAL HISTORY: 1. Atherectomy. 2. Appendectomy. 3. Tubal ligation. 4. Bilateral mastectomy. 5. Bilateral cataracts. MEDICATIONS: 1. Xarelto 15 mg p.o. daily. 2. Tylenol 650 mg p.o. q.6 hours p.r.n. pain. 3. Dyazide 37.5/25 one cap p.o. daily. 4. Plavix 75 mg p.o. daily. 5. Oxycodone 10 mg p.o. q.6 hours p.r.n. pain. 6. Protonix 40 mg p.o. daily. 7. Nadolol 10 mg p.o. daily. 8. Gabapentin 300 mg p.o. b.i.d. 9. Myrbetriq 25 mg p.o. q.h.s. 10. Metformin 1000 mg p.o. b.i.d. 11. Lumigan 1 drop to both eyes q.h.s. 12. Losartan 50 mg p.o. daily. 13. Glargine 30 units subcutaneous q.h.s. 14. Ferrous sulfate 325 mg p.o. daily. 15. Cosopt 1 drop to both eyes daily. 16. Celexa 20 mg p.o. daily. 17. Vitamin D 1000 units p.o. daily. 18. Amlodipine 5 mg p.o. daily. 19. Lipitor 80 mg p.o. daily. 20. Probiotic 1 cap p.o. daily. 21. Albuterol 2 puffs inhaled q.4 hours p.r.n. shortness of breath. ALLERGIES: No known drug allergies. FAMILY HISTORY: Mom related to COPD. Dad had a stroke, then committed suicide. The patient's sister had a stroke. SOCIAL HISTORY: The patient is a former smoker. She quit formerly a couple of years ago. She does not drink alcohol. 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 She is . She had 3 children, 1 daughter of an NM at the age of 62, one son at the age of 62 of a brain tumor, 1 daughter living. Healthcare proxy is the patient's sister Mariaelena and her daughter who is in [place]. REVIEW OF SYSTEMS: Complete 11-system review of systems is obtained. Pertinent positives and negatives are as per HPI, and in addition, the patient does state that she has been having loose stools sometimes up to 3 to 4 per day. She will occasionally have a sharp twinge in her chest that is very short lived and she occasionally has double vision. She also admits to anxiety and depression. The rest of the review of systems is as per HPI. PHYSICAL EXAMINATION GENERAL: The patient is a well-developed, elderly female, lying flat in the stretcher, in no acute distress. VITAL SIGNS: Blood pressure 141/60, pulse 70, respirations 16, temp 97.6, O2 sat 94% on room air. HEENT: Pupils are pinpoint. There is evidence of prior cataract extraction. Extraocular muscles are intact. Oropharynx is clear and moist. PULMONARY: Lungs are clear to auscultation anteriorly and at the lateral bases. CARDIAC: Normal S1, S2. Regular rate and rhythm. I do not appreciate any murmurs. There is no lower extremity edema. ABDOMEN: Bowel sounds present. Abdomen is soft, nontender, nondistended. MUSCULOSKELETAL: There is a left below-knee amputation. SKIN: Visible areas of skin are warm and dry without rash. The amputation site appears deeply bruised. Additionally, there is erythema and bogginess of the tissue noted on the lateral aspect of the stump. There is no drainage. Sutures are in place. NEUROLOGIC: Cranial nerves II through XII are grossly intact. Sensation is intact to light touch throughout. Strength is 5/5 and symmetric in the upper extremities, and right lower extremity. Left lower extremity strength is not tested though she is able to fully lift her leg off the bed to inspect the stump. PSYCH: The patient is alert. She is generally oriented x3. Her sister states that she has been hallucinating, though I did not observe this during my time with the patient. DIAGNOSTIC STUDIES/LAB DATA: WBC 28, hemoglobin 11.6, hematocrit 35, platelets 435, ESR 85. Sodium 134, potassium 5.3, chloride 101, CO2 of 22, BUN 54, creatinine 1.61, glucose 56, calcium 9.3, bilirubin 0.4, AST 22, ALT 19, alk phos 70, CRP 198.61, albumin 3.3. Femur x-ray: There is no appreciable erosion or periosteal reaction. Plan radiograph findings of osteomyelitis are relatively late findings. If there is persistent clinical concern for osteomyelitis, recommend correlation with followup imaging. ASSESSMENT AND PLAN: Ms. Hughes is an 78-year-old female who underwent left below - knee amputation for limb ischemia 06/04/19, and now has been at [facility] for subacute rehab where her wound was noted to be erythematous and bruised appearing as well as the patient having an elevated white blood cell count. 1. Probable left amputation stump infection. The patient most likely has an amputation stump infection given her elevated white blood cell count and markedly elevated CRP. The patient will be started on vancomycin and cefepime. Orthopedics consultation has been requested. Dr. Diaz has recommended MRI of the stump. This will hopefully be done this evening. We will await further recommendations from Orthopedics. ID consultation will be requested for Friday if the patient is still here. We will get followup white blood cell count and CRP in the next couple of days. 2. Type 2 diabetes. I am going to reduce the patient's Lantus to 20 units subcutaneous q.h.s. Her glucose here is low at 56. She will be on a sliding scale. I am holding her metformin for now. 3. Hypertension. The patient is going to have her triamterene and hydrochlorothiazide, and losartan held for the time being as her creatinine is elevated above her baseline. 4. Hyperkalemia. The patient's potassium is mildly elevated. I am holding her triamterene and hydrochlorothiazide, and losartan. She additionally is going to be receiving normal saline. 5. Peripheral arterial disease. Continue Xarelto and Plavix for now. 6. Gastroesophageal reflux disease. Continue Protonix. 7. Diabetic neuropathy. Continue gabapentin. 8. Depression. Continue Celexa. 9. Hyperlipidemia. Continue Lipitor. 10. DVT prophylaxis: According to the Adult Thrombosis Prophylaxis Risk Factor Assessment Guide, the patient has a total risk factor score of 8 making her a high risk. She is already on Xarelto and this will act as her DVT prophylaxis. 11. Code status is DNR. TIME SPENT: Sixty five minutes was spent admitting this patient. [id number]/CPS #: [id number] MARCIA
[2019-06-18] MEDS ORDERED: Heparin VIAL(*) 5000 UNITS/ML VIAL (FIVE THOUSAND) SUBCUT SCH (22:00)
[2019-06-18] MEDS: Latanoprost 0.005%* 2.5 ml BTL BOTH EYES SCH (23:22)
[2019-06-19] MEDS: oxyCODONE TAB* 5 MG TAB PO PRN ×3 (01:50→19:55)
[2019-06-19 05:30] LABS: ABS Basophils 0.1 10^3/ul (0-0.2); ABS Eosinophils 0.2 10^3/ul (0-0.6); ABS Lymphocytes 1.4 10^3/ul (1.0-4.8); ABS Monocytes 1.3 10^3/ul (0-0.8); ABS Neutrophils 19.6 10^3/ul (1.5-7.7); Hematocrit 30 % (35-47); Mean Corpuscular HGB Conc 33 g/dL (31-36); Mean Corpuscular Hemoglobin 29 pg (27-31); Mean Corpuscular Volume 86 fL (80-97); Mean Platelet Volume 8.2 fL (7.4-10.4); Platelet Count 335 10^3/uL (150-450); Red Blood Count 3.49 10^6 /uL (3.70-4.87); Red Cell Distribution Width 15 % (10-15); White Blood Count 22.6 10^3/uL (3.5-10.8)
[2019-06-19 05:44] LABS: BUN/Creatinine Ratio 38.8 (8-20); Calcium 8.3 mg/dL (8.6-10.3); EGFR African American 51.8 (>60); EGFR Non-African American 42.8 (>60); Potassium 4.6 mmol/L (3.5-5.0)
--- NOTE | 2019-06-19 06:17 | PN ---
Hospitalist Progress Note Date of Service: 06/19/19 ON-CALL MD Note: RN reports Low Blood sugar- 40. Last night we had held her lantus. At this point- I will discontinue the order for lantus, she is on sliding scale insulin. RN to give juice and crackers to the patient, and recheck fingerstick per protocol.
[2019-06-19] MEDS: Insulin LISPRO* 1 UNITS UNIT SUBCUT SCH ×4 (08:00→19:52)
[2019-06-19] MEDS: Acetaminophen TAB* 325 MG PO PRN ×2 (08:27→19:55)
[2019-06-19] MEDS: Gabapentin CAP(*) 300 MG PO SCH ×2 (08:28→19:55)
[2019-06-19] MEDS ORDERED: amLODIPine TAB* 5 MG PO SCH (09:00)
[2019-06-19] MEDS ORDERED: Rivaroxaban TAB(*) 15 MG PO SCH (09:00)
[2019-06-19] MEDS ORDERED: Ferrous Sulfate TAB* 325 MG PO SCH (09:00)
[2019-06-19] MEDS ORDERED: Cholecalciferol TAB* 1000 UNITS PO SCH (09:00)
[2019-06-19] MEDS ORDERED: CMCS: Dorzolamide/Timolol OPTH (NF) 10 ML BOT BOTH EYES SCH (09:00)
[2019-06-19] MEDS ORDERED: Cefepime 1 GM in Dextrose(*) 1 GM/50 ML BAG IV SCH (09:00)
[2019-06-19] MEDS ORDERED: Losartan TAB* 25 MG PO SCH (09:00)
[2019-06-19] MEDS ORDERED: Atorvastatin* 80 MG TAB PO SCH (09:00)
[2019-06-19] MEDS ORDERED: Nadolol TAB* 40 MG PO SCH (09:00)
[2019-06-19] MEDS ORDERED: Pantoprazole TAB * 40 MG TAB PO SCH (09:00)
[2019-06-19] MEDS ORDERED: Citalopram TAB* 20 MG PO SCH (09:00)
[2019-06-19] MEDS ORDERED: Triamterene/HCTZ 37.5-25 MG* CAP PO SCH (09:00)
[2019-06-19] MEDS ORDERED: Clopidogrel TAB* 75 MG PO SCH (09:00)
--- NOTE | 2019-06-19 09:22 | PN ---
Subjective Date of Service: 06/19/19 Interval History: Pt is feeling ok this AM. She continues to have discomfort in the left amputation stump. She feels tired. No SOB. No diarrhea. Objective Active Medications: Acetaminophen (Tylenol Tab*) 650 mg PO Q6H PRN PRN Reason: PAIN - MODERATE Last Admin: 06/19/19 08:27 Dose: 650 mg Albuterol (Ventolin Hfa Inhaler*) 2 puff INH Q4H PRN PRN Reason: SOB/WHEEZING Amlodipine Besylate (Norvasc Tab*) 5 mg PO DAILY [facility] Last Admin: 06/19/19 08:28 Dose: 5 mg Atorvastatin Calcium (Lipitor*) 80 mg PO DAILY [facility] Last Admin: 06/19/19 08:27 Dose: 80 mg Cholecalciferol (Vitamin D Tab*) 1,000 units PO DAILY [facility] Last Admin: 06/19/19 08:27 Dose: 1,000 units Citalopram Hydrobromide (Celexa Tab*) 20 mg PO DAILY [facility] Last Admin: 06/19/19 08:28 Dose: 20 mg Clopidogrel Bisulfate (Plavix Tab*) 75 mg PO DAILY [facility] Last Admin: 06/19/19 08:28 Dose: 75 mg Dextrose (D50w Syringe 50 Ml*) 12.5 gm IV PUSH .FOR FS < 60 - SS PRN PRN Reason: FS < 60 Dorzolamide/Timolol (Cosopt (Nf)) 1 drop BOTH EYES QAM [facility]; Protocol Last Admin: 06/19/19 08:40 Dose: 1 drop Ferrous Sulfate (Ferrous Sulfate Tab*) 325 mg PO DAILY [facility] Last Admin: 06/19/19 08:29 Dose: 325 mg Gabapentin (Neurontin Cap(*)) 300 mg PO BID [facility] Last Admin: 06/19/19 08:28 Dose: 300 mg Cefepime HCl (Maxipime 1 Gm In Dextrose Duplex (*)) 1 gm in 50 mls @ 100 mls/ hr IV Q12H [facility] Last Admin: 06/19/19 08:40 Dose: 100 mls/hr Vancomycin HCl 1,000 mg/ (Sodium Chloride) 250 mls @ 166.667 mls/hr IV Q24H [facility] Insulin Human Lispro (Humalog*) 0 units SUBCUT ACHS [facility]; Protocol Last Admin: 01/18/20 08:00 Dose: Not Given Latanoprost (Xalatan 0.005%*) 1 drop BOTH EYES QPM [facility]; Protocol Last Admin: 06/18/19 23:22 Dose: 1 drop Nadolol (Corgard Tab*) 10 mg PO DAILY [facility] Last Admin: 06/19/19 08:29 Dose: 10 mg Oxycodone HCl (Roxycodone Tab*) 5 mg PO Q4H PRN PRN Reason: PAIN Last Admin: 06/19/19 08:28 Dose: 5 mg Pantoprazole Sodium (Protonix Tab*) 40 mg PO DAILY [facility] Last Admin: 06/19/19 08:27 Dose: 40 mg Pharmacy Consult (Vancomycin Per Pharmacy*) 1 note FOLLOW UP .VANC PER PHARMACY [facility]; Protocol Pharmacy Profile Note (Vancomycin Trough Check) 1 note FOLLOW UP 1330 ONE Stop: 06/21/19 13:31 Rivaroxaban (Xarelto(*)) 15 mg PO DAILY [facility] Last Admin: 06/19/19 08:29 Dose: 15 mg Vital Signs - 8 hr 06/19/19 06/19/19 06/19/19 01:50 04:27 05:23 Temperature 97.8 F Pulse Rate 72 Respiratory 18 18 16 Rate Blood Pressure 133/40 (mmHg) O2 Sat by Pulse 99 Oximetry 06/19/19 08:28 Temperature Pulse Rate Respiratory 18 Rate Blood Pressure (mmHg) O2 Sat by Pulse Oximetry Oxygen Devices in Use Now: None Appearance: Elderly female sitting up in bed, NAD Eyes: No Scleral Icterus Ears/Nose/Mouth/Throat: Mucous Membranes Moist Respiratory: Symmetrical Chest Expansion and Respiratory Effort, Clear to Auscultation Cardiovascular: NL Sounds; No Murmurs; No JVD, RRR, No Edema Abdominal: NL Sounds; No Tenderness; No Distention Extremities: No Clubbing, Cyanosis, - - L BKA Skin: - - Increased purple discoloration of the amputation stump, continued erythema on the lateral aspect of the incision/stump Neurological: Alert and Oriented x 3 Result Diagrams: 06/19/19 04:54 06/19/19 04:54 Microbiology and Other Data: Microbiology 06/18/19 21:20 Nasal Screen MRSA (PCR) - Final Nasal Mrsa Not Detected Assess/Plan/Problems-Billing Ms Hughes is an 78 yo F who has a h/o type II DM, HTN, PAD and mild dementia who presented to the ER with c/o possible amputation stump infection. - Patient Problems (1) Amputation stump infection Current Visit: Yes Status: Acute Code(s): T87.40 - INFECTION OF AMPUTATION STUMP, UNSPECIFIED EXTREMITY SNOMED Code(s): 141152037 Comment: I am very suspicious that the patient's amputation stump is infected. There is marked discoloration and her WBC count was markedly elevated on presentation to the ER at 28. With IV vanco and cefepime her WBC count has trended down to 22.4 today. MRI was recommended by orthopedics. I do not believe MRI will be able to be done today. Will obtain CT to eval for abscess while waiting and await any further recommendations from Dr. Diaz. . (2) PAD (peripheral artery disease) Current Visit: Yes Status: Acute Code(s): I73.9 - PERIPHERAL VASCULAR DISEASE, UNSPECIFIED SNOMED Code(s): 660171609 Comment: Pt with known PAD. Continue xarelto and plavix. She is due to follow up with her vascular surgeon this coming Friday but depending on orthopedics evaluation of her amputation stump she may need to be transferred ( pt's daughter only wants her to have any needed surgeries at [facility]). (3) Type II diabetes mellitus Current Visit: Yes Status: Acute Comment: Blood sugars have been quite low. Lantus was held last evening and despite that her AM glucose today was only 40. Will continue only lispro sliding scale for now. (4) Hypertension Current Visit: Yes Status: Acute Code(s): I10 - ESSENTIAL (PRIMARY) HYPERTENSION SNOMED Code(s): 19503457 Comment: BP is under good control. Continue amlodipine 5mg daily and nadolol 10mg daily. (5) Dementia Current Visit: Yes Status: Acute Code(s): F03.90 - UNSPECIFIED DEMENTIA WITHOUT BEHAVIORAL DISTURBANCE SNOMED Code(s): 82821498 Comment: Mild. Re-orient as needed. (6) Depression Current Visit: Yes Status: Acute Code(s): F32.9 - MAJOR DEPRESSIVE DISORDER , SINGLE EPISODE, UNSPECIFIED SNOMED Code(s): 86290552 Comment: Continue celexa. (7) DVT prophylaxis Current Visit: Yes Status: Acute Code(s): FRA9127 - SNOMED Code(s): 176590220 Comment: Xarelto (8) DNR (do not resuscitate) Current Visit: Yes Status: Acute
[2019-06-19] MEDS ORDERED: Iodixanol* (CONTRAST) 320 MG/ML 100 ML SDV IV ONE (10:23)
--- NOTE | 2019-06-19 11:49 | PN ---
PROGRESS NOTE: DATE OF VISIT: 06/19/19 HISTORY: Brittany is an 78-year-old woman, who I saw several years ago evidently for some toe infect ions, but now she has recently undergone a below-knee amputation left side at [facility] on 06/04/19. I believe this was done by the vascular service. She had some kind of arthrectomy several years ago, s o there is some question about her marginal blood supply to the left leg. At this point, she has bee n admitted, feeling poorly at the rehab with an elevated white count, some redness and dusky color ar ound her stump site. The yamileth are still intact. She is positive for type 2 diabetes, hypertension, neuropathy, and arterial disease. She has also mi ld dementia. She has a daughter who is involved with her care. Her medications are outlined in the chart as well as recent labs. Her brief review of systems reveals that she is not in any acute pain today, but a little bit disoriented in terms of dates and having trouble remembering how long ago she had a surgery, who the surgeon was, what hospital it was, etc., but she does appear alert and is con versant. The left leg is amputated and appropriate length, securely sutured with yamileth still intac t. The dorsal flap is dusky and there is some blistering now. She has tenderness diffusely at the s tump site with any manipulation. There is some redness of probably 6 to 7 cm at the distal stump, no ne at the knee or proximal, no tenderness there as well. She moves her knee well and freely. The patient appears to have either a postoperative infection in the stump site or just some signs of progressive ischemia. She is getting a CAT scan here currently, but I am in favor of transfer back t o [facility] as they have vascular support and I believe in the near future she may need to have another CTA of the left leg. [id number]/[facility] #: [id number]
--- NOTE | 2019-06-19 13:11 | DS ---
CC: Dr. Greenwood * DISCHARGE SUMMARY: DATE OF ADMISSION: 06/18/19 DATE OF TRANSFER: To [facility], 06/19/19. PRIMARY CARE PROVIDER: Dr. Greenwood. PRINCIPAL DIAGNOSES: Status post left below-knee amputation on 06/04/19 with dorsal flap ischemia and probable stump infection. SECONDARY DIAGNOSES: 1. Type 2 diabetes with hypoglycemia. 2. Hypertension. 3. Diabetic neuropathy. 4. Peripheral arterial disease. 5. Mild dementia. DISCHARGE MEDICATIONS: 1. Tylenol 650 mg p.o. q.6 hours p.r.n. pain. 2. Albuterol 2 puffs inhaled q.4 hours p.r.n. shortness of breath. 3. Amlodipine 5 mg p.o. daily. 4. Lipitor 80 mg p.o. daily. 5. Cefepime 1 g IV q.12 hours. 6. Vitamin D 1000 units p.o. daily. 7. Celexa 20 mg p.o. daily. 8. Plavix 75 mg p.o. daily. 9. Cosopt 1 drop to both eyes daily. 10. Ferrous sulfate 325 mg p.o. daily. 11. Gabapentin 300 mg p.o. b.i.d. 12. Lispro sliding scale a.c. h.s. 13. Latanoprost 1 drop to both eyes at bedtime. 14. Nadolol 10 mg p.o. daily. 15. Oxycodone 5 mg p.o. q.4 hours p.r.n. pain. 16. Protonix 40 mg p.o. daily. 17. Vancomycin 1 g IV q.24 hours. 18. Xarelto 15 mg p.o. daily. Home medications on hold: 1. Triamterene/hydrochlorothiazide. 2. Metformin. 3. Myrbetriq. 4. Lantus. 5. Cozaar. 6. Probiotic. HOSPITAL COURSE: Ms. Hughes is an 78-year-old female who underwent left below- knee amputation on 06/04/19 at [facility]. The patient was subsequently discharged to [facility] on 06/10/19. The patient during her hospitalization at [facility] had an elevated white blood cell count. The patient's sister was very worried about this and therefore had the staff at [place] follow up on this. On 06/16/19, the patient's white blood cell count was elevated at 24.1. This in conjunction with concerning appearance of her amputation stump precipitated the patient's transfer to the emergency room on . In the ER, the patient was found to have an elevated white blood cell count of 28 with a CRP of 198.61 which was up from 157.30 two days prior. There was concern for amputation stump infection and therefore she was admitted to the hospitalist service and started on vancomycin and cefepime. The patient was also found to have an elevated creatinine above her baseline that was felt to be secondary to volume depletion. Her sodium was slightly low and her potassium was elevated. With holding her MAU inhibitor and diuretics and administrating normal saline, her creatinine improved close to baseline and her sodium and potassium normalized. An MRI was ordered, however, was not performed last evening and is unable to be done at this point. Orthopedics consultation was requested. As MRI was unable to be done, I ordered a CT scan with contrast of the stump to evaluate for underlying abscess. No abscess was identified; however, there were a few gas bubbles noted within the soft tissues that could be secondary to infection or her postop state. Additionally, she was found to have occluded arterial stents in the superficial femoral and popliteal arteries. Dr. Diaz saw the patient earlier on the morning of . He was concerned for dorsal flap ischemia. Additionally, he did note the same erythema that I had noted on admission. It was Dr. Diaz's recommendation given the patient's vascular history to return to [facility] for possible reexploration of the wound. Dr. St kindly accepted the patient in transfer to the vascular surgery service. On the morning of transfer, the patient was noted to be markedly hypoglycemic. On presentation to the emergency room yesterday, her blood sugar was low at 56. Due to the low blood sugar, I reduced her dose of Lantus; however, last evening, prior to this dose being administered, her blood sugar was still low and therefore the Lantus was discontinued. Despite having the Lantus discontinued last evening, the patient's blood sugar this morning was only 40. She received crackers and juice and this did improve. The patient ate breakfast this morning. She has also remained on her Plavix and Xarelto. The patient's vital signs are completely stable. She is hemodynamically intact. The patient is stable for transfer to [facility]. FOLLOWUP CONCERNS: The patient is being transferred to [facility] today, 06/19/19. ACTIVITY LEVEL: As tolerated. DIET: N.p.o. CONDITION ON DISCHARGE: Stable. TIME SPENT: Forty five minutes was spent on the transfer of this patient. [id number]/[facility] #: [id number] MTDD
[2019-06-19] MEDS ORDERED: Vancomycin(*) 1,000 MG in NS 0.9% 250 ML* 250 ML IV SCH (14:00)
[2019-06-19] MEDS: Latanoprost 0.005%* 2.5 ml BTL BOTH EYES SCH (17:44)
[2019-06-19 20:15] VITALS: BP 142/46
[2019-06-21] MEDS ORDERED: Vancomycin Trough Check NOTE FOLLOW UP ONE (13:30)
== END 2019-06-19 20:10 | disposition short-term general hospital (02) | DRG 565 ==
LOC: ED 14:30 → MED 17:20
PROVIDERS: ADMIT Hospitalist; ATTEND Hospitalist
DX: T87.44 Infection of amputation stump, left lower extremity (principal); T82.898A Other specified complication of vascular prosthetic devices, implants and grafts, initial encounter; T87.89 Other complications of amputation stump; E11.51 Type 2 diabetes mellitus with diabetic peripheral angiopathy without gangrene; I25.10 Atherosclerotic heart disease of native coronary artery without angina pectoris; I10 Essential (primary) hypertension; K21.9 Gastro-esophageal reflux disease without esophagitis; J42 Unspecified chronic bronchitis; E11.39 Type 2 diabetes mellitus with other diabetic ophthalmic complication; H42 Glaucoma in diseases classified elsewhere; E11.42 Type 2 diabetes mellitus with diabetic polyneuropathy; F03.90 Unspecified dementia, unspecified severity, without behavioral disturbance, psychotic disturbance, mood disturbance, and anxiety; F32.9 Major depressive disorder, single episode, unspecified; E78.5 Hyperlipidemia, unspecified; E87.5 Hyperkalemia; Z66 Do not resuscitate; E11.649 Type 2 diabetes mellitus with hypoglycemia without coma; Y65.8 Other specified misadventures during surgical and medical care; I77.1 Stricture of artery; I99.8 Other disorder of circulatory system; Y83.5 Amputation of limb(s) as the cause of abnormal reaction of the patient, or of later complication, without mention of misadventure at the time of the procedure; Z79.02 Long term (current) use of antithrombotics/antiplatelets; Z79.01 Long term (current) use of anticoagulants; Z79.4 Long term (current) use of insulin; Z90.13 Acquired absence of bilateral breasts and nipples; Z89.512 Acquired absence of left leg below knee; Z87.891 Personal history of nicotine dependence; Y92.9 Unspecified place or not applicable
CPT/HCPCS: 36415; 80048; 80053; 85025; 85652; 86140; 87641; 99284; A9270-GY; J0692; J3370; Q9967